=== PATIENT | male | born 1935 | race Caucasian/White ===

== ENCOUNTER → 2016-11-29 | Outpatient (CLI) | payer MEDICARE, OTHER ==
--- NOTE | 2016-11-29 11:57 | US ---
EXAMINATION TYPE: US renal artery duplex completa DATE OF EXAM: 11/29/2016 9:42 AM COMPARISON: NONE CLINICAL HISTORY: I25.10 CAD I10 hypertension. Controlled HTN MEASUREMENTS: RENAL SIZE: Rt Kidney: 11.0 x 5.0 x 4.8cm Lt Kidney: 12.3 x 5.7 x 5.3cm RESISTANCE INDEX Right: 0.70 Left: 0.69 RA/AO RATIO (< 3.5 ) Right: 2.7 Left: 2.6 RA VELOCITY ( < 180 cm/s) Right: 179.3 cm/s Left: 178.5cm/s Proximal Aorta: 2.0 x 1.9cm Mid Aorta: 2.0 x 2.1cm Distal Aorta: 1.9 x 1.9cm Extreme technical limitations due to large amount of overlying bowel content. Bladder appears wnl, bilateral jets visualized. Visualized portions of abdominal aorta appear unremarkable, bifurcation ob scured. Thin renal cortex right kidney. NO evidence of significant renal artery stenosis at this time . Low resistive waveforms noted throughout. Brisk upstroke noted on waveform analysis. There is cortical thinning within the right kidney, cortical medullary differentiation is maintained bilaterally. Grayscale, color Doppler, spectral Doppler imaging performed of the abdominal aorta. IMPRESSION: The technologist reports technical limitations. There is no abdominal aortic aneurysm. Renal artery s tenosis is not evident on Doppler duplex exam.
--- NOTE | 2016-11-29 12:24 | US ---
EXAMINATION TYPE: US abdomen limited DATE OF EXAM: 11/29/2016 9:48 AM COMPARISON: NONE CLINICAL HISTORY: I10 hypertention/I25.10 CAD. Acid reflux EXAM MEASUREMENTS: Liver Length: 16.8 cm Gallbladder Wall: 0.3 cm CBD: 0.5 cm Right Kidney: 11.0 x 5.0 x 4.8 cm Pancreas: obscured by overlying bowel content Liver: heterogeneous Gallbladder: no evidence of stones Evidence for sonographic Davis's sign: No CBD: visualized segment appears wnl Right Kidney: thin renal cortex There is no ascites. No mass present within the visualized portions of the liver. There is no hydrone phrosis within the right kidney. IMPRESSION: Exam somewhat limited. Cortical thinning right kidney. There may be some underlying hepat ocellular disease or fatty infiltration of the liver.
== END | disposition home or self-care (01) ==
LOC: RADUSMAIN 07:52
PROVIDERS: ATTEND Internal Medicine
DX: N28.89 Other specified disorders of kidney and ureter (principal); I25.10 Atherosclerotic heart disease of native coronary artery without angina pectoris; I10 Essential (primary) hypertension; J44.9 Chronic obstructive pulmonary disease, unspecified; E78.5 Hyperlipidemia, unspecified
CPT/HCPCS: 76705; 93975

== ENCOUNTER 2018-04-26 10:30 | Emergency (ER) | payer MEDICARE, OTHER ==
[2018-04-26] MEDS ORDERED: IPRATROPIUM-ALBUTEROL 3 ML NEB INHALATION STA (10:51)
[2018-04-26] MEDS ORDERED: methylPREDNISolone SOD SUCCI 125 MG/2 ML VIAL IV STA (10:51)
--- NOTE | 2018-04-26 10:52 | ED ---
General Adult HPI - General Chief complaint: Shortness of Breath Stated complaint: Congestion Time Seen by Provider: 04/26/18 10:47 Source: patient, family, RN notes reviewed Mode of arrival: ambulatory Limitations: no limitations - History of Present Illness Initial comments: Patient is a pleasant 82-year-old male presenting to the emergency Department with cough and difficulty breathing. Onset of symptoms was last night. No fevers. Cough has been productive however patient has not noticed what color because he swallows the sputum. Cough is been less productive this morning. Patient did not sleep well last night. No chest pain. Patient does have a history of similar symptoms associated with COPD. - Related Data Home Medications Medication Instructions Recorded Confirmed Aspirin EC [Ecotrin] 325 mg PO DAILY 12/12/13 07/14/14 Atenolol [Tenormin] 25 mg PO DAILY 12/12/13 07/14/14 Isosorbide Mononitrate [Monoket] 15 mg PO 12/12/13 07/14/14 Previous Rx's Medication Instructions Recorded Albuterol Inhaler [Ventolin Hfa 1 - 2 puff INHALATION Q6HR PRN #1 07/14/14 Inhaler] inhaler Azithromycin [Zithromax Z-pack] 0 mg PO DIRECTED #6 tab 07/14/14 predniSONE 50 mg PO DAILY #4 tab 07/14/14 Albuterol Inhaler [Ventolin Hfa 2 puff INHALATION Q4HR PRN #1 07/25/15 Inhaler] inhaler Azithromycin [Zithromax Z-pack] 250 mg PO DIRECTED #6 tab 07/25/15 methylPREDNISolone Dose Pack 24 mg PO DAILY #1 tab 04/26/18 [Medrol Dose Pack] Allergies Allergy/AdvReac Type Severity Reaction Status Date / Time No Known Allergies Allergy Verified 07/25/15 00:44 Review of Systems ROS Statement: Those systems with pertinent positive or pertinent negative responses have been documented in the HPI. ROS Other: All systems not noted in ROS Statement are negative. Constitutional: Denies: fever Eyes: Denies: eye pain ENT: Denies: ear pain Respiratory: Reports: cough, dyspnea Cardiovascular: Denies: chest pain Endocrine: Denies: fatigue Gastrointestinal: Denies: abdominal pain Genitourinary: Denies: dysuria Musculoskeletal: Denies: back pain Skin: Denies: rash Neurological: Denies: weakness Past Medical History Past Medical History: COPD, Hyperlipidemia, Myocardial Infarction ([place]), Pneumonia History of Any Multi-Drug Resistant Organisms: None Reported Past Surgical History: Heart Catheterization Additional Past Surgical History / Comment(s): angioplasty after [place], no stents, pilonital cyst removal Past Psychological History: No Psychological Hx Reported Smoking Status: Former smoker Past Alcohol Use History: Occasional Past Drug Use History: None Reported General Exam Limitations: no limitations General appearance: alert, in no apparent distress Head exam: Present: atraumatic Eye exam: Present: normal appearance Neck exam: Present: normal inspection Respiratory exam: Present: decreased breath sounds. Absent: wheezes Cardiovascular Exam: Present: regular rate, normal rhythm GI/Abdominal exam: Present: soft. Absent: tenderness Extremities exam: Present: normal inspection. Absent: pedal edema, calf tenderness Back exam: Present: normal inspection Neurological exam: Present: alert Psychiatric exam: Present: normal affect, normal mood Skin exam: Present: normal color Course Vital Signs 04/26/18 04/26/18 04/26/18 10:37 11:00 11:05 Temperature 97.3 F L Pulse Rate 72 69 Respiratory 24 20 24 Rate Blood Pressure 173/75 O2 Sat by Pulse 93 L Oximetry 04/26/18 11:07 Temperature Pulse Rate 73 Respiratory 22 Rate Blood Pressure O2 Sat by Pulse Oximetry EKG Findings - EKG Comments: EKG Findings:: Normal sinus rhythm 76. MT 162. QRS 126. QT 404. QTC 454. Left axis. Right bundle branch block. No acute ST change. Medical Decision Making - Medical Decision Making Patient reevaluated and resting comfortably in bed. Pulse ox 94% on room air. Patient requests discharge home. Patient and family updated on results and plan. Patient is receptive to steroids however would not be interested in having antibiotics at this time. Patient states they usually do not work well for him. - Lab Data Result diagrams: 04/26/18 11:03 04/26/18 11:03 Lab Results 04/26/18 04/26/18 Range/Units 11:03 11:03 WBC 9.7 (3.8-10.6) k/uL RBC 4.18 L (4.30-5.90) m/uL Hgb 13.6 (13.0-17.5) gm/dL Hct 40.5 (39.0-53.0) % MCV 96.8 (80.0-100.0) fL MCH 32.4 (25.0-35.0) pg MCHC 33.5 (31.0-37.0) g/dL RDW 12.7 (11.5-15.5) % Plt Count 213 (150-450) k/uL Neutrophils % 86 % Lymphocytes % 6 % Monocytes % 6 % Eosinophils % 1 % Basophils % 0 % Neutrophils # 8.3 H (1.3-7.7) k/uL Lymphocytes # 0.5 L (1.0-4.8) k/uL Monocytes # 0.6 (0-1.0) k/uL Eosinophils # 0.1 (0-0.7) k/uL Basophils # 0.0 (0-0.2) k/uL Sodium 137 (137-145) mmol/L Potassium 4.4 (3.5-5.1) mmol/L Chloride 101 (98-107) mmol/L Carbon Dioxide 30 (22-30) mmol/L Anion Gap 6 mmol/L BUN 15 (9-20) mg/dL Creatinine 0.74 (0.66-1.25) mg/dL Est GFR (CKD-EPI)AfAm >90 (>60 ml/min/1.73 sqM) Est GFR (CKD-EPI)NonAf 85 (>60 ml/min/1.73 sqM) Glucose 127 H (74-99) mg/dL Calcium 9.0 (8.4-10.2) mg/dL Total Bilirubin 1.0 (0.2-1.3) mg/dL AST 30 (17-59) U/L ALT 24 (21-72) U/L Alkaline Phosphatase 56 (38-126) U/L Total Protein 6.7 (6.3-8.2) g/dL Albumin 3.9 (3.5-5.0) g/dL - Radiology Data Radiology results: image reviewed (Chest x-ray shows mild cardiomegaly, COPD) Disposition Clinical Impression: Acute exacerbation of chronic obstructive airways disease Disposition: HOME SELF-CARE Condition: Stable Instructions: COPD (Chronic Obstructive Pulmonary Disease) (ED) Additional Instructions: Please follow-up with primary care physician in the next couple of days for recheck. Please follow-up with Dr. Queen on the as planned. Return for difficult to breathing, fevers, worsening symptoms or other concerns. Prescriptions: methylPREDNISolone Dose Pack [Medrol Dose Pack] 24 mg PO DAILY #1 tab Is patient prescribed a controlled substance at d/c from ED?: No Referrals: Dixon Reis MD [Primary Care Provider] - 1-2 days Jonathan Queen MD [STAFF PHYSICIAN] - 1-2 days Time of Disposition: 11:57
[2018-04-26 11:18] LABS: Basophils % (A) 0 %; Eosinophils # (A) 0.1 k/uL (0-0.7); Eosinophils % (A) 1 %; HCT 40.5 % (39.0-53.0); HGB 13.6 gm/dL (13.0-17.5); Lymphocytes # (A) 0.5 k/uL (1.0-4.8); Lymphocytes % (A) 6 %; MCH 32.4 pg (25.0-35.0); MCHC 33.5 g/dL (31.0-37.0); MCV 96.8 fL (80.0-100.0); Mean Platelet Volume 7.6; Monocytes # (A) 0.6 k/uL (0-1.0); Monocytes % (A) 6 %; Neutrophils # (A) 8.3 k/uL (1.3-7.7); Neutrophils % (A) 86 %; Platelet Count 213 k/uL (150-450); RBC 4.18 m/uL (4.30-5.90); RDW 12.7 % (11.5-15.5); WBC 9.7 k/uL (3.8-10.6)
--- NOTE | 2018-04-26 11:30 | XR ---
EXAMINATION TYPE: XR chest 2V DATE OF EXAM: 04/26/2018 HISTORY: difficulty breathing. REFERENCE: Previous study dated 07/14/2014. FINDINGS: The heart is mildly enlarged. The lungs are overinflated but clear. Pleural spaces are benjamín r. IMPRESSION: 1. COPD. 2. MILD CARDIOMEGALY.
[2018-04-26 11:35] LABS: ALT 24 U/L (21-72); AST 30 U/L (17-59); Albumin 3.9 g/dL (3.5-5.0); Alkaline Phosphatase 56 U/L (38-126); Anion Gap 6 mmol/L; Blood Urea Nitrogen 15 mg/dL (9-20); Carbon Dioxide 30 mmol/L (22-30); Chloride 101 mmol/L (98-107); Glucose 127 mg/dL (74-99); Potassium 4.4 mmol/L (3.5-5.1); Sodium 137 mmol/L (137-145); Total Protein 6.7 g/dL (6.3-8.2)
[2018-04-26 12:09] VITALS: BP 179/78; PULSE 89; RESP 18; TEMP 97.1
== END 2018-04-26 12:08 | disposition home or self-care (01) ==
LOC: EC 10:30
DX: J44.1 Chronic obstructive pulmonary disease with (acute) exacerbation (principal); I25.2 Old myocardial infarction; Z79.82 Long term (current) use of aspirin; Z79.899 Other long term (current) drug therapy; Z87.891 Personal history of nicotine dependence
CPT/HCPCS: 36415; 94640; 93005; 80053; 85025; 71046; 99285; 96374; J2930

== ENCOUNTER → 2019-07-13 | Outpatient (CLI) | payer MEDICARE, OTHER ==
--- NOTE | 2019-07-14 06:30 | XR ---
EXAMINATION TYPE: XR chest 2V DATE OF EXAM: 07/13/2019 COMPARISON: Chest x-ray April 26, 2018. CTA chest October 18, 2013 HISTORY: History of heart attack and COPD with cough. TECHNIQUE: Frontal and lateral views of the chest are obtained. FINDINGS: There is background chronic emphysematous change without suspicious new focal air space op acity, pleural effusion, or pneumothorax seen. The cardiac silhouette size is stable and mildly enla rged. Multilevel spurring of thoracic spine is redemonstrated. IMPRESSION: Chronic emphysematous change and mild cardiomegaly without suspicious new acute pulmonar y process.
== END | disposition home or self-care (01) ==
LOC: RADXRMAIN 16:49
PROVIDERS: ATTEND Internal Medicine
DX: I51.7 Cardiomegaly (principal)
CPT/HCPCS: 71046

== ENCOUNTER → 2019-09-17 | Outpatient (CLI) | payer MEDICARE, OTHER ==
--- NOTE | 2019-09-18 11:31 | ECHOF ---
Referral Reason:I10 Hypertension; R60.0 Localized edema, .... MEASUREMENTS -------- HEIGHT: 175.3 cm WEIGHT: 95.3 kg BP: 140/70 RVIDd: 3.3 cm (< 3.3) IVSd: 1.2 cm (0.6 - 1.1) LVIDd: 4.8 cm (3.9 - 5.3) LVPWd: 1.1 cm (0.6 - 1.1) IVSs: 1.6 cm LVIDs: 2.8 cm LVPWs: 1.5 cm LA Diam: 3.4 cm (2.7 - 3.8) LAESV Index (A-L): 24.61 ml/m Ao Diam: 3.7 cm (2.0 - 3.7) AV Cusp: 2.0 cm (1.5 - 2.6) MV EXCURSION: 13.666 mm (> 18.000) MV EF SLOPE: 77 mm/s (70 - 150) EPSS: 0.6 cm MV E Ruddy: 1.31 m/s MV DecT: 208 ms MV A Ruddy: 0.99 m/s MV E/A Ratio: 1.32 AV maxP.30 mmHg AV meanP.08 mmHg RAP: 5.00 mmHg RVSP: 38.78 mmHg FINDINGS -------- Sinus rhythm. This was a technically adequate study. The left ventricular size is normal. There is borderline concentric left ventricular hypertrophy. Overall left ventricular systolic function is normal with, an EF between 60 - 65 %. The right ventricle is mildly enlarged. Normal LA size by volume 22+/-6 ml/m2. The right atrium is normal in size. Interatrial and interventricular septum intact. The aortic valve was not well visualized. Mild mitral annular calcification present. Mild tricuspid regurgitation present. There is mild pulmonary hypertension. The right ventricular systolic pressure, as measured by Doppler, is 38.78mmHg. The pulmonic valve was not well visualized. The aortic root size is normal. Normal inferior vena cava with normal inspiratory collapse consistent with estimated right atrial pre ssure of 5 mmHg. The inferior vena cava is mildly dilated. There is no pericardial effusion. CONCLUSIONS -------- 1. Sinus rhythm. 2. This was a technically adequate study. 3. The left ventricular size is normal. 4. There is borderline concentric left ventricular hypertrophy. 5. Overall left ventricular systolic function is normal with, an EF between 60 - 65 %. 6. The right ventricle is mildly enlarged. 7. Normal LA size by volume 22+/-6 ml/m2. 8. The right atrium is normal in size. 9. Interatrial and interventricular septum intact. 10. The aortic valve was not well visualized. 11. Mild mitral annular calcification present. 12. Mild tricuspid regurgitation present. 13. There is mild pulmonary hypertension. 14. The right ventricular systolic pressure, as measured by Doppler, is 38.78mmHg. 15. The pulmonic valve was not well visualized. 16. The aortic root size is normal. 17. Normal inferior vena cava with normal inspiratory collapse consistent with estimated right atrial pressure of 5 mmHg. 18. The inferior vena cava is mildly dilated. 19. There is no pericardial effusion. BANDSAW OPERATOR: Sofia Welch RDCS
== END | disposition home or self-care (01) ==
LOC: RADECHMAIN 16:12
PROVIDERS: ATTEND Internal Medicine
DX: I27.20 Pulmonary hypertension, unspecified (principal); I07.1 Rheumatic tricuspid insufficiency; I87.8 Other specified disorders of veins; I10 Essential (primary) hypertension
CPT/HCPCS: 93306

== ENCOUNTER 2020-11-26 18:02 | Emergency (ER) | payer MEDICARE, OTHER ==
[2020-11-26 19:02] LABS: Basophils % (A) 0 %; Eosinophils # (A) 0.2 k/uL (0-0.7); Eosinophils % (A) 2 %; HCT 46.5 % (39.0-53.0); HGB 15.2 gm/dL (13.0-17.5); Lymphocytes # (A) 0.7 k/uL (1.0-4.8); Lymphocytes % (A) 5 %; MCH 32.7 pg (25.0-35.0); MCHC 32.7 g/dL (31.0-37.0); MCV 99.8 fL (80.0-100.0); Monocytes # (A) 0.8 k/uL (0-1.0); Monocytes % (A) 6 %; Neutrophils % (A) 86 %; Platelet Count 240 k/uL (150-450); RBC 4.66 m/uL (4.30-5.90); RDW 13.2 % (11.5-15.5); WBC 12.9 k/uL (3.8-10.6)
[2020-11-26 19:13] LABS: Albumin 4.3 g/dL (3.5-5.0); Calcium 9.2 mg/dL (8.4-10.2); Potassium 4.2 mmol/L (3.5-5.1); Total Bilirubin 2.2 mg/dL (0.2-1.3); Total Protein 7.4 g/dL (6.3-8.2)
[2020-11-26 19:14] LABS: INR 1.1 (<1.2); Partial Thromboplastin Time 24.4 sec (22.0-30.0); Prothrombin Time 11.8 sec (9.0-12.0)
--- NOTE | 2020-11-26 19:18 | XR ---
EXAMINATION TYPE: XR chest 1V portable DATE OF EXAM: 11/26/2020 COMPARISON: 07/13/2019 HISTORY: Cough. Short of breath. TECHNIQUE: FINDINGS: There is slight coarsening of interstitial markings. There is no heart failure. Heart size is normal. There is no pleural effusion. There are no hilar masses. IMPRESSION: Pulmonary fibrotic changes. No acute lung disease. No change. No heart failure.
[2020-11-26] MEDS ORDERED: methylPREDNISolone SOD SUCCI 125 MG/2 ML VIAL IV STA (20:46)
--- NOTE | 2020-11-26 20:53 | ED ---
SOB HPI - General Chief Complaint: Shortness of Breath Stated Complaint: SOB/weak Source: patient Mode of arrival: ambulatory Limitations: no limitations - History of Present Illness Initial Comments: Patient is an 84-year-old male with past history of COPD who presents emergency Department with reported shortness of breath. Patient states he's had symptoms since Saturday. He was around his [id number] who has had signs of "cold". Patient developed a mild cough with chills. Has had continued shortness of breath and therefore came into the emergency room for evaluation. He has a history of COPD however does not wear home oxygen. He sees Dr. Queen. States that he normally comes of the hospital and gets a DuoNeb breathing treatment and feels better. Patient currently takes Anoro inhaler at home but does not use rescue inhaler. No recent steroid use. He denies any chest pain. Patient has chronic lower extremity edema however reports that none of the s welling is worse. No history of DVT or PE. No other alleviating, precipitating or modifying factors - Related Data Home Medications Medication Instructions Recorded Confirmed Aspirin EC [Ecotrin] 325 mg PO DAILY 12/12/13 11/26/20 atenoloL [Tenormin] 25 mg PO DAILY PRN 12/12/13 11/26/20 Furosemide [Lasix] 20 mg PO DAILY 11/26/20 11/26/20 Isosorbide Mononitrate ER [Imdur] 15 mg PO DAILY 11/26/20 11/26/20 Latanoprost/Pf [Latanoprost 0.005% 1 drop BOTH EYES HS 11/26/20 11/26/20 Eye Drop] Simvastatin [Zocor] 20 mg PO W/SUPPER 11/26/20 11/26/20 Tamsulosin [Flomax] 0.4 mg PO PC-SUPPER 11/26/20 11/26/20 Umeclidinium Brm/Vilanterol Tr 1 puff INHALATION RT-DAILY 11/26/20 11/26/20 [Anoro Ellipta 62.5-25 Mcg INH] Previous Rx's Medication Instructions Recorded Albuterol Nebulized [Ventolin 2.5 mg INHALATION Q4H PRN #25 nebu 11/26/20 Nebulized] Ipratropium Nebulized [Atrovent 0.5 mg INHALATION Q4HR #25 neb 11/26/20 Nebulized 0.2 MG/ML] predniSONE [Deltasone] 20 mg PO BID #10 tab 11/26/20 Allergies Allergy/AdvReac Type Severity Reaction Status Date / Time No Known Allergies Allergy Verified 11/26/20 20:09 Review of Systems ROS Statement: Those systems with pertinent positive or pertinent negative responses have been documented in the HPI. ROS Other: All systems not noted in ROS Statement are negative. Past Medical History Past Medical History: COPD, Hyperlipidemia, Myocardial Infarction ([place]), Pneumonia History of Any Multi-Drug Resistant Organisms: None Reported Past Surgical History: Heart Catheterization Additional Past Surgical History / Comment(s): angioplasty after [place], no stents, pilonital cyst removal, Past Psychological History: No Psychological Hx Reported Smoking Status: Former smoker Past Alcohol Use History: Occasional Past Drug Use History: None Reported General Exam Limitations: no limitations Course Vital Signs 11/26/20 11/26/20 11/26/20 18:16 18:38 20:28 Temperature 99.8 F H Pulse Rate 85 82 Respiratory 18 18 16 Rate Blood Pressure 140/66 140/65 O2 Sat by Pulse 93 L 95 Oximetry 11/26/20 21:39 Temperature Pulse Rate 84 Respiratory 18 Rate Blood Pressure 125/65 O2 Sat by Pulse 92 L Oximetry Medical Decision Making - Medical Decision Making Upon arrival the patient was placed in room 7. A thorough history and physical exam was performed. IV is established. Laboratory studies were conducted. Patient maintained saturations above 92%. He does not have any increased work of breathing. Lab studies are reviewed and demonstrates that the patient is positive for covid. Chest x-ray demonstrates a very fibrotic changes. Due to his history of COPD the patient is given 125 mg of Solu-Medrol. Did discuss BAM antibody infusion for which the patient did agree to. Patient is instructed that he will begin steroids tomorrow. Patient will be discharged home on prednisone 20 mg twice daily. Also wrote patient for a nebulizer. Ipratropium and albuterol ordered. He needs to follow up with his primary care doctor in 2- 4 days. Instructed him to buy a pulse ox and return if his oxygen saturations are less than 90%. Patient did agree to this. Given written and verbal discharge instructions and discharged home in stable condition - Lab Data Result diagrams: 11/26/20 18:41 11/26/20 18:41 Lab Results 11/26/20 11/26/20 11/26/20 Range/Units 18:41 18:41 18:41 WBC 12.9 H (3.8-10.6) k/uL RBC 4.66 (4.30-5.90) m/uL Hgb 15.2 (13.0-17.5) gm/dL Hct 46.5 (39.0-53.0) % MCV 99.8 (80.0-100.0) fL MCH 32.7 (25.0-35.0) pg MCHC 32.7 (31.0-37.0) g/dL RDW 13.2 (11.5-15.5) % Plt Count 240 (150-450) k/uL MPV 8.0 Neutrophils % 86 % Lymphocytes % 5 % Monocytes % 6 % Eosinophils % 2 % Basophils % 0 % Neutrophils # 11.0 H (1.3-7.7) k/uL Lymphocytes # 0.7 L (1.0-4.8) k/uL Monocytes # 0.8 (0-1.0) k/uL Eosinophils # 0.2 (0-0.7) k/uL Basophils # 0.0 (0-0.2) k/uL PT 11.8 (9.0-12.0) sec INR 1.1 (<1.2) APTT 24.4 (22.0-30.0) sec Sodium 135 L (137-145) mmol/L Potassium 4.2 (3.5-5.1) mmol/L Chloride 96 L (98-107) mmol/L Carbon Dioxide 30 (22-30) mmol/L Anion Gap 9 mmol/L BUN 22 H (9-20) mg/dL Creatinine 0.98 (0.66-1.25) mg/dL Est GFR (CKD-EPI)AfAm 82 (>60 ml/min/1.73 sqM) Est GFR (CKD-EPI)NonAf 71 (>60 ml/min/1.73 sqM) Glucose 119 H (74-99) mg/dL Plasma Lactic Acid Kael (0.7-2.0) mmol/L Calcium 9.2 (8.4-10.2) mg/dL Total Bilirubin 2.2 H (0.2-1.3) mg/dL AST 38 (17-59) U/L ALT 22 (4-49) U/L Alkaline Phosphatase 107 (38-126) U/L Troponin I (0.000-0.034) ng/mL NT-Pro-B Natriuret Pep pg/mL Total Protein 7.4 (6.3-8.2) g/dL Albumin 4.3 (3.5-5.0) g/dL Influenza Type A (PCR) (Not Detectd) Influenza Type B (PCR) (Not Detectd) RSV (PCR) (Not Detectd) SARS-CoV-2 (PCR) (Not Detectd) 11/26/20 11/26/20 11/26/20 Range/Units 18:41 18:41 18:41 WBC (3.8-10.6) k/uL RBC (4.30-5.90) m/uL Hgb (13.0-17.5) gm/dL Hct (39.0-53.0) % MCV (80.0-100.0) fL MCH (25.0-35.0) pg MCHC (31.0-37.0) g/dL RDW (11.5-15.5) % Plt Count (150-450) k/uL MPV Neutrophils % % Lymphocytes % % Monocytes % % Eosinophils % % Basophils % % Neutrophils # (1.3-7.7) k/uL Lymphocytes # (1.0-4.8) k/uL Monocytes # (0-1.0) k/uL Eosinophils # (0-0.7) k/uL Basophils # (0-0.2) k/uL PT (9.0-12.0) sec INR (<1.2) APTT (22.0-30.0) sec Sodium (137-145) mmol/L Potassium (3.5-5.1) mmol/L Chloride (98-107) mmol/L Carbon Dioxide (22-30) mmol/L Anion Gap mmol/L BUN (9-20) mg/dL Creatinine (0.66-1.25) mg/dL Est GFR (CKD-EPI)AfAm (>60 ml/min/1.73 sqM) Est GFR (CKD-EPI)NonAf (>60 ml/min/1.73 sqM) Glucose (74-99) mg/dL Plasma Lactic Acid Kael 0.9 (0.7-2.0) mmol/L Calcium (8.4-10.2) mg/dL Total Bilirubin (0.2-1.3) mg/dL AST (17-59) U/L ALT (4-49) U/L Alkaline Phosphatase (38-126) U/L Troponin I <0.012 (0.000-0.034) ng/mL NT-Pro-B Natriuret Pep 958 pg/mL Total Protein (6.3-8.2) g/dL Albumin (3.5-5.0) g/dL Influenza Type A (PCR) (Not Detectd) Influenza Type B (PCR) (Not Detectd) RSV (PCR) (Not Detectd) SARS-CoV-2 (PCR) (Not Detectd) 11/26/20 Range/Units 18:41 WBC (3.8-10.6) k/uL RBC (4.30-5.90) m/uL Hgb (13.0-17.5) gm/dL Hct (39.0-53.0) % MCV (80.0-100.0) fL MCH (25.0-35.0) pg MCHC (31.0-37.0) g/dL RDW (11.5-15.5) % Plt Count (150-450) k/uL MPV Neutrophils % % Lymphocytes % % Monocytes % % Eosinophils % % Basophils % % Neutrophils # (1.3-7.7) k/uL Lymphocytes # (1.0-4.8) k/uL Monocytes # (0-1.0) k/uL Eosinophils # (0-0.7) k/uL Basophils # (0-0.2) k/uL PT (9.0-12.0) sec INR (<1.2) APTT (22.0-30.0) sec Sodium (137-145) mmol/L Potassium (3.5-5.1) mmol/L Chloride (98-107) mmol/L Carbon Dioxide (22-30) mmol/L Anion Gap mmol/L BUN (9-20) mg/dL Creatinine (0.66-1.25) mg/dL Est GFR (CKD-EPI)AfAm (>60 ml/min/1.73 sqM) Est GFR (CKD-EPI)NonAf (>60 ml/min/1.73 sqM) Glucose (74-99) mg/dL Plasma Lactic Acid Kael (0.7-2.0) mmol/L Calcium (8.4-10.2) mg/dL Total Bilirubin (0.2-1.3) mg/dL AST (17-59) U/L ALT (4-49) U/L Alkaline Phosphatase (38-126) U/L Troponin I (0.000-0.034) ng/mL NT-Pro-B Natriuret Pep pg/mL Total Protein (6.3-8.2) g/dL Albumin (3.5-5.0) g/dL Influenza Type A (PCR) Not Detected (Not Detectd) Influenza Type B (PCR) Not Detected (Not Detectd) RSV (PCR) Not Detected (Not Detectd) SARS-CoV-2 (PCR) Detected A (Not Detectd) - EKG Data EKG Comments: EKG demonstrates sinus rhythm with PACs. Rate of 83. [place] interval 200. QRS 128. QTC of 427. 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 Disposition Clinical Impression: Acute exacerbation of COPD with asthma, COVID-19 Disposition: HOME SELF-CARE Condition: Stable Instructions (If sedation given, give patient instructions): Coronavirus Disease 2019 (COVID-19) Additional Instructions: Please follow up with your PCP in 2-4 days. Return to the ED for any new or worsening symptoms. Use the nebulizer every 4 hours. Take the prednisone as directed. Return if your pulse ox is less than 90% or you are working hard to breathe Prescriptions: Ipratropium Nebulized [Atrovent Nebulized 0.2 MG/ML] 0.5 mg INHALATION Q4HR #25 neb predniSONE [Deltasone] 20 mg PO BID #10 tab Albuterol Nebulized [Ventolin Nebulized] 2.5 mg INHALATION Q4H PRN #25 nebu PRN Reason: difficulty in breathing Is patient prescribed a controlled substance at d/c from ED?: No Referrals: Matteo Chase MD [Primary Care Provider] - 1-2 days Time of Disposition: 20:53
[2020-11-26] MEDS ORDERED: BAMLANIVIMAB (EUA) 700 MG, ETESEVIMAB (EUA) 1,400 MG in SODIUM CHLORIDE 0.9% 50 ML IVPB ONE (21:30)
[2020-11-26] MEDS ORDERED: SODIUM CHLORIDE 0.9% 50 ML IVPB ONE (21:30)
[2020-11-26 23:05] VITALS: BP 140/74; PULSE 82; RESP 16; TEMP 100
== END 2020-11-26 23:17 | disposition home or self-care (01) ==
LOC: EC 18:02
DX: U07.1 COVID-19 (principal); J44.1 Chronic obstructive pulmonary disease with (acute) exacerbation; E78.5 Hyperlipidemia, unspecified; I25.2 Old myocardial infarction; Z95.5 Presence of coronary angioplasty implant and graft; Z87.891 Personal history of nicotine dependence; Z79.82 Long term (current) use of aspirin
CPT/HCPCS: 36415; 93005; 83880; 80053; 83605; 84484; 85025; 85610; 85730; 87636; 71045; 99285; 96365; 96375; J2930; Q0245

== ENCOUNTER 2020-12-04 00:29 | Emergency (ER) | payer MEDICARE, OTHER ==
[2020-12-04 00:50] VITALS: BP 149/80; PULSE 72; RESP 19; TEMP 98
--- NOTE | 2020-12-04 01:56 | ED ---
Male Urogenital HPI - General Chief complaint: Urogenital Stated complaint: Difficulty urinating Time Seen by Provider: 12/04/20 00:40 Source: patient Mode of arrival: ambulatory - History of Present Illness Initial comments: This patient is an 84-year-old man who presents with complaint that he has not been able to pass urine for number of hours and now is having intense suprapubic fullness and pressure with the urge to urinate. Complaint: other (Urinary retention) -: hour(s) Location: abdomen Radiation: none Severity: moderate Quality: other (Pressure) Consistency: constant Improves with: none Worsens with: none Reports: urinary retention - Related Data Home Medications Medication Instructions Recorded Confirmed Aspirin EC [Ecotrin] 325 mg PO DAILY 12/12/13 11/26/20 atenoloL [Tenormin] 25 mg PO DAILY PRN 12/12/13 11/26/20 Furosemide [Lasix] 20 mg PO DAILY 11/26/20 11/26/20 Isosorbide Mononitrate ER [Imdur] 15 mg PO DAILY 11/26/20 11/26/20 Latanoprost/Pf [Latanoprost 0.005% 1 drop BOTH EYES HS 11/26/20 11/26/20 Eye Drop] Simvastatin [Zocor] 20 mg PO W/SUPPER 11/26/20 11/26/20 Tamsulosin [Flomax] 0.4 mg PO PC-SUPPER 11/26/20 11/26/20 Umeclidinium Brm/Vilanterol Tr 1 puff INHALATION RT-DAILY 11/26/20 11/26/20 [Anoro Ellipta 62.5-25 Mcg INH] Previous Rx's Medication Instructions Recorded Albuterol Nebulized [Ventolin 2.5 mg INHALATION Q4H PRN #25 nebu 11/26/20 Nebulized] Ipratropium Nebulized [Atrovent 0.5 mg INHALATION Q4HR #25 neb 11/26/20 Nebulized 0.2 MG/ML] predniSONE [Deltasone] 20 mg PO BID #10 tab 11/26/20 Allergies Allergy/AdvReac Type Severity Reaction Status Date / Time No Known Allergies Allergy Verified 12/04/20 00:49 Review of Systems ROS Statement: Those systems with pertinent positive or pertinent negative responses have been documented in the HPI. ROS Other: All systems not noted in ROS Statement are negative. Constitutional: Denies: fever, chills Respiratory: Denies: cough, dyspnea Cardiovascular: Denies: chest pain, edema Gastrointestinal: Reports: as per HPI, abdominal pain. Denies: nausea, vomiting, diarrhea Genitourinary: Denies: dysuria, frequency, hematuria, discharge, testicular pain, testicular mass Musculoskeletal: Denies: back pain Skin: Denies: rash Past Medical History Past Medical History: COPD, Hyperlipidemia, Myocardial Infarction ([place]), Pneumonia History of Any Multi-Drug Resistant Organisms: None Reported Past Surgical History: Heart Catheterization Additional Past Surgical History / Comment(s): angioplasty after [place], no stents, pilonital cyst removal, Past Psychological History: No Psychological Hx Reported Smoking Status: Former smoker Past Alcohol Use History: Occasional Past Drug Use History: None Reported General Exam General appearance: alert, in no apparent distress Head exam: Present: atraumatic, normocephalic Eye exam: Present: normal appearance Respiratory exam: Present: normal lung sounds bilaterally. Absent: respiratory distress, wheezes, rales, rhonchi, stridor Cardiovascular Exam: Present: regular rate, normal rhythm, normal heart sounds. Absent: systolic murmur, diastolic murmur, rubs, gallop GI/Abdominal exam: Present: soft, tenderness, guarding, other. Absent: distended, rebound, rigid Extremities exam: Present: normal inspection. Absent: pedal edema Back exam: Absent: CVA tenderness (R), CVA tenderness (L) Neurological exam: Present: alert Skin exam: Present: warm, dry, intact, normal color. Absent: rash Course Vital Signs 12/04/20 00:47 Temperature 98 F Pulse Rate 72 Respiratory 19 Rate Blood Pressure 149/80 O2 Sat by Pulse 95 Oximetry Medical Decision Making - Medical Decision Making Patient is a 4-year-old man presenting with urinary retention. Starks catheters placed by nursing staff and patient did have relief of symptoms. Disposition Clinical Impression: Urinary retention Disposition: HOME SELF-CARE Condition: Good Instructions (If sedation given, give patient instructions): Urinary Retention in Men (ED) Is patient prescribed a controlled substance at d/c from ED?: No Referrals: Matteo Chase MD [Primary Care Provider] - 1-2 days Navi Valenzuela MD [STAFF PHYSICIAN] - 1-2 days
== END 2020-12-04 02:00 | disposition home or self-care (01) ==
LOC: EC 00:29
DX: R33.9 Retention of urine, unspecified (principal); R10.9 Unspecified abdominal pain; J44.9 Chronic obstructive pulmonary disease, unspecified; E78.5 Hyperlipidemia, unspecified; I25.2 Old myocardial infarction; Z87.891 Personal history of nicotine dependence; Z79.52 Long term (current) use of systemic steroids; Z79.51 Long term (current) use of inhaled steroids; Z79.82 Long term (current) use of aspirin
CPT/HCPCS: 51702; 51798; 99283

== ENCOUNTER 2021-02-11 11:52 | Inpatient (IN) | payer MEDICARE, OTHER ==
[2021-02-11 12:38] LABS: Basophils % (A) 0 %; Eosinophils # (A) 0.3 k/uL (0-0.7); Eosinophils % (A) 2 %; HGB 14.2 gm/dL (13.0-17.5); Lymphocytes # (A) 1.5 k/uL (1.0-4.8); Lymphocytes % (A) 14 %; MCH 33.4 pg (25.0-35.0); MCHC 33.8 g/dL (31.0-37.0); MCV 98.9 fL (80.0-100.0); Mean Platelet Volume 8.3; Monocytes # (A) 0.6 k/uL (0-1.0); Monocytes % (A) 5 %; Neutrophils # (A) 8.1 k/uL (1.3-7.7); Neutrophils % (A) 75 %; Platelet Count 281 k/uL (150-450); RBC 4.24 m/uL (4.30-5.90); RDW 13.2 % (11.5-15.5); WBC 10.8 k/uL (3.8-10.6)
--- NOTE | 2021-02-11 12:41 | ED ---
SOB HPI - General Chief Complaint: Shortness of Breath Stated Complaint: SOB Time Seen by Provider: 02/11/21 11:58 Source: patient, RN notes reviewed, old records reviewed Mode of arrival: wheelchair Limitations: no limitations - History of Present Illness Initial Comments: This is a 85-year-old male with a history of COPD also history of heart disease with a cardiac cath in the past but no stents who presents with complaints of shortness of breath is been going on for about a week or so he also states she's has some sharp pain to the left and right side of his chest some radiation of the right side of his neck. Currently he is asymptomatic no pain or shortness of breath at rest. He's had some phlegm no blood produced. No fevers chills nausea vomiting sweats. MD Complaint: shortness of breath, cough - Related Data Home Medications Medication Instructions Recorded Confirmed Aspirin EC [Ecotrin] 325 mg PO DAILY 12/12/13 11/26/20 atenoloL [Tenormin] 25 mg PO DAILY PRN 12/12/13 11/26/20 Furosemide [Lasix] 20 mg PO DAILY 11/26/20 11/26/20 Isosorbide Mononitrate ER [Imdur] 15 mg PO DAILY 11/26/20 11/26/20 Latanoprost/Pf [Latanoprost 0.005% 1 drop BOTH EYES HS 11/26/20 11/26/20 Eye Drop] Simvastatin [Zocor] 20 mg PO W/SUPPER 11/26/20 11/26/20 Tamsulosin [Flomax] 0.4 mg PO PC-SUPPER 11/26/20 11/26/20 Umeclidinium Brm/Vilanterol Tr 1 puff INHALATION RT-DAILY 11/26/20 11/26/20 [Anoro Ellipta 62.5-25 Mcg INH] Previous Rx's Medication Instructions Recorded Albuterol Nebulized [Ventolin 2.5 mg INHALATION Q4H PRN #25 nebu 11/26/20 Nebulized] Ipratropium Nebulized [Atrovent 0.5 mg INHALATION Q4HR #25 neb 11/26/20 Nebulized 0.2 MG/ML] predniSONE [Deltasone] 20 mg PO BID #10 tab 11/26/20 Allergies Allergy/AdvReac Type Severity Reaction Status Date / Time No Known Allergies Allergy Verified 02/11/21 11:57 Review of Systems ROS Statement: Those systems with pertinent positive or pertinent negative responses have been documented in the HPI. ROS Other: All systems not noted in ROS Statement are negative. Past Medical History Past Medical History: COPD, Hyperlipidemia, Myocardial Infarction ([place]), Pneumonia History of Any Multi-Drug Resistant Organisms: None Reported Past Surgical History: Heart Catheterization Additional Past Surgical History / Comment(s): angioplasty after [place], no stents, pilonital cyst removal, Past Psychological History: No Psychological Hx Reported Smoking Status: Former smoker Past Alcohol Use History: Daily Past Drug Use History: None Reported General Exam - General Exam Comments Initial Comments: This is a well-developed well-nourished awake alert oriented times female he is somewhat hard of hearing Limitations: no limitations General appearance: alert, in no apparent distress Head exam: Present: atraumatic, normocephalic, normal inspection Eye exam: Present: normal appearance, PERRL, EOMI. Absent: scleral icterus, conjunctival injection, periorbital swelling ENT exam: Present: normal exam, mucous membranes moist Neck exam: Present: normal inspection, full ROM, other (No stridor JVD or bruits). Absent: tenderness, meningismus, lymphadenopathy Respiratory exam: Present: decreased breath sounds (Ms. breath sounds on the left compared to the right). Absent: respiratory distress, wheezes, rales, rhon chi, stridor Cardiovascular Exam: Present: regular rate, normal rhythm, normal heart sounds. Absent: systolic murmur, diastolic murmur, rubs, gallop, clicks GI/Abdominal exam: Present: soft, normal bowel sounds. Absent: distended, tenderness, guarding, rebound, rigid Extremities exam: Present: normal inspection, full ROM, normal capillary refill. Absent: tenderness, pedal edema, joint swelling, calf tenderness Back exam: Present: normal inspection Neurological exam: Present: alert, oriented X3, CN II-XII intact Psychiatric exam: Present: normal affect, normal mood Skin exam: Present: warm, dry, intact, normal color. Absent: rash Course Vital Signs 02/11/21 02/11/21 02/11/21 11:53 12:24 14:28 Temperature 98.0 F Pulse Rate 82 86 Respiratory 16 18 18 Rate Blood Pressure 151/77 135/84 O2 Sat by Pulse 94 L 97 Oximetry Medical Decision Making - Medical Decision Making I did discuss findings with the patient family members patient's had no further chest pain. Patient does have evidence of pneumonia and left pleural effusion patient be admitted the case was discussed with Dr. Villa - Lab Data Result diagrams: 02/11/21 12:18 02/11/21 12:18 Lab Results 02/11/21 02/11/21 02/11/21 Range/Units 12:18 12:18 12:18 WBC 10.8 H (3.8-10.6) k/uL RBC 4.24 L (4.30-5.90) m/uL Hgb 14.2 (13.0-17.5) gm/dL Hct 42.0 (39.0-53.0) % MCV 98.9 (80.0-100.0) fL MCH 33.4 (25.0-35.0) pg MCHC 33.8 (31.0-37.0) g/dL RDW 13.2 (11.5-15.5) % Plt Count 281 (150-450) k/uL MPV 8.3 Neutrophils % 75 % Lymphocytes % 14 % Monocytes % 5 % Eosinophils % 2 % Basophils % 0 % Neutrophils # 8.1 H (1.3-7.7) k/uL Lymphocytes # 1.5 (1.0-4.8) k/uL Monocytes # 0.6 (0-1.0) k/uL Eosinophils # 0.3 (0-0.7) k/uL Basophils # 0.0 (0-0.2) k/uL Manual Slide Review Performed PT 11.6 (9.0-12.0) sec INR 1.1 (<1.2) APTT 23.6 (22.0-30.0) sec D-Dimer 1.46 H (<0.60) mg/L FEU Sodium 135 L (137-145) mmol/L Potassium 4.0 (3.5-5.1) mmol/L Chloride 100 (98-107) mmol/L Carbon Dioxide 28 (22-30) mmol/L Anion Gap 7 mmol/L BUN 15 (9-20) mg/dL Creatinine 0.77 (0.66-1.25) mg/dL Est GFR (CKD-EPI)AfAm >90 (>60 ml/min/1.73 sqM) Est GFR (CKD-EPI)NonAf 82 (>60 ml/min/1.73 sqM) Glucose 99 (74-99) mg/dL Plasma Lactic Acid Kael (0.7-2.0) mmol/L Calcium 9.1 (8.4-10.2) mg/dL Magnesium 2.0 (1.6-2.3) mg/dL Total Bilirubin 1.1 (0.2-1.3) mg/dL AST 33 (17-59) U/L ALT 14 (4-49) U/L Alkaline Phosphatase 92 (38-126) U/L Creatine Kinase 75 (55-170) U/L Troponin I (0.000-0.034) ng/mL NT-Pro-B Natriuret Pep pg/mL Total Protein 6.6 (6.3-8.2) g/dL Albumin 3.8 (3.5-5.0) g/dL 02/11/21 02/11/21 02/11/21 Range/Units 12:18 12:18 12:20 WBC (3.8-10.6) k/uL RBC (4.30-5.90) m/uL Hgb (13.0-17.5) gm/dL Hct (39.0-53.0) % MCV (80.0-100.0) fL MCH (25.0-35.0) pg MCHC (31.0-37.0) g/dL RDW (11.5-15.5) % Plt Count (150-450) k/uL MPV Neutrophils % % Lymphocytes % % Monocytes % % Eosinophils % % Basophils % % Neutrophils # (1.3-7.7) k/uL Lymphocytes # (1.0-4.8) k/uL Monocytes # (0-1.0) k/uL Eosinophils # (0-0.7) k/uL Basophils # (0-0.2) k/uL Manual Slide Review PT (9.0-12.0) sec INR (<1.2) APTT (22.0-30.0) sec D-Dimer (<0.60) mg/L FEU Sodium (137-145) mmol/L Potassium (3.5-5.1) mmol/L Chloride (98-107) mmol/L Carbon Dioxide (22-30) mmol/L Anion Gap mmol/L BUN (9-20) mg/dL Creatinine (0.66-1.25) mg/dL Est GFR (CKD-EPI)AfAm (>60 ml/min/1.73 sqM) Est GFR (CKD-EPI)NonAf (>60 ml/min/1.73 sqM) Glucose (74-99) mg/dL Plasma Lactic Acid Kael 1.0 (0.7-2.0) mmol/L Calcium (8.4-10.2) mg/dL Magnesium (1.6-2.3) mg/dL Total Bilirubin (0.2-1.3) mg/dL AST (17-59) U/L ALT (4-49) U/L Alkaline Phosphatase (38-126) U/L Creatine Kinase (55-170) U/L Troponin I <0.012 (0.000-0.034) ng/mL NT-Pro-B Natriuret Pep 415 pg/mL Total Protein (6.3-8.2) g/dL Albumin (3.5-5.0) g/dL - EKG Data -: EKG Interpreted by Me EKG shows normal: sinus rhythm EKG Comments: Sinus rhythm with marked sinus arrhythmia rate 81. 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 Reasonably report), image reviewed Disposition Clinical Impression: Pneumonia, COPD (chronic obstructive pulmonary disease), Pleural effusion, Atypical chest pain Disposition: ADMITTED IP TO THIS HOSP Condition: Fair Referrals: Matteo Chase MD [Primary Care Provider] - 1-2 days
[2021-02-11 12:42] LABS: ALT 14 U/L (4-49); AST 33 U/L (17-59); African American GFR (CKD) >90 (>60 ml/min/1.73 sqM); Albumin 3.8 g/dL (3.5-5.0); Alkaline Phosphatase 92 U/L (38-126); Anion Gap 7 mmol/L; Blood Urea Nitrogen 15 mg/dL (9-20); Calcium 9.1 mg/dL (8.4-10.2); Carbon Dioxide 28 mmol/L (22-30); Chloride 100 mmol/L (98-107); Creatine Kinase 75 U/L (55-170); Glucose 99 mg/dL (74-99); Non-African American GFR(CKD) 82 (>60 ml/min/1.73 sqM); Sodium 135 mmol/L (137-145); Total Bilirubin 1.1 mg/dL (0.2-1.3); Total Protein 6.6 g/dL (6.3-8.2)
[2021-02-11 12:43] LABS: INR 1.1 (<1.2); Partial Thromboplastin Time 23.6 sec (22.0-30.0); Prothrombin Time 11.6 sec (9.0-12.0)
--- NOTE | 2021-02-11 13:02 | XR ---
EXAMINATION TYPE: XR chest 2V DATE OF EXAM: 02/11/2021 COMPARISON: 11/26/2020 HISTORY: Shortness of breath TECHNIQUE: Frontal and lateral views of the chest are obtained. FINDINGS: Scattered senescent parenchymal changes noted. Hyperinflation compatible with COPD. No evidence for infiltrate. No evidence for atelectasis. Heart size is stable. Mediastinal structures are stable and grossly unremarkable. No evidence for hilar prominence. Degenerative changes dorsal spine. IMPRESSION: 1. No evidence for acute pulmonary disease.
--- NOTE | 2021-02-11 14:20 | CT ---
EXAMINATION TYPE: CT angio chest DATE OF EXAM: 02/11/2021 COMPARISON: 10/18/2013 HISTORY: SOB, chest pain CT DLP: 443.8 mGycm Automated exposure control for dose reduction was used. CONTRAST: Performed with IV Contrast, patient injected with 100 mL of Isovue 370. There are 3-D post processed images. There is some mild pulmonary emphysema. There is left pleural effusion. There is left basilar atelect asis. Heart size is normal. There is no pericardial effusion. There is no mediastinal adenopathy. There are no hilar masses. There is normal contrast opacification of the pulmonary arteries. There are no filling defects. There is some spurring in the thoracic spin e. Sternum is intact. IMPRESSION: Mild pulmonary emphysema. No evidence of pulmonary embolism. Left pleural effusion and left basilar mild infiltrate and atelectasis.
[2021-02-11] MEDS ORDERED: AZITHROMYCIN 500 MG in SODIUM CHLORIDE 0.9% 250 ML IVPB STA (15:13)
[2021-02-11] MEDS ORDERED: PNEUMONIA PROTOCOL UTILIZED 1 EACH MISC PO PRN (15:13)
[2021-02-11] MEDS ORDERED: SODIUM CHLORIDE 0.9% 1,000 ML IV SCH (15:15)
[2021-02-11] MEDS ORDERED: atenoloL 25 MG TAB PO PRN (15:15)
[2021-02-11] MEDS ORDERED: NALOXONE 0.4 MG/ML 1 ML VIAL IV PRN (15:45)
[2021-02-11] MEDS ORDERED: ACETAMINOPHEN TAB 325 MG TAB PO PRN (15:45)
--- NOTE | 2021-02-11 16:02 | P.HPIM ---
History of Present Illness H&P Date: 02/11/21 Chief Complaint: sob 85-year-old male with a history of COPD, hx of [place] many years ago treated with angioplasty here for worsening shortness of breath, left sided pleuritic chest pain and weakness/fatigue. Chest pain radiates to the left side of the back and it is worse with breathing and coughing. Denied sick contacts. Symptoms have been going on for about a week or so but got really worse since yesterday. No fevers. No chills. No n/v/d. He states that his O2 sats at home were in the upper 80s. He usually does not wear home O2. He has chronic cough with phlegm, no recent changes. CT chest done in the ER revealed no PE, it also showed left pleural effusion with left basilar infiltrates vs. atelectasis. Labs, EKG unremarkable. Review of Systems Complete review of system done, pertinent positives per HPI, otherwise negative Past Medical History Past Medical History: COPD, Hyperlipidemia, Myocardial Infarction ([place]), Pneumonia History of Any Multi-Drug Resistant Organisms: None Reported Past Surgical History: Heart Catheterization Additional Past Surgical History / Comment(s): angioplasty after [place], no stents, pilonital cyst removal, Past Psychological History: No Psychological Hx Reported Smoking Status: Former smoker Past Alcohol Use History: Daily Past Drug Use History: None Reported Medications and Allergies Home Medications Medication Instructions Recorded Confirmed Type Aspirin EC [Ecotrin] 325 mg PO DAILY 12/12/13 02/11/21 History atenoloL [Tenormin] 25 mg PO DAILY PRN 12/12/13 02/11/21 History Furosemide [Lasix] 20 mg PO DAILY 11/26/20 02/11/21 History Isosorbide Mononitrate ER [Imdur] 15 mg PO DAILY 11/26/20 02/11/21 History Simvastatin [Zocor] 20 mg PO W/SUPPER 11/26/20 02/11/21 History Tamsulosin [Flomax] 0.4 mg PO PC-SUPPER 11/26/20 02/11/21 History Umeclidinium Brm/Vilanterol Tr 1 puff INHALATION RT-DAILY 11/26/20 02/11/21 Hist ory [Anoro Ellipta 62.5-25 Mcg INH] Ascorbic Acid [Vitamin C] 500 mg PO DAILY 02/11/21 02/11/21 History Cholecalciferol [Vitamin D3 (25 25 mcg PO DAILY 02/11/21 02/11/21 History Mcg = 1000 Iu)] Psyllium Husk (with Sugar) 1 tsp PO BID 02/11/21 02/11/21 History [Metamucil Powder] Zinc 50 mg PO DAILY 02/11/21 02/11/21 History Allergies Allergy/AdvReac Type Severity Reaction Status Date / Time No Known Allergies Allergy Verified 02/11/21 15:38 Physical Exam Vitals: Vital Signs Temp Pulse Resp BP Pulse Ox 02/11/21 14:28 86 18 135/84 97 02/11/21 12:24 18 02/11/21 11:53 98.0 F 82 16 151/77 94 L Intake and Output 02/11/21 02/11/21 02/11/21 06:59 14:59 22:59 Other: Weight 95.254 kg Constitutional: No acute distress, conversant, pleasant Eyes:Anicteric sclerae, moist conjunctiva, no lid-lag, PERRLA, ENMT: Oropharynx clear, no erythema, exudates Neck: Supple, FROM, no masses, or JVD, No carotid bruits, No thyromegaly Lungs: Diminished breath sounds, scattered wheezing, Clear to percussion, Normal respiratory effort, no accessory muscle use Cardiovascular: Heart regular in rate and rhythm, No murmurs, gallops, or rubs, No peripheral edema Abdominal: Soft, Nontender, no guarding, rebound or rigidity, Normoactive bowel sounds, No hepatomegaly, No splenomegaly, No palpable mass Skin: Normal temperature, tone, texture, turgor, no induration, No subcutaneous nodules, No rash, lesions, No ulcers Extremities: No digital cyanosis, No clubbing, Pedal pulses intact and symmetrical, Radial pulses intact and symmetrical, No calf tenderness Psychiatric: Alert and oriented to person, place and time, appropriate affect, intact judgement Neuro: Muscles Strength 5/5 in all 4 extremities, Sensation to light touch grossly present throughout, Cranial nerves II-XII grossly intact, no focal sensory deficits Results CBC & Chem 7: 02/11/21 12:18 02/11/21 12:18 Labs: Abnormal Lab Results - Last 24 Hours (Table) 02/11/21 02/11/21 02/11/21 Range/Units 12:18 12:18 12:18 WBC 10.8 H (3.8-10.6) k/uL RBC 4.24 L (4.30-5.90) m/uL Neutrophils # 8.1 H (1.3-7.7) k/uL D-Dimer 1.46 H (<0.60) mg/L FEU Sodium 135 L (137-145) mmol/L Assessment and Plan Plan: Acute on chronic hypoxic respiratory failure O2 supplements as needed. SOB sec to Community-acquired pneumonia with left pleural effusion/COPD exacerbation Start ceftriaxone and azithromycin Start steroids Duonebs. Chest pain: Likey pleuritic sec to above Cycle trops Hx of CAD Hyperlipidemia BPH Stable resume meds Admitted to inpatient expected length of stay >2 midnights.
[2021-02-11] MEDS: IPRATROPIUM-ALBUTEROL 3 ML NEB INHALATION SCH ×2 (17:15→19:51)
[2021-02-11] MEDS ORDERED: ATORVASTATIN 10 MG TAB PO SCH (17:30)
[2021-02-11] MEDS ORDERED: TAMSULOSIN 0.4 MG CAP.ER.24H PO SCH (18:30)
[2021-02-11] MEDS: predniSONE 20 MG TAB PO SCH (19:35)
[2021-02-11] MEDS ORDERED: LATANOPROST 0.005% OPHTH DROPS 2.5 ML BTL BOTH EYES SCH (21:00)
[2021-02-12 07:49] LABS: Basophils % (A) 0 %; Eosinophils % (A) 0 %; HCT 43.2 % (39.0-53.0); HGB 14.3 gm/dL (13.0-17.5); Lymphocytes # (A) 1.9 k/uL (1.0-4.8); Lymphocytes % (A) 17 %; MCH 33.4 pg (25.0-35.0); MCHC 33.2 g/dL (31.0-37.0); MCV 100.6 fL (80.0-100.0); Macrocytosis Slight; Mean Platelet Volume 7.9; Monocytes # (A) 0.7 k/uL (0-1.0); Monocytes % (A) 7 %; Neutrophils % (A) 74 %; Platelet Count 318 k/uL (150-450); RBC 4.29 m/uL (4.30-5.90); RDW 13.7 % (11.5-15.5); WBC 10.9 k/uL (3.8-10.6)
[2021-02-12 08:18] LABS: ALT 18 U/L (4-49); AST 31 U/L (17-59); African American GFR (CKD) >90 (>60 ml/min/1.73 sqM); Albumin 3.9 g/dL (3.5-5.0); Alkaline Phosphatase 96 U/L (38-126); Anion Gap 12 mmol/L; Blood Urea Nitrogen 16 mg/dL (9-20); Calcium 9.4 mg/dL (8.4-10.2); Carbon Dioxide 25 mmol/L (22-30); Chloride 102 mmol/L (98-107); Glucose 130 mg/dL (74-99); Magnesium 2.2 mg/dL (1.6-2.3); Non-African American GFR(CKD) 86 (>60 ml/min/1.73 sqM); Phosphorus 3.2 mg/dL (2.5-4.5); Sodium 139 mmol/L (137-145); Total Bilirubin 0.7 mg/dL (0.2-1.3); Total Protein 6.8 g/dL (6.3-8.2)
--- NOTE | 2021-02-12 08:25 | XR ---
EXAMINATION TYPE: XR chest 2V DATE OF EXAM: 02/12/2021 COMPARISON: 02/11/2021 HISTORY: 85 years Male. STUDY INDICATION GIVEN: Pneumonia TECHNIQUE: Frontal and lateral chest radiographs FINDINGS AND IMPRESSION: Normal bibasilar atelectasis. No focal airspace disease, or pneumothorax. Prominent cardiac silhouette. Normal mediastinal silhouette. Trace left pleural effusion stable. No pleural effusion on the right. No acute osseous abnormality. Degenerative changes demonstrated in the spine.
[2021-02-12 08:46] VITALS: BP 142/66; PULSE 80; RESP 18; TEMP 97.8
[2021-02-12] MEDS: predniSONE 20 MG TAB PO SCH (08:48)
[2021-02-12] MEDS ORDERED: AZITHROMYCIN 500 MG TAB PO SCH (09:00)
[2021-02-12] MEDS ORDERED: ASPIRIN 325 MG TAB PO SCH (09:00)
[2021-02-12] MEDS ORDERED: FUROSEMIDE 20 MG TAB PO SCH (09:00)
[2021-02-12] MEDS ORDERED: ISOSORBIDE MONONITRATE ER 15 MG TAB PO SCH (09:00)
[2021-02-12] MEDS: IPRATROPIUM-ALBUTEROL 3 ML NEB INHALATION SCH (09:20)
--- NOTE | 2021-02-12 09:21 | P.DS ---
Providers Date of admission: 02/11/21 15:13 Expected date of discharge: 02/12/21 Attending physician: Eric Villa MD Primary care physician: Matteo Chase MD Hospital Course: 85-year-old male with a history of COPD, hx of [place] many years ago treated with angioplasty here for worsening shortness of breath, left sided pleuritic chest pain and weakness/fatigue. Chest pain radiates to the left side of the back and it is worse with breathing and coughing. Denied sick contacts. Symptoms have been going on for about a week or so but got really worse since yesterday. No fevers. No chills. No n/v/d. He states that his O2 sats at home were in the upper 80s. He usually does not wear home O2. He has chronic cough with phlegm, no recent changes. CT chest done in the ER revealed no PE, it also showed left pleural effusion with left basilar infiltrates vs. atelectasis. Labs, EKG unremarkable. Chest examination revealed significant bilateral wheezing and scattered rhonchi. Patient was subsequently admitted, he was started on oxygen per nasal cannula to keep saturations above 92%. He was also started on community-acquired pneumonia coverage with ceftriaxone and azithromycin.. He was also started on steroids IV as well as bronchodilators with DuoNeb. The next day patient was significantly better. He is ambulating around his room without difficulties. He is ready to go home, will be discharged in a stable condition. Time for discharge 36 min Patient Condition at Discharge: Fair Plan - Discharge Summary Discharge Rx Participant: No New Discharge Prescriptions: New methylPREDNISolone Dose Pack [Medrol Dose Pack] 4 mg PO DIRECTED #21 package Doxycycline [Vibramycin] 100 mg PO BID 5 Days #10 capsule Continue Aspirin EC [Ecotrin] 325 mg PO DAILY atenoloL [Tenormin] 25 mg PO DAILY PRN PRN Reason: HIGH BLOOD PRESSURE Umeclidinium Brm/Vilanterol Tr [Anoro Ellipta 62.5-25 Mcg INH] 1 puff INHALATION RT-DAILY Tamsulosin [Flomax] 0.4 mg PO PC-SUPPER Furosemide [Lasix] 20 mg PO DAILY Simvastatin [Zocor] 20 mg PO W/SUPPER Isosorbide Mononitrate ER [Imdur] 15 mg PO DAILY Zinc 50 mg PO DAILY Psyllium Husk (with Sugar) [Metamucil Powder] 1 tsp PO BID Cholecalciferol [Vitamin D3 (25 Mcg = 1000 Iu)] 25 mcg PO DAILY Ascorbic Acid [Vitamin C] 500 mg PO DAILY Discharge Medication List Aspirin EC [Ecotrin] 325 mg PO DAILY 12/12/13 [History] atenoloL [Tenormin] 25 mg PO DAILY PRN 12/12/13 [History] Furosemide [Lasix] 20 mg PO DAILY 11/26/20 [History] Isosorbide Mononitrate ER [Imdur] 15 mg PO DAILY 11/26/20 [History] Simvastatin [Zocor] 20 mg PO W/SUPPER 11/26/20 [History] Tamsulosin [Flomax] 0.4 mg PO PC-SUPPER 11/26/20 [History] Umeclidinium Brm/Vilanterol Tr [Anoro Ellipta 62.5-25 Mcg INH] 1 puff INHALATION RT-DAILY 11/26/20 [History] Ascorbic Acid [Vitamin C] 500 mg PO DAILY 02/11/21 [History] Cholecalciferol [Vitamin D3 (25 Mcg = 1000 Iu)] 25 mcg PO DAILY 02/11/21 [History] Psyllium Husk (with Sugar) [Metamucil Powder] 1 tsp PO BID 02/11/21 [History] Zinc 50 mg PO DAILY 02/11/21 [History] Doxycycline [Vibramycin] 100 mg PO BID 5 Days #10 capsule 02/12/21 [Rx] methylPREDNISolone Dose Pack [Medrol Dose Pack] 4 mg PO DIRECTED #21 package 02/12/21 [Rx] Follow up Appointment(s)/Referral(s): Matteo Chase MD [Primary Care Provider] - 1-2 days
[2021-02-12 12:17] LABS: Chol/HDL Ratio 2.73; Cholesterol 131 mg/dL (0-200); LDL Cholesterol,Calculated 65.4 mg/dL (0.0-131.0)
== END 2021-02-12 11:37 | disposition home or self-care (01) | DRG 193 ==
LOC: EC 11:52 → 3SCARD 15:13
PROVIDERS: ADMIT Internal Medicine; ATTEND Internal Medicine
DX: J18.9 Pneumonia, unspecified organism (principal); J96.21 Acute and chronic respiratory failure with hypoxia; J44.0 Chronic obstructive pulmonary disease with (acute) lower respiratory infection; J91.8 Pleural effusion in other conditions classified elsewhere; J44.1 Chronic obstructive pulmonary disease with (acute) exacerbation; I25.2 Old myocardial infarction; I25.10 Atherosclerotic heart disease of native coronary artery without angina pectoris; E78.5 Hyperlipidemia, unspecified; Z79.82 Long term (current) use of aspirin; Z79.899 Other long term (current) drug therapy; Z87.891 Personal history of nicotine dependence; N40.0 Benign prostatic hyperplasia without lower urinary tract symptoms
CPT/HCPCS: 36415; 71046; 71275; 80053; 80061; 82550; 83605; 83735; 83880; 84100; 84484; 85025; 85379; 85610; 85730; 87040; 93005; 94640; 96361; 96365; 99285

== ENCOUNTER 2021-04-17 08:24 | Emergency (ER) | payer MEDICARE, OTHER ==
[2021-04-17 08:36] VITALS: RESP 18; TEMP 98.3
--- NOTE | 2021-04-17 08:52 | ED ---
General Adult HPI - General Chief complaint: Chest Pain Stated complaint: SOB, lung pain Time Seen by Provider: 04/17/21 08:26 Source: patient Mode of arrival: wheelchair Limitations: no limitations - History of Present Illness Initial comments: Dictation was produced using [employer] dictation software. please excuse any grammatical, word or spelling errors. Chief Complaint: 85-year-old male presents to the emergency department for ple uritic chest pain History of Present Illness: She is an 85-year-old male who presents to the emergency for pleuritic chest pain. Patient states that he had sharp right- sided chest pain that he noticed while he was sleeping. He states the symptoms were severe enough to wake him up from bed. Patient states that his right anterior chest. States that he was in the yard doing yard work yesterday. Patient denies any shortness of breath. He has history of COPD cardiac arrests dyslipidemia. Patient denies any numbness tingling paresthesias. He has no pain with movement of his right upper extremity. He denies any lower extremity symptoms. No history of blood clots. The ROS documented in this emergency department record has been reviewed and confirmed by me. Those systems with pertinent positive or negative responses have been documented in the HPI. All other systems are other negative and/or noncontributory. PHYSICAL EXAM: General Impression: Alert and oriented x3, not in acute distress HEENT: Normocephalic atraumatic, extra-ocular movements intact, pupils equal and reactive to light bilaterally, mucous membranes moist. Cardiovascular: Heart regular rate and rhythm Chest: Able to complete full sentences, no retractions, no tachypnea, pain is not reproduced with palpation to the right anterior chest, lungs are clear to auscultation bilaterally Abdomen: abdomen soft, non-tender, non-distended, no organomegaly Musculoskeletal: Pulses present and equal in all extremities, no peripheral edema Motor: no focal deficits noted Neurological: CN II-XII grossly intact, no focal motor or sensory deficits noted Skin: Intact with no visualized rashes Psych: Normal affect and mood ED course: A 85-year-old male presents to the emergency department for pleuritic right-sided chest pain all signs upon arrival shows oxygen saturation of 93%, rest of vital signs within acceptable limits. Return evaluation obtained. CBC, coag panel, metabolic panel within acceptable limits. Negative troponin. Negative brain natruretic peptide. Covered negative. D-dimer is 1.49. CT angios the chest ordered showing no CT evidence for pulmonary embolism. There is a tiny right pleural effusion no infiltrates noted. Patient's clinical presentation consistent with pleurisy secondary to p leural effusion. Patient's well-appearing. He has no signs or symptoms of infection. Patient be discharged and advised to follow-up with primary care doctor. EKG interpretation: Ventricular rate 63, sinus rhythm, right bundle branch block, MI interval 186, QRS 134, QTC 427. No MI prolongation, no QTC prolongation, no ST or T-wave changes noted. EKG compared to 02/11/2021 showing no changes. Overall, this EKG is unremarkable - Related Data Home Medications Medication Instructions Recorded Confirmed Aspirin EC [Ecotrin] 325 mg PO DAILY 12/12/13 04/17/21 atenoloL [Tenormin] 25 mg PO HS 12/12/13 04/17/21 Furosemide [Lasix] 20 mg PO BID 11/26/20 04/17/21 Isosorbide Mononitrate ER [Imdur] 15 mg PO DAILY 11/26/20 04/17/21 Simvastatin [Zocor] 20 mg PO W/SUPPER 11/26/20 04/17/21 Tamsulosin [Flomax] 0.4 mg PO BID 11/26/20 04/17/21 Umeclidinium Brm/Vilanterol Tr 1 puff INHALATION RT-DAILY 11/26/20 04/17/21 [Anoro Ellipta 62.5-25 Mcg INH] Ascorbic Acid [Vitamin C] 500 mg PO DAILY 02/11/21 04/17/21 Cholecalciferol [Vitamin D3 (25 25 mcg PO DAILY 02/11/21 04/17/21 Mcg = 1000 Iu)] Zinc 50 mg PO DAILY 02/11/21 04/17/21 Latanoprost [Xalatan 0.005%] 1 drop BOTH EYES HS 04/17/21 04/17/21 Allergies Allergy/AdvReac Type Severity Reaction Status Date / Time No Known Allergies Allergy Verified 04/17/21 10:32 Review of Systems ROS Statement: Those systems with pertinent positive or pertinent negative responses have been documented in the HPI. ROS Other: All systems not noted in ROS Statement are negative. Past Medical History Past Medical History: COPD, Hyperlipidemia, Myocardial Infarction ([place]), Pneumonia Last Myocardial Infarction Date:: Apr 1994 History of Any Multi-Drug Resistant Organisms: None Reported Past Surgical History: Heart Catheterization Additional Past Surgical History / Comment(s): angioplasty after [place], no stents, pilonital cyst removal, Past Anesthesia/Blood Transfusion Reactions: No Reported Reaction Past Psychological History: No Psychological Hx Reported Smoking Status: Former smoker Past Alcohol Use History: Daily Past Drug Use History: None Reported - Past Family History Father History Unknown: Yes General Exam Limitations: no limitations Course Vital Signs 04/17/21 08:31 Temperature 98.3 F Pulse Rate 68 Respiratory 18 Rate Blood Pressure 125/69 O2 Sat by Pulse 93 L Oximetry Medical Decision Making - Lab Data Result diagrams: 04/17/21 09:12 04/17/21 09:12 Lab Results 04/17/21 04/17/21 04/17/21 Range/Units 09:12 09:12 09:12 WBC 8.0 (3.8-10.6) k/uL RBC 4.40 (4.30-5.90) m/uL Hgb 14.6 (13.0-17.5) gm/dL Hct 44.0 (39.0-53.0) % MCV 100.0 (80.0-100.0) fL MCH 33.2 (25.0-35.0) pg MCHC 33.2 (31.0-37.0) g/dL RDW 13.1 (11.5-15.5) % Plt Count 247 (150-450) k/uL MPV 8.0 Neutrophils % 68 % Lymphocytes % 17 % Monocytes % 9 % Eosinophils % 3 % Basophils % 1 % Neutrophils # 5.5 (1.3-7.7) k/uL Lymphocytes # 1.4 (1.0-4.8) k/uL Monocytes # 0.7 (0-1.0) k/uL Eosinophils # 0.2 (0-0.7) k/uL Basophils # 0.1 (0-0.2) k/uL PT 11.0 (9.0-12.0) sec INR 1.0 (<1.2) APTT 22.9 (22.0-30.0) sec D-Dimer 1.49 H (<0.60) mg/L FEU Sodium 136 L (137-145) mmol/L Potassium 3.9 (3.5-5.1) mmol/L Chloride 102 (98-107) mmol/L Carbon Dioxide 28 (22-30) mmol/L Anion Gap 6 mmol/L BUN 12 (9-20) mg/dL Creatinine 0.68 (0.66-1.25) mg/dL Est GFR (CKD-EPI)AfAm >90 (>60 ml/min/1.73 sqM) Est GFR (CKD-EPI)NonAf 87 (>60 ml/min/1.73 sqM) Glucose 133 H (74-99) mg/dL Calcium 9.0 (8.4-10.2) mg/dL Magnesium 2.0 (1.6-2.3) mg/dL Total Bilirubin 0.7 (0.2-1.3) mg/dL AST 28 (17-59) U/L ALT 14 (4-49) U/L Alkaline Phosphatase 70 (38-126) U/L Troponin I (0.000-0.034) ng/mL NT-Pro-B Natriuret Pep pg/mL Total Protein 6.5 (6.3-8.2) g/dL Albumin 3.6 (3.5-5.0) g/dL Coronavirus (PCR) (Not Detectd) 04/17/21 04/17/21 04/17/21 Range/Units 09:12 09:12 10:15 WBC (3.8-10.6) k/uL RBC (4.30-5.90) m/uL Hgb (13.0-17.5) gm/dL Hct (39.0-53.0) % MCV (80.0-100.0) fL MCH (25.0-35.0) pg MCHC (31.0-37.0) g/dL RDW (11.5-15.5) % Plt Count (150-450) k/uL MPV Neutrophils % % Lymphocytes % % Monocytes % % Eosinophils % % Basophils % % Neutrophils # (1.3-7.7) k/uL Lymphocytes # (1.0-4.8) k/uL Monocytes # (0-1.0) k/uL Eosinophils # (0-0.7) k/uL Basophils # (0-0.2) k/uL PT (9.0-12.0) sec INR (<1.2) APTT (22.0-30.0) sec D-Dimer (<0.60) mg/L FEU Sodium (137-145) mmol/L Potassium (3.5-5.1) mmol/L Chloride (98-107) mmol/L Carbon Dioxide (22-30) mmol/L Anion Gap mmol/L BUN (9-20) mg/dL Creatinine (0.66-1.25) mg/dL Est GFR (CKD-EPI)AfAm (>60 ml/min/1.73 sqM) Est GFR (CKD-EPI)NonAf (>60 ml/min/1.73 sqM) Glucose (74-99) mg/dL Calcium (8.4-10.2) mg/dL Magnesium (1.6-2.3) mg/dL Total Bilirubin (0.2-1.3) mg/dL AST (17-59) U/L ALT (4-49) U/L Alkaline Phosphatase (38-126) U/L Troponin I <0.012 (0.000-0.034) ng/mL NT-Pro-B Natriuret Pep 509 pg/mL Total Protein (6.3-8.2) g/dL Albumin (3.5-5.0) g/dL Coronavirus (PCR) Not Detected (Not Detectd) Disposition Clinical Impression: Pleurisy with effusion Disposition: HOME SELF-CARE Condition: Good Instructions (If sedation given, give patient instructions): Pleurisy (ED) Is patient prescribed a controlled substance at d/c from ED?: No Referrals: Matteo Chase MD [Primary Care Provider] - 1-2 days
[2021-04-17 09:20] LABS: Basophils # (A) 0.1 k/uL (0-0.2); Basophils % (A) 1 %; Eosinophils # (A) 0.2 k/uL (0-0.7); Eosinophils % (A) 3 %; HGB 14.6 gm/dL (13.0-17.5); Lymphocytes # (A) 1.4 k/uL (1.0-4.8); Lymphocytes % (A) 17 %; MCH 33.2 pg (25.0-35.0); MCHC 33.2 g/dL (31.0-37.0); Monocytes # (A) 0.7 k/uL (0-1.0); Monocytes % (A) 9 %; Neutrophils # (A) 5.5 k/uL (1.3-7.7); Neutrophils % (A) 68 %; Platelet Count 247 k/uL (150-450); RDW 13.1 % (11.5-15.5)
[2021-04-17 09:36] LABS: Partial Thromboplastin Time 22.9 sec (22.0-30.0)
[2021-04-17 09:43] LABS: ALT 14 U/L (4-49); AST 28 U/L (17-59); African American GFR (CKD) >90 (>60 ml/min/1.73 sqM); Albumin 3.6 g/dL (3.5-5.0); Alkaline Phosphatase 70 U/L (38-126); Anion Gap 6 mmol/L; Blood Urea Nitrogen 12 mg/dL (9-20); Carbon Dioxide 28 mmol/L (22-30); Chloride 102 mmol/L (98-107); Glucose 133 mg/dL (74-99); Non-African American GFR(CKD) 87 (>60 ml/min/1.73 sqM); Potassium 3.9 mmol/L (3.5-5.1); Sodium 136 mmol/L (137-145); Total Bilirubin 0.7 mg/dL (0.2-1.3); Total Protein 6.5 g/dL (6.3-8.2)
--- NOTE | 2021-04-17 09:46 | XR ---
EXAMINATION TYPE: XR chest 1V portable DATE OF EXAM: 04/17/2021 COMPARISON: 02/12/2021 INDICATION: Short of breath TECHNIQUE: Single frontal view of the chest is obtained. FINDINGS: The heart size is upper limits of normal. The pulmonary vasculature is normal. The lungs are clear. IMPRESSION: 1. No acute pulmonary process.
--- NOTE | 2021-04-17 11:26 | CT ---
EXAMINATION TYPE: CT angio chest DATE OF EXAM: 04/17/2021 11:11 AM COMPARISON: CTA chest February 11, 2021 HISTORY: SOB. Elevated D-dimer. Chest pain CT DLP: 470.5 mGycm Automated exposure control for dose reduction was used. CONTRAST: CTA scan of the thorax is performed without and with IV Contrast, patient injected with 100 ml mL of Isovue 370, pulmonary embolism protocol. MIP images are created and reviewed. FINDINGS: LUNGS: Background Mild to moderate underlying emphysematous changes greatest in the upper lungs is r edemonstrated. Trace right-sided pleural effusion on current study. Small to tiny left basilar pleura l effusion on current study with associated compressive atelectasis. There is additional trapped foca l pleural fluid in the posterior superior aspect of the left major fissure mimicking solid mass axial image 39. Stable focal 1.7 x 0.5 cm anterior right lung scar. MEDIASTINUM: There is satisfactory enhancement of the pulmonary artery and its branches, there is no CT evidence for pulmonary embolism. There are no new greater than 1 cm hilar or mediastinal lymph no alex. No cardiomegaly or pericardial effusion is seen. OTHER: Subareolar gynecomastia bilaterally is redemonstrated. IMPRESSION: No CT evidence for acute pulmonary embolism. Tiny right pleural effusion and slightly larger small size left pleural effusion on current study wit h trapped component in the superior-posterior left major fissure. Background mild to moderate underly ing emphysematous change redemonstrated without suspicious new focal infiltrate.
[2021-04-17 12:02] VITALS: BP 104/73; PULSE 61
== END 2021-04-17 12:09 | disposition home or self-care (01) ==
LOC: EC 08:24
DX: J90 Pleural effusion, not elsewhere classified (principal); E78.5 Hyperlipidemia, unspecified; I25.2 Old myocardial infarction; J44.9 Chronic obstructive pulmonary disease, unspecified; Z87.891 Personal history of nicotine dependence; Z20.822 Contact with and (suspected) exposure to COVID-19; Z79.899 Other long term (current) drug therapy
CPT/HCPCS: 36415; 93005; 85379; 83880; 80053; 83735; 84484; 85025; 85610; 85730; 87635; 71045; 71275; 99285; Q9967

== ENCOUNTER → 2021-04-28 | Outpatient (CLI) | payer MEDICARE, OTHER | END | disposition home or self-care (01) | LOC: LABWHC1 11:30 | PROVIDERS: ATTEND Internal Medicine Interventional Cardiology | DX: E03.9 Hypothyroidism, unspecified (principal) | CPT/HCPCS: 36415; 84443 ==

== ENCOUNTER → 2021-05-11 | Outpatient (CLI) | payer MEDICARE, OTHER ==
--- NOTE | 2021-05-11 17:05 | ECHOF ---
Referral Reason:I25.10 coronary artery disease MEASUREMENTS -------- HEIGHT: 175.3 cm WEIGHT: 95.3 kg BP: 125/66 IVSd: 1.5 cm (0.6 - 1.1) LVIDd: 3.9 cm (3.9 - 5.3) LVPWd: 1.4 cm (0.6 - 1.1) EDV(Teich): 68 ml IVSs: 1.9 cm LVIDs: 2.7 cm LVPWs: 1.4 cm %IVS Thck: 29 % ESV(Teich): 26 ml EF(Teich): 61 % %FS: 32 % SV(Teich): 41 ml LVOT Diam: 2.4 cm LA Diam: 3.6 cm (2.7 - 3.8) RVIDd: 3.5 cm (< 3.3) LALs A4C: 5.9 cm LAAs A4C: 20.3 cm LAESV A-L A4C: 59 ml LAESV MOD A4C: 57 ml LALs A2C: 6.5 cm LAAs A2C: 23.4 cm LAESV A-L A2C: 71 ml LAESV MOD A2C: 70 ml LAESV(A-L): 69 ml LAESV Index (A-L): 32.48 ml/m Ao Diam: 4.0 cm (2.0 - 3.7) AV Cusp: 2.5 cm (1.5 - 2.6) EPSS: 0.7 cm MV DecT: 233 ms MV PHT: 51 ms MVA By PHT: 4.3 cm AV Vmax: 1.71 m/s AV maxP.75 mmHg AV Vmax: 1.77 m/s AV Vmean: 1.15 m/s AV maxP.53 mmHg AV meanP.27 mmHg AV Env.Ti: 307 ms AV VTI: 35.3 cm TR Vmax: 3.02 m/s TR maxP.36 mmHg RAP: 5.00 mmHg RVSP: 41.36 mmHg MV EF SLOPE: 59.86 mm/s (70 - 150) MV EXCURSION: 16.40 mm (> 18.000) FINDINGS -------- Atrial fibrillation. This was a technically difficult study with suboptimal views. The left ventricular size is normal. There is moderate concentric left ventricular hypertrophy. O verall left ventricular systolic function is normal with, an EF between 55 - 60 %. The right ventricle is mildly enlarged. LA is midly dilated 29-33ml/m2. The right atrium is normal in size. 5 ml of Lumason was utilized for enhancement of images. Interatrial and interventricular septum intact. There is mild aortic valve sclerosis. Peak/mean gradient across the Aortic Valve is 12.53mmHg / 6.2 7mmHg. The mitral valve leaflets are mildly thickened. Mild mitral annular calcification present. Mild m itral regurgitation is present. Moderate tricuspid regurgitation present. There is mild pulmonary hypertension. The right ventric ular systolic pressure, as measured by Doppler, is 41.36mmHg. Trace/mild (physiologic) pulmonic regurgitation. The aortic root is dilated measuring 4.0cm. Normal inferior vena cava with normal inspiratory collapse consistent with estimated right atrial pre ssure of 5 mmHg. There is no pericardial effusion. CONCLUSIONS -------- 1. The left ventricular size is normal. 2. There is moderate concentric left ventricular hypertrophy. 3. Overall left ventricular systolic function is normal with, an EF between 55 - 60 %. 4. The right ventricle is mildly enlarged. 5. LA is midly dilated 29-33ml/m2. 6. 5 ml of Lumason was utilized for enhancement of images. 7. There is mild aortic valve sclerosis. 8. Peak/mean gradient across the Aortic Valve is 12.53mmHg / 6.27mmHg. 9. The mitral valve leaflets are mildly thickened. 10. Mild mitral annular calcification present. 11. Mild mitral regurgitation is present. 12. Moderate tricuspid regurgitation present. 13. There is mild pulmonary hypertension. 14. The right ventricular systolic pressure, as measured by Doppler, is 41.36mmHg. 15. Trace/mild (physiologic) pulmonic regurgitation. 16. The aortic root is dilated measuring 4.0cm. 17. There is no pericardial effusion. LIFT SUPERVISOR: Sofia Welch RDCS
== END | disposition home or self-care (01) ==
LOC: RADECHMAIN 14:57
PROVIDERS: ATTEND Internal Medicine
DX: I08.1 Rheumatic disorders of both mitral and tricuspid valves (principal); I27.20 Pulmonary hypertension, unspecified
CPT/HCPCS: C8929; Q9950; 93306

== ENCOUNTER 2021-06-11 10:07 | Emergency (ER) | payer MEDICARE, OTHER ==
[2021-06-11 10:28] VITALS: TEMP 96.8
--- NOTE | 2021-06-11 11:22 | ED ---
General Adult HPI - General Chief complaint: Urogenital Stated complaint: back pain, trouble urinating Time Seen by Provider: 06/11/21 11:06 Source: patient, family, RN notes reviewed Mode of arrival: ambulatory Limitations: no limitations - History of Present Illness Initial comments: This an 85 show male presents emergency from chief complaint of unable to urinate. Patient states he was dribbling, forcing urine, but states that his been unable to urinate, increasing pressures abdomen. Patient states that he's had a full catheter several times in the past she states that every time he is started on prednisone this happens. Patient states that she was recently started on 40 mg of prednisone by Dr. Queen. Patient does see urology does take Flomax. - Related Data Home Medications Medication Instructions Recorded Confirmed Aspirin EC [Ecotrin] 325 mg PO DAILY 12/12/13 04/17/21 atenoloL [Tenormin] 25 mg PO HS 12/12/13 04/17/21 Furosemide [Lasix] 20 mg PO BID 11/26/20 04/17/21 Isosorbide Mononitrate ER [Imdur] 15 mg PO DAILY 11/26/20 04/17/21 Simvastatin [Zocor] 20 mg PO W/SUPPER 11/26/20 04/17/21 Tamsulosin [Flomax] 0.4 mg PO BID 11/26/20 04/17/21 Umeclidinium Brm/Vilanterol Tr 1 puff INHALATION RT-DAILY 11/26/20 04/17/21 [Anoro Ellipta 62.5-25 Mcg INH] Ascorbic Acid [Vitamin C] 500 mg PO DAILY 02/11/21 04/17/21 Cholecalciferol [Vitamin D3 (25 25 mcg PO DAILY 02/11/21 04/17/21 Mcg = 1000 Iu)] Zinc 50 mg PO DAILY 02/11/21 04/17/21 Latanoprost [Xalatan 0.005%] 1 drop BOTH EYES HS 04/17/21 04/17/21 Allergies Allergy/AdvReac Type Severity Reaction Status Date / Time No Known Allergies Allergy Verified 06/11/21 10:24 Review of Systems ROS Statement: Those systems with pertinent positive or pertinent negative responses have been documented in the HPI. ROS Other: All systems not noted in ROS Statement are negative. Past Medical History Past Medical History: COPD, Hyperlipidemia, Myocardial Infarction ([place]), Pneumonia Last Myocardial Infarction Date:: Apr 1994 History of Any Multi-Drug Resistant Organisms: None Reported Past Surgical History: Heart Catheterization Additional Past Surgical History / Comment(s): angioplasty after [place], no stents, pilonital cyst removal, Past Anesthesia/Blood Transfusion Reactions: No Reported Reaction Past Psychological History: No Psychological Hx Reported Smoking Status: Former smoker Past Alcohol Use History: Occasional Past Drug Use History: None Reported - Past Family History Father History Unknown: Yes General Exam Limitations: no limitations General appearance: alert, in no apparent distress Head exam: Present: atraumatic, normocephalic, normal inspection Eye exam: Present: normal appearance, PERRL, EOMI. Absent: scleral icterus, conjunctival injection, periorbital swelling ENT exam: Present: normal exam, mucous membranes moist Respiratory exam: Present: normal lung sounds bilaterally. Absent: respiratory distress, wheezes, rales, rhonchi, stridor Cardiovascular Exam: Present: regular rate, normal rhythm, normal heart sounds. Absent: systolic murmur, diastolic murmur, rubs, gallop, clicks GI/Abdominal exam: Present: soft, distended, tenderness, normal bowel sounds. Absent: guarding, rebound, rigid Neurological exam: Present: alert Course Vital Signs 06/11/21 10:24 Temperature 96.8 F L Pulse Rate 95 Respiratory 20 Rate Blood Pressure 112/66 O2 Sat by Pulse 93 L Oximetry Medical Decision Making - Medical Decision Making Patient had urinary retention Starks catheter is placed symptoms have all resolved patient be discharged urine was cultured. Disposition Clinical Impression: Urinary retention Disposition: HOME SELF-CARE Condition: Stable Instructions (If sedation given, give patient instructions): Urinary Retention in Men (ED) Additional Instructions: Please return to the Emergency Department if symptoms worsen or any other concerns. Is patient prescribed a controlled substance at d/c from ED?: No Referrals: Matteo Chase MD [Primary Care Provider] - 1-2 days Navi Valenzuela MD [STAFF PHYSICIAN] - 1-2 days Time of Disposition: 12:16
[2021-06-11 12:21] VITALS: BP 112/81; PULSE 87; RESP 18
[2021-06-11 12:38] LABS: Appearance,Urine Clear (Clear); Bilirubin,Urine Negative (Negative); Blood,Urine Small (Negative); Color,Urine Yellow; Glucose,Urine (UA) Negative (Negative); Ketones,Urine Negative (Negative); Leukocyte Esterase,Urine Negative (Negative); Nitrite,Urine Negative (Negative); PH, Urine 6.5 (5.0-8.0); Protein,Urine Negative (Negative); RBC,Urine 39 /hpf (0-5); Specific Gravity,Urine 1.009 (1.001-1.035); Urobilinogen,Urine <2.0 mg/dL (<2.0); WBC,Urine 1 /hpf (0-5)
== END 2021-06-11 12:51 | disposition home or self-care (01) ==
LOC: EC 10:07
DX: R33.9 Retention of urine, unspecified (principal); J44.9 Chronic obstructive pulmonary disease, unspecified; I25.2 Old myocardial infarction; E78.5 Hyperlipidemia, unspecified; Z87.891 Personal history of nicotine dependence; Z79.82 Long term (current) use of aspirin; Z79.899 Other long term (current) drug therapy
CPT/HCPCS: 51702; 81001; 99283

== ENCOUNTER 2021-06-19 16:22 | Inpatient (IN) | payer MEDICARE, OTHER ==
[2021-06-19] MEDS ORDERED: VANCOMYCIN IV PER PHARMACY 1 EACH MISC MISCELLANE PRN (23:22)
[2021-06-19] MEDS ORDERED: VANCOMYCIN 1,500 MG in SODIUM CHLORIDE 0.9% 250 ML IVPB ONE (23:30)
--- NOTE | 2021-06-19 23:51 | XR ---
EXAMINATION TYPE: XR chest 2V DATE OF EXAM: 06/19/2021 COMPARISON: 04/17/2021 HISTORY: Short of breath leg edema TECHNIQUE: FINDINGS: There is some consolidation and pleural thickening on the left lower lateral chest wall. Th e right lung is fairly clear. There is no heart failure. Heart size is normal. Bony thorax is intact. IMPRESSION: Significant pleural thickening and infiltrate in the lateral left lower lobe appears new compared to old exam. No heart failure. This could be a pulmonary infarct.
--- NOTE | 2021-06-20 00:23 | ED ---
General Adult HPI - General Chief complaint: Extremity Problem,Nontraumatic Stated complaint: leg redness, swelling Time Seen by Provider: 06/19/21 23:13 Source: patient Mode of arrival: ambulatory Limitations: no limitations - History of Present Illness Initial comments: 85 year-old male patient presents to the emergency department for evaluation of bilateral lower extremity swelling and erythema. Patient states symptoms started about 4 days ago. States that his legs are weeping. Denies history of similar symptoms. Denies any chest pain or shortness of breath. Denies fever or chills. States he was seen by his primary care physician today and was told to come in for IV antibiotics and admission. Patient denies any recent rash, cough, abdominal pain, nausea, vomiting, diarrhea, constipation, back pain, numbness, tingling, dizziness, weakness, hematuria, dysuria, urinary urgency, urinary frequency, headache, visual changes, or any other complaints. Reports pain with movement of the legs. - Related Data Home Medications Medication Instructions Recorded Confirmed Simvastatin [Zocor] 20 mg PO DAILY 11/26/20 06/19/21 Tamsulosin [Flomax] 0.4 mg PO BID 11/26/20 06/19/21 Ascorbic Acid [Vitamin C] 500 mg PO DAILY 02/11/21 06/19/21 Cholecalciferol [Vitamin D3 (25 50 mcg PO DAILY 02/11/21 06/19/21 Mcg = 1000 Iu)] Zinc 50 mg PO DAILY 02/11/21 06/19/21 Albuterol Inhaler [Ventolin Hfa 2 puff INHALATION RT-QID PRN 06/19/21 06/19/21 Inhaler] Albuterol Nebulized [Ventolin 2.5 mg INHALATION RT-QID PRN 06/19/21 06/19/21 Nebulized] Erythromycin Ophth Oint [Romycin 1 applic BOTH EYES DAILY 06/19/21 06/19/21 Ophth Oint] Fluticasone/Umeclidin/Vilanter 1 puff INHALATION RT-DAILY 06/19/21 06/19/21 [Trelegy Ellipta 100-62.5-25] Levothyroxine Sodium [Synthroid] 50 mcg PO DAILY 06/19/21 06/19/21 Rivaroxaban [Xarelto] 15 mg PO DAILY 06/19/21 06/19/21 Latanoprost/Pf [Latanoprost 0.005% 1 drop BOTH EYES HS 06/20/21 06/20/21 Eye Drop] Previous Rx's Medication Instructions Recorded Furosemide [Lasix] 20 mg PO HS 30 Days #30 tab 06/22/21 Furosemide [Lasix] 40 mg PO DAILY 30 Days #30 tablet 06/22/21 Metoprolol Tartrate [Lopressor] 25 mg PO BID 30 Days #60 tab 06/22/21 Sulfamethox-Tmp 800-160Mg [Bactrim 1 tab PO Q12HR 7 Days #14 tab 06/22/21 DS 800-160 mg] Allergies Allergy/AdvReac Type Severity Reaction Status Date / Time prednisone AdvReac CAN'T Verified 06/20/21 00:01 URINATE WHEN HE TAKES IT Review of Systems ROS Statement: Those systems with pertinent positive or pertinent negative responses have been documented in the HPI. ROS Other: All systems not noted in ROS Statement are negative. Past Medical History Past Medical History: COPD, Hyperlipidemia, Myocardial Infarction ([place]), Pneumonia Last Myocardial Infarction Date:: Apr 1994 History of Any Multi-Drug Resistant Organisms: None Reported Past Surgical History: Heart Catheterization Additional Past Surgical History / Comment(s): angioplasty after [place], no stents, pilonital cyst removal, Past Anesthesia/Blood Transfusion Reactions: No Reported Reaction Past Psychological History: No Psychological Hx Reported Smoking Status: Former smoker Past Alcohol Use History: Occasional Past Drug Use History: None Reported - Past Family History Father History Unknown: Yes General Exam Limitations: no limitations General appearance: alert, in no apparent distress, other (This is a well- developed, well-nourished elderly male patient in no acute distress.) ENT exam: Present: normal exam, normal oropharynx, mucous membranes moist Respiratory exam: Present: normal lung sounds bilaterally. Absent: respiratory distress, wheezes, rales, rhonchi, stridor Cardiovascular Exam: Present: regular rate, normal rhythm, normal heart sounds. Absent: systolic murmur, diastolic murmur, rubs, gallop, clicks GI/Abdominal exam: Present: soft, normal bowel sounds. Absent: distended, tenderness, guarding, rebound, rigid Extremities exam: Present: full ROM, normal capillary refill, other (Bilateral lower extremity edema, erythema, shiny skin, weeping.). Absent: normal inspection, tenderness, pedal edema, joint swelling, calf tenderness Neurological exam: Present: alert, oriented X3, CN II-XII intact Psychiatric exam: Present: normal affect, normal mood Skin exam: Present: warm, dry, intact, normal color. Absent: rash Course Vital Signs 06/19/21 06/20/21 06/20/21 19:07 05:39 09:20 Temperature 98 F 97.9 F 97.8 F Pulse Rate 77 90 87 Respiratory 16 18 18 Rate Blood Pressure 111/56 134/69 121/78 O2 Sat by Pulse 95 98 95 Oximetry 06/20/21 06/20/21 06/20/21 12:42 15:35 15:43 Temperature Pulse Rate 93 72 75 Respiratory 94 H 16 16 Rate Blood Pressure 116/74 O2 Sat by Pulse 93 L Oximetry 06/20/21 17:28 Temperature Pulse Rate 74 Respiratory 16 Rate Blood Pressure 116/65 O2 Sat by Pulse 98 Oximetry Medical Decision Making - Medical Decision Making 85 year-old male patient presents for evaluation of redness and swelling to the bilateral lower extremities. Physical examination did reveal petechial venous stasis rash and swelling to the lower legs. He is afebrile. Labs unremarkable. He will be admitted for diuresis and further management of his legs. Case discussed with my attending Dr. Drummond. - Lab Data Result diagrams: 06/22/21 05:30 06/22/21 05:26 Lab Results 06/20/21 06/20/21 06/20/21 Range/Units 00:30 00:30 00:30 WBC 8.0 (3.8-10.6) k/uL RBC 4.31 (4.30-5.90) m/uL Hgb 13.8 (13.0-17.5) gm/dL Hct 40.8 (39.0-53.0) % MCV 94.6 D (80.0-100.0) fL MCH 32.0 (25.0-35.0) pg MCHC 33.8 (31.0-37.0) g/dL RDW 13.0 (11.5-15.5) % Plt Count 250 (150-450) k/uL MPV 8.0 Neutrophils % 69 % Lymphocytes % 17 % Monocytes % 8 % Eosinophils % 3 % Basophils % 0 % Neutrophils # 5.5 (1.3-7.7) k/uL Lymphocytes # 1.3 (1.0-4.8) k/uL Monocytes # 0.6 (0-1.0) k/uL Eosinophils # 0.2 (0-0.7) k/uL Basophils # 0.0 (0-0.2) k/uL Sodium 132 L (137-145) mmol/L Potassium 3.3 L (3.5-5.1) mmol/L Chloride 94 L (98-107) mmol/L Carbon Dioxide 30 (22-30) mmol/L Anion Gap 8 mmol/L BUN 26 H (9-20) mg/dL Creatinine 0.89 (0.66-1.25) mg/dL Est GFR (CKD-EPI)AfAm 90 (>60 ml/min/1.73 sqM) Est GFR (CKD-EPI)NonAf 78 (>60 ml/min/1.73 sqM) Glucose 114 H (74-99) mg/dL Plasma Lactic Acid Kael 1.6 (0.7-2.0) mmol/L Calcium 8.9 (8.4-10.2) mg/dL Magnesium (1.6-2.3) mg/dL Total Bilirubin 1.3 (0.2-1.3) mg/dL AST 46 (17-59) U/L ALT 32 (4-49) U/L Alkaline Phosphatase 155 H (38-126) U/L NT-Pro-B Natriuret Pep (0-450) pg/mL Total Protein 6.5 (6.3-8.2) g/dL Albumin 3.5 (3.5-5.0) g/dL Urine Color Urine Appearance (Clear) Urine pH (5.0-8.0) Ur Specific Sulphur (1.001-1.035) Urine Protein (Negative) Urine Glucose (UA) (Negative) Urine Ketones (Negative) Urine Blood (Negative) Urine Nitrite (Negative) Urine Bilirubin (Negative) Urine Urobilinogen (<2.0) mg/dL Ur Leukocyte Esterase (Negative) Urine RBC (0-5) /hpf Urine WBC (0-5) /hpf Urine Mucus (None) /hpf Coronavirus (PCR) (Not Detectd) 06/20/21 06/20/21 06/20/21 Range/Units 00:30 00:30 06:20 WBC 7.9 (3.8-10.6) k/uL RBC 3.98 L (4.30-5.90) m/uL Hgb 12.7 L (13.0-17.5) gm/dL Hct 37.5 L (39.0-53.0) % MCV 94.2 (80.0-100.0) fL MCH 31.8 (25.0-35.0) pg MCHC 33.8 (31.0-37.0) g/dL RDW 13.0 (11.5-15.5) % Plt Count 260 (150-450) k/uL MPV 8.1 Neutrophils % 73 % Lymphocytes % 13 % Monocytes % 8 % Eosinophils % 4 % Basophils % 0 % Neutrophils # 5.8 (1.3-7.7) k/uL Lymphocytes # 1.0 (1.0-4.8) k/uL Monocytes # 0.7 (0-1.0) k/uL Eosinophils # 0.3 (0-0.7) k/uL Basophils # 0.0 (0-0.2) k/uL Sodium (137-145) mmol/L Potassium (3.5-5.1) mmol/L Chloride (98-107) mmol/L Carbon Dioxide (22-30) mmol/L Anion Gap mmol/L BUN (9-20) mg/dL Creatinine (0.66-1.25) mg/dL Est GFR (CKD-EPI)AfAm (>60 ml/min/1.73 sqM) Est GFR (CKD-EPI)NonAf (>60 ml/min/1.73 sqM) Glucose (74-99) mg/dL Plasma Lactic Acid Kael (0.7-2.0) mmol/L Calcium (8.4-10.2) mg/dL Magnesium (1.6-2.3) mg/dL Total Bilirubin (0.2-1.3) mg/dL AST (17-59) U/L ALT (4-49) U/L Alkaline Phosphatase (38-126) U/L NT-Pro-B Natriuret Pep 1709 H (0-450) pg/mL Total Protein (6.3-8.2) g/dL Albumin (3.5-5.0) g/dL Urine Color Urine Appearance (Clear) Urine pH (5.0-8.0) Ur Specific [place] (1.001-1.035) Urine Protein (Negative) Urine Glucose (UA) (Negative) Urine Ketones (Negative) Urine Blood (Negative) Urine Nitrite (Negative) Urine Bilirubin (Negative) Urine Urobilinogen (<2.0) mg/dL Ur Leukocyte Esterase (Negative) Urine RBC (0-5) /hpf Urine WBC (0-5) /hpf Urine Mucus (None) /hpf Coronavirus (PCR) Not Detected (Not Detectd) 06/20/21 06/20/21 06/21/21 Range/Units 06:20 11:15 07:03 WBC 7.0 (3.8-10.6) k/uL RBC 3.77 L (4.30-5.90) m/uL Hgb 12.0 L (13.0-17.5) gm/dL Hct 35.8 L (39.0-53.0) % MCV 94.9 (80.0-100.0) fL MCH 31.9 (25.0-35.0) pg MCHC 33.6 (31.0-37.0) g/dL RDW 13.1 (11.5-15.5) % Plt Count 261 (150-450) k/uL MPV 8.6 Neutrophils % % Lymphocytes % % Monocytes % % Eosinophils % % Basophils % % Neutrophils # (1.3-7.7) k/uL Lymphocytes # (1.0-4.8) k/uL Monocytes # (0-1.0) k/uL Eosinophils # (0-0.7) k/uL Basophils # (0-0.2) k/uL Sodium 134 L (137-145) mmol/L Potassium 3.7 (3.5-5.1) mmol/L Chloride 95 L (98-107) mmol/L Carbon Dioxide 34 H (22-30) mmol/L Anion Gap 5 mmol/L BUN 27 H (9-20) mg/dL Creatinine 0.88 (0.66-1.25) mg/dL Est GFR (CKD-EPI)AfAm >90 (>60 ml/min/1.73 sqM) Est GFR (CKD-EPI)NonAf 78 (>60 ml/min/1.73 sqM) Glucose 124 H (74-99) mg/dL Plasma Lactic Acid Kael (0.7-2.0) mmol/L Calcium 8.7 (8.4-10.2) mg/dL Magnesium (1.6-2.3) mg/dL Total Bilirubin (0.2-1.3) mg/dL AST (17-59) U/L ALT (4-49) U/L Alkaline Phosphatase (38-126) U/L NT-Pro-B Natriuret Pep (0-450) pg/mL Total Protein (6.3-8.2) g/dL Albumin (3.5-5.0) g/dL Urine Color Light Red Urine Appearance Cloudy (Clear) Urine pH 6.0 (5.0-8.0) Ur Specific Sulph[place] 1.015 (1.001-1.035) Urine Protein Trace H (Negative) Urine Glucose (UA) Negative (Negative) Urine Ketones Negative (Negative) Urine Blood Large H (Negative) Urine Nitrite Negative (Negative) Urine Bilirubin Negative (Negative) Urine Urobilinogen <2.0 (<2.0) mg/dL Ur Leukocyte Esterase Large H (Negative) Urine RBC >182 H (0-5) /hpf Urine WBC 43 H (0-5) /hpf Urine Mucus Rare H (None) /hpf Coronavirus (PCR) (Not Detectd) 06/21/21 Range/Units 07:03 WBC (3.8-10.6) k/uL RBC (4.30-5.90) m/uL Hgb (13.0-17.5) gm/dL Hct (39.0-53.0) % MCV (80.0-100.0) fL MCH (25.0-35.0) pg MCHC (31.0-37.0) g/dL RDW (11.5-15.5) % Plt Count (150-450) k/uL MPV Neutrophils % % Lymphocytes % % Monocytes % % Eosinophils % % Basophils % % Neutrophils # (1.3-7.7) k/uL Lymphocytes # (1.0-4.8) k/uL Monocytes # (0-1.0) k/uL Eosinophils # (0-0.7) k/uL Basophils # (0-0.2) k/uL Sodium 135 L (137-145) mmol/L Potassium 3.4 L (3.5-5.1) mmol/L Chloride 97 L (98-107) mmol/L Carbon Dioxide 34 H (22-30) mmol/L Anion Gap 4 mmol/L BUN 24 H (9-20) mg/dL Creatinine 0.92 (0.66-1.25) mg/dL Est GFR (CKD-EPI)AfAm 87 (>60 ml/min/1.73 sqM) Est GFR (CKD-EPI)NonAf 75 (>60 ml/min/1.73 sqM) Glucose 110 H (74-99) mg/dL Plasma Lactic Acid Kael (0.7-2.0) mmol/L Calcium 8.6 (8.4-10.2) mg/dL Magnesium 1.8 (1.6-2.3) mg/dL Total Bilirubin (0.2-1.3) mg/dL AST (17-59) U/L ALT (4-49) U/L Alkaline Phosphatase (38-126) U/L NT-Pro-B Natriuret Pep (0-450) pg/mL Total Protein (6.3-8.2) g/dL Albumin (3.5-5.0) g/dL Urine Color Urine Appearance (Clear) Urine pH (5.0-8.0) Ur Specific [place]ph[place] (1.001-1.035) Urine Protein (Negative) Urine Glucose (UA) (Negative) Urine Ketones (Negative) Urine Blood (Negative) Urine Nitrite (Negative) Urine Bilirubin (Negative) Urine Urobilinogen (<2.0) mg/dL Ur Leukocyte Esterase (Negative) Urine RBC (0-5) /hpf Urine WBC (0-5) /hpf Urine Mucus (None) /hpf Coronavirus (PCR) (Not Detectd) - Radiology Data Radiology results: report reviewed, image reviewed Two-view x-ray of the chest is obtained. Report was reviewed in its entirety. Impression by Dr. Shine shows significant pleural thickening and infiltrate in the left lateral lower lobe appears new compared to old exam. No heart failure. This could be a pulmonary infarct. Disposition Clinical Impression: Venous stasis dermatitis, Bilateral lower extremity edema, Hypokalemia Disposition: ADMITTED IP TO THIS [facility] Condition: Stable Decision to Admit Reason: Admit from EC Decision Date: 06/20/21 Decision Time: 02:47
[2021-06-20 01:01] LABS: Basophils % (A) 0 %; Eosinophils # (A) 0.2 k/uL (0-0.7); Eosinophils % (A) 3 %; HCT 40.8 % (39.0-53.0); HGB 13.8 gm/dL (13.0-17.5); Lymphocytes # (A) 1.3 k/uL (1.0-4.8); Lymphocytes % (A) 17 %; MCHC 33.8 g/dL (31.0-37.0); Monocytes # (A) 0.6 k/uL (0-1.0); Monocytes % (A) 8 %; Neutrophils # (A) 5.5 k/uL (1.3-7.7); Neutrophils % (A) 69 %; Platelet Count 250 k/uL (150-450); RBC 4.31 m/uL (4.30-5.90)
[2021-06-20 01:13] LABS: MCV 94.6 fL (80.0-100.0)
[2021-06-20 01:14] LABS: Albumin 3.5 g/dL (3.5-5.0); Calcium 8.9 mg/dL (8.4-10.2); Total Bilirubin 1.3 mg/dL (0.2-1.3); Total Protein 6.5 g/dL (6.3-8.2)
[2021-06-20 01:45] LABS: Potassium 3.3 mmol/L (3.5-5.1)
[2021-06-20] MEDS ORDERED: POTASSIUM CHLORIDE ER 20 MEQ TAB.ER PO STA (02:26)
[2021-06-20] MEDS ORDERED: FUROSEMIDE 10 MG/ML 4 ML VIAL IV STA (02:46)
[2021-06-20] MEDS ORDERED: NALOXONE 0.4 MG/ML 1 ML VIAL IV PRN (02:47)
--- NOTE | 2021-06-20 04:15 | P.HPIM ---
History of Present Illness H&P Date: 06/20/21 The patient is an 85-year-old male with a PMH of coronary artery disease status post MIs, COPD, hypothyroidism, and hyperlipidemia who presents to the emergency room with complaints of lower extremity edema and redness. The patient reports that over the past 1 week, he has noticed gradually worsening bilateral lower extremity edema with oozing along with red discoloration of his legs, from ankles to just at the level of the knees, associated with mild discomfort. The patient states that he has experienced several bouts of lower extremity edema in the past although was told that his heart i "okay". He reports compliance with his medications at home including his Lasix although states that he has been trying to drink more water as he drinks 2-3 cups of coffee a day and does not wish to get dehydrated. He states that he drinks several liters of water daily. He denied experiencing chest discomfort or shortness of breath but does have long-standing orthopnea and sleeps in a recliner. Denied fever, chills, cough, nausea, vomiting, abdominal pain, diarrhea. He underwent an extensive e valuation in the emergency room with chest x-ray showing pleural thickening in the lateral left lower lobe new with no obvious heart failure noted. Laboratory evaluation was remarkable for sodium 132, potassium 3.3, chloride 94, BUN 26, lactic acid 1.6, and a coronavirus PCR negative. Review of systems: Pertinent positives and negatives as discussed in HPI, a complete review of systems was performed and all other systems are negative. Physical examination: General: non toxic, no distress, appears at stated age, obese Derm: circumferential erythema bilaterally from ankles to knees with mild tenderness, warm, dry Head: atraumatic, normocephalic, symmetric Eyes: EOMI, no lid lag, anicteric sclera, pupils equal round reactive to light ENT: Nose and ears atraumatic, no thrush, no pharyngeal erythema Neck: No thyromegaly, no cervical lymphadenopathy, trachea midline, supple Mouth: no lip lesion, mucus membranes moist Cardiovascular: S1S2 reg, no murmur, positive posterior tibial pulse bilateral, 3+ bilateral lower extremity pitting edema with circumferential erythema bilaterally from ankles to knees with mild tenderness, capillary refill less than 2 seconds Lungs: CTA bilateral, no rhonchi, no rales , no accessory muscle use Abdominal: soft, nontender to palpation, no guarding, no appreciable organomegaly, normal bowel sounds Ext: no gross muscle atrophy, muscle strength 5 out of 5 in all 4 extremities grossly, no contractures, Neuro: CN II-XI grossly intact, light touch intact all 4 extremities, finger to nose within normal limits, Psych: Alert, oriented, appropriate affect Assessment/plan Venous stasis dermatitis -Due to significant bilateral lower extremity pitting edema -Echocardiogram from 04/2021 reviewed, showing intact EF with moderate LVH -ProBNP pending -Continue with Lasix IV push every 12 hourly -Cardiology consult -Fluid restriction -Hold off on antibiotics at this time Hypokalemia -Replace and monitor Xarelto use -Patient does not know why he is on Xarelto but denied hx of clots or Afib. States he was started on it by his [employer]. -Will continue for now and defer to Cardiology service Chronic conditions: COPD, hyperlipidemia, hypothyroidism -C/w home meds DVT prophylaxis -Xarelto The patient is admitted with an anticipate greater than 2 midnight stay for evaluation of dematitis CODE STATUS: Full Code Discusse: Patient Anticipated discharge date: 2-[address]: Home Past Medical History Past Medical History: COPD, Hyperlipidemia, Myocardial Infarction ([place]), Pneumon ia Last Myocardial Infarction Date:: Apr 1994 History of Any Multi-Drug Resistant Organisms: None Reported Past Surgical History: Heart Catheterization Additional Past Surgical History / Comment(s): angioplasty after [place], no stents, pilonital cyst removal, Past Anesthesia/Blood Transfusion Reactions: No Reported Reaction Past Psychological History: No Psychological Hx Reported Smoking Status: Former smoker Past Alcohol Use History: Occasional Past Drug Use History: None Reported - Past Family History Father History Unknown: Yes Medications and Allergies Home Medications Medication Instructions Recorded Confirmed Type atenoloL [Tenormin] 25 mg PO HS 12/12/13 06/19/21 History Furosemide [Lasix] 20 mg PO BID 11/26/20 06/19/21 History Simvastatin [Zocor] 20 mg PO DAILY 11/26/20 06/19/21 History Tamsulosin [Flomax] 0.4 mg PO BID 11/26/20 06/19/21 History Ascorbic Acid [Vitamin C] 500 mg PO DAILY 02/11/21 06/19/21 History Cholecalciferol [Vitamin D3 (25 50 mcg PO DAILY 02/11/21 06/19/21 History Mcg = 1000 Iu)] Zinc 50 mg PO DAILY 02/11/21 06/19/21 History Albuterol Inhaler [Ventolin Hfa 2 puff INHALATION RT-QID PRN 06/19/21 06/19/21 History Inhaler] Albuterol Nebulized [Ventolin 2.5 mg INHALATION RT-QID PRN 06/19/21 06/19/21 History Nebulized] Erythromycin Ophth Oint [Romycin 1 applic BOTH EYES DAILY 06/19/21 06/19/21 Hi story Ophth Oint] Fluticasone/Umeclidin/Vilanter 1 puff INHALATION RT-DAILY 06/19/21 06/19/21 History [Trelegy Ellipta 100-62.5-25] Levothyroxine Sodium [Synthroid] 50 mcg PO DAILY 06/19/21 06/19/21 History Rivaroxaban [Xarelto] 15 mg PO DAILY 06/19/21 06/19/21 History Latanoprost/Pf [Latanoprost 0.005% 1 drop BOTH EYES HS 06/20/21 06/20/21 History Eye Drop] Allergies Allergy/AdvReac Type Severity Reaction Status Date / Time prednisone AdvReac CAN'T Verified 06/20/21 00:01 URINATE WHEN HE TAKES IT Physical Exam Vitals: Vital Signs Temp Pulse Resp BP Pulse Ox 06/19/21 19:07 98 F 77 16 111/56 95 Intake and Output 06/19/21 06/19/21 06/20/21 14:59 22:59 06:59 Other: Weight 99.79 kg Results CBC & Chem 7: 06/20/21 00:30 06/20/21 00:30 Labs: Abnormal Lab Results - Last 24 Hours (Table) 06/20/21 Range/Units 00:30 Sodium 132 L (137-145) mmol/L Potassium 3.3 L (3.5-5.1) mmol/L Chloride 94 L (98-107) mmol/L BUN 26 H (9-20) mg/dL Glucose 114 H (74-99) mg/dL Alkaline Phosphatase 155 H (38-126) U/L
[2021-06-20 06:38] LABS: Basophils % (A) 0 %; Eosinophils # (A) 0.3 k/uL (0-0.7); Eosinophils % (A) 4 %; HCT 37.5 % (39.0-53.0); HGB 12.7 gm/dL (13.0-17.5); Lymphocytes % (A) 13 %; MCH 31.8 pg (25.0-35.0); MCHC 33.8 g/dL (31.0-37.0); MCV 94.2 fL (80.0-100.0); Mean Platelet Volume 8.1; Monocytes # (A) 0.7 k/uL (0-1.0); Monocytes % (A) 8 %; Neutrophils # (A) 5.8 k/uL (1.3-7.7); Neutrophils % (A) 73 %; Platelet Count 260 k/uL (150-450); RBC 3.98 m/uL (4.30-5.90); WBC 7.9 k/uL (3.8-10.6)
[2021-06-20 06:58] LABS: African American GFR (CKD) >90 (>60 ml/min/1.73 sqM); Anion Gap 5 mmol/L; Blood Urea Nitrogen 27 mg/dL (9-20); Calcium 8.7 mg/dL (8.4-10.2); Carbon Dioxide 34 mmol/L (22-30); Chloride 95 mmol/L (98-107); Glucose 124 mg/dL (74-99); Non-African American GFR(CKD) 78 (>60 ml/min/1.73 sqM); Sodium 134 mmol/L (137-145)
[2021-06-20 07:17] LABS: Potassium 3.7 mmol/L (3.5-5.1)
[2021-06-20] MEDS ORDERED: FUROSEMIDE 10 MG/ML 4 ML VIAL IV SCH (09:00)
[2021-06-20] MEDS: ERYTHROMYCIN 5 MG/GM OPHTH OINT 3.5 GM TUBE BOTH EYES SCH (09:17)
[2021-06-20] MEDS: LEVOTHYROXINE 50 MCG TAB PO SCH (09:17)
[2021-06-20] MEDS: CHOLECALCIFEROL 25 MCG (1000 IU) TABLET PO SCH (09:17)
[2021-06-20] MEDS: TAMSULOSIN 0.4 MG CAP.ER.24H PO SCH ×2 (09:17→21:05)
[2021-06-20] MEDS: ATORVASTATIN 10 MG TAB PO SCH (09:17)
[2021-06-20] MEDS: RIVAROXABAN 15 MG TAB PO SCH (09:17)
[2021-06-20] MEDS ORDERED: atenoloL 25 MG TAB PO SCH ×2 (09:28→21:00)
[2021-06-20] MEDS ORDERED: ALBUTEROL NEBULIZED 2.5 MG/3 ML INHALATION PRN (10:34)
--- NOTE | 2021-06-20 11:01 | P.CRDCN ---
History of Present Illness History of present illness: HISTORY OF PRESENTING ILLNESS This is a pleasant 85-year-old male past medical history significant for hypertension, dyslipidemia, paroxysmal atrial fibrillation on Xarelto (diagnosed during echo and stress test in the office 04/2021). He follows in the office with Dr. Saxena. We have been asked to see in consultation for congestive heart failure. Patient is seen and examined in the emergency department, presents to the emergency department on 06/19/2021 with complaints of bilateral lower extremity edema and redness. Over the past week patient has noticed that he's been having worsening bilateral extremity edema, losing with red discoloration of his legs. Redness is located bilaterally, at his ankles up to the level of his knees. He does have pain with palpation. He does have symptoms of orthopnea. He denies chest pain, palpitations, shortness of breath, weakness, lightheadedne ss, syncope or near syncope. He denies any change in medications or increased salt intake. He has been drinking more water daily. He states he is compliant with his medications. DIAGNOSTICS EKG not performed Chest x-ray revealed significant pleural thickening and infiltrate in the lateral left lower lobe appears new compared to exam. No acute heart failure. Echocardiogram on 05/11/2021 in the office revealed EF of 55%, mild concentric LVH, mild aortic valve sclerosis, no significant gradient, mild pulmonary hypertension Lexiscan 05/02/2021 revealed no reversible ischemia, possible diaphragmatic attenuation. Laboratory reviewed, sodium 134, potassium 3.7, BUN 27, serum creatinine 0.8, pro-BNP 1709, alkaline phosphatase 155, creatinine 19 PCR negative Current home medications include Xarelto 15 mg daily, Synthroid, zinc, simvastatin 20 mg daily, atenolol 25 mg nightly, Lasix 20 mg twice a day REVIEW OF SYSTEMS At the time of my exam: CONSTITUTIONAL: Denies fever or chills. +redness to bilateral lower extremities CARDIOVASCULAR: +LE edema Denies chest pain, shortness of breath, orthopnea, PND or palpitations. RESPIRATORY: Denies cough. GASTROINTESTINAL: Denies abdominal pain, diarrhea, constipation, nausea or vomiting. MUSCULOSKELETAL: Denies myalgias. NEUROLOGIC: Denies numbness, tingling, headache or weakness. ENDOCRINE: Denies fatigue, weight change, polydipsia or polyurina. GENITOURINARY: Denies burning, hematuria or urgency with micturation. HEMATOLOGIC: Denies history of anemia or bleeding. PHYSICAL EXAMINATION Blood pressure 121/78, heart rate 87, afebrile, oxygen saturation is greater than 92% on room air CONSTITUTIONAL: No apparent distress. HEENT: Head is normocephalic. Pupils are equal, round. Sclerae anicteric. Mucous membranes of the mouth are moist. No JVD. No carotid bruit. CHEST EXAMINATION: Lungs are clear to auscultation. No chest wall tenderness is noted on palpation or with deep breathing. HEART EXAMINATION: Regular rate and rhythm. S1, S2 heard. No murmurs, gallops or rub. ABDOMEN: Soft, nontender. Positive bowel sounds. EXTREMITIES: 2+ peripheral pulses, no lower extremity edema and no calf tenderness. SKIN: NEUROLOGIC EXAMINATION: Patient is awake, alert and oriented x3. ASSESSMENT Acute diastolic heart failure Lower extremity Redness bilaterally Mild pulmonary hypertension Hypertension Dyslipidemia Paroxysmal atrial fibrillation on Xarelto Hypokalemia, replaced Hyponatremia, improving PLAN -Increase IV Lasix 40mg Q8hr -I/Os, daily weights -Monitor renal function and electrolytes -Change atenolol to daily instead of nightly -Continue Xarelto and Statin -No need to repeat echocardiogram with recent one in 04/2021 -Further recommendations based on clinical course Thank you kindly for this consultation. Nurse Practitioner note has been reviewed, I agree with a documented findings and plan of care. Patient was seen and examined. Past Medical History Past Medical History: COPD, Hyperlipidemia, Myocardial Infarction (SC), Pneumonia Last Myocardial Infarction Date:: Apr 1994 History of Any Multi-Drug Resistant Organisms: None Reported Past Surgical History: Heart Catheterization Additional Past Surgical History / Comment(s): angioplasty after SC, no stents, pilonital cyst removal, Past Anesthesia/Blood Transfusion Reactions: No Reported Reaction Past Psychological History: No Psychological Hx Reported Smoking Status: Former smoker Past Alcohol Use History: Occasional Past Drug Use History: None Reported - Past Family History Father History Unknown: Yes Medications and Allergies Home Medications Medication Instructions Recorded Confirmed Type atenoloL [Tenormin] 25 mg PO HS 12/12/13 06/19/21 History Furosemide [Lasix] 20 mg PO BID 11/26/20 06/19/21 History Simvastatin [Zocor] 20 mg PO DAILY 11/26/20 06/19/21 History Tamsulosin [Flomax] 0.4 mg PO BID 11/26/20 06/19/21 History Ascorbic Acid [Vitamin C] 500 mg PO DAILY 02/11/21 06/19/21 History Cholecalciferol [Vitamin D3 (25 50 mcg PO DAILY 02/11/21 06/19/21 History Mcg = 1000 Iu)] Zinc 50 mg PO DAILY 02/11/21 06/19/21 History Albuterol Inhaler [Ventolin Hfa 2 puff INHALATION RT-QID PRN 06/19/21 06/19/21 History Inhaler] Albuterol Nebulized [Ventolin 2.5 mg INHALATION RT-QID PRN 06/19/21 06/19/21 History Nebulized] Erythromycin Ophth Oint [Romycin 1 applic BOTH EYES DAILY 06/19/21 06/19/21 History Ophth Oint] Fluticasone/Umeclidin/Vilanter 1 puff INHALATION RT-DAILY 06/19/21 06/19/21 History [Trelegy Ellipta 100-62.5-25] Levothyroxine Sodium [Synthroid] 50 mcg PO DAILY 06/19/21 06/19/21 History Rivaroxaban [Xarelto] 15 mg PO DAILY 06/19/21 06/19/21 History Latanoprost/Pf [Latanoprost 0.005% 1 drop BOTH EYES HS 06/20/21 06/20/21 History Eye Drop] Allergies Allergy/AdvReac Type Severity Reaction Status Date / Time prednisone AdvReac CAN'T Verified 06/20/21 00:01 URINATE WHEN HE TAKES IT Physical Exam Vitals: Vital Signs Temp Pulse Resp BP Pulse Ox 06/20/21 05:39 97.9 F 90 18 134/69 98 06/19/21 19:07 98 F 77 16 111/56 95 Intake and Output 06/19/21 06/20/21 06/20/21 22:59 06:59 14:59 Other: Weight 99.79 kg Results 06/20/21 06:20 06/20/21 06:20 Cardiac Enzymes 06/20/21 Range/Units 00:30 AST 46 (17-59) U/L CBC 06/20/21 06/20/21 Range/Units 00:30 06:20 WBC 8.0 7.9 (3.8-10.6) k/uL RBC 4.31 3.98 L (4.30-5.90) m/uL Hgb 13.8 12.7 L (13.0-17.5) gm/dL Hct 40.8 37.5 L (39.0-53.0) % Plt Count 250 260 (150-450) k/uL Comprehensive Metabolic Panel 06/20/21 06/20/21 Range/Units 00:30 06:20 Sodium 132 L 134 L (137-145) mmol/L Potassium 3.3 L 3.7 (3.5-5.1) mmol/L Chloride 94 L 95 L (98-107) mmol/L Carbon Dioxide 30 34 H (22-30) mmol/L BUN 26 H 27 H (9-20) mg/dL Creatinine 0.89 0.88 (0.66-1.25) mg/dL Glucose 114 H 124 H (74-99) mg/dL Calcium 8.9 8.7 (8.4-10.2) mg/dL AST 46 (17-59) U/L ALT 32 (4-49) U/L Alkaline Phosphatase 155 H (38-126) U/L Total Protein 6.5 (6.3-8.2) g/dL Albumin 3.5 (3.5-5.0) g/dL Current Medications Generic Name Dose Route Start Last Admin Trade Name Freq PRN Reason Stop Dose Admin Atenolol 25 mg 06/20/21 21:00 Atenolol 25 Mg Tab PO HS [facility] Atorvastatin Calcium 10 mg 06/20/21 09:00 Atorvastatin 10 Mg Tab PO DAILY [facility] Cholecalciferol 50 mcg 06/20/21 09:00 Cholecalciferol 25 Mcg (1000 Iu) Tablet PO DAILY [facility] Erythromycin 1 applic 06/20/21 09:00 Erythromycin 5 Mg/Gm Ophth Oint 3.5 Gm Tube BOTH EYES DAILY [facility] Furosemide 40 mg 06/20/21 09:00 Furosemide 10 Mg/Ml 4 Ml Vial IV Q12HR [facility] Latanoprost 1 drops 06/20/21 21:00 Latanoprost 0.005% Ophth Drops 2.5 Ml Btl BOTH EYES HS [facility] Levothyroxine Sodium 50 mcg 06/20/21 06:30 Levothyroxine 50 Mcg Tab PO DAILY@0630 [facility] Naloxone HCl 0.2 mg 06/20/21 02:47 Naloxone 0.4 Mg/Ml 1 Ml Vial IV Q2M PRN Opioid Reversal Rivaroxaban 15 mg 06/20/21 09:00 Rivaroxaban 15 Mg Tab PO DAILY [facility] Protocol Tamsulosin HCl 0.4 mg 06/20/21 09:00 Tamsulosin 0.4 Mg Cap.Er.24h PO BID [facility] Intake and Output 06/19/21 06/20/21 06/20/21 22:59 06:59 14:59 Other: Weight 99.79 kg 06/20/21 06:20 06/20/21 06:20
[2021-06-20 12:06] LABS: Appearance,Urine Cloudy (Clear); Bilirubin,Urine Negative (Negative); Blood,Urine Large (Negative); Color,Urine Light Red; Glucose,Urine (UA) Negative (Negative); Ketones,Urine Negative (Negative); Leukocyte Esterase,Urine Large (Negative); Mucus,Urine Rare /hpf; Nitrite,Urine Negative (Negative); Protein,Urine Trace (Negative); RBC,Urine >182 /hpf (0-5); Specific Gravity,Urine 1.015 (1.001-1.035); Urobilinogen,Urine <2.0 mg/dL (<2.0); WBC,Urine 43 /hpf (0-5)
[2021-06-20] MEDS: POTASSIUM CHLORIDE ER 20 MEQ TAB.ER PO SCH ×2 (12:40→21:05)
[2021-06-20] MEDS: IPRATROPIUM 0.5 MG/2.5 ML NEBU INHALATION SCH ×4 (15:32→21:56)
[2021-06-20] MEDS: FUROSEMIDE 10 MG/ML 4 ML VIAL IV SCH ×2 (17:31→23:45)
[2021-06-20] MEDS ORDERED: VANCOMYCIN 1,500 MG in SODIUM CHLORIDE 0.9% 250 ML IVPB SCH (18:00)
[2021-06-20] MEDS: SYMBICORT 80-4.5 MCG INHALER INHALATION SCH ×2 (18:19→21:56)
--- NOTE | 2021-06-20 18:37 | P.PN ---
<Sampson Baldwin - Last Filed: 06/20/21 18:07> Subjective Progress Note Date: 06/20/21 Hospital course: Patient is a very pleasant 85-year-old male with a past medical history of CAD with previous MIs and angioplasty without stent placement, paroxysmal atrial fibrillation on anticoagulation with Xarelto, hypertension, hyperlipidemia, COPD, and hypothyroidism. He presented to the emergency department with the chief complaint of increased lower extremity edema and redness. Patient was seen and fully evaluated in the emergency department and was found to have mild hyponatremia with sodium of 132,. Hypokalemia with potassium of 3.3, hypochloremia with chloride of 94, prerenal azotemia with BUN of 26, and elevated proBNP of 1709. Chest x-ray revealing significant pleural thickening and infiltrate in the left lateral lower lobe. EKG revealing atrial fibrillation and a controlled ventricular rate of 91 bpm with right bundle branch block. Patient was admitted under our services with consultation to cardiology for acute on chronic diastolic heart failure and venous stasis dermatitis. In addition patient also reporting previously having difficulties with urinary retention and had urinary catheter in place for 8 days prior to being moved by urologist Dr. López yesterday afternoon. Physical exam: Patient seen and fully evaluated at the bedside this morning. He was eating breakfast at this time and states reports he is still having penile pain along with urinary frequency, urgency and retention. Discussed with RN and orders placed for bladder scan and urinalysis. Urinalysis resulting positive for infection. Started on IV antibiotic Rocephin. Urine Culture to be obtained. Cardiology increased Lasix to 40 mg IVP every 8 hours. Orders also placed for strict I's and O's and daily weights. Patient denies having any other complaints at this time including headache, lightheadedness, dizziness, chest pain, palpitations, shortness of breath, or dyspnea with exertion. Vital signs reviewed and stable. General: Nontoxic, no distress and appears stated age. Derm: Skin warm and dry, Justin discoloration of bilateral lower extremities accompanied by bilateral lower extremity pitting edema Head: Atraumatic, normocephalic and symmetric. Eyes: EOMs intact, no lid lag, and anicteric sclera Mouth: no lip lesions, mucus membranes moist Cardiovascular: regular rate and rhythm with normal S1S2, soft murmur present, positive posterior tibial pulses bilaterally, and cap refill < 2 seconds. Lungs: Respirations even, regular, and unlabored on room air. Lungs CTA bilaterally, no rhonchi, no rales, no wheezing, and no accessory muscle usage. Abdominal: soft, nontender to palpation, no guarding, no appreciable organomegaly. No CVA tenderness. Ext: ROM intact. No gross muscle atrophy, 2+ edema, no contractures Neuro: Speech clear, face symmetrical and CN II-XII grossly intact with no noted focal neuro deficits Psych: Alert and oriented to person, place, time, and situation. Appropriate and pleasant affect. Assessment and Plan of Care: Acute diastolic heart failure Mild pulmonary hypertension Venous stasis dermatitis likely secondary to significant bilateral lower extremity edema, no signs of infection Proximal is mildly atrial fibrillation on anticoagulation with Xarelto -Echocardiogram completed 05/11/21 revealed moderate concentric left ventricular hypertrophy with a normal EF between 55 and 60%, moderate tricuspid regurgitation and mild pulmonary hypertension. -ProBNP 1709. -Cardiology following and increased Lasix to 40 mg IVP every 8 hours. -Patient remained on telemetry monitoring. -Strict I's and O's -Daily weights Urinary retention History of BPH UTI -Urinalysis positive for infection with greater than 182 WBCs. -Patient started on IV antibiotics Rocephin pending culture and sensitivity results. -Urine culture -Consultation placed to urology. -RN reported persistent urinary retention greater than 600 mL and Starks catheter inserted. -Patient to continue with Flomax. Hypokalemia, resolved -We will continue to monitor with repeat a.m. labs. Hyponatremia, improved -We will continue to monitor with repeat a.m. labs. Hypothyroidism -Continue daily medication regimen with Synthroid 50 g each morning. COPD -Continuation of Symbicort with when necessary DuoNeb's as needed for shortness of breath and/or wheezing. History of CAD with previous [place] and angioplasty without stent placement Hypertension Hyperlipidemia -Continue daily medication regimen with atenolol and atorvastatin. -Close monitoring of vital signs. CODE STATUS: Full code DVT prophylaxis: Xarelto Discussed with: Patient and RN Anticipated discharge date: Clinical course to determine Anticipated discharge place: Home A total of 40 minutes was spent on the care of this complex patient more than 50% of the time was spent in counseling and care coordination Objective - Vital Signs Vital signs: Vital Signs Temp 97.8 F 06/20/21 09:20 Pulse 87 06/20/21 09:20 Resp 18 06/20/21 09:20 BP 121/78 06/20/21 09:20 Pulse Ox 95 06/20/21 09:20 Intake & Output 06/19/21 06/20/21 06/20/21 18:59 06:59 18:59 Weight 99.79 kg - Labs CBC & Chem 7: 06/20/21 06:20 06/20/21 06:20 Labs: Abnormal Lab Results - Last 24 Hours (Table) 06/20/21 06/20/21 06/20/21 Range/Units 00:30 00:30 06:20 RBC 3.98 L (4.30-5.90) m/uL Hgb 12.7 L (13.0-17.5) gm/dL Hct 37.5 L (39.0-53.0) % Sodium 132 L (137-145) mmol/L Potassium 3.3 L (3.5-5.1) mmol/L Chloride 94 L (98-107) mmol/L Carbon Dioxide (22-30) mmol/L BUN 26 H (9-20) mg/dL Glucose 114 H (74-99) mg/dL Alkaline Phosphatase 155 H (38-126) U/L NT-Pro-B Natriuret Pep 1709 H (0-450) pg/mL 06/20/21 Range/Units 06:20 RBC (4.30-5.90) m/uL Hgb (13.0-17.5) gm/dL Hct (39.0-53.0) % Sodium 134 L (137-145) mmol/L Potassium (3.5-5.1) mmol/L Chloride 95 L (98-107) mmol/L Carbon Dioxide 34 H (22-30) mmol/L BUN 27 H (9-20) mg/dL Glucose 124 H (74-99) mg/dL Alkaline Phosphatase (38-126) U/L NT-Pro-B Natriuret Pep (0-450) pg/mL <Nova Ayers - Last Filed: 06/20/21 18:38> Subjective I reviewed the documentation as provided by the TRISHA above, who is the original author of this note. I agree with the documented assessment and plan, with the following changes: None Objective - Vital Signs Vital signs: Vital Signs Temp 98.2 F 06/20/21 18:15 Pulse 83 06/20/21 18:15 Resp 16 06/20/21 18:15 BP 124/76 06/20/21 18:15 Pulse Ox 95 06/20/21 18:15 Intake & Output 06/19/21 06/20/21 06/20/21 18:59 06:59 18:59 Output Total 900 Balance -900 Weight 99.79 kg 99.79 kg Output: Urine 900 Uretheral (Starks) 900 - Labs CBC & Chem 7: 06/20/21 06:20 06/20/21 06:20 Labs: Abnormal Lab Results - Last 24 Hours (Table) 06/20/21 06/20/21 06/20/21 Range/Units 00:30 00:30 06:20 RBC 3.98 L (4.30-5.90) m/uL Hgb 12.7 L (13.0-17.5) gm/dL Hct 37.5 L (39.0-53.0) % Sodium 132 L (137-145) mmol/L Potassium 3.3 L (3.5-5.1) mmol/L Chloride 94 L (98-107) mmol/L Carbon Dioxide (22-30) mmol/L BUN 26 H (9-20) mg/dL Glucose 114 H (74-99) mg/dL Alkaline Phosphatase 155 H (38-126) U/L NT-Pro-B Natriuret Pep 1709 H (0-450) pg/mL Urine Protein (Negative) Urine Blood (Negative) Ur Leukocyte Esterase (Negative) Urine RBC (0-5) /hpf Urine WBC (0-5) /hpf Urine Mucus (None) /hpf 06/20/21 06/20/21 Range/Units 06:20 11:15 RBC (4.30-5.90) m/uL Hgb (13.0-17.5) gm/dL Hct (39.0-53.0) % Sodium 134 L (137-145) mmol/L Potassium (3.5-5.1) mmol/L Chloride 95 L (98-107) mmol/L Carbon Dioxide 34 H (22-30) mmol/L BUN 27 H (9-20) mg/dL Glucose 124 H (74-99) mg/dL Alkaline Phosphatase (38-126) U/L NT-Pro-B Natriuret Pep (0-450) pg/mL Urine Protein Trace H (Negative) Urine Blood Large H (Negative) Ur Leukocyte Esterase Large H (Negative) Urine RBC >182 H (0-5) /hpf Urine WBC 43 H (0-5) /hpf Urine Mucus Rare H (None) /hpf
[2021-06-20] MEDS: LATANOPROST 0.005% OPHTH DROPS 2.5 ML BTL BOTH EYES SCH (21:06)
[2021-06-21] MEDS: LEVOTHYROXINE 50 MCG TAB PO SCH (05:46)
[2021-06-21 07:26] LABS: HCT 35.8 % (39.0-53.0); MCH 31.9 pg (25.0-35.0); MCHC 33.6 g/dL (31.0-37.0); MCV 94.9 fL (80.0-100.0); Mean Platelet Volume 8.6; Platelet Count 261 k/uL (150-450); RBC 3.77 m/uL (4.30-5.90); RDW 13.1 % (11.5-15.5)
[2021-06-21] MEDS: FUROSEMIDE 10 MG/ML 4 ML VIAL IV SCH (07:39)
[2021-06-21] MEDS: ATORVASTATIN 10 MG TAB PO SCH (07:40)
[2021-06-21] MEDS: ASCORBIC ACID 500 MG TAB PO SCH (07:40)
[2021-06-21] MEDS: TAMSULOSIN 0.4 MG CAP.ER.24H PO SCH ×2 (07:40→20:49)
[2021-06-21] MEDS: CHOLECALCIFEROL 25 MCG (1000 IU) TABLET PO SCH (07:40)
[2021-06-21] MEDS: RIVAROXABAN 15 MG TAB PO SCH (07:40)
[2021-06-21 07:41] LABS: African American GFR (CKD) 87 (>60 ml/min/1.73 sqM); Anion Gap 4 mmol/L; Blood Urea Nitrogen 24 mg/dL (9-20); Calcium 8.6 mg/dL (8.4-10.2); Carbon Dioxide 34 mmol/L (22-30); Chloride 97 mmol/L (98-107); Glucose 110 mg/dL (74-99); Magnesium 1.8 mg/dL (1.6-2.3); Non-African American GFR(CKD) 75 (>60 ml/min/1.73 sqM); Potassium 3.4 mmol/L (3.5-5.1); Sodium 135 mmol/L (137-145)
[2021-06-21] MEDS: ERYTHROMYCIN 5 MG/GM OPHTH OINT 3.5 GM TUBE BOTH EYES SCH (07:42)
[2021-06-21] MEDS: POTASSIUM CHLORIDE ER 20 MEQ TAB.ER PO SCH ×5 (07:42→20:49)
[2021-06-21] MEDS ORDERED: NON FORMULARY DRUG (Fluticasone/Umeclidin/Vilanter [Trelegy Ellipta 100-62.5-25] 1 EACH Ea INHALATION SCH (08:00)
[2021-06-21] MEDS ORDERED: FUROSEMIDE 10 MG/ML 4 ML VIAL IV STA (08:56)
[2021-06-21] MEDS ORDERED: METOPROLOL TARTRATE 25 MG TAB PO SCH (09:00)
[2021-06-21] MEDS: IPRATROPIUM 0.5 MG/2.5 ML NEBU INHALATION SCH ×4 (09:05→20:22)
[2021-06-21] MEDS: SYMBICORT 80-4.5 MCG INHALER INHALATION SCH ×2 (09:06→20:23)
[2021-06-21] MEDS ORDERED: MAGNESIUM SULFATE-D5W PMX 1 GM in DEXTROSE/WATER 1 100ML.BAG IVPB ONE (09:15)
[2021-06-21] MEDS: metOLazone 2.5 MG TAB PO SCH (10:23)
--- NOTE | 2021-06-21 11:24 | P.PN ---
Subjective This is a pleasant 85-year-old male past medical history significant for hypertension, dyslipidemia, paroxysmal atrial fibrillation on Xarelto (diagnosed during echo and stress test in the office 04/2021). He follows in the office with Dr. Saxena. We have been asked to see in consultation for congestive heart failure. Patient is seen and examined in the emergency department, presents to the emergency department on 06/19/2021 with complaints of bilateral lower extremity edema and redness. Over the past week patient has noticed that he's been having worsening bilateral extremity edema, losing with red discoloration of his legs. Redness is located bilaterally, at his ankles up to the level of his knees. He does have pain with palpation. He does have symptoms of orthopnea. He denies chest pain, palpitations, shortness of breath, weakness, l ightheadedness, syncope or near syncope. He denies any change in medications or increased salt intake. He has been drinking more water daily. He states he is compliant with his medications. Echocardiogram on 05/11/2021 in the office revealed EF of 55%, mild concentric LVH, mild aortic valve sclerosis, no significant gradient, mild pulmonary hypertension. 06/21/21: Patient seen and examined at bedside, his breathing has improved. He continues to have bilateral lower extremity edema with some improvement. He denies any chest pain. Patient with 900mL over the past 24 hours. Labs reviewed sodium 135, potassium 3.4, BUN 24, serum gram 0.9, magnesium 1.8. EKG revealed atrial fibrillation heart rate 91, Right bundle-branch block. Telemetry reviewed patient-fibrillation with controlled ventricular rates. He's currently maintained on IV [id number] Q8hr, Xarelto 50 mg daily, atorvastatin 10 mg daily, metoprolol titrate 25 mg twice a day. PHYSICAL EXAMINATION Blood pressure 105/64, heart rate 85, afebrile saturations 91% on room air CONSTITUTIONAL: No apparent distress. HEENT: Neck Supple. No JVD. CHEST EXAMINATION: Lungs are diminished to auscultation. No chest wall tenderness is noted on palpation or with deep breathing. HEART EXAMINATION: Irregular rate and rhythm. S1, S2 heard. No murmurs, gallops or rub. ABDOMEN: Soft, nontender. Positive bowel sounds. EXTREMITIES: 2+ peripheral pulses, 3+ bilateral lower extremity edema, some tenderness to palpation of bilateral lower calves SKIN: Bilateral lower extremity redness from ankles up to knees NEUROLOGIC EXAMINATION: Patient is awake, alert and oriented x3. ASSESSMENT Acute diastolic heart failure Lower extremity Redness bilaterally Mild pulmonary hypertension Hypertension Dyslipidemia Paroxysmal atrial fibrillation on Xarelto Hypokalemia, replaced Hyponatremia, improving PLAN -Transition to Lasix drip 10mg/hr -I/Os, daily weights -Monitor renal function and electrolytes -Replace potassium and magnesium per protocol -Discontinue atenolol, and change to metoprolol 25mg BID -Continue Xarelto and Statin -No need to repeat echocardiogram with recent one in 04/2021 -Further recommendations based on clinical course Thank you kindly for this consultation. Nurse Practitioner note has been reviewed, I agree with a documented findings and plan of care. Patient was seen and examined. Objective - Vital Signs Vital signs: Vital Signs Temp 97.8 F 06/21/21 07:00 Pulse 94 06/21/21 09:16 Resp 16 06/21/21 07:00 BP 105/64 06/21/21 07:00 Pulse Ox 91 L 06/21/21 07:00 Intake & Output 06/20/21 06/21/21 06/21/21 18:59 06:59 18:59 Intake Total 898 480 Output Total 900 Balance -900 898 480 Weight 99.79 kg 100.5 kg Intake: Oral 898 480 Output: Urine 900 Uretheral (Starks) 900 Other: Voiding Method Indwelling Catheter - Labs CBC & Chem 7: 06/21/21 07:03 06/21/21 07:03 Labs: Abnormal Lab Results - Last 24 Hours (Table) 06/20/21 06/21/21 06/21/21 Range/Units 11:15 07:03 07:03 RBC 3.77 L (4.30-5.90) m/uL Hgb 12.0 L (13.0-17.5) gm/dL Hct 35.8 L (39.0-53.0) % Sodium 135 L (137-145) mmol/L Potassium 3.4 L (3.5-5.1) mmol/L Chloride 97 L (98-107) mmol/L Carbon Dioxide 34 H (22-30) mmol/L BUN 24 H (9-20) mg/dL Glucose 110 H (74-99) mg/dL Urine Protein Trace H (Negative) Urine Blood Large H (Negative) Ur Leukocyte Esterase Large H (Negative) Urine RBC >182 H (0-5) /hpf Urine WBC 43 H (0-5) /hpf Urine Mucus Rare H (None) /hpf Microbiology - Last 24 Hours (Table) 06/20/21 00:30 Blood Culture - Preliminary Blood No Growth after 24 hours 06/20/21 00:30 Blood Culture - Preliminary Blood No Growth after 24 hours
--- NOTE | 2021-06-21 11:29 | P.GSCN ---
History of Present Illness Consult date: 06/21/21 Reason for Consult: urinary retention History of present illness: This is an 85-year-old male admitted to the hospital with lower extremity edema. He was also found to be in urinary retention, bladder scan was obtained which showed greater than 600 mL in his bladder. At that time he was also complaining of frequency urgency and difficulty voiding. Of note he follows up with for his BPH. He had a Starks catheter removed recently. He is currently on Flomax. He does have history of recurrent urinary retention. Starks's currently in place draining clear urine, denies any complaints. Review of Systems - Constitutional Denies fever, Denies weight loss - EENT Ears, nose, mouth and throat: Denies dysphagia - Cardiovascular Reports edema, Denies chest pain - Respiratory Denies cough, Denies 7 - Gastrointestinal Reports as per HPI - Genitourinary Denies dysuria - Neurological Denies headaches, Denies syncope Past Medical History Past Medical History: COPD, Hyperlipidemia, Myocardial Infarction ([place]), Pneumonia Last Myocardial Infarction Date:: Apr 1994 History of Any Multi-Drug Resistant Organisms: None Reported Past Surgical History: Heart Catheterization Additional Past Surgical History / Comment(s): angioplasty after [place], no stents, pilonital cyst removal, Past Anesthesia/Blood Transfusion Reactions: No Reported Reaction Past Psychological History: No Psychological Hx Reported Smoking Status: Former smoker Past Alcohol Use History: Occasional Past Drug Use History: None Reported - Past Family History Father History Unknown: Yes Medications and Allergies Home Medications Medication Instructions Recorded Confirmed Type atenoloL [Tenormin] 25 mg PO HS 12/12/13 06/19/21 History Furosemide [Lasix] 20 mg PO BID 11/26/20 06/19/21 History Simvastatin [Zocor] 20 mg PO DAILY 11/26/20 06/19/21 History Tamsulosin [Flomax] 0.4 mg PO BID 11/26/20 06/19/21 History Ascorbic Acid [Vitamin C] 500 mg PO DAILY 02/11/21 06/19/21 History Cholecalciferol [Vitamin D3 (25 50 mcg PO DAILY 02/11/21 06/19/21 History Mcg = 1000 Iu)] Zinc 50 mg PO DAILY 02/11/21 06/19/21 History Albuterol Inhaler [Ventolin Hfa 2 puff INHALATION RT-QID PRN 06/19/21 06/19/21 History Inhaler] Albuterol Nebulized [Ventolin 2.5 mg INHALATION RT-QID PRN 06/19/21 06/19/21 History Nebulized] Erythromycin Ophth Oint [Romycin 1 applic BOTH EYES DAILY 06/19/21 06/19/21 History Ophth Oint] Fluticasone/Umeclidin/Vilanter 1 puff INHALATION RT-DAILY 06/19/21 06/19/21 History [Trelegy Ellipta 100-62.5-25] Levothyroxine Sodium [Synthroid] 50 mcg PO DAILY 06/19/21 06/19/21 History Rivaroxaban [Xarelto] 15 mg PO DAILY 06/19/21 06/19/21 History Latanoprost/Pf [Latanoprost 0.005% 1 drop BOTH EYES HS 06/20/21 06/20/21 History Eye Drop] Allergies Allergy/AdvReac Type Severity Reaction Status Date / Time prednisone AdvReac CAN'T Verified 06/20/21 00:01 URINATE WHEN HE TAKES IT Surgical - Exam Vital Signs Temp Pulse Resp BP Pulse Ox 98 F 77 16 111/56 95 06/19/21 19:07 06/19/21 19:07 06/19/21 19:07 06/19/21 19:07 06/19/21 19:07 - General well developed, well nourished, no distress, no pain - Eyes PERRL, normal ocular movement - ENT normal nares, normal mucosa - Respiratory normal expansion, normal respiratory effort - Abdomen Abdomen: soft, non tender - Psychiatric oriented to time, oriented to person, oriented to place Results - Labs 06/21/21 07:03 06/21/21 07:03 Abnormal Lab Results - Last 24 Hours (Table) 06/20/21 06/21/21 06/21/21 Range/Units 11:15 07:03 07:03 RBC 3.77 L (4.30-5.90) m/uL Hgb 12.0 L (13.0-17.5) gm/dL Hct 35.8 L (39.0-53.0) % Sodium 135 L (137-145) mmol/L Potassium 3.4 L (3.5-5.1) mmol/L Chloride 97 L (98-107) mmol/L Carbon Dioxide 34 H (22-30) mmol/L BUN 24 H (9-20) mg/dL Glucose 110 H (74-99) mg/dL Urine Protein Trace H (Negative) Urine Blood Large H (Negative) Ur Leukocyte Esterase Large H (Negative) Urine RBC >182 H (0-5) /hpf Urine WBC 43 H (0-5) /hpf Urine Mucus Rare H (None) /hpf Microbiology - Last 24 Hours (Table) 06/20/21 00:30 Blood Culture - Preliminary Blood No Growth after 24 hours 06/20/21 00:30 Blood Culture - Preliminary Blood No Growth after 24 hours Diabetes panel 06/21/21 Range/Units 07:03 Sodium 135 L (137-145) mmol/L Potassium 3.4 L (3.5-5.1) mmol/L Chloride 97 L (98-107) mmol/L Carbon Dioxide 34 H (22-30) mmol/L BUN 24 H (9-20) mg/dL Creatinine 0.92 (0.66-1.25) mg/dL Glucose 110 H (74-99) mg/dL Calcium 8.6 (8.4-10.2) mg/dL Calcium panel 06/21/21 Range/Units 07:03 Calcium 8.6 (8.4-10.2) mg/dL Pituitary panel 06/21/21 Range/Units 07:03 Sodium 135 L (137-145) mmol/L Potassium 3.4 L (3.5-5.1) mmol/L Chloride 97 L (98-107) mmol/L Carbon Dioxide 34 H (22-30) mmol/L BUN 24 H (9-20) mg/dL Creatinine 0.92 (0.66-1.25) mg/dL Glucose 110 H (74-99) mg/dL Calcium 8.6 (8.4-10.2) mg/dL Adrenal panel 06/21/21 Range/Units 07:03 Sodium 135 L (137-145) mmol/L Potassium 3.4 L (3.5-5.1) mmol/L Chloride 97 L (98-107) mmol/L Carbon Dioxide 34 H (22-30) mmol/L BUN 24 H (9-20) mg/dL Creatinine 0.92 (0.66-1.25) mg/dL Glucose 110 H (74-99) mg/dL Calcium 8.6 (8.4-10.2) mg/dL Assessment and Plan Assessment: 85-year-old male admitted with lower extremity edema. Urology is consulted for urinary retention, he had 600 mL postvoid residual, and a Starks catheter was placed. -Can follow-up as an outpatient with Dr. Blair in 1 week for trial of void, can be discharged home with a Starks catheter -We'll increase Flomax to twice a day
[2021-06-21] MEDS: FUROSEMIDE 100 MG in SODIUM CHLORIDE 0.9% 90 ML IV SCH ×2 (11:45→20:45)
--- NOTE | 2021-06-21 14:40 | P.PN ---
Subjective Progress Note Date: 06/21/21 Hospital course: Patient is a very pleasant 85-year-old male with a past medical history of CAD with previous MIs and angioplasty without stent placement, paroxysmal atrial fibrillation on anticoagulation with Xarelto, hypertension, hyperlipidemia, COPD, and hypothyroidism. He presented to the emergency department with the chief complaint of increased lower extremity edema and redness. Patient was seen and fully evaluated in the emergency department and was found to have mild hyponatremia with sodium of 132,. Hypokalemia with potassium of 3.3, hypochlor emia with chloride of 94, prerenal azotemia with BUN of 26, and elevated proBNP of 1709. Chest x-ray revealing significant pleural thickening and infiltrate in the left lateral lower lobe. EKG revealing atrial fibrillation and a controlled ventricular rate of 91 bpm with right bundle branch block. Patient was admitted under our services with consultation to cardiology for acute on chronic diast olic heart failure and venous stasis dermatitis. In addition patient also reporting previously having difficulties with urinary retention and had urinary catheter in place for 8 days prior to being moved by urologist Dr. López yesterday afternoon. Physical exam: Patient seen and fully evaluated at the bedside this morning. He has had 900 mL of urine output over the past 24 hours. Cardiology starting patient on Lasix infusion milligrams per hour. Orders place to transfer patient to inpatient status from observation status. Morning labs revealed mild hypokalemia with potassium of 3.4, replaced. Patient reports feeling slightly better and cur rently denies having any headache, lightheadedness, dizziness, chest pain, palpitations, or shortness of breath at rest. Vital signs reviewed and stable. General: Nontoxic, no distress and appears stated age. Derm: Skin warm and dry, Justin discoloration of bilateral lower extremities accompanied by bilateral lower extremity pitting edema Head: Atraumatic, normocephalic and symmetric. Eyes: EOMs intact, no lid lag, and anicteric sclera Mouth: no lip lesions, mucus membranes moist Cardiovascular: regular rate and rhythm with normal S1S2, soft murmur present, positive posterior tibial pulses bilaterally, and cap refill < 2 seconds. Lungs: Respirations even, regular, and unlabored on room air. Lungs CTA bilaterally, no rhonchi, no rales, no wheezing, and no accessory muscle usage. Abdominal: soft, nontender to palpation, no guarding, no appreciable organomegaly. No CVA tenderness. Ext: ROM intact. No gross muscle atrophy, 3+ pitting edema, no contractures Neuro: Speech clear, face symmetrical and CN II-XII grossly intact with no noted focal neuro deficits Psych: Alert and oriented to person, place, time, and situation. Appropriate and pleasant affect. Assessment and Plan of Care: Acute diastolic heart failure Mild pulmonary hypertension Venous stasis dermatitis likely secondary to significant bilateral lower extremity edema, no signs of infection Proximal is mildly atrial fibrillation on anticoagulation with Xarelto -Echocardiogram completed 05/11/21 revealed moderate concentric left ventricular hypertrophy with a normal EF between 55 and 60%, moderate tricuspid regurgitation and mild pulmonary hypertension. -ProBNP 1709. -Cardiology following and starting pt on lasix infusion at this time. -Patient to remain on continuous telemetry monitoring. -Strict I's and O's -Daily weights Urinary retention History of BPH UTI -Urinalysis positive for infection with greater than 182 WBCs. -Patient started on IV antibiotics Rocephin pending culture and sensitivity results. -Urine culture -Consultation placed to urology. -RN reported persistent urinary retention greater than 600 mL and Starks catheter inserted. -Patient to continue with Flomax. Hypokalemia, replaced -We will continue to monitor with repeat a.m. labs. Hyponatremia, improved -We will continue to monitor with repeat a.m. labs. Hypothyroidism -Continue daily medication regimen with Synthroid 50 g each morning. COPD -Continuation of Symbicort with when necessary DuoNeb's as needed for shortness of breath and/or wheezing. History of CAD with previous GA and angioplasty without stent placement Hypertension Hyperlipidemia -Continue daily medication regimen with atenolol and atorvastatin. -Close monitoring of vital signs. CODE STATUS: Full code DVT prophylaxis: Xarelto Discussed with: Patient and RN Anticipated discharge date: Clinical course to determine Anticipated discharge place: Home A total of 40 minutes was spent on the care of this complex patient more than 50% of the time was spent in counseling and care coordination Objective - Vital Signs Vital signs: Vital Signs Temp 97.8 F 06/21/21 07:00 Pulse 96 06/21/21 12:44 Resp 16 06/21/21 07:00 BP 105/64 06/21/21 07:00 Pulse Ox 91 L 06/21/21 07:00 Intake & Output 06/20/21 06/21/21 06/21/21 18:59 06:59 18:59 Intake Total 898 480 Output Total 900 1250 Balance -900 898 -770 Weight 99.79 kg 100.5 kg Intake: Oral 898 480 Output: Urine 900 1250 Uretheral (Starks) 900 Other: Voiding Method Indwelling Catheter - Labs CBC & Chem 7: 06/21/21 07:03 06/21/21 07:03 Labs: Abnormal Lab Results - Last 24 Hours (Table) 06/21/21 06/21/21 Range/Units 07:03 07:03 RBC 3.77 L (4.30-5.90) m/uL Hgb 12.0 L (13.0-17.5) gm/dL Hct 35.8 L (39.0-53.0) % Sodium 135 L (137-145) mmol/L Potassium 3.4 L (3.5-5.1) mmol/L Chloride 97 L (98-107) mmol/L Carbon Dioxide 34 H (22-30) mmol/L BUN 24 H (9-20) mg/dL Glucose 110 H (74-99) mg/dL Microbiology - Last 24 Hours (Table) 06/20/21 00:30 Blood Culture - Preliminary Blood No Growth after 24 hours 06/20/21 00:30 Blood Culture - Preliminary Blood No Growth after 24 hours
[2021-06-21] MEDS: METOPROLOL TARTRATE 25 MG TAB PO SCH (20:49)
[2021-06-21] MEDS: LATANOPROST 0.005% OPHTH DROPS 2.5 ML BTL BOTH EYES SCH (20:49)
[2021-06-22] MEDS: LEVOTHYROXINE 50 MCG TAB PO SCH (05:24)
[2021-06-22 05:52] LABS: HCT 40.2 % (39.0-53.0); HGB 13.2 gm/dL (13.0-17.5); MCH 30.8 pg (25.0-35.0); MCHC 32.9 g/dL (31.0-37.0); MCV 93.8 fL (80.0-100.0); Mean Platelet Volume 8.1; Platelet Count 308 k/uL (150-450); RBC 4.29 m/uL (4.30-5.90); RDW 12.9 % (11.5-15.5); WBC 8.6 k/uL (3.8-10.6)
[2021-06-22 06:03] LABS: African American GFR (CKD) 86 (>60 ml/min/1.73 sqM); Anion Gap 7 mmol/L; Blood Urea Nitrogen 27 mg/dL (9-20); Calcium 9.2 mg/dL (8.4-10.2); Carbon Dioxide 38 mmol/L (22-30); Chloride 86 mmol/L (98-107); Glucose 145 mg/dL (74-99); Magnesium 1.8 mg/dL (1.6-2.3); Non-African American GFR(CKD) 74 (>60 ml/min/1.73 sqM); Potassium 3.2 mmol/L (3.5-5.1); Sodium 131 mmol/L (137-145)
[2021-06-22] MEDS ORDERED: Potassium Replacement Protocol 1 EACH MISC MISCELLANE PRN (07:07)
[2021-06-22] MEDS: IPRATROPIUM 0.5 MG/2.5 ML NEBU INHALATION SCH ×3 (08:05→16:29)
[2021-06-22] MEDS: SYMBICORT 80-4.5 MCG INHALER INHALATION SCH (08:05)
[2021-06-22] MEDS: CHOLECALCIFEROL 25 MCG (1000 IU) TABLET PO SCH (08:06)
[2021-06-22] MEDS: TAMSULOSIN 0.4 MG CAP.ER.24H PO SCH (08:06)
--- NOTE | 2021-06-22 08:06 | P.GSCN ---
History of Present Illness History of present illness: 85-year-old white male, she came to the emergency room with history of swelling of the both lower extremity. For the past 5 days he's been admitted started on Lasix drip. Patient has noticed the discoloration and mild cellulitis of both lower extremity. No history of fever or chills no history of claudication or rest pain patient has history of coronary artery disease, COPD, Neck examination neck is supple no bruit appreciated Chest clear has some crackles the lung bases Abdomen is soft nontender Vascular brachial radial femoral pulses are present patient has a bilateral lower extremity discoloration there is no evidence of any sign of infection patient responded very well to the Lasix Lasix there is no calf tenderness nor noted. We placed a compression wrap with one pillow elevation patient is responding well follow with you Past Medical History Past Medical History: COPD, Hyperlipidemia, Myocardial Infarction ([place]), Pneumonia Last Myocardial Infarction Date:: Apr 1994 History of Any Multi-Drug Resistant Organisms: None Reported Past Surgical History: Heart Catheterization Additional Past Surgical History / Comment(s): angioplasty after [place], no stents, pilonital cyst removal, Past Anesthesia/Blood Transfusion Reactions: No Reported Reaction Past Psychological History: No Psychological Hx Reported Smoking Status: Former smoker Past Alcohol Use History: Occasional Past Drug Use History: None Reported - Past Family History Father History Unknown: Yes Medications and Allergies Home Medications Medication Instructions Recorded Confirmed Type atenoloL [Tenormin] 25 mg PO HS 12/12/13 06/19/21 History Furosemide [Lasix] 20 mg PO BID 11/26/20 06/19/21 History Simvastatin [Zocor] 20 mg PO DAILY 11/26/20 06/19/21 History Tamsulosin [Flomax] 0.4 mg PO BID 11/26/20 06/19/21 History Ascorbic Acid [Vitamin C] 500 mg PO DAILY 02/11/21 06/19/21 History Cholecalciferol [Vitamin D3 (25 50 mcg PO DAILY 02/11/21 06/19/21 History Mcg = 1000 Iu)] Zinc 50 mg PO DAILY 02/11/21 06/19/21 History Albuterol Inhaler [Ventolin Hfa 2 puff INHALATION RT-QID PRN 06/19/21 06/19/21 History Inhaler] Albuterol Nebulized [Ventolin 2.5 mg INHALATION RT-QID PRN 06/19/21 06/19/21 History Nebulized] Erythromycin Ophth Oint [Romycin 1 applic BOTH EYES DAILY 06/19/21 06/19/21 History Ophth Oint] Fluticasone/Umeclidin/Vilanter 1 puff INHALATION RT-DAILY 06/19/21 06/19/21 His tory [Trelegy Ellipta 100-62.5-25] Levothyroxine Sodium [Synthroid] 50 mcg PO DAILY 06/19/21 06/19/21 History Rivaroxaban [Xarelto] 15 mg PO DAILY 06/19/21 06/19/21 History Latanoprost/Pf [Latanoprost 0.005% 1 drop BOTH EYES HS 06/20/21 06/20/21 History Eye Drop] Allergies Allergy/AdvReac Type Severity Reaction Status Date / Time prednisone AdvReac CAN'T Verified 06/20/21 00:01 URINATE WHEN HE TAKES IT Surgical - Exam Vital Signs Temp Pulse Resp BP Pulse Ox 98 F 77 16 111/56 95 06/19/21 19:07 06/19/21 19:07 06/19/21 19:07 06/19/21 19:07 06/19/21 19:07 Results - Labs 06/22/21 05:30 06/22/21 05:26 Abnormal Lab Results - Last 24 Hours (Table) 06/22/21 06/22/21 Range/Units 05:26 05:30 RBC 4.29 L (4.30-5.90) m/uL Sodium 131 L (137-145) mmol/L Potassium 3.2 L (3.5-5.1) mmol/L Chloride 86 L (98-107) mmol/L Carbon Dioxide 38 H (22-30) mmol/L BUN 27 H (9-20) mg/dL Glucose 145 H (74-99) mg/dL Microbiology - Last 24 Hours (Table) 06/20/21 00:30 Blood Culture - Preliminary Blood No Growth after 48 hours 06/20/21 00:30 Blood Culture - Preliminary Blood No Growth after 48 hours 06/21/21 11:03 Urine Culture - Preliminary Urine,Catheterized Diabetes panel 06/22/21 Range/Units 05:26 Sodium 131 L (137-145) mmol/L Potassium 3.2 L (3.5-5.1) mmol/L Chloride 86 L (98-107) mmol/L Carbon Dioxide 38 H (22-30) mmol/L BUN 27 H (9-20) mg/dL Creatinine 0.93 (0.66-1.25) mg/dL Glucose 145 H (74-99) mg/dL Calcium 9.2 (8.4-10.2) mg/dL Calcium panel 06/22/21 Range/Units 05:26 Calcium 9.2 (8.4-10.2) mg/dL Pituitary panel 06/22/21 Range/Units 05:26 Sodium 131 L (137-145) mmol/L Potassium 3.2 L (3.5-5.1) mmol/L Chloride 86 L (98-107) mmol/L Carbon Dioxide 38 H (22-30) mmol/L BUN 27 H (9-20) mg/dL Creatinine 0.93 (0.66-1.25) mg/dL Glucose 145 H (74-99) mg/dL Calcium 9.2 (8.4-10.2) mg/dL Adrenal panel 06/22/21 Range/Units 05:26 Sodium 131 L (137-145) mmol/L Potassium 3.2 L (3.5-5.1) mmol/L Chloride 86 L (98-107) mmol/L Carbon Dioxide 38 H (22-30) mmol/L BUN 27 H (9-20) mg/dL Creatinine 0.93 (0.66-1.25) mg/dL Glucose 145 H (74-99) mg/dL Calcium 9.2 (8.4-10.2) mg/dL
[2021-06-22] MEDS: METOPROLOL TARTRATE 25 MG TAB PO SCH (08:08)
[2021-06-22] MEDS: ATORVASTATIN 10 MG TAB PO SCH (08:08)
[2021-06-22] MEDS: ASCORBIC ACID 500 MG TAB PO SCH (08:08)
[2021-06-22] MEDS: POTASSIUM CHLORIDE ER 20 MEQ TAB.ER PO SCH ×4 (08:09→15:43)
[2021-06-22] MEDS: ERYTHROMYCIN 5 MG/GM OPHTH OINT 3.5 GM TUBE BOTH EYES SCH (08:09)
[2021-06-22] MEDS: metOLazone 2.5 MG TAB PO SCH (08:10)
[2021-06-22] MEDS: RIVAROXABAN 15 MG TAB PO SCH (08:10)
--- NOTE | 2021-06-22 10:21 | P.PN ---
Subjective This is a pleasant 85-year-old male past medical history significant for hypertension, dyslipidemia, paroxysmal atrial fibrillation on Xarelto (diagnosed during echo and stress test in the office 04/2021). He follows in the office with Dr. Saxena. We have been asked to see in consultation for congestive heart failure. Patient is seen and examined in the emergency department, presents to the emergency department on 06/19/2021 with complaints of bilateral lower extremity edema and redness. Over the past week patient has noticed that he's been having worsening bilateral extremity edema, losing with red discoloration of his legs. Redness is located bilaterally, at his ankles up to the level of his knees. He does have pain with palpation. He does have symptoms of orthopnea. He denies chest pain, palpitations, shortness of breath, weakness, l ightheadedness, syncope or near syncope. He denies any change in medications or increased salt intake. He has been drinking more water daily. He states he is compliant with his medications. Echocardiogram on 05/11/2021 in the office revealed EF of 55%, mild concentric LVH, mild aortic valve sclerosis, no significant gradient, mild pulmonary hypertension. 06/22/21 Patient seen and examined at bedside, his breathing has improved. His bilateral lower extremity edema has improved. He denies any chest pain. Patient with 7.9L urine output over the past 24 hours. His IV Lasix drip was discontinued at 5AM due to hypotension. Labs reviewed sodium 131, potassium 3.2, BUN 27, serum creatinine 0.9, magnesium 1.8. Telemetry reviewed patient-fibrillation with controlled ventricular rates. He's currently maintained on Lasix drip held, Xarelto 50 mg daily, atorvastatin 10 mg daily, metoprolol tartrate 25 mg twice a day. Patient was hypoxic 88% on room air and placed on 2L nasal cannula. PHYSICAL EXAMINATION Blood pressure 105/64, heart rate 85, afebrile saturations 91% on room air CONSTITUTIONAL: No apparent distress. HEENT: Neck Supple. No JVD. CHEST EXAMINATION: Lungs are diminished to auscultation. HEART EXAMINATION: Irregular rate and rhythm. S1, S2 heard. No murmurs, gallops or rub. ABDOMEN: Soft, nontender. Positive bowel sounds. EXTREMITIES: 2+ peripheral pulses, 3+ bilateral lower extremity edema, some tenderness to palpation of bilateral lower calves SKIN: Bilateral lower extremity redness from ankles up to knees NEUROLOGIC EXAMINATION: Patient is awake, alert and oriented x3. ASSESSMENT Acute diastolic heart failure Lower extremity Redness bilaterally Mild pulmonary hypertension Hypertension Dyslipidemia Paroxysmal atrial fibrillation on Xarelto Hypokalemia, replaced Hyponatremia, improving PLAN -Recommend 40mg PO Lasix in the morning and 20mg PO Lasix at night -Replace potassium per protocol -Continue metoprolol 25mg BID -Continue Xarelto and Statin -From a cardiology perspective, if patient's oxygen saturations are stable on room air and patient feeling well. Ok to discharge today and follow up with Dr. Saxena in 1-2 weeks. Nurse Practitioner note has been reviewed, I agree with a documented findings and plan of care. Patient was seen and examined. Objective - Vital Signs Vital signs: Vital Signs Temp 98.2 F 06/22/21 07:00 Pulse 102 H 06/22/21 08:15 Resp 18 06/22/21 07:00 BP 97/60 06/22/21 07:00 Pulse Ox 88 L 06/22/21 07:00 Intake & Output 06/21/21 06/22/21 06/22/21 18:59 06:59 18:59 Intake Total 900 290 420 Output Total 3970 4000 Balance -3070 -3710 420 Weight 100.5 kg 94.5 kg Intake: Intake, IV Titration 90 Amount Furosemide 100 mg In 90 Sodium Chloride 0.9% 90 ml @ 10 MG/HR 10 mls/hr IV .Q10H [facility] Rx#: [id number] Oral 900 200 420 Output: Urine 3970 4000 Other: Voiding Method Indwelling Catheter Indwelling Catheter - Labs CBC & Chem 7: 06/22/21 05:30 06/22/21 05:26 Labs: Abnormal Lab Results - Last 24 Hours (Table) 06/22/21 06/22/21 Range/Units 05:26 05:30 RBC 4.29 L (4.30-5.90) m/uL Sodium 131 L (137-145) mmol/L Potassium 3.2 L (3.5-5.1) mmol/L Chloride 86 L (98-107) mmol/L Carbon Dioxide 38 H (22-30) mmol/L BUN 27 H (9-20) mg/dL Glucose 145 H (74-99) mg/dL Microbiology - Last 24 Hours (Table) 06/20/21 00:30 Blood Culture - Preliminary Blood No Growth after 48 hours 06/20/21 00:30 Blood Culture - Preliminary Blood No Growth after 48 hours 06/21/21 11:03 Urine Culture - Preliminary Urine,Catheterized
[2021-06-22] MEDS: FUROSEMIDE 100 MG in SODIUM CHLORIDE 0.9% 90 ML IV SCH (11:17)
--- NOTE | 2021-06-22 11:19 | P.DS ---
Providers Date of admission: 06/21/21 14:33 Expected date of discharge: 06/22/21 Attending physician: Debbie Greene MD Consults: 06/20/21 04:03 Consult Physician Urgent Consulting Provider: Emir Lacey Consult Reason/Comments: chf Do you want consulting provider notified?: Yes 06/20/21 18:10 Consult Physician Routine Consulting Provider: Jason Mckeon Consult Reason/Comments: cont urinary retention s/p removal of jama catheter in office, now w/UTI Do you want consulting provider notified?: Yes 06/21/21 09:18 Consult Physician Routine Consulting Provider: Jasmeet Green Consult Reason/Comments: bilateral lower extremity cellulitis Do you want consulting provider notified?: Yes Primary care physician: Matteo Chase MD Hospital Course: 85-year-old male admitted to the hospital but likely diastolic congestive heart failure and cellulitis of the lower extremity plus UTI initiated have difficulty due to wheezing so patient has been started on IV Lasix drip gradually improved Lasix drip has been DC'd by cardiology this and recommend the patient wants to go home denies any chest pain denies any significant shortness of breath no vomiting Constitutional: No acute distress, conversant, pleasant Eyes: Anicteric sclerae, moist conjunctiva, no lid-lag PERRLA ENMT: NC/AT Oropharynx clear, no erythema, exudates Neck: Supple, FROM, no masses, or JVD No carotid bruits No thyromegaly Lungs: Clear to auscultation Clear to percussion Normal respiratory effort, no accessory muscle use Cardiovascular: Heart regular in rate and rhythm, No murmurs, gallops, or rubs No peripheral edema Abdominal: Soft Nontender, no guarding, rebound or rigidity Abdomen moving with respiration Normoactive bowel sounds No hepatomegaly, No splenomegaly No palpable mass No abdominal wall hernia noted Skin: Normal temperature, Extremities: No digital cyanosis Psychiatric:Alert and oriented to person, place and time Appropriate affect Intact judgement Neuro: Muscles Strength 5/5 in all 4 extremities Sensation to light touch grossly present throughout Cranial nerves II-XII grossly intact No focal sensory deficits Discharge plan acute on chronic diastolic congestive heart failure clinically improved continue by mouth Lasix UTI continue Bactrim Cellulitis of the lower extremity continue patient on Bactrim for around one week and follow-up with primary care physician Braxton polk continue beta blockers has been changed to Lopressor from atenolol by cardiology follow-up with cardiology as an outpatient Patient Condition at Discharge: Stable Plan - Discharge Summary Discharge Rx Participant: Yes New Discharge Prescriptions: New Sulfamethox-Tmp 800-160Mg [Bactrim DS 800-160 mg] 1 tab PO Q12HR 7 Days #14 tab Metoprolol Tartrate [Lopressor] 25 mg PO BID 30 Days #60 tab Continue Tamsulosin [Flomax] 0.4 mg PO BID Furosemide [Lasix] 20 mg PO BID Albuterol Inhaler [Ventolin Hfa Inhaler] 2 puff INHALATION RT-QID PRN PRN Reason: Shortness Of Breath Latanoprost/Pf [Latanoprost 0.005% Eye Drop] 1 drop BOTH EYES HS Simvastatin [Zocor] 20 mg PO DAILY Zinc 50 mg PO DAILY Cholecalciferol [Vitamin D3 (25 Mcg = 1000 Iu)] 50 mcg PO DAILY Ascorbic Acid [Vitamin C] 500 mg PO DAILY Erythromycin Ophth Oint [Romycin Ophth Oint] 1 applic BOTH EYES DAILY Rivaroxaban [Xarelto] 15 mg PO DAILY Fluticasone/Umeclidin/Vilanter [Trelegy Ellipta 100-62.5-25] 1 puff INHALA TION RT-DAILY Levothyroxine Sodium [Synthroid] 50 mcg PO DAILY Albuterol Nebulized [Ventolin Nebulized] 2.5 mg INHALATION RT-QID PRN PRN Reason: Shortness Of Breath Discontinued atenoloL [Tenormin] 25 mg PO HS Discharge Medication List Furosemide [Lasix] 20 mg PO BID 11/26/20 [History] Simvastatin [Zocor] 20 mg PO DAILY 11/26/20 [History] Tamsulosin [Flomax] 0.4 mg PO BID 11/26/20 [History] Ascorbic Acid [Vitamin C] 500 mg PO DAILY 02/11/21 [History] Cholecalciferol [Vitamin D3 (25 Mcg = 1000 Iu)] 50 mcg PO DAILY 02/11/21 [Histo ry] Zinc 50 mg PO DAILY 02/11/21 [History] Albuterol Inhaler [Ventolin Hfa Inhaler] 2 puff INHALATION RT-QID PRN 06/19/21 [History] Albuterol Nebulized [Ventolin Nebulized] 2.5 mg INHALATION RT-QID PRN 06/19/21 [History] Erythromycin Ophth Oint [Romycin Ophth Oint] 1 applic BOTH EYES DAILY 06/19/21 [History] Fluticasone/Umeclidin/Vilanter [Trelegy Ellipta 100-62.5-25] 1 puff INHALATION RT-DAILY 06/19/21 [History] Levothyroxine Sodium [Synthroid] 50 mcg PO DAILY 06/19/21 [History] Rivaroxaban [Xarelto] 15 mg PO DAILY 06/19/21 [History] Latanoprost/Pf [Latanoprost 0.005% Eye Drop] 1 drop BOTH EYES HS 06/20/21 [History] Metoprolol Tartrate [Lopressor] 25 mg PO BID 30 Days #60 tab 06/22/21 [Rx] Sulfamethox-Tmp 800-160Mg [Bactrim DS 800-160 mg] 1 tab PO Q12HR 7 Days #14 tab 06/22/21 [Rx] Follow up Appointment(s)/Referral(s): Matteo Chase MD [Primary Care Provider] - 1-2 days Dustin Saxena MD [STAFF PHYSICIAN] - 2 Weeks Discharge Disposition: HOME SELF-CARE
[2021-06-22 14:34] VITALS: BP 106/67; PULSE 105; RESP 16; TEMP 98.1
[2021-06-22] MEDS ORDERED: METOPROLOL TARTRATE 25 MG TAB PO SCH (16:00)
[2021-06-22] MEDS ORDERED: FUROSEMIDE 20 MG TAB PO SCH (16:00)
[2021-06-23] MEDS ORDERED: FUROSEMIDE 40 MG TAB PO SCH (09:00)
[2021-06-23] MEDS ORDERED: POTASSIUM CHLORIDE ER 20 MEQ TAB.ER PO SCH (09:00)
--- NOTE | 2021-06-26 15:12 | CDI ---
Documentation Clarification Form Date: 06/26/2021 02:54:00 PM From: Viry De Jesus Admit Date: 06/21/2021 02:33:00 PM Patient Name: Mathieu Tello Visit Number: [id number] Discharge Date: 06/22/2021 04:24:00 PM ATTENTION: The Clinical Documentation Specialists (CDI) and [facility] Coding Staff appreciate your assistance in clarifying documentation. Please respond to the clarification below the line at the bottom and electronically sign. The CDI & [facility] Coding staff will review the response and follow-up if needed. Please note: Queries are made part of the Legal Health Record. If you have any questions, please contact the author of this message via ITS. Dr. Bladimir Torres Conflicting documentation has been found in the medical record. Per H and P patient has venous stasis dermatitis due to significant LE pitting edema. Per PN 06/20 Venous stasis dermatitis likely secondary to bilateral edema no signs of infection. Per DCS Cellulitis of the lower extremity continue patient on Bactrim for around one week. As attending physician, please provide clarification if patient had stasis dermatitis due to pitting edema, did patient have cellulitis or was there no infection. Please clarify if the leg edema was due to CHF. History/Risk Factors: Patient has Acute diastolic CHF Clinical Indicators: pitting edema, BNP 1709 on admit Treatment: IV Lasix for CHF and edema. Bactrim for UTI and LE cellulitis Please clarify which diagnosis is most appropriate: [ ] Stasis dermatitis due to pitting edema [ ] Bilateral LE edema with no signs of infection due to CHF [ ] LE cellulitis [ ] LE cellulitis due to CHF [ ] Other (please specify) [ ] Unable to determine Stasis dermatitis due to pitting edema MTDD
--- NOTE | 2021-06-26 15:15 | CDI ---
Documentation Clarification Form Date: 06/26/2021 02:54:00 PM From: Viry De Jesus Admit Date: 06/21/2021 02:33:00 PM Patient Name: Mathieu Tello Visit Number: [id number] Discharge Date: 06/22/2021 04:24:00 PM ATTENTION: The Clinical Documentation Specialists (CDI) and [facility] Coding Staff appreciate your assistance in clarifying documentation. Please respond to the clarification below the line at the bottom and electronically sign. The CDI & [facility] Coding staff will review the response and follow-up if needed. Please note: Queries are made part of the Legal Health Record. If you have any questions, please contact the author of this message via ITS. Dr. Bladimir Torres Conflicting documentation has been found in the medical record. Per H and P patient has venous stasis dermatitis due to significant LE pitting edema. Per PN 06/20 Venous stasis dermatitis likely secondary to bilateral edema no signs of infection. Per DCS Cellulitis of the lower extremity continue patient on Bactrim for around one week. As attending physician, please provide clarification if patient had stasis dermatitis due to pitting edema, did patient have cellulitis or was there no infection. Please clarify if the leg edema was due to CHF. History/Risk Factors: Patient has Acute diastolic CHF Clinical Indicators: pitting edema, BNP 1709 on admit Treatment: IV Lasix for CHF and edema. Bactrim for UTI and LE cellulitis Please clarify which diagnosis is most appropriate: [ ] Stasis dermatitis due to pitting edema [ ] Bilateral LE edema with no signs of infection due to CHF [ ] LE cellulitis [ ] LE cellulitis due to CHF [ ] Other (please specify) [ ] Unable to determine Stasis dermatitis due to pitting edema MTDD
== END 2021-06-22 16:24 | disposition home or self-care (01) | DRG 291 ==
LOC: EC 16:22 → 6NMEDSUR 06-20 04:20 → OBSVTOIN 06-21 14:33
PROVIDERS: ADMIT Internal Medicine; ATTEND Internal Medicine
DX: I11.0 Hypertensive heart disease with heart failure (principal); I50.33 Acute on chronic diastolic (congestive) heart failure; E87.1 Hypo-osmolality and hyponatremia; L03.115 Cellulitis of right lower limb; L03.116 Cellulitis of left lower limb; N39.0 Urinary tract infection, site not specified; E78.5 Hyperlipidemia, unspecified; E03.9 Hypothyroidism, unspecified; E87.6 Hypokalemia; I08.2 Rheumatic disorders of both aortic and tricuspid valves; E87.8 Other disorders of electrolyte and fluid balance, not elsewhere classified; I25.10 Atherosclerotic heart disease of native coronary artery without angina pectoris; I25.2 Old myocardial infarction; I27.20 Pulmonary hypertension, unspecified; I45.10 Unspecified right bundle-branch block; I48.0 Paroxysmal atrial fibrillation; I87.2 Venous insufficiency (chronic) (peripheral); I87.8 Other specified disorders of veins; J44.9 Chronic obstructive pulmonary disease, unspecified; Z20.822 Contact with and (suspected) exposure to COVID-19; R09.02 Hypoxemia; Z79.01 Long term (current) use of anticoagulants; Z79.890 Hormone replacement therapy; Z79.899 Other long term (current) drug therapy; Z87.891 Personal history of nicotine dependence; Z87.01 Personal history of pneumonia (recurrent); Z98.61 Coronary angioplasty status; N40.1 Benign prostatic hyperplasia with lower urinary tract symptoms
CPT/HCPCS: 36415; 51798; 71046; 80048; 80053; 81001; 83605; 83735; 83880; 85025; 85027; 87040; 87086; 87635; 93005; 94640; 96365; 96367; 99284

== ENCOUNTER → 2021-08-02 | Outpatient (CLI) | payer MEDICARE, OTHER ==
[2021-08-02 14:08] LABS: Albumin 3.2 g/dL (3.5-5.0); Calcium 8.7 mg/dL (8.4-10.2); Total Bilirubin 1.3 mg/dL (0.2-1.3); Total Protein 6.4 g/dL (6.3-8.2)
[2021-08-02 14:27] LABS: Potassium 2.4 mmol/L (3.5-5.1)
[2021-08-02 14:29] LABS: Appearance,Urine Cloudy (Clear); Bacteria,Urine Occasional /hpf; Bilirubin,Urine Negative (Negative); Blood,Urine Small (Negative); Color,Urine Yellow; Glucose,Urine (UA) Negative (Negative); Hyaline Casts,Urine 6 /lpf (0-2); Ketones,Urine Negative (Negative); Leukocyte Esterase,Urine Large (Negative); Mucus,Urine Rare /hpf; Nitrite,Urine Negative (Negative); PH, Urine 7.5 (5.0-8.0); Protein,Urine 1+ (Negative); RBC,Urine 20 /hpf (0-5); Renal Epithelial Cells,Urine <1 /hpf (0); Specific Gravity,Urine 1.011 (1.001-1.035); WBC,Urine >182 /hpf (0-5)
[2021-08-02 14:42] LABS: Basophils % (A) 0 %; Eosinophils # (A) 0.2 k/uL (0-0.7); Eosinophils % (A) 2 %; HCT 38.5 % (39.0-53.0); HGB 12.4 gm/dL (13.0-17.5); Hypochromasia Slight; Lymphocytes # (A) 1.5 k/uL (1.0-4.8); Lymphocytes % (A) 17 %; MCH 31.8 pg (25.0-35.0); MCHC 32.1 g/dL (31.0-37.0); Macrocytosis Slight; Mean Platelet Volume 7.6; Monocytes # (A) 0.6 k/uL (0-1.0); Monocytes % (A) 7 %; Neutrophils # (A) 6.3 k/uL (1.3-7.7); Neutrophils % (A) 71 %; Platelet Count 325 k/uL (150-450); RBC 3.89 m/uL (4.30-5.90); RDW 14.7 % (11.5-15.5); WBC 8.8 k/uL (3.8-10.6)
== END | disposition home or self-care (01) ==
LOC: LABPAT 13:20
PROVIDERS: ATTEND Urology
DX: Z01.812 Encounter for preprocedural laboratory examination (principal); N40.1 Benign prostatic hyperplasia with lower urinary tract symptoms; R33.9 Retention of urine, unspecified; N39.0 Urinary tract infection, site not specified
CPT/HCPCS: 36415; 80053; 81001; 85025; 87086

== ENCOUNTER → 2021-08-15 | Outpatient (CLI) | payer MEDICARE, OTHER ==
[2021-08-15 15:01] LABS: HCT 38.5 % (39.6-50.0); HGB 11.8 g/dL (13.0-17.0); MCHC 30.6 g/dL (32.0-37.0); Mean Platelet Volume 9.4 fL (9.5-12.2); Platelet Count 314 X 10*3/uL (140-440); RBC 3.93 X 10*6/uL (4.40-5.60); RDW 16.7 % (11.5-14.5); WBC 8.29 X 10*3/uL (4.50-10.00)
[2021-08-15 18:58] LABS: African American GFR (CKD) 78.6 (60.0-200.0); Anion Gap 17.5 mmol/L (10.00-18.00); BUN/Creat Ratio 14.4 Ratio (12.00-20.00); Blood Urea Nitrogen 14.4 mg/dL (9.0-27.0); Calcium 9.3 mg/dL (8.7-10.3); Carbon Dioxide 28.5 mmol/L (20.0-27.5); Non-African American GFR(CKD) 67.8 (60.0-200.0)
== END | disposition home or self-care (01) ==
LOC: LABWHC1 09:46
PROVIDERS: ATTEND Internal Medicine Interventional Cardiology
DX: I10 Essential (primary) hypertension (principal)
CPT/HCPCS: 36415; 80048; 85027

== ENCOUNTER 2021-08-16 06:14 | Day surgery (SDC) | payer MEDICARE, OTHER ==
[2021-08-02 10:12] VITALS: BMI 31.0
--- NOTE | 2021-08-15 18:18 | P.GSHP ---
History of Present Illness H&P Date: 08/15/21 85 yo male with recurrent urinary retention secondary to an enlarged prostate. He has failed alpha blockers. CMg showed a functioning bladder. His prostate is 30 gm and benign. He comes for a turp. He does have chronic afib and cad but has been cleared by medicine and cardiology. The risks and complications have been discussed and accepted. - Constitutional Constitutional: Denies chills, Denies fever - EENT Eyes: denies blurred vision, denies pain Ears, nose, mouth and throat: Denies headache, Denies sore throat - Cardiovascular Cardiovascular: Denies chest pain, Denies shortness of breath - Respiratory Respiratory: Denies cough, Denies 7 - Gastrointestinal Gastrointestinal: Denies abdominal pain, Denies diarrhea, Denies nausea, Denies vomiting - Genitourinary (Female) Genitourinary: Denies dysuria, Denies hematuria - Genitourinary (Male) Genitourinary: Denies dysuria, Denies hematuria - Musculoskeletal Musculoskeletal: Denies myalgias - Integumentary Integumentary: Denies pruritus, Denies rash - Neurological Neurological: Denies numbness, Denies weakness - Psychiatric Psychiatric: Denies anxiety, Denies depression - Endocrine Endocrine: Denies fatigue, Denies weight change Past Medical History Past Medical History: Atrial Fibrillation, COPD, Hyperlipidemia, Myocardial Infarction (DE), Pneumonia, Prostate Disorder, Thyroid Disorder Additional Past Medical History / Comment(s): has [facility]. per cardiology consult note 06/20/21 hx chf,htn,a-fib Last Myocardial Infarction Date:: Apr 1994 History of Any Multi-Drug Resistant Organisms: None Reported Past Surgical History: Heart Catheterization Additional Past Surgical History / Comment(s): angioplasty after DE, no stents, pilonidal cyst removal, Past Anesthesia/Blood Transfusion Reactions: No Reported Reaction Additional Past Anesthesia/Blood Transfusion Reaction / Comment(s): vertigo Smoking Status: Former smoker - Past Family History Father History Unknown: Yes Sister(s) Family Medical History: Cancer Additional Family Medical History / Comment(s): nonhodgkins lymphoma Medications and Allergies Home Medications Medication Instructions Recorded Confirmed Type Simvastatin [Zocor] 20 mg PO DAILY 11/26/20 08/08/21 History Tamsulosin [Flomax] 0.4 mg PO BID 11/26/20 08/08/21 History Ascorbic Acid [Vitamin C] 500 mg PO DAILY 02/11/21 08/08/21 History Cholecalciferol [Vitamin D3 (25 50 mcg PO DAILY 02/11/21 08/08/21 History Mcg = 1000 Iu)] Zinc 50 mg PO DAILY 02/11/21 08/08/21 History Albuterol Inhaler [Ventolin Hfa 2 puff INHALATION RT-QID PRN 06/19/21 08/08/21 History Inhaler] Albuterol Nebulized [Ventolin 2.5 mg INHALATION BID 06/19/21 08/08/21 History Nebulized] Erythromycin Ophth Oint [Romycin 1 applic BOTH EYES DAILY PRN 06/19/21 08/08/21 History Ophth Oint] Fluticasone/Umeclidin/Vilanter 1 puff INHALATION RT-DAILY 06/19/21 08/08/21 History [Trelegy Ellipta 100-62.5-25] Levothyroxine Sodium [Synthroid] 50 mcg PO DAILY 06/19/21 08/08/21 History Rivaroxaban [Xarelto] 15 mg PO DAILY 06/19/21 08/08/21 History Latanoprost/Pf [Latanoprost 0.005% 1 drop BOTH EYES HS 06/20/21 08/08/21 History Eye Drop] Furosemide [Lasix] 40 mg PO DAILY 30 Days #30 tablet 06/22/21 08/08/21 Rx Furosemide [Lasix] 25 mg PO HS 08/02/21 08/08/21 History Potassium Chloride ER [K-Dur 20] 20 meq PO DAILY 08/08/21 08/08/21 History Allergies Allergy/AdvReac Type Severity Reaction Status Date / Time prednisone AdvReac CAN'T Verified 08/02/21 09:49 URINATE WHEN HE TAKES IT Surgical - Exam - General well developed, well nourished, no distress - Eyes PERRL - Neck trachea midline - Respiratory normal respiratory effort - Cardiovascular Rhythm: irregularly irregular - Abdomen Abdomen: soft, non tender - Genitourinary indwelling catheter enlarged but benign prostate. - Integumentary no rash, no growths - Neurologic normal sensation - Musculoskeletal normal posture - Psychiatric oriented to time, oriented to person, oriented to place, speech is normal, memory intact Assessment and Plan Assessment: Impression: Urinary retention secondary to bph. cad, copd afib Plan: Bipolar turp
[~2021-08-16 06:14] MED LIST: AMPICILLIN 1,000 MG in SODIUM CHLORIDE 0.9% 50 ML IVPB PRN; DEXAMETHASONE SOD PHOSPHATE 4 MG/ML 1 ML VIAL IV ONE; GENTAMICIN 120 MG in SODIUM CHLORIDE 0.9% 100 ML IVPB PRN; HYDROmorphone 0.5 MG/0.5 ML SYRINGE IVP PRN; LACTATED RINGERS 1,000 ML IV SCH; LIDOCAINE 1% (10MG/ML) FOR IV START INTRADERMA PRN; ONDANSETRON 4 MG/2 ML VIAL IVP ONE
[2021-08-16] MEDS ORDERED: HYDROmorphone 0.5 MG/0.5 ML SYRINGE IVP PRN (07:00)
[2021-08-16] MEDS ORDERED: PROPOFOL 10 MG/ML 20 ML VIAL IV ONE (07:25)
[2021-08-16] MEDS ORDERED: LIDOCAINE 1% INJ 10MG/ML (20 ML MDV) ONE (07:25)
[2021-08-16] MEDS ORDERED: PHENYLEPHRINE-0.9% NACL SYG 1,000 MCG/10 ML SYRINGE ONE (07:25)
[2021-08-16] MEDS ORDERED: ERYTHROMYCIN 5 MG/GM OPHTH OINT 3.5 GM TUBE BOTH EYES PRN (08:31)
[2021-08-16] MEDS ORDERED: ALBUTEROL HFA INHALER INHALATION PRN (08:31)
[2021-08-16] MEDS ORDERED: ACETAMINOPHEN TAB 325 MG TAB PO PRN (08:32)
[2021-08-16] MEDS ORDERED: BELLADONNA-OPIUM 16.2-60 MG 1 EACH SUPP RECTAL PRN (08:32)
[2021-08-16] MEDS ORDERED: Acetaminophen-Codeine 300-30mg TAB PO PRN (08:34)
--- NOTE | 2021-08-16 08:37 | P.OP ---
Date of Procedure: 08/16/21 Preoperative Diagnosis: Urine retention secondary to BPH Postoperative Diagnosis: Same Procedure(s) Performed: Cystoscopy with bipolar TURP Anesthesia: MAC, spinal Surgeon: Navi Valenzuela Estimated Blood Loss (ml): 25 Pathology: other (Prostate) Condition: stable Disposition: PACU Indications for Procedure: The patient is 85. He is gone in urine retention. He has not been able to void despite medication. He does have enlarged prostate with an intravesical middle lobe. He come for a bipolar TURP Description of Procedure: Patient is brought to the operating suite. He is given a spinal anesthetic. He's placed in lithotomy position with sterile prep and drape. The urethra was intubated with a 25-Syrian sheath direct vision obturator and Foroblique lens. The prostate inspected identifying lateral lobe obstruction with a prominent intravesical ball-valve middle lobe. The bladder is irrigated thoroughly as is the prostate of any debris and bacteria. I then with the bipolar loop and Stearns resectoscope first resect the middle lobe. I then moved to 12:00 and resect the left lateral lobe from bladder neck to verumontanum. I then do the same on the right lateral lobe. I then resect the redundant floor tissue. The bladder is free to prostatic chips with the Ellik evacuator. Bleeding was controlled electrocautery. The prostate is open at the end of the procedure. The resectoscope removed. The bladder today with a strong stream. An 18-Syrian coud-tip catheter is introduced in the bladder with clear urine return. The patient tolerated procedure well. He'll be observed in the hospital overnight because of his history of A. fib and shortness of breath as well as a spinal anesthetic. Blood loss is approximately 25 mL
[2021-08-16] MEDS ORDERED: ALBUTEROL NEBULIZED 2.5 MG/3 ML INHALATION PRN (08:46)
[2021-08-16] MEDS: LEVOTHYROXINE 50 MCG TAB PO SCH (10:34)
[2021-08-16] MEDS: FUROSEMIDE 40 MG TAB PO SCH (10:41)
[2021-08-16] MEDS: POTASSIUM CHLORIDE ER 20 MEQ TAB.ER PO SCH (10:42)
[2021-08-16] MEDS ORDERED: LEVOFLOXACIN 500 MG TAB PO SCH (14:00)
[2021-08-16] MEDS: ATORVASTATIN 10 MG TAB PO SCH (14:07)
[2021-08-16] MEDS: DEXTROSE 5%-0.45% NACL 1,000 ML IV SCH ×2 (18:45→21:04)
[2021-08-16] MEDS: DOCUSATE 100 MG CAP PO SCH (19:40)
[2021-08-16] MEDS: ALBUTEROL NEBULIZED 2.5 MG/3 ML INHALATION SCH (20:57)
[2021-08-16] MEDS ORDERED: FUROSEMIDE 20 MG TAB PO SCH (21:00)
[2021-08-16] MEDS ORDERED: LATANOPROST 0.005% OPHTH DROPS 2.5 ML BTL BOTH EYES SCH (21:00)
[2021-08-17] MEDS: LEVOTHYROXINE 50 MCG TAB PO SCH (05:55)
[2021-08-17] MEDS: DEXTROSE 5%-0.45% NACL 1,000 ML IV SCH (05:56)
--- NOTE | 2021-08-17 07:49 | P.DS ---
Providers Attending physician: Navi Valenzuela Primary care physician: Matteo Chase MD Hospital Course: The patient underwent TURP for urine retention on 08/16/2021. He was kept in the hospital overnight because he lives alone and he recently had some shortness of breath and rapid heart rate due to his atrial fibrillation. He was placed on metoprolol with control of that. His shortness of breath has disappeared. He underwent a successful TURP on 08/16/2021. He feels well this morning. His vital signs are stable. His urine is clear. He'll be discharged home. He'll go home with an indwelling catheter. He'll be seen Saturday for catheter removal. Pathology report is pending. Postoperative instructions have been given. His condition is good. Patient Condition at Discharge: Good Plan - Discharge Summary Discharge Rx Participant: Yes New Discharge Prescriptions: No Action Tamsulosin [Flomax] 0.4 mg PO BID Albuterol Inhaler [Ventolin Hfa Inhaler] 2 puff INHALATION RT-QID PRN PRN Reason: Shortness Of Breath Latanoprost/Pf [Latanoprost 0.005% Eye Drop] 1 drop BOTH EYES HS Potassium Chloride ER [K-Dur 20] 20 meq PO DAILY Simvastatin [Zocor] 20 mg PO DAILY Zinc 50 mg PO DAILY Cholecalciferol [Vitamin D3 (25 Mcg = 1000 Iu)] 50 mcg PO DAILY Ascorbic Acid [Vitamin C] 500 mg PO DAILY Erythromycin Ophth Oint [Romycin Ophth Oint] 1 applic BOTH EYES DAILY PRN PRN Reason: eye dryness Rivaroxaban [Xarelto] 15 mg PO DAILY Fluticasone/Umeclidin/Vilanter [Trelegy Ellipta 100-62.5-25] 1 puff INHALATION RT-DAILY Levothyroxine Sodium [Synthroid] 50 mcg PO DAILY Albuterol Nebulized [Ventolin Nebulized] 2.5 mg INHALATION BID Furosemide [Lasix] 40 mg PO DAILY 30 Days #30 tablet Furosemide [Lasix] 25 mg PO HS Discharge Medication List Simvastatin [Zocor] 20 mg PO DAILY 11/26/20 [History] Tamsulosin [Flomax] 0.4 mg PO BID 11/26/20 [History] Ascorbic Acid [Vitamin C] 500 mg PO DAILY 02/11/21 [History] Cholecalciferol [Vitamin D3 (25 Mcg = 1000 Iu)] 50 mcg PO DAILY 02/11/21 [History] Zinc 50 mg PO DAILY 02/11/21 [History] Albuterol Inhaler [Ventolin Hfa Inhaler] 2 puff INHALATION RT-QID PRN 06/19/21 [History] Albuterol Nebulized [Ventolin Nebulized] 2.5 mg INHALATION BID 06/19/21 [History] Erythromycin Ophth Oint [Romycin Ophth Oint] 1 applic BOTH EYES DAILY PRN 06/19/21 [History] Fluticasone/Umeclidin/Vilanter [Trelegy Ellipta 100-62.5-25] 1 puff INHALATION RT-DAILY 06/19/21 [History] Levothyroxine Sodium [Synthroid] 50 mcg PO DAILY 06/19/21 [History] Rivaroxaban [Xarelto] 15 mg PO DAILY 06/19/21 [History] Latanoprost/Pf [Latanoprost 0.005% Eye Drop] 1 drop BOTH EYES HS 06/20/21 [History] Furosemide [Lasix] 40 mg PO DAILY 30 Days #30 tablet 06/22/21 [Rx] Furosemide [Lasix] 25 mg PO HS 08/02/21 [History] Potassium Chloride ER [K-Dur 20] 20 meq PO DAILY 08/08/21 [History] Follow up Appointment(s)/Referral(s): Navi Valenzuela MD [STAFF PHYSICIAN] - 08/21/21 Discharge Disposition: HOME SELF-CARE
[2021-08-17] MEDS ORDERED: IPRATROPIUM 0.5 MG/2.5 ML NEBU INHALATION SCH (08:00)
[2021-08-17] MEDS ORDERED: SYMBICORT 80-4.5 MCG INHALER INHALATION SCH (08:00)
[2021-08-17 08:02] VITALS: BP 104/63; PULSE 82; RESP 16; TEMP 97.9
[2021-08-17] MEDS: ALBUTEROL NEBULIZED 2.5 MG/3 ML INHALATION SCH (08:12)
[2021-08-17] MEDS: ATORVASTATIN 10 MG TAB PO SCH (09:29)
[2021-08-17] MEDS: POTASSIUM CHLORIDE ER 20 MEQ TAB.ER PO SCH (09:29)
[2021-08-17] MEDS: FUROSEMIDE 40 MG TAB PO SCH (09:29)
[2021-08-17] MEDS: DOCUSATE 100 MG CAP PO SCH (09:29)
== END 2021-08-17 10:33 | disposition home or self-care (01) ==
LOC: OR 06:14 → 4SSUR 08:30 → OR 08-17 10:33
PROVIDERS: ATTEND Urology
DX: N40.1 Benign prostatic hyperplasia with lower urinary tract symptoms (principal); I48.20 Chronic atrial fibrillation, unspecified; J44.9 Chronic obstructive pulmonary disease, unspecified; E78.5 Hyperlipidemia, unspecified; I25.2 Old myocardial infarction; Z87.01 Personal history of pneumonia (recurrent); E07.9 Disorder of thyroid, unspecified; Z98.62 Peripheral vascular angioplasty status; Z87.891 Personal history of nicotine dependence; Z80.7 Family history of other malignant neoplasms of lymphoid, hematopoietic and related tissues; Z20.822 Contact with and (suspected) exposure to COVID-19; I11.0 Hypertensive heart disease with heart failure; I50.9 Heart failure, unspecified; Z79.01 Long term (current) use of anticoagulants; Z79.890 Hormone replacement therapy; Z79.899 Other long term (current) drug therapy; Z88.8 Allergy status to other drugs, medicaments and biological substances
CPT/HCPCS: 87635; 52601; J2405; J1580

== ENCOUNTER → 2021-09-18 | Outpatient (CLI) | payer MEDICARE, OTHER ==
[2021-09-18 23:40] LABS: African American GFR (CKD) 58.3 (60.0-200.0); Anion Gap 18.1 mmol/L (10.00-18.00); BUN/Creat Ratio 28.13 Ratio (12.00-20.00); Calcium 10.3 mg/dL (8.7-10.3); Carbon Dioxide 36.6 mmol/L (20.0-27.5); Non-African American GFR(CKD) 50.3 (60.0-200.0); Potassium 2.8 mmol/L (3.5-5.5)
== END | disposition home or self-care (01) ==
LOC: LABWHC1 13:53
PROVIDERS: ATTEND Nurse Practitioner
DX: I10 Essential (primary) hypertension (principal)
CPT/HCPCS: 36415; 80048

== ENCOUNTER → 2021-10-02 | Outpatient (CLI) | payer MEDICARE, OTHER ==
[2021-10-02 19:30] LABS: African American GFR (CKD) 60.6 (60.0-200.0); Anion Gap 16.3 mmol/L (10.00-18.00); BUN/Creat Ratio 25.08 Ratio (12.00-20.00); Blood Urea Nitrogen 31.1 mg/dL (9.0-27.0); Carbon Dioxide 36.2 mmol/L (20.0-27.5); Non-African American GFR(CKD) 52.3 (60.0-200.0); Potassium 3.4 mmol/L (3.5-5.5)
== END | disposition home or self-care (01) ==
LOC: LABWHC1 13:13
PROVIDERS: ATTEND Nurse Practitioner
DX: I10 Essential (primary) hypertension (principal)
CPT/HCPCS: 36415; 80048

== ENCOUNTER 2021-12-01 13:46 | Inpatient (IN) | payer MEDICARE, OTHER ==
--- NOTE | 2021-12-01 14:09 | ED ---
General Adult HPI - General Chief complaint: Fall Stated complaint: Fall,Altered Mental Status Time Seen by Provider: 12/01/21 13:51 Source: EMS Mode of arrival: EMS Limitations: altered mental status - History of Present Illness Initial comments: Dictation was produced using [employer] dictation software. please excuse any grammatical, word or spelling errors. Chief Complaint: Patient is a 85-year-old male to the emergency department by EMS History of Present Illness: Is an 85-year-old male using poor historian. He is brought to the emergency department by EMS. EMS was called by neighbors who hadn't seen patient in several days. He noticed that his light has been off for the last 2-3 days. Patient is a poor historian allegedly has history of COPD, dyslipidemia pneumonia. EMS arrived on scene and noticed that patient was lying on the ground. Suspected the patient has been on the ground for 2-3 days. Patient states his body hurts all over. States that he feels weak. Patient told EMS that he has gonorrhea. Unable to obtain ROS secondary to mental status PHYSICAL EXAM: General Impression: Alert and oriented x3, not in acute distress, smells of urine and feces, disheveled HEENT: Normocephalic atraumatic, extra-ocular movements intact, pupils equal and reactive to light bilaterally, dry mucous membranes Cardiovascular: Tachycardic Chest: Able to complete full sentences, no retractions, no tachypnea Abdomen: abdomen soft, non-tender, non-distended, no organomegaly Musculoskeletal: Pulses present and equal in all extremities, no peripheral edema Motor: no focal deficits noted Neurological: CN II-XII grossly intact, no focal motor or sensory deficits noted Skin: Multiple abrasions to the anterior thorax and extremities ED course: 85-year-old male presents to the emergency department after being found down. Vital signs upon arrival shows heart rate of 131, rest of vital signs within acceptable limits. Laboratory evaluation obtained. Leukocytosis of 17.8. Thrombocytopenia with platelet count of 66. Coag panel is unremarkable. Metabolic panel shows BUN 166, creatinine of 5.14. Serum osmolality is 359 however patient's osmolar gap is within normal limits. Lactic acidosis 3.3. T roponin is 0.165, brain atrophy peptide is 10,000. Tox labs are negative. Computed tomography scan of the head and C-spine shows no acute processes. CT of the chest and pelvis shows no acute processes. Spoke with Dr. Jose per request by [facility] who is agreeable consultation. Dr. Jose did not have any further recommendations. Patient reevaluated at the bedside at 5:30 PM found to be in stable medical condition. Patient be admitted to [facility]. EKG interpretation: Ventricular rate 127, A. fib with RVR, QS 132, QTC 428. no QTC prolongation, no ST or T-wave changes noted. EKG compared to 06/20/2021 showing no changes. Overall, this EKG is unremarkable - Related Data Home Medications Medication Instructions Recorded Confirmed Simvastatin [Zocor] 20 mg PO HS 11/26/20 12/01/21 Ascorbic Acid [Vitamin C] 500 mg PO DAILY 02/11/21 12/01/21 Cholecalciferol [Vitamin D3 (25 50 mcg PO DAILY 02/11/21 12/01/21 Mcg = 1000 Iu)] Zinc 50 mg PO DAILY 02/11/21 12/01/21 Albuterol Inhaler [Ventolin Hfa 2 puff INHALATION RT-QID PRN 06/19/21 12/01/21 Inhaler] Albuterol Nebulized [Ventolin 2.5 mg INHALATION RT-BID 06/19/21 12/01/21 Nebulized] Fluticasone/Umeclidin/Vilanter 1 puff INHALATION RT-DAILY 06/19/21 12/01/21 [Trelegy Ellipta 100-62.5-25] Levothyroxine Sodium [Synthroid] 50 mcg PO DAILY 06/19/21 12/01/21 Rivaroxaban [Xarelto] 15 mg PO DAILY 06/19/21 12/01/21 Latanoprost/Pf [Latanoprost 0.005% 1 drop BOTH EYES HS 06/20/21 12/01/21 Eye Drop] Potassium Chloride ER [K-Dur 20] 20 meq PO HS 08/08/21 12/01/21 Furosemide [Lasix] 20 mg PO DAILY@1400 12/01/21 12/01/21 Potassium Chloride ER [K-Dur 20] 40 meq PO DAILY 12/01/21 12/01/21 Spironolactone 25 mg PO DAILY 12/01/21 12/01/21 metOLazone 2.5 mg PO MOWEFR 12/01/21 12/01/21 Previous Rx's Medication Instructions Recorded Furosemide [Lasix] 40 mg PO DAILY 30 Days #30 tablet 06/22/21 Allergies Allergy/AdvReac Type Severity Reaction Status Date / Time prednisone AdvReac CAN'T Verified 12/01/21 16:05 URINATE WHEN HE TAKES IT Review of Systems ROS Statement: Those systems with pertinent positive or pertinent negative responses have been documented in the HPI. ROS Other: All systems not noted in ROS Statement are negative. Past Medical History Past Medical History: COPD, Hyperlipidemia, Myocardial Infarction ([place]), Pneumoni a, Prostate Disorder, Thyroid Disorder Additional Past Medical History / Comment(s): has [facility]. per cardiology consult note 06/20/21 hx chf,htn,a-fib Last Myocardial Infarction Date:: Apr 1994 History of Any Multi-Drug Resistant Organisms: None Reported Past Surgical History: Heart Catheterization Additional Past Surgical History / Comment(s): angioplasty after [place], no stents, pilonidal cyst removal, Past Anesthesia/Blood Transfusion Reactions: No Reported Reaction Additional Past Anesthesia/Blood Transfusion Reaction / Comment(s): vertigo Past Psychological History: No Psychological Hx Reported Smoking Status: Former smoker Past Alcohol Use History: Occasional Past Drug Use History: None Reported - Past Family History Father History Unknown: Yes Sister(s) Family Medical History: Cancer Additional Family Medical History / Comment(s): nonhodgkins lymphoma General Exam Limitations: altered mental status Course Vital Signs 12/01/21 12/01/21 13:53 16:55 Pulse Rate 131 H 129 H Respiratory 16 16 Rate Blood Pressure 101/90 150/99 O2 Sat by Pulse 98 93 L Oximetry Medical Decision Making - Lab Data Result diagrams: 12/01/21 14:03 12/01/21 14:03 Lab Results 12/01/21 12/01/21 12/01/21 Range/Units 13:55 14:00 14:03 WBC 17.8 H (3.8-10.6) k/uL RBC 5.41 (4.30-5.90) m/uL Hgb 17.9 H (13.0-17.5) gm/dL Hct 53.2 H (39.0-53.0) % MCV 98.3 (80.0-100.0) fL MCH 33.0 (25.0-35.0) pg MCHC 33.6 (31.0-37.0) g/dL RDW 15.1 (11.5-15.5) % Plt Count 66 L (150-450) k/uL MPV 12.5 Neutrophils % 90 % Lymphocytes % 4 % Monocytes % 4 % Eosinophils % 1 % Basophils % 0 % Neutrophils # 16.0 H (1.3-7.7) k/uL Lymphocytes # 0.8 L (1.0-4.8) k/uL Monocytes # 0.7 (0-1.0) k/uL Eosinophils # 0.1 (0-0.7) k/uL Basophils # 0.1 (0-0.2) k/uL Manual Slide Review Performed PT (9.0-12.0) sec INR (<1.2) APTT (22.0-30.0) sec Sodium (137-145) mmol/L Potassium (3.5-5.1) mmol/L Chloride (98-107) mmol/L Carbon Dioxide (22-30) mmol/L Anion Gap mmol/L BUN (9-20) mg/dL Creatinine (0.66-1.25) mg/dL Est GFR (CKD-EPI)AfAm (>60 ml/min/1.73 sqM) Est GFR (CKD-EPI)NonAf (>60 ml/min/1.73 sqM) Glucose (74-99) mg/dL Osmolality (280-301) mosm/kg Lactic Ac Sepsis Rflx Plasma Lactic Acid Kael (0.7-2.0) mmol/L Calcium (8.4-10.2) mg/dL Magnesium (1.6-2.3) mg/dL Total Bilirubin (0.2-1.3) mg/dL AST (17-59) U/L ALT (4-49) U/L Alkaline Phosphatase (38-126) U/L Ammonia (<30) umol/L Creatine Kinase (55-170) U/L Troponin I (0.000-0.034) ng/mL NT-Pro-B Natriuret Pep pg/mL Total Protein (6.3-8.2) g/dL Albumin (3.5-5.0) g/dL Salicylates mg/dL Acetaminophen ug/mL Serum Alcohol mg/dL Blood Type A Positive Blood Type Confirm A Positive Blood Type Recheck No Previous Record Bld Type Recheck Status CABO Indicated Antibody Screen NEGATIVE Spec Expiration Date 12/04/2021 - 230412/01/21 12/01/21 12/01/21 Range/Units 14:03 14:03 14:03 WBC (3.8-10.6) k/uL RBC (4.30-5.90) m/uL Hgb (13.0-17.5) gm/dL Hct (39.0-53.0) % MCV (80.0-100.0) fL MCH (25.0-35.0) pg MCHC (31.0-37.0) g/dL RDW (11.5-15.5) % Plt Count (150-450) k/uL MPV Neutrophils % % Lymphocytes % % Monocytes % % Eosinophils % % Basophils % % Neutrophils # (1.3-7.7) k/uL Lymphocytes # (1.0-4.8) k/uL Monocytes # (0-1.0) k/uL Eosinophils # (0-0.7) k/uL Basophils # (0-0.2) k/uL Manual Slide Review PT 15.1 H (9.0-12.0) sec INR 1.5 H (<1.2) APTT 23.1 (22.0-30.0) sec Sodium 141 (137-145) mmol/L Potassium 3.1 L (3.5-5.1) mmol/L Chloride 92 L (98-107) mmol/L Carbon Dioxide 27 (22-30) mmol/L Anion Gap 22 mmol/L BUN 166 H* (9-20) mg/dL Creatinine 5.14 H (0.66-1.25) mg/dL Est GFR (CKD-EPI)AfAm 11 (>60 ml/min/1.73 sqM) Est GFR (CKD-EPI)NonAf 9 (>60 ml/min/1.73 sqM) Glucose 165 H (74-99) mg/dL Osmolality 359 H* (280-301) mosm/kg Lactic Ac Sepsis Rflx Plasma Lactic Acid Kael 3.3 H* (0.7-2.0) mmol/L Calcium 7.7 L (8.4-10.2) mg/dL Magnesium 3.2 H (1.6-2.3) mg/dL Total Bilirubin 3.2 H (0.2-1.3) mg/dL AST 168 H (17-59) U/L ALT 86 H (4-49) U/L Alkaline Phosphatase 97 (38-126) U/L Ammonia 10 (<30) umol/L Creatine Kinase 822 H (55-170) U/L Troponin I (0.000-0.034) ng/mL NT-Pro-B Natriuret Pep pg/mL Total Protein 6.0 L (6.3-8.2) g/dL Albumin 3.1 L (3.5-5.0) g/dL Salicylates <1.0 mg/dL Acetaminophen <10.0 ug/mL Serum Alcohol <10 mg/dL Blood Type Blood Type Confirm Blood Type Recheck Bld Type Recheck Status Antibody Screen Spec Expiration Date 12/01/21 12/01/21 12/01/21 Range/Units 14:03 14:03 15:03 WBC (3.8-10.6) k/uL RBC (4.30-5.90) m/uL Hgb (13.0-17.5) gm/dL Hct (39.0-53.0) % MCV (80.0-100.0) fL MCH (25.0-35.0) pg MCHC (31.0-37.0) g/dL RDW (11.5-15.5) % Plt Count (150-450) k/uL MPV Neutrophils % % Lymphocytes % % Monocytes % % Eosinophils % % Basophils % % Neutrophils # (1.3-7.7) k/uL Lymphocytes # (1.0-4.8) k/uL Monocytes # (0-1.0) k/uL Eosinophils # (0-0.7) k/uL Basophils # (0-0.2) k/uL Manual Slide Review PT (9.0-12.0) sec INR (<1.2) APTT (22.0-30.0) sec Sodium (137-145) mmol/L Potassium (3.5-5.1) mmol/L Chloride (98-107) mmol/L Carbon Dioxide (22-30) mmol/L Anion Gap mmol/L BUN (9-20) mg/dL Creatinine (0.66-1.25) mg/dL Est GFR (CKD-EPI)AfAm (>60 ml/min/1.73 sqM) Est GFR (CKD-EPI)NonAf (>60 ml/min/1.73 sqM) Glucose (74-99) mg/dL Osmolality (280-301) mosm/kg Lactic Ac Sepsis Rflx Y Plasma Lactic Acid Kael (0.7-2.0) mmol/L Calcium (8.4-10.2) mg/dL Magnesium (1.6-2.3) mg/dL Total Bilirubin (0.2-1.3) mg/dL AST (17-59) U/L ALT (4-49) U/L Alkaline Phosphatase (38-126) U/L Ammonia (<30) umol/L Creatine Kinase (55-170) U/L Troponin I 0.165 H* (0.000-0.034) ng/mL NT-Pro-B Natriuret Pep 65431 pg/mL Total Protein (6.3-8.2) g/dL Albumin (3.5-5.0) g/dL Salicylates mg/dL Acetaminophen ug/mL Serum Alcohol mg/dL Blood Type Blood Type Confirm Blood Type Recheck Bld Type Recheck Status Antibody Screen Spec Expiration Date Critical Care Time Critical Care Time: Yes Total Critical Care Time: 33 Disposition Clinical Impression: Fall, KOBE (acute kidney injury) Disposition: ADMITTED IP TO THIS [facility] Condition: Serious Decision Time: 17:28
[2021-12-01 14:19] LABS: INR 1.5 (<1.2); Partial Thromboplastin Time 23.1 sec (22.0-30.0); Prothrombin Time 15.1 sec (9.0-12.0)
[2021-12-01 14:24] LABS: Basophils # (A) 0.1 k/uL (0-0.2); Basophils % (A) 0 %; Eosinophils # (A) 0.1 k/uL (0-0.7); Eosinophils % (A) 1 %; HCT 53.2 % (39.0-53.0); HGB 17.9 gm/dL (13.0-17.5); Lymphocytes # (A) 0.8 k/uL (1.0-4.8); Lymphocytes % (A) 4 %; MCHC 33.6 g/dL (31.0-37.0); MCV 98.3 fL (80.0-100.0); Mean Platelet Volume 12.5; Monocytes # (A) 0.7 k/uL (0-1.0); Monocytes % (A) 4 %; Neutrophils % (A) 90 %; RBC 5.41 m/uL (4.30-5.90); RDW 15.1 % (11.5-15.5); WBC 17.8 k/uL (3.8-10.6)
[2021-12-01 14:37] LABS: ALT 86 U/L (4-49); AST 168 U/L (17-59); Acetaminophen <10.0 ug/mL; African American GFR (CKD) 11 (>60 ml/min/1.73 sqM); Albumin 3.1 g/dL (3.5-5.0); Alcohol <10 mg/dL; Alkaline Phosphatase 97 U/L (38-126); Anion Gap 22 mmol/L; Calcium 7.7 mg/dL (8.4-10.2); Carbon Dioxide 27 mmol/L (22-30); Chloride 92 mmol/L (98-107); Creatine Kinase 822 U/L (55-170); Glucose 165 mg/dL (74-99); Magnesium 3.2 mg/dL (1.6-2.3); Non-African American GFR(CKD) 9 (>60 ml/min/1.73 sqM); Potassium 3.1 mmol/L (3.5-5.1); Salicylate <1.0 mg/dL; Sodium 141 mmol/L (137-145); Total Bilirubin 3.2 mg/dL (0.2-1.3)
[2021-12-01 14:38] LABS: Platelet Count 66 k/uL (150-450)
--- NOTE | 2021-12-01 14:59 | CT ---
EXAMINATION TYPE: CT brain robert gu con DATE OF EXAM: 12/01/2021 COMPARISON: None HISTORY: Fall CT DLP: 1513.[address] of the brain was performed. The ventricles, basal cisterns and sulci overlying the cerebral convexities demonstrate mild enlargem ent. There is no evidence for intracranial hemorrhage or sulcal effacement. There is decreased attenuatio n about the periventricular white matter and deep white matter of both cerebral hemispheres, compatib le with chronic small vessel ischemia. No mass effects are seen. If symptoms persist consider MRI. Osseous calvarium is intact. IMPRESSION: 1. Age related atrophic and chronic small vessel ischemic change without acute intracranial process seen at this time. CT Cervical Spine: Unenhanced CT of the cervical spine was performed with bone and soft tissue window settings submitted . Coronal and sagittal reconstruction is obtained. There is normal alignment and prevertebral soft tissues. No evidence for acute cervical fracture . Scattered degenerative disc disease and spondylosis. Biapical scarring. IMPRESSION: 1. No evidence for acute fracture or subluxation of the cervical spine.
[2021-12-01 15:03] LABS: Blood Urea Nitrogen 166 mg/dL (9-20); Lactic Acid, Venous 3.3 mmol/L (0.7-2.0)
--- NOTE | 2021-12-01 15:09 | CT ---
EXAMINATION TYPE: CT ChestAbdPelvis wo con DATE OF EXAM: 12/01/2021 COMPARISON: CTA chest dated 04/17/2021 HISTORY: Fall, CT DLP: 844.4 mGycm. Automated Exposure Control for Dose Reduction was Utilized. TECHNIQUE: CT scan of the thorax, abdomen and pelvis is performed without IV contrast. FINDINGS: CT chest: There are mild emphysematous changes. There is no airspace or interstitial density to suggest acute p neumonia. There is a small left pleural effusion. There is no pneumothorax. The great vessels the chest are normal and there is no mediastinal, hilar or axillary adenopathy. The osseous structures are intact. CT abdomen and pelvis: The gallbladder is normal and there are no gallstones, wall thickening, distention or pericholecystic fluid. There is no biliary ductal dilatation. There is no organomegaly involving the liver, pancreas, spleen or adrenal glands. There is a 4 mm nonobstructing left renal calculus. No right renal calcifications. There is no hydron ephrosis. The caliber of the abdominal aorta is normal and there is no retroperitoneal adenopathy or hemorrhage . The bowel loops are normal in caliber and there is no dilatation or obstruction. No inflammatory mora ges are identified in the bowel wall or mesentery. There is no free intraperitoneal air or fluid. The osseous structures are intact. IMPRESSION: 1. Small left pleural effusion and mild emphysematous changes. 2. No acute changes within the abdomen. 3. 4 mm nonobstructing left renal calcification
[2021-12-01] MEDS ORDERED: SODIUM CHLORIDE 0.9% 1,000 ML IV STA ×2 (15:23→16:25)
--- NOTE | 2021-12-01 15:24 | XR ---
EXAMINATION TYPE: XR chest 1V portable DATE OF EXAM: 12/01/2021 HISTORY: Shortness of breath. COMPARISON: 06/19/21 TECHNIQUE: Single view of the chest is submitted. FINDINGS: Demonstrated are scattered senescent parenchymal change. There is no evidence for focal infiltrate. The heart is stable. Hilar and mediastinal structures are within normal limits. Degenerative changes are seen of the dorsal spine. IMPRESSION: 1. Chronic changes without evidence for acute pulmonary disease.
[2021-12-01] MEDS ORDERED: LORazepam 2 MG/ML INJ IV PRN (16:58)
[2021-12-01] MEDS ORDERED: NALOXONE 0.4 MG/ML 1 ML VIAL IV PRN (16:58)
[2021-12-01] MEDS ORDERED: ONDANSETRON 4 MG/2 ML VIAL IVP PRN (16:58)
[2021-12-01] MEDS ORDERED: ALBUTEROL NEBULIZED 2.5 MG/3 ML INHALATION PRN (18:54)
--- NOTE | 2021-12-01 18:57 | P.HPIM ---
History of Present Illness H&P Date: 12/01/21 Chief Complaint: Found down 85-year-old man with medical history of hypothyroidism, CAD, hypertension, hyperlipidemia, COPD, chronic kidney disease stage III presented after being found down. Patient does not remember how or why he was on the ground. However, patient's neighbors became concerned when they had not seen the patient in a couple days, therefore they did a wellness check and found the patient had been lying on the ground for proximally 48 hours. The called emergency medical services and patient was brought in by ambulance. The patient has bruises on his face as well as the front of his chest and abdomen, as he was lying on his belly for those 2 days. Patient declines having any pain. He also denies fevers, chills, nausea, vomiting, chest pain, palpitations, cough, dyspnea, abdominal pain, constipation, diarrhea, dysuria, dyschezia, numbness/weakness of extremities. In the emergency room, patient is afebrile, 101/90, heart rate 131, 98% on 2 L nasal cannula. CBC is significant for leukocytosis to 17.8, hemoglobin of 17.9, platelet count of 66. Chemistries show hypokalemia to 3.1, BUN/creatinine of 166/5.14, anion gap of 22. Serum osmolality is elevated at 359. Lactic acid was 3.3. LFTs are remarkable for total bilirubin of 3.2, AST/ALT of 168/86. Creatinine kinase is 822. Initial troponin was 0.165, BNP was 10,000. Tylenol, alcohol level, salicylate level was low. Patient's had/cervical spine CT was negative for fracture. CT of the chest/abdomen/pelvis shows small left pleural effusion and mild emphysematous changes, 4 mm nonobstructing left renal calcification. Chest x-ray demonstrates chronic changes without evidence of acute disease. Patient's EKG demonstrates paroxysmal atrial fibrillation with rapid ventricular response as well as a right bundle branch block. All Systems reviewed and pertinent positives and negatives noted in HPI, all other symptoms are negative Gen: awake, alert HEENT: normocephalic, atraumatic, good hearing acuity, moist mucous membranes Resp: good air exchange, breathing comfortably with no accessory muscle use, clear to auscultation bilaterally CVS: good distal perfusion x 4, tachycardic, no murmurs GI: soft, NTTP, ND : no SPT, no CVAT, jama catheter is present MSK: no pitting edema, no clubbing Neuro: non-focal, moving all extremities Psych: cooperative, euthymic mood Labs and imaging reviewed as above Assessment/plan: Acute kidney injury superimposed on chronic kidney disease stage III Elevated BNP -Admit to inpatient, telemetry -Nephrology consult -IV fluids -Urine electrolytes -Jama catheter -Strict ins and outs, daily weights -Echocardiogram -Hold on diuretics Paroxysmal atrial fibrillation with rapid ventricular response Elevated troponin -Trend troponins -Cardiology consult -Start metoprolol Elevated liver enzymes Suspected EtOH abuse -IV fluids -Repeat liver function tests in the morning CAD HTN HLD Hypothyroidism COPD without exacerbation -Home medications reviewed and reconciled Patient is full code DVT prophylaxis covered with xarelto Past Medical History Past Medical History: COPD, Hyperlipidemia, Myocardial Infarction ([place]), Pneumonia, Prostate Disorder, Thyroid Disorder Additional Past Medical History / Comment(s): has [facility]. per cardiology consult note 06/20/21 hx chf,htn,a-fib Last Myocardial Infarction Date:: Apr 1994 History of Any Multi-Drug Resistant Organisms: None Reported Past Surgical History: Heart Catheterization Additional Past Surgical History / Comment(s): angioplasty after [place], no stents, pilonidal cyst removal, Past Anesthesia/Blood Transfusion Reactions: No Reported Reaction Additional Past Anesthesia/Blood Transfusion Reaction / Comment(s): vertigo Past Psychological History: No Psychological Hx Reported Smoking Status: Former smoker Past Alcohol Use History: Occasional Past Drug Use History: None Reported - Past Family History Father History Unknown: Yes Sister(s) Family Medical History: Cancer Additional Family Medical History / Comment(s): nonhodgkins lymphoma Medications and Allergies Home Medications Medication Instructions Recorded Confirmed Type Simvastatin [Zocor] 20 mg PO HS 11/26/20 12/01/21 History Ascorbic Acid [Vitamin C] 500 mg PO DAILY 02/11/21 12/01/21 History Cholecalciferol [Vitamin D3 (25 50 mcg PO DAILY 02/11/21 12/01/21 History Mcg = 1000 Iu)] Zinc 50 mg PO DAILY 02/11/21 12/01/21 History Albuterol Inhaler [Ventolin Hfa 2 puff INHALATION RT-QID PRN 06/19/21 12/01/21 History Inhaler] Albuterol Nebulized [Ventolin 2.5 mg INHALATION RT-BID 06/19/21 12/01/21 History Nebulized] Fluticasone/Umeclidin/Vilanter 1 puff INHALATION RT-DAILY 06/19/21 12/01/21 History [Rosina Ellipta 100-62.5-25] Levothyroxine Sodium [Synthroid] 50 mcg PO DAILY 06/19/21 12/01/21 History Rivaroxaban [Xarelto] 15 mg PO DAILY 06/19/21 12/01/21 History Latanoprost/Pf [Latanoprost 0.005% 1 drop BOTH EYES HS 06/20/21 12/01/21 History Eye Drop] Furosemide [Lasix] 40 mg PO DAILY 30 Days #30 tablet 06/22/21 12/01/21 Rx Potassium Chloride ER [K-Dur 20] 20 meq PO HS 08/08/21 12/01/21 History Furosemide [Lasix] 20 mg PO DAILY@1400 12/01/21 12/01/21 History Potassium Chloride ER [K-Dur 20] 40 meq PO DAILY 12/01/21 12/01/21 History Spironolactone 25 mg PO DAILY 12/01/21 12/01/21 History metOLazone 2.5 mg PO MOWEFR 12/01/21 12/01/21 History Allergies Allergy/AdvReac Type Severity Reaction Status Date / Time prednisone AdvReac CAN'T Verified 12/01/21 16:05 URINATE WHEN HE TAKES IT Physical Exam Osteopathic Statement: *. No significant issues noted on an osteopathic structural exam other than those noted in the History and Physical/Consult. Vitals: Vital Signs Pulse Resp BP Pulse Ox 12/01/21 16:55 129 H 16 150/99 93 L 12/01/21 13:53 131 H 16 101/90 98 Intake and Output 12/01/21 12/01/21 12/01/21 06:59 14:59 22:59 Other: Weight 86.183 kg Results CBC & Chem 7: 12/01/21 14:03 12/01/21 14:03 Labs: Abnormal Lab Results - Last 24 Hours (Table) 12/01/21 12/01/21 12/01/21 Range/Units 14:03 14:03 14:03 WBC 17.8 H (3.8-10.6) k/uL Hgb 17.9 H (13.0-17.5) gm/dL Hct 53.2 H (39.0-53.0) % Plt Count 66 L (150-450) k/uL Neutrophils # 16.0 H (1.3-7.7) k/uL Lymphocytes # 0.8 L (1.0-4.8) k/uL PT 15.1 H (9.0-12.0) sec INR 1.5 H (<1.2) Potassium 3.1 L (3.5-5.1) mmol/L Chloride 92 L (98-107) mmol/L BUN 166 H* (9-20) mg/dL Creatinine 5.14 H (0.66-1.25) mg/dL Glucose 165 H (74-99) mg/dL Osmolality 359 H* (280-301) mosm/kg Plasma Lactic Acid Kael (0.7-2.0) mmol/L Calcium 7.7 L (8.4-10.2) mg/dL Magnesium 3.2 H (1.6-2.3) mg/dL Total Bilirubin 3.2 H (0.2-1.3) mg/dL AST 168 H (17-59) U/L ALT 86 H (4-49) U/L Creatine Kinase 822 H (55-170) U/L Troponin I (0.000-0.034) ng/mL Total Protein 6.0 L (6.3-8.2) g/dL Albumin 3.1 L (3.5-5.0) g/dL 12/01/21 12/01/21 12/01/21 Range/Units 14:03 14:03 17:50 WBC (3.8-10.6) k/uL Hgb (13.0-17.5) gm/dL Hct (39.0-53.0) % Plt Count (150-450) k/uL Neutrophils # (1.3-7.7) k/uL Lymphocytes # (1.0-4.8) k/uL PT (9.0-12.0) sec INR (<1.2) Potassium (3.5-5.1) mmol/L Chloride (98-107) mmol/L BUN (9-20) mg/dL Creatinine (0.66-1.25) mg/dL Glucose (74-99) mg/dL Osmolality (280-301) mosm/kg Plasma Lactic Acid Kael 3.3 H* 3.3 H* (0.7-2.0) mmol/L Calcium (8.4-10.2) mg/dL Magnesium (1.6-2.3) mg/dL Total Bilirubin (0.2-1.3) mg/dL AST (17-59) U/L ALT (4-49) U/L Creatine Kinase (55-170) U/L Troponin I 0.165 H* (0.000-0.034) ng/mL Total Protein (6.3-8.2) g/dL Albumin (3.5-5.0) g/dL
[2021-12-01] MEDS: ALBUTEROL NEBULIZED 2.5 MG/3 ML INHALATION SCH (19:59)
[2021-12-01] MEDS ORDERED: METOPROLOL TARTRATE 25 MG TAB PO SCH (21:00)
[2021-12-01 22:12] LABS: Appearance,Urine Cloudy (Clear); Bacteria,Urine Rare /hpf; Bilirubin,Urine Negative (Negative); Blood,Urine Large (Negative); Color,Urine Dark Brown; Glucose,Urine (UA) Trace (Negative); Hyaline Casts,Urine 3 /lpf (0-2); Ketones,Urine Negative (Negative); Leukocyte Esterase,Urine Large (Negative); Mucus,Urine Rare /hpf; Nitrite,Urine Negative (Negative); Protein,Urine 1+ (Negative); RBC,Urine >182 /hpf (0-5); Specific Gravity,Urine 1.018 (1.001-1.035); Squamous Epithelial Cell,Urine 2 /hpf (0-4); WBC,Urine 69 /hpf (0-5)
[2021-12-01 22:34] LABS: Creatinine,Urine Random 210.6 mg/dL
[2021-12-01] MEDS: ATORVASTATIN 10 MG TAB PO SCH (23:12)
[2021-12-01] MEDS: LATANOPROST 0.005% OPHTH DROPS 2.5 ML BTL BOTH EYES SCH (23:13)
[2021-12-01] MEDS ORDERED: MORPHINE SULFATE 4 MG/ML SYRINGE IVP STA (23:31)
[2021-12-01] MEDS ORDERED: METOPROLOL TARTRATE 5 MG/5 ML VIAL IVP ONE (23:45)
[2021-12-02 04:50] LABS: Basophils # (A) 0.1 k/uL (0-0.2); Basophils % (A) 1 %; Eosinophils # (A) 0.1 k/uL (0-0.7); Eosinophils % (A) 1 %; Lymphocytes # (A) 0.9 k/uL (1.0-4.8); Lymphocytes % (A) 6 %; MCH 31.8 pg (25.0-35.0); MCHC 31.9 g/dL (31.0-37.0); MCV 99.6 fL (80.0-100.0); Monocytes # (A) 0.8 k/uL (0-1.0); Monocytes % (A) 5 %; Neutrophils # (A) 13.3 k/uL (1.3-7.7); Neutrophils % (A) 86 %; Platelet Count 61 k/uL (150-450); RBC 4.61 m/uL (4.30-5.90); RDW 14.4 % (11.5-15.5); WBC 15.3 k/uL (3.8-10.6)
[2021-12-02 04:52] LABS: HGB 14.7 gm/dL (13.0-17.5)
[2021-12-02 04:59] LABS: Albumin 2.6 g/dL (3.5-5.0); Bilirubin, Conjugated 0.8 mg/dL (0.0-0.3); Bilirubin, Delta 1.2 mg/dL (0.0-0.2); Bilirubin,Unconjugated 0.7 mg/dL (0.0-1.1); Potassium 2.8 mmol/L (3.5-5.1); Total Bilirubin 2.7 mg/dL (0.2-1.3); Total Protein 5.1 g/dL (6.3-8.2)
[2021-12-02] MEDS: POTASSIUM CHLORIDE 10 MEQ in WATER FOR INJECTION 1 100ML.BAG IVPB SCH ×4 (06:38→13:21)
[2021-12-02] MEDS: LEVOTHYROXINE 50 MCG TAB PO SCH ×2 (06:38→13:20)
[2021-12-02] MEDS: IPRATROPIUM 0.5 MG/2.5 ML NEBU INHALATION SCH ×4 (07:30→21:05)
[2021-12-02] MEDS: ALBUTEROL NEBULIZED 2.5 MG/3 ML INHALATION SCH ×2 (07:30→21:00)
[2021-12-02] MEDS: SYMBICORT 80-4.5 MCG INHALER INHALATION SCH ×2 (07:30→21:00)
--- NOTE | 2021-12-02 11:23 | P.NPCON ---
History of Present Illness - Reason for Consult acute renal failure - History of Present Illness Patient is an 85-year-old male with history of coronary artery disease, hypertension, COPD, chronic kidney disease NKF stage III with previous creatinine about 1.3 mg/dL. Patient is admitted to the hospital as he was found on the floor after not having been seen for about 3 days. A wellness check was performed. Patient had bruises on his face he did not remember what had happened Patient denied any fever chills nausea vomiting abdominal pain or diarrhea. Serum creatinine was 5.1 on admission. Patient is maintained on IV fluids to date is down to 4.9. Previous creatinine 1.3 on 11/22/2021. No obstruction noted on CT of the abdomen and pelvis. Nonobstructive 5 mm calculus noted in the left kidney. CK level was 822. Blood pressure has been on the lower side with systolic 99-87 mmHg Currently with indwelling Starks catheter with decent urine output. Patient was maintained on Lasix at home. I do not see any nonsteroidal anti- inflammatory agents. Review of Systems As per HPI other systems negative Past Medical History Past Medical History: COPD, Hyperlipidemia, Myocardial Infarction ([place]), Pneumonia, Prostate Disorder, Thyroid Disorder Additional Past Medical History / Comment(s): per cardiology consult note 06/20/21 hx chf,htn,a-fib Last Myocardial Infarction Date:: Apr 1994 History of Any Multi-Drug Resistant Organisms: None Reported Past Surgical History: Heart Catheterization Additional Past Surgical History / Comment(s): angioplasty after [place], no stents, pilonidal cyst removal, Past Anesthesia/Blood Transfusion Reactions: No Reported Reaction Additional Past Anesthesia/Blood Transfusion Reaction / Comment(s): vertigo Past Psychological History: No Psychological Hx Reported Smoking Status: Former smoker Past Alcohol Use History: Occasional Past Drug Use History: None Reported - Past Family History Father History Unknown: Yes Sister(s) Family Medical History: Cancer Additional Family Medical History / Comment(s): nonhodgkins lymphoma Medications and Allergies Home Medications Medication Instructions Recorded Confirmed Type Simvastatin [Zocor] 20 mg PO HS 11/26/20 12/01/21 History Ascorbic Acid [Vitamin C] 500 mg PO DAILY 02/11/21 12/01/21 History Cholecalciferol [Vitamin D3 (25 50 mcg PO DAILY 02/11/21 12/01/21 History Mcg = 1000 Iu)] Zinc 50 mg PO DAILY 02/11/21 12/01/21 History Albuterol Inhaler [Ventolin Hfa 2 puff INHALATION RT-QID PRN 06/19/21 12/01/21 History Inhaler] Albuterol Nebulized [Ventolin 2.5 mg INHALATION RT-BID 06/19/21 12/01/21 History Nebulized] Fluticasone/Umeclidin/Vilanter 1 puff INHALATION RT-DAILY 06/19/21 12/01/21 History [Trelegy Ellipta 100-62.5-25] Levothyroxine Sodium [Synthroid] 50 mcg PO DAILY 06/19/21 12/01/21 History Rivaroxaban [Xarelto] 15 mg PO DAILY 06/19/21 12/01/21 History Latanoprost/Pf [Latanoprost 0.005% 1 drop BOTH EYES HS 06/20/21 12/01/21 History Eye Drop] Furosemide [Lasix] 40 mg PO DAILY 30 Days #30 tablet 06/22/21 12/01/21 Rx Potassium Chloride ER [K-Dur 20] 20 meq PO HS 08/08/21 12/01/21 History Furosemide [Lasix] 20 mg PO DAILY@1400 12/01/21 12/01/21 History Potassium Chloride ER [K-Dur 20] 40 meq PO DAILY 12/01/21 12/01/21 History Spironolactone 25 mg PO DAILY 12/01/21 12/01/21 History metOLazone 2.5 mg PO MOWEFR 12/01/21 12/01/21 History Allergies Allergy/AdvReac Type Severity Reaction Status Date / Time prednisone AdvReac CAN'T Verified 12/01/21 16:05 URINATE WHEN HE TAKES IT Physical Exam Vitals: Vital Signs Temp Pulse Pulse Resp BP BP Pulse Ox 12/02/21 07:47 104 H 12/02/21 07:31 96 12/02/21 04:00 113 H 20 87/51 93 L 12/02/21 00:25 98.2 F 97 18 114/58 92 L 12/02/21 00:23 20 12/01/21 22:53 115 H 20 119/71 95 12/01/21 22:13 98.5 F 103 H 20 122/71 95 12/01/21 21:00 115 H 20 104/59 95 12/01/21 20:10 129 H 12/01/21 20:00 113 H 20 99/56 96 12/01/21 16:55 129 H 16 150/99 93 L 12/01/21 13:53 131 H 16 101/90 98 Intake and Output 12/01/21 12/02/21 12/02/21 22:59 06:59 14:59 Intake Total 1000 Output Total 200 Balance 800 Intake: Intake, IV Titration 1000 Amount Sodium Chloride 0.9% 1, 1000 000 ml @ 999 mls/hr IV . Q1H1M STA Rx#:[id number] Oral 0 Output: Urine 200 Other: Voiding Method Indwelling Catheter Weight 86.183 kg On examination patient is comfortable awake not in any acute distress. He has bruises on his face Examination of the heart S1 and S2 Examination lungs bilateral breath sounds are heard Abdomen is soft nontender Exertion lower extremities shows no significant edema. [employer] exam shows a she is moving all 4 extremities. He is confused at times. Results - Lab Results Most recent lab results Calcium 7.0 mg/dL (8.4-10.2) L 12/02/21 04:04 Magnesium 3.0 mg/dL (1.6-2.3) H 12/02/21 04:04 12/02/21 04:04 12/02/21 04:04 Assessment and Plan Assessment: 1. Acute kidney injury ATN associated with hypotension and hypovolemia. Currently nonoliguric. No evidence of obstruction on computed tomography scan of the abdomen and pelvis. UA shows 1+ protein and large blood and RBCs more than 182. Maintained on IV fluids 2. 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 A. fib with RVR on initial admission currently heart rate improved to about 96-100 from 129 to 1:30. 4. COPD without exacerbation 5. Mild rhabdo my lysis 6. Hypokalemia associated with decreased intake and use of diuretics at home prior to admission 7. Lactic acidosis currently improved Plan: Continue with IV fluids Replace potassium Repeat labs in a.m. Avoid any nephrotoxic agents Thank you for this consultation. We'll continue to follow the patient with you during his hospitalization
[2021-12-02] MEDS: ZINC SULFATE 220 MG CAP PO SCH (13:20)
[2021-12-02] MEDS: CHOLECALCIFEROL 25 MCG (1000 IU) TABLET PO SCH (13:20)
[2021-12-02] MEDS: RIVAROXABAN 15 MG TAB PO SCH (13:20)
[2021-12-02] MEDS: ASCORBIC ACID 500 MG TAB PO SCH (13:20)
--- NOTE | 2021-12-02 13:52 | P.PN ---
Subjective Progress Note Date: 12/02/21 Patient is improving. Creatinine is improving. Bilirubin is coming down. Uremia is still high. Gen: awake, alert HEENT: normocephalic, atraumatic, good hearing acuity, moist mucous membranes Resp: good air exchange, breathing comfortably with no accessory muscle use, clear to auscultation bilaterally CVS: good distal perfusion x 4, tachycardic, no murmurs GI: soft, NTTP, ND : no SPT, no CVAT, jama catheter is present MSK: no pitting edema, no clubbing Neuro: non-focal, moving all extremities Psych: cooperative, euthymic mood Assessment/plan: Acute kidney injury superimposed on chronic kidney disease stage III Elevated BNP -Admit to inpatient, telemetry -Nephrology consult -IV fluids -Urine electrolytes -Jama catheter -Strict ins and outs, daily weights -Echocardiogram -Hold on diuretics Paroxysmal atrial fibrillation with rapid ventricular response Elevated troponin -Trend troponins -Cardiology consult -Start metoprolol Elevated liver enzymes Suspected EtOH abuse -IV fluids -Repeat liver function tests in the morning CAD HTN HLD Hypothyroidism COPD without exacerbation -Home medications reviewed and reconciled Patient is full code DVT prophylaxis covered with xarelto Objective - Vital Signs Vital signs: Vital Signs Temp 97.4 F L 12/02/21 08:00 Pulse 108 H 12/02/21 11:36 Resp 20 12/02/21 08:00 BP 98/55 12/02/21 08:00 Pulse Ox 96 12/02/21 08:00 Intake & Output 12/01/21 12/02/21 12/02/21 18:59 06:59 18:59 Intake Total 1000 Output Total 200 Balance 800 Weight 86.183 kg 86.183 kg 86.183 kg Intake: Intake, IV Titration 1000 Amount Sodium Chloride 0.9% 1, 1000 000 ml @ 999 mls/hr IV . Q1H1M STA Rx#:[id number] Oral 0 Output: Urine 200 Other: Voiding Method Indwelling Catheter Indwelling Catheter - Labs CBC & Chem 7: 12/02/21 04:04 12/02/21 04:04 Labs: Abnormal Lab Results - Last 24 Hours (Table) 12/01/21 12/01/21 12/01/21 Range/Units 14:03 14:03 14:03 WBC 17.8 H (3.8-10.6) k/uL Hgb 17.9 H (13.0-17.5) gm/dL Hct 53.2 H (39.0-53.0) % Plt Count 66 L (150-450) k/uL Neutrophils # 16.0 H (1.3-7.7) k/uL Lymphocytes # 0.8 L (1.0-4.8) k/uL PT 15.1 H (9.0-12.0) sec INR 1.5 H (<1.2) Potassium 3.1 L (3.5-5.1) mmol/L Chloride 92 L (98-107) mmol/L BUN 166 H* (9-20) mg/dL Creatinine 5.14 H (0.66-1.25) mg/dL Glucose 165 H (74-99) mg/dL Osmolality 359 H* (280-301) mosm/kg Plasma Lactic Acid Kael (0.7-2.0) mmol/L Calcium 7.7 L (8.4-10.2) mg/dL Magnesium 3.2 H (1.6-2.3) mg/dL Total Bilirubin 3.2 H (0.2-1.3) mg/dL Conjugated Bilirubin (0.0-0.3) mg/dL Delta Bilirubin (0.0-0.2) mg/dL AST 168 H (17-59) U/L ALT 86 H (4-49) U/L Creatine Kinase 822 H (55-170) U/L Troponin I (0.000-0.034) ng/mL Total Protein 6.0 L (6.3-8.2) g/dL Albumin 3.1 L (3.5-5.0) g/dL Urine Protein (Negative) Urine Glucose (UA) (Negative) Urine Blood (Negative) Ur Leukocyte Esterase (Negative) Urine RBC (0-5) /hpf Urine WBC (0-5) /hpf Urine WBC Clumps (None) /hpf Urine Bacteria (None) /hpf Hyaline Casts (0-2) /lpf Urine Mucus (None) /hpf U Random Total Protein (<12) mg/dL Ur Random Sodium (40-220) mmol/L 12/01/21 12/01/21 12/01/21 Range/Units 14:03 14:03 17:50 WBC (3.8-10.6) k/uL Hgb (13.0-17.5) gm/dL Hct (39.0-53.0) % Plt Count (150-450) k/uL Neutrophils # (1.3-7.7) k/uL Lymphocytes # (1.0-4.8) k/uL PT (9.0-12.0) sec INR (<1.2) Potassium (3.5-5.1) mmol/L Chloride (98-107) mmol/L BUN (9-20) mg/dL Creatinine (0.66-1.25) mg/dL Glucose (74-99) mg/dL Osmolality (280-301) mosm/kg Plasma Lactic Acid Keal 3.3 H* 3.3 H* (0.7-2.0) mmol/L Calcium (8.4-10.2) mg/dL Magnesium (1.6-2.3) mg/dL Total Bilirubin (0.2-1.3) mg/dL Conjugated Bilirubin (0.0-0.3) mg/dL Delta Bilirubin (0.0-0.2) mg/dL AST (17-59) U/L ALT (4-49) U/L Creatine Kinase (55-170) U/L Troponin I 0.165 H* (0.000-0.034) ng/mL Total Protein (6.3-8.2) g/dL Albumin (3.5-5.0) g/dL Urine Protein (Negative) Urine Glucose (UA) (Negative) Urine Blood (Negative) Ur Leukocyte Esterase (Negative) Urine RBC (0-5) /hpf Urine WBC (0-5) /hpf Urine WBC Clumps (None) /hpf Urine Bacteria (None) /hpf Hyaline Casts (0-2) /lpf Urine Mucus (None) /hpf U Random Total Protein (<12) mg/dL Ur Random Sodium (40-220) mmol/L 12/01/21 12/01/21 12/01/21 Range/Units 21:10 22:01 22:01 WBC (3.8-10.6) k/uL Hgb (13.0-17.5) gm/dL Hct (39.0-53.0) % Plt Count (150-450) k/uL Neutrophils # (1.3-7.7) k/uL Lymphocytes # (1.0-4.8) k/uL PT (9.0-12.0) sec INR (<1.2) Potassium (3.5-5.1) mmol/L Chloride (98-107) mmol/L BUN (9-20) mg/dL Creatinine (0.66-1.25) mg/dL Glucose (74-99) mg/dL Osmolality (280-301) mosm/kg Plasma Lactic Acid Kael 2.4 H* (0.7-2.0) mmol/L Calcium (8.4-10.2) mg/dL Magnesium (1.6-2.3) mg/dL Total Bilirubin (0.2-1.3) mg/dL Conjugated Bilirubin (0.0-0.3) mg/dL Delta Bilirubin (0.0-0.2) mg/dL AST (17-59) U/L ALT (4-49) U/L Creatine Kinase (55-170) U/L Troponin I (0.000-0.034) ng/mL Total Protein (6.3-8.2) g/dL Albumin (3.5-5.0) g/dL Urine Protein 1+ H (Negative) Urine Glucose (UA) Trace H (Negative) Urine Blood Large H (Negative) Ur Leukocyte Esterase Large H (Negative) Urine RBC >182 H (0-5) /hpf Urine WBC 69 H (0-5) /hpf Urine WBC Clumps Rare H (None) /hpf Urine Bacteria Rare H (None) /hpf Hyaline Casts 3 H (0-2) /lpf Urine Mucus Rare H (None) /hpf U Random Total Protein 41 H (<12) mg/dL Ur Random Sodium (40-220) mmol/L 12/01/21 12/02/21 12/02/21 Range/Units 22:01 00:16 04:04 WBC 15.3 H (3.8-10.6) k/uL Hgb (13.0-17.5) gm/dL Hct (39.0-53.0) % Plt Count 61 L (150-450) k/uL Neutrophils # 13.3 H (1.3-7.7) k/uL Lymphocytes # 0.9 L (1.0-4.8) k/uL PT (9.0-12.0) sec INR (<1.2) Potassium (3.5-5.1) mmol/L Chloride (98-107) mmol/L BUN (9-20) mg/dL Creatinine (0.66-1.25) mg/dL Glucose (74-99) mg/dL Osmolality (280-301) mosm/kg Plasma Lactic Acid Kael 2.2 H* (0.7-2.0) mmol/L Calcium (8.4-10.2) mg/dL Magnesium (1.6-2.3) mg/dL Total Bilirubin (0.2-1.3) mg/dL Conjugated Bilirubin (0.0-0.3) mg/dL Delta Bilirubin (0.0-0.2) mg/dL AST (17-59) U/L ALT (4-49) U/L Creatine Kinase (55-170) U/L Troponin I (0.000-0.034) ng/mL Total Protein (6.3-8.2) g/dL Albumin (3.5-5.0) g/dL Urine Protein (Negative) Urine Glucose (UA) (Negative) Urine Blood (Negative) Ur Leukocyte Esterase (Negative) Urine RBC (0-5) /hpf Urine WBC (0-5) /hpf Urine WBC Clumps (None) /hpf Urine Bacteria (None) /hpf Hyaline Casts (0-2) /lpf Urine Mucus (None) /hpf U Random Total Protein (<12) mg/dL Ur Random Sodium 27 L (40-220) mmol/L 12/02/21 12/02/21 Range/Units 04:04 04:04 WBC (3.8-10.6) k/uL Hgb (13.0-17.5) gm/dL Hct (39.0-53.0) % Plt Count (150-450) k/uL Neutrophils # (1.3-7.7) k/uL Lymphocytes # (1.0-4.8) k/uL PT (9.0-12.0) sec INR (<1.2) Potassium 2.8 L (3.5-5.1) mmol/L Chloride (98-107) mmol/L BUN 175 H* (9-20) mg/dL Creatinine 4.90 H (0.66-1.25) mg/dL Glucose 144 H (74-99) mg/dL Osmolality (280-301) mosm/kg Plasma Lactic Acid Kael 2.2 H* (0.7-2.0) mmol/L Calcium 7.0 L (8.4-10.2) mg/dL Magnesium 3.0 H (1.6-2.3) mg/dL Total Bilirubin 2.7 H (0.2-1.3) mg/dL Conjugated Bilirubin 0.8 H (0.0-0.3) mg/dL Delta Bilirubin 1.2 H (0.0-0.2) mg/dL AST 110 H (17-59) U/L ALT 71 H (4-49) U/L Creatine Kinase (55-170) U/L Troponin I (0.000-0.034) ng/mL Total Protein 5.1 L (6.3-8.2) g/dL Albumin 2.6 L (3.5-5.0) g/dL Urine Protein (Negative) Urine Glucose (UA) (Negative) Urine Blood (Negative) Ur Leukocyte Esterase (Negative) Urine RBC (0-5) /hpf Urine WBC (0-5) /hpf Urine WBC Clumps (None) /hpf Urine Bacteria (None) /hpf Hyaline Casts (0-2) /lpf Urine Mucus (None) /hpf U Random Total Protein (<12) mg/dL Ur Random Sodium (40-220) mmol/L Microbiology - Last 24 Hours (Table) 12/01/21 22:01 Urine Culture - Preliminary Urine,Voided
--- NOTE | 2021-12-02 14:24 | P.CRDCN ---
History of Present Illness History of present illness: HISTORY OF PRESENTING ILLNESS Patient is a pleasant 85-year-old male with history of hypothyroidism CAD, hypertension, hyperlipidemia, COPD, chronic kidney disease who presents after being found down on the ground. Patient states he was feeling fine without any issue and then next thing he remembered was being in the hospital. He cannot recall how he got here and cannot recall falling down. He believes he has been coughing up a little bit of phlegm and may be he choked on this and passed out. He cannot recall any these episodes however and no witnesses. He is found to be in acute kidney failure with creatinine 5.1, lactic acid 3.3, troponin times 10.16, proBNP 10,000, albumin 3.1, potassium 3.1, white blood cell count 17.8, hemoglobin 17.9, platelets 66. His baseline creatinine from 11/22/2021 is 1.3. He had a CT which showed small left pleural effusion and mild emphysematous changes and no acute changes within the abdomen. EKG shows A. fib with mild RVR with heart rate 127, right bundle branch block with Q waves inferiorly. He denies any chest pain or pressure or shortness breath. He does have trace lower extremity chronic edema. Previous echo from 05/11/2021 showed EF 55-60%, mild aortic stenosis, mild mitral regurgitation, RVSP 41. REVIEW OF SYSTEMS At the time of my exam: CONSTITUTIONAL: Denies fever or chills. CARDIOVASCULAR: Denies chest pain, shortness of breath, orthopnea, PND or palpitations. RESPIRATORY: Denies cough. GASTROINTESTINAL: Denies abdominal pain, diarrhea, constipation, nausea or vomiting. MUSCULOSKELETAL: Denies myalgias. NEUROLOGIC: Denies numbness, tingling or weakness. ENDOCRINE: Denies fatigue, weight change, polydipsia or polyurina. GENITOURINARY: Denies burning, hematuria or urgency with micturation. HEMATOLOGIC: Denies history of anemia or bleeding. PHYSICAL EXAMINATION Vital signs reviewed. CONSTITUTIONAL: No apparent distress. HEENT: Head is normocephalic. Pupils are equal, round. Sclerae anicteric. Mucous membranes of the mouth are moist. No JVD. No carotid bruit. CHEST EXAMINATION: Lungs are clear to auscultation. No chest wall tenderness is noted on palpation or with deep breathing. HEART EXAMINATION: Irregularly irregular rate and rhythm, tachycardic. S1, S2 heard. +2/6 systolic murmur, no gallops or rub. ABDOMEN: Soft, nontender. Positive bowel sounds. EXTREMITIES: 2+ peripheral pulses, 1+ lower extremity edema and no calf tenderness. NEUROLOGIC EXAMINATION: Patient is awake, alert and oriented x3. ASSESSMENT 1. Syncope of unclear etiology 2. Leukocytosis, lactic acidosis, rule out infectious etiology 3. Hypertension 4. Non-STEMI 5. Acute kidney injury 6. Dehydration 7. Mild aortic stenosis by prior echo 8. Questionable history of CAD 9. Paroxysmal atrial fibrillation, currently A. fib with RVR PLAN Patient with syncope of unclear etiology. He does have mildly elevated t roponins however not describe any specific angina-type symptoms. We will check 2-D echo to evaluate left ventricular function and rule out any significant valvular disease. Continue to trend out troponins. Troponin elevation may very well be related to acute kidney injury, lactic acidosis, questionable infection. If echo is unrevealing and no other significant arrhythmias noted would recommend outpatient event monitor to rule out tachycardia or bradyarrhythmia as cause of his syncope. Continue supportive care and monitor creatinine. Patient mildly tachycardic and increase rate controlling medications. Past Medical History Past Medical History: COPD, Hyperlipidemia, Myocardial Infarction ([place]), Pneumonia, Prostate Disorder, Thyroid Disorder Additional Past Medical History / Comment(s): per cardiology consult note 05/24 hx chf,htn,a-fib Last Myocardial Infarction Date:: Apr 1994 History of Any Multi-Drug Resistant Organisms: None Reported Past Surgical History: Heart Catheterization Additional Past Surgical History / Comment(s): angioplasty after [place], no stents, pilonidal cyst removal, Past Anesthesia/Blood Transfusion Reactions: No Reported Reaction Additional Past Anesthesia/Blood Transfusion Reaction / Comment(s): vertigo Past Psychological History: No Psychological Hx Reported Smoking Status: Former smoker Past Alcohol Use History: Occasional Past Drug Use History: None Reported - Past Family History Father History Unknown: Yes Sister(s) Family Medical History: Cancer Additional Family Medical History / Comment(s): nonhodgkins lymphoma Medications and Allergies Home Medications Medication Instructions Recorded Confirmed Type Simvastatin [Zocor] 20 mg PO HS 11/26/20 12/01/21 History Ascorbic Acid [Vitamin C] 500 mg PO DAILY 02/11/21 12/01/21 History Cholecalciferol [Vitamin D3 (25 50 mcg PO DAILY 02/11/21 12/01/21 History Mcg = 1000 Iu)] Zinc 50 mg PO DAILY 02/11/21 12/01/21 History Albuterol Inhaler [Ventolin Hfa 2 puff INHALATION RT-QID PRN 06/19/21 12/01/21 History Inhaler] Albuterol Nebulized [Ventolin 2.5 mg INHALATION RT-BID 06/19/21 12/01/21 History Nebulized] Fluticasone/Umeclidin/Vilanter 1 puff INHALATION RT-DAILY 06/19/21 12/01/21 History [Trelegy Ellipta 100-62.5-25] Levothyroxine Sodium [Synthroid] 50 mcg PO DAILY 06/19/21 12/01/21 History Rivaroxaban [Xarelto] 15 mg PO DAILY 06/19/21 12/01/21 History Latanoprost/Pf [Latanoprost 0.005% 1 drop BOTH EYES HS 06/20/21 12/01/21 History Eye Drop] Furosemide [Lasix] 40 mg PO DAILY 30 Days #30 tablet 06/22/21 12/01/21 Rx Potassium Chloride ER [K-Dur 20] 20 meq PO HS 08/08/21 12/01/21 History Furosemide [Lasix] 20 mg PO DAILY@1400 12/01/21 12/01/21 History Potassium Chloride ER [K-Dur 20] 40 meq PO DAILY 12/01/21 12/01/21 History Spironolactone 25 mg PO DAILY 12/01/21 12/01/21 History metOLazone 2.5 mg PO MOWEFR 12/01/21 12/01/21 History Allergies Allergy/AdvReac Type Severity Reaction Status Date / Time prednisone AdvReac CAN'T Verified 12/01/21 16:05 URINATE WHEN HE TAKES IT Physical Exam Vitals: Vital Signs Temp Pulse Pulse Resp BP BP Pulse Ox 12/02/21 11:36 108 H 12/02/21 11:26 108 H 12/02/21 08:00 97.4 F L 102 H 18 98/55 96 12/02/21 07:47 104 H 12/02/21 07:31 96 12/02/21 04:00 113 H 20 87/51 93 L 12/02/21 00:25 98.2 F 97 18 114/58 92 L 12/02/21 00:23 20 12/01/21 22:53 115 H 20 119/71 95 12/01/21 22:13 98.5 F 103 H 20 122/71 95 12/01/21 21:00 115 H 20 104/59 95 12/01/21 20:10 129 H 12/01/21 20:00 113 H 20 99/56 96 12/01/21 16:55 129 H 16 150/99 93 L Intake and Output 12/01/21 12/02/21 12/02/21 22:59 06:59 14:59 Intake Total 1000 Output Total 200 Balance 800 Intake: Intake, IV Titration 1000 Amount Sodium Chloride 0.9% 1, 1000 000 ml @ 999 mls/hr IV . Q1H1M STA Rx#:[id number] Oral 0 Output: Urine 200 Other: Voiding Method Indwelling Catheter Indwelling Catheter Weight 86.183 kg 86.183 kg Results 12/02/21 04:04 12/02/21 04:04 Cardiac Enzymes 12/01/21 12/01/21 12/02/21 Range/Units 14:03 14:03 04:04 AST 168 H 110 H (17-59) U/L Troponin I 0.165 H* (0.000-0.034) ng/mL Coagulation 12/01/21 Range/Units 14:03 PT 15.1 H (9.0-12.0) sec APTT 23.1 (22.0-30.0) sec CBC 12/01/21 12/02/21 Range/Units 14:03 04:04 WBC 17.8 H 15.3 H (3.8-10.6) k/uL RBC 5.41 4.61 (4.30-5.90) m/uL Hgb 17.9 H 14.7 D (13.0-17.5) gm/dL Hct 53.2 H 46.0 (39.0-53.0) % Plt Count 66 L 61 L (150-450) k/uL Comprehensive Metabolic Panel 12/01/21 12/02/21 Range/Units 14:03 04:04 Sodium 141 142 (137-145) mmol/L Potassium 3.1 L 2.8 L (3.5-5.1) mmol/L Chloride 92 L 99 (98-107) mmol/L Carbon Dioxide 27 25 (22-30) mmol/L BUN 166 H* 175 H* (9-20) mg/dL Creatinine 5.14 H 4.90 H (0.66-1.25) mg/dL Glucose 165 H 144 H (74-99) mg/dL Calcium 7.7 L 7.0 L (8.4-10.2) mg/dL Unconjugated Bilirubin 0.7 (0.0-1.1) mg/dL AST 168 H 110 H (17-59) U/L ALT 86 H 71 H (4-49) U/L Alkaline Phosphatase 97 80 (38-126) U/L Total Protein 6.0 L 5.1 L (6.3-8.2) g/dL Albumin 3.1 L 2.6 L (3.5-5.0) g/dL Current Medications Generic Name Dose Route Start Last Admin Trade Name Freq PRN Reason Stop Dose Admin Acetaminophen 650 mg 12/01/21 16:58 Acetaminophen Tab 325 Mg Tab PO Q6HR PRN Mild Pain or Fever > 100.5 Albuterol Sulfate 2.5 mg 12/01/21 18:54 Albuterol Nebulized 2.5 Mg/3 Ml INHALATION RT-QID PRN Shortness Of Breath Albuterol Sulfate 2.5 mg 12/01/21 20:00 12/02/21 07:30 Albuterol Nebulized 2.5 Mg/3 Ml INHALATION 2.5 mg RT-BID WALE Administration Ascorbic Acid 500 mg 12/02/21 09:00 12/02/21 13:20 Ascorbic Acid 500 Mg Tab PO 500 mg DAILY WALE Administration Atorvastatin Calcium 10 mg 12/01/21 21:00 12/01/21 23:12 Atorvastatin 10 Mg Tab PO Not Given HS WALE Budesonide/Formoterol Fumarate 2 puff 12/02/21 08:00 12/02/21 07:30 Symbicort 80-4.5 Mcg Inhaler INHALATION 2 puff RT-BID WALE Administration Cholecalciferol 50 mcg 12/02/21 09:00 12/02/21 13:20 Cholecalciferol 25 Mcg (1000 Iu) Tablet PO 50 mcg DAILY WALE Administration Sodium Chloride 1,000 mls @ 120 mls/hr 12/02/21 10:15 Saline 0.9% IV .Q8H20M [facility] Ipratropium [place] 0.5 mg 12/02/21 08:00 12/02/21 11:25 Ipratropium 0.5 Mg/2.5 Ml Nebu INHALATION 0.5 mg RT-QID WALE Administration Latanoprost 1 drops 12/01/21 21:00 12/01/21 23:13 Latanoprost 0.005% Ophth Drops 2.5 Ml Btl BOTH EYES Not Given HS [facility] Levothyroxine Sodium 50 mcg 12/02/21 06:30 12/02/21 13:20 Levothyroxine 50 Mcg Tab PO 50 mcg DAILY@0630 [facility] Administration Lorazepam 0.5 mg 12/01/21 16:58 Lorazepam 2 Mg/Ml Inj IV Q6HR PRN Anxiety Naloxone HCl 0.2 mg 12/01/21 16:58 Naloxone 0.4 Mg/Ml 1 Ml Vial IV Q2M PRN Opioid Reversal Ondansetron HCl 4 mg 12/01/21 16:58 Ondansetron 4 Mg/2 Ml Vial IVP Q8HR PRN Nausea And Vomiting Rivaroxaban 15 mg 12/02/21 09:00 12/02/21 13:20 Rivaroxaban 15 Mg Tab PO 15 mg DAILY [facility] Administration Protocol Zinc Sulfate 220 mg 12/02/21 09:00 12/02/21 13:20 Zinc Sulfate 220 Mg Cap PO 220 mg DAILY [facility] Administration Intake and Output 12/01/21 12/02/21 12/02/21 22:59 06:59 14:59 Intake Total 1000 Output Total 200 Balance 800 Intake: Intake, IV Titration 1000 Amount Sodium Chloride 0.9% 1, 1000 000 ml @ 999 mls/hr IV . Q1H1M STA Rx#:[id number] Oral 0 Output: Urine 200 Other: Voiding Method Indwelling Catheter Indwelling Catheter Weight 86.183 kg 86.183 kg Patient Weight 12/03/21 06:59 Weight 86.183 kg 12/02/21 04:04 12/02/21 04:04
[2021-12-02] MEDS: METOPROLOL TARTRATE 25 MG TAB PO SCH ×2 (17:15→19:53)
[2021-12-02] MEDS: SODIUM CHLORIDE 0.9% 1,000 ML IV SCH ×2 (17:15→19:52)
[2021-12-02] MEDS: ATORVASTATIN 10 MG TAB PO SCH (19:54)
[2021-12-02] MEDS: LATANOPROST 0.005% OPHTH DROPS 2.5 ML BTL BOTH EYES SCH (20:02)
[2021-12-03] MEDS: LEVOTHYROXINE 50 MCG TAB PO SCH (06:09)
[2021-12-03] MEDS: SODIUM CHLORIDE 0.9% 1,000 ML IV SCH ×3 (06:09→22:13)
[2021-12-03] MEDS: IPRATROPIUM 0.5 MG/2.5 ML NEBU INHALATION SCH ×4 (08:11→19:57)
[2021-12-03] MEDS: SYMBICORT 80-4.5 MCG INHALER INHALATION SCH ×2 (08:12→20:30)
[2021-12-03] MEDS: ALBUTEROL NEBULIZED 2.5 MG/3 ML INHALATION SCH ×3 (08:12→20:30)
[2021-12-03] MEDS: CHOLECALCIFEROL 25 MCG (1000 IU) TABLET PO SCH (08:48)
[2021-12-03] MEDS: METOPROLOL TARTRATE 25 MG TAB PO SCH ×2 (08:48→21:12)
[2021-12-03] MEDS: RIVAROXABAN 15 MG TAB PO SCH (08:48)
[2021-12-03] MEDS: ASCORBIC ACID 500 MG TAB PO SCH (08:48)
[2021-12-03] MEDS: ZINC SULFATE 220 MG CAP PO SCH (08:48)
--- NOTE | 2021-12-03 09:31 | P.PN ---
Subjective Patient is seen for follow-up for acute kidney injury He is currently maintained on IV fluids. Patient has an indwelling Starks catheter with good urine output. 24 hour urine documented at about 900 mL. Mentation is much improved today. Labs are pending from today Objective - Vital Signs Vital signs: Vital Signs Temp 98.2 F 12/02/21 16:00 Pulse 108 H 12/03/21 08:28 Resp 20 12/03/21 04:00 BP 87/52 12/03/21 04:00 Pulse Ox 90 L 12/03/21 04:00 Intake & Output 12/02/21 12/03/21 12/03/21 18:59 06:59 18:59 Intake Total 1485 Output Total 400 500 Balance -400 985 Weight 86.183 kg Intake: Intake, IV Titration 1000 Amount Sodium Chloride 0.9% 1, 1000 000 ml @ 120 mls/hr IV . 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 Acute kidney injury ATN associated with hypotension and hypovolemia. Currently nonoliguric. No evidence of obstruction on computed tomography scan of the abdomen and pelvis. UA shows 1+ protein and large blood and RBCs more than 182. Maintained on IV fluids 2. 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 A. fib with RVR on initial admission currently heart rate improved to about 96-100 from 129 to 1:30. 4. COPD without exacerbation 5. Mild rhabdomyolysis 6. Hypokalemia associated with decreased intake and use of diuretics at home prior to admission 7. Lactic acidosis currently improved Plan: Continue with IV fluids Encourage increased oral intake Repeat labs in a.m. Avoid any nephrotoxic agents Check labs today
[2021-12-03 09:32] LABS: Basophils % (A) 0 %; Eosinophils # (A) 0.3 k/uL (0-0.7); Eosinophils % (A) 3 %; HCT 42.7 % (39.0-53.0); HGB 13.7 gm/dL (13.0-17.5); Lymphocytes # (A) 1.1 k/uL (1.0-4.8); Lymphocytes % (A) 10 %; MCH 32.2 pg (25.0-35.0); MCHC 32.1 g/dL (31.0-37.0); MCV 100.4 fL (80.0-100.0); Macrocytosis Slight; Mean Platelet Volume 12.2; Monocytes # (A) 0.5 k/uL (0-1.0); Monocytes % (A) 5 %; Neutrophils # (A) 8.6 k/uL (1.3-7.7); Neutrophils % (A) 80 %; RBC 4.26 m/uL (4.30-5.90); RDW 15.3 % (11.5-15.5); WBC 10.8 k/uL (3.8-10.6)
[2021-12-03 09:37] LABS: Calcium 7.3 mg/dL (8.4-10.2); Magnesium 2.8 mg/dL (1.6-2.3); Platelet Count 74 k/uL (150-450); Potassium 2.9 mmol/L (3.5-5.1)
[2021-12-03] MEDS: POTASSIUM CHLORIDE ER 20 MEQ TAB.ER PO SCH ×2 (13:40→16:19)
--- NOTE | 2021-12-03 13:45 | P.PN ---
Subjective Progress Note Date: 12/03/21 Patient is improving. Creatinine is improving. Bilirubin is coming down. Uremia is still high. Gen: awake, alert HEENT: normocephalic, atraumatic, good hearing acuity, moist mucous membranes Resp: good air exchange, breathing comfortably with no accessory muscle use, clear to auscultation bilaterally CVS: good distal perfusion x 4, tachycardic, no murmurs GI: soft, NTTP, ND : no SPT, no CVAT, jama catheter is present MSK: no pitting edema, no clubbing Neuro: non-focal, moving all extremities Psych: cooperative, euthymic mood Assessment/plan: Acute kidney injury superimposed on chronic kidney disease stage III Elevated BNP -Admit to inpatient, telemetry -Nephrology consult -IV fluids -Urine electrolytes -Jama catheter -Strict ins and outs, daily weights -Echocardiogram -Hold on diuretics Paroxysmal atrial fibrillation with rapid ventricular response Elevated troponin -Trend troponins -Cardiology consult -Start metoprolol Elevated liver enzymes Suspected EtOH abuse -IV fluids -Repeat liver function tests in the morning CAD HTN HLD Hypothyroidism COPD without exacerbation -Home medications reviewed and reconciled Patient is full code DVT prophylaxis covered with xarelto Objective - Vital Signs Vital signs: Vital Signs Temp 98.0 F 12/03/21 08:00 Pulse 110 H 12/03/21 12:48 Resp 18 12/03/21 12:00 BP 79/52 12/03/21 12:00 Pulse Ox 92 L 12/03/21 12:00 Intake & Output 12/02/21 12/03/21 12/03/21 18:59 06:59 18:59 Intake Total 1485 Output Total 400 500 225 Balance -400 985 -225 Weight 86.183 kg Intake: Intake, IV Titration 1000 Amount Sodium Chloride 0.9% 1, 1000 000 ml @ 120 mls/hr IV . Q8H20M [facility] Rx#:[id number] Oral 485 Output: Urine 400 500 225 Other: Voiding Method Indwelling Catheter Indwelling Catheter Indwelling Catheter - Labs CBC & Chem 7: 12/03/21 09:17 12/03/21 09:17 Labs: Abnormal Lab Results - Last 24 Hours (Table) 12/02/21 12/03/21 12/03/21 Range/Units 14:23 09:17 09:17 WBC 10.8 H (3.8-10.6) k/uL RBC 4.26 L (4.30-5.90) m/uL MCV 100.4 H (80.0-100.0) fL Plt Count 74 L (150-450) k/uL Neutrophils # 8.6 H (1.3-7.7) k/uL Potassium 2.9 L (3.5-5.1) mmol/L BUN 163 H* (9-20) mg/dL Creatinine 4.56 H (0.66-1.25) mg/dL Glucose 163 H (74-99) mg/dL Calcium 7.3 L (8.4-10.2) mg/dL Magnesium 2.8 H (1.6-2.3) mg/dL Troponin I 0.133 H* (0.000-0.034) ng/mL Microbiology - Last 24 Hours (Table) 12/01/21 22:01 Urine Culture - Final Urine,Voided
--- NOTE | 2021-12-03 14:07 | P.PN ---
Subjective HISTORY OF PRESENTING ILLNESS Patient is a pleasant 85-year-old male with history of hypothyroidism CAD, hypertension, hyperlipidemia, COPD, chronic kidney disease who presents after being found down on the ground. Patient states he was feeling fine without any issue and then next thing he remembered was being in the hospital. He cannot recall how he got here and cannot recall falling down. He believes he has been coughing up a little bit of phlegm and may be he choked on this and passed out. He cannot recall any these episodes however and no witnesses. He is found to be in acute kidney failure with creatinine 5.1, lactic acid 3.3, troponin times 10.16, proBNP 10,000, albumin 3.1, potassium 3.1, white blood cell count 17.8, hemoglobin 17.9, platelets 66. His baseline creatinine from 11/22/2021 is 1.3. He had a CT which showed small left pleural effusion and mild emphysematous changes and no acute changes within the abdomen. EKG shows A. fib with mild RVR with heart rate 127, right bundle branch block with Q waves inferiorly. He denies any chest pain or pressure or shortness breath. He does have trace lower extremity chronic edema. Previous echo from 05/11/2021 showed EF 55-60%, mild aortic stenosis, mild mitral regurgitation, RVSP 41. 5/15 Patient seen and examined. Patient states he feels much better. Denies any c hest pain or pressure. Denies any shortness breath. He has been in A. fib with RVR with heart rates. Low 100 to 110s. He has been tolerating the metoprolol 25 twice a day. Blood pressure however borderline and this afternoon decreased to 79/51. He is making urine. Creatinine mildly decreased from 4.9-4.5 and BUN from 175-163. PHYSICAL EXAMINATION Vital signs reviewed. CONSTITUTIONAL: No apparent distress. HEENT: Head is normocephalic. Pupils are equal, round. Sclerae anicteric. Mucous membranes of the mouth are moist. No JVD. No carotid bruit. CHEST EXAMINATION: Lungs are clear to auscultation. No chest wall tenderness is noted on palpation or with deep breathing. HEART EXAMINATION: Irregularly irregular rate and rhythm, tachycardic. S1, S2 heard. +2/6 systolic murmur, no gallops or rub. ABDOMEN: Soft, nontender. Positive bowel sounds. EXTREMITIES: 2+ peripheral pulses, 1+ lower extremity edema and no calf tenderness. NEUROLOGIC EXAMINATION: Patient is awake, alert and oriented x3. ASSESSMENT 1. Syncope of unclear etiology 2. Leukocytosis, lactic acidosis, rule out infectious etiology 3. Hypertension 4. Non-STEMI 5. Acute kidney injury 6. Dehydration 7. Mild aortic stenosis by prior echo 8. Questionable history of CAD 9. Paroxysmal atrial fibrillation, currently A. fib with RVR 10. Hypotension rule out septic shock PLAN Patient with syncope of unclear etiology. He does have mildly elevated troponins however not describe any specific angina- type symptoms. Await 2-D echo to evaluate left ventricular function and rule out any significant valvular disease. Troponin elevation likely related to acute kidney injury, lactic acidosis, questionable infection. Would recommend outpatient event monitor to rule out tachycardia or bradyarrhythmia as cause of his syncope. Continue with Metoprolol for rate control with fairly good control and hold if SBP < 90. Give IV fluid bolus 500 mL. Also check lactic acid. If no improvement in blood pressure and lactic acid elevated patient likely needs transfer to ICU for vasopressors. Objective - Vital Signs Vital signs: Vital Signs Temp 98.0 F 12/03/21 08:00 Pulse 110 H 12/03/21 12:48 Resp 18 12/03/21 12:00 BP 79/52 12/03/21 12:00 Pulse Ox 92 L 12/03/21 12:00 Intake & Output 12/02/21 12/03/21 12/03/21 18:59 06:59 18:59 Intake Total 1485 Output Total 400 500 225 Balance -400 985 -225 Weight 86.183 kg Intake: Intake, IV Titration 1000 Amount Sodium Chloride 0.9% 1, 1000 000 ml @ 120 mls/hr IV . Q8H20M [facility] Rx#:[id number] Oral 485 Output: Urine 400 500 225 Other: Voiding Method Indwelling Catheter Indwelling Catheter Indwelling Catheter - Labs CBC & Chem 7: 12/03/21 09:17 12/03/21 09:17 Labs: Abnormal Lab Results - Last 24 Hours (Table) 12/02/21 12/03/21 12/03/21 Range/Units 14:23 09:17 09:17 WBC 10.8 H (3.8-10.6) k/uL RBC 4.26 L (4.30-5.90) m/uL MCV 100.4 H (80.0-100.0) fL Plt Count 74 L (150-450) k/uL Neutrophils # 8.6 H (1.3-7.7) k/uL Potassium 2.9 L (3.5-5.1) mmol/L BUN 163 H* (9-20) mg/dL Creatinine 4.56 H (0.66-1.25) mg/dL Glucose 163 H (74-99) mg/dL Calcium 7.3 L (8.4-10.2) mg/dL Magnesium 2.8 H (1.6-2.3) mg/dL Troponin I 0.133 H* (0.000-0.034) ng/mL Microbiology - Last 24 Hours (Table) 12/01/21 22:01 Urine Culture - Final Urine,Voided
[2021-12-03] MEDS ORDERED: SODIUM CHLORIDE 0.9% 500 ML 500 ML IV ONE (14:17)
[2021-12-03] MEDS: LACTATED RINGERS 1,000 ML IV SCH ×2 (15:15→22:13)
--- NOTE | 2021-12-03 18:27 | XR ---
EXAMINATION TYPE: XR chest 1V portable DATE OF EXAM: 12/03/2021 COMPARISON: 12/01/2021 HISTORY: Difficulty breathing TECHNIQUE: FINDINGS: There is some coarse predominantly interstitial infiltrate in the lower lung figueroa and mor e on the left side. Heart size is normal. No heart failure. There are chest leads. There is no pleura l effusion or pneumothorax. Trachea is midline. IMPRESSION: There is bilateral interstitial pneumonia significantly increased compared to recent exam. No obvious heart failure.
[2021-12-03] MEDS ORDERED: VANCOMYCIN IV PER PHARMACY 1 EACH MISC MISCELLANE PRN (18:36)
[2021-12-03] MEDS: MIDODRINE 5 MG TAB PO SCH (18:49)
[2021-12-03] MEDS ORDERED: FUROSEMIDE 10 MG/ML 10 ML VIAL IV STA (18:59)
[2021-12-03] MEDS ORDERED: VANCOMYCIN 1,500 MG in SODIUM CHLORIDE 0.9% 250 ML IVPB ONE (19:00)
[2021-12-03] MEDS: ACETAMINOPHEN TAB 325 MG TAB PO PRN (19:57)
[2021-12-03] MEDS: ATORVASTATIN 10 MG TAB PO SCH (21:12)
[2021-12-03] MEDS: CEFEPIME 1 GM in SODIUM CHLORIDE 0.9% 50 ML IVPB SCH (21:27)
[2021-12-03] MEDS: LATANOPROST 0.005% OPHTH DROPS 2.5 ML BTL BOTH EYES SCH (22:13)
[2021-12-04] MEDS: LEVOTHYROXINE 50 MCG TAB PO SCH (06:28)
[2021-12-04] MEDS: MIDODRINE 5 MG TAB PO SCH ×3 (06:28→15:34)
[2021-12-04 07:38] LABS: Basophils % (A) 0 %; Eosinophils # (A) 0.2 k/uL (0-0.7); Eosinophils % (A) 2 %; HCT 44.1 % (39.0-53.0); HGB 14.2 gm/dL (13.0-17.5); Lymphocytes # (A) 1.2 k/uL (1.0-4.8); Lymphocytes % (A) 9 %; MCH 33.1 pg (25.0-35.0); MCHC 32.1 g/dL (31.0-37.0); Macrocytosis Moderate; Mean Platelet Volume 11.3; Monocytes # (A) 0.3 k/uL (0-1.0); Monocytes % (A) 3 %; Neutrophils # (A) 10.5 k/uL (1.3-7.7); Neutrophils % (A) 85 %; RBC 4.28 m/uL (4.30-5.90); RDW 15.6 % (11.5-15.5); WBC 12.4 k/uL (3.8-10.6)
[2021-12-04] MEDS: ALBUTEROL NEBULIZED 2.5 MG/3 ML INHALATION SCH ×4 (07:41→19:20)
[2021-12-04] MEDS: SYMBICORT 80-4.5 MCG INHALER INHALATION SCH ×2 (07:41→19:32)
[2021-12-04 07:49] LABS: Platelet Count 85 k/uL (150-450)
[2021-12-04 08:00] LABS: Calcium 7.6 mg/dL (8.4-10.2); Magnesium 2.6 mg/dL (1.6-2.3); Potassium 3.5 mmol/L (3.5-5.1)
[2021-12-04] MEDS: CEFEPIME 1 GM in SODIUM CHLORIDE 0.9% 50 ML IVPB SCH ×2 (08:10→20:55)
[2021-12-04] MEDS: RIVAROXABAN 15 MG TAB PO SCH (08:10)
[2021-12-04] MEDS: ZINC SULFATE 220 MG CAP PO SCH (08:11)
[2021-12-04] MEDS: ASCORBIC ACID 500 MG TAB PO SCH (08:11)
[2021-12-04] MEDS: METOPROLOL TARTRATE 25 MG TAB PO SCH ×2 (08:11→20:54)
[2021-12-04] MEDS: CHOLECALCIFEROL 25 MCG (1000 IU) TABLET PO SCH (08:11)
[2021-12-04] MEDS ORDERED: FUROSEMIDE 10 MG/ML 10 ML VIAL IV STA (10:26)
--- NOTE | 2021-12-04 10:29 | P.PN ---
Subjective Patient is seen for follow-up for acute kidney injury He is currently maintained on IV fluids. Patient has an indwelling Starks catheter with good urine output. 24 hour urine documented at about 900 mL. Mentation improved from admission however labs are only slightly better. Last night patient developed worsening shortness of breath. IV fluids were decreased and patient received a dose of Lasix. Chest x-ray shows worsening infiltrates, likely fluid. Serum creatinine is down to 4.0 with BUN down to 151 however given the underlying volume overload and mental status changes it is reasonable to proceed with hemodialysis hopefully patient will not need more than 2-3 treatments as his renal function is slowly improving. Objective - Vital Signs Vital signs: Vital Signs Temp 98 F 12/04/21 08:00 Pulse 111 H 12/04/21 08:00 Resp 18 12/04/21 08:00 BP 117/57 12/04/21 08:00 Pulse Ox 95 12/04/21 08:00 Intake & Output 12/03/21 12/04/21 12/04/21 18:59 06:59 18:59 Intake Total 940 Output Total 575 750 Balance -575 190 Weight 89 kg Intake: Intake, IV Titration 890 Amount Sodium Chloride 0.9% 1, 390 000 ml @ 60 mls/hr IV . [id number] [facility] Rx#:[id number] Vancomycin 1,500 mg In 250 Sodium Chloride 0.9% 250 ml @ 125 mls/hr IVPB ONCE ONE Rx#:[id number] Vancomycin 1,500 mg In 250 Sodium Chloride 0.9% 250 ml @ 125 mls/hr IVPB ONCE ONE Rx#:[id number] Oral 50 Output: Urine 575 750 Other: Voiding Method Indwelling Catheter Indwelling Catheter Indwelling Catheter - Exam Patient is comfortable, awake, not in any acute distress On seeing questions appropriately today Examination of the heart S1 and S2 Examination of the lungs bilateral breath sounds are heard, decreased breath sounds at the bases, basal crackles Abdomen is soft nontender Examination of the lower extremities shows no significant edema [employer]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 - Labs CBC & Chem 7: 12/04/21 06:28 12/04/21 06:28 Labs: Abnormal Lab Results - Last 24 Hours (Table) 12/03/21 12/04/21 12/04/21 Range/Units 14:25 06:28 06:28 WBC 12.4 H (3.8-10.6) k/uL RBC 4.28 L (4.30-5.90) m/uL MCV 103.0 H (80.0-100.0) fL RDW 15.6 H (11.5-15.5) % Plt Count 85 L (150-450) k/uL Neutrophils # 10.5 H (1.3-7.7) k/uL Chloride 110 H (98-107) mmol/L BUN 151 H* (9-20) mg/dL Creatinine 4.00 H (0.66-1.25) mg/dL Glucose 168 H (74-99) mg/dL Plasma Lactic Acid Kael 2.1 H* (0.7-2.0) mmol/L Calcium 7.6 L (8.4-10.2) mg/dL Magnesium 2.6 H (1.6-2.3) mg/dL Microbiology - Last 24 Hours (Table) 12/01/21 22:01 Urine Culture - Final Urine,Voided Assessment and Plan Assessment: 1. Acute kidney injury ATN associated with hypotension and hypovolemia. Currently nonoliguric. No evidence of obstruction on computed tomography scan of the abdomen and pelvis. UA shows 1+ protein and large blood and RBCs more than 182. Maintained on IV fluids renal function slowly improving however given the significantly elevated BUN/creatinine and volume overload we will proceed with starting renal replacement therapy. Patient did receive eliquis this morning, the catheter will likely be postponed until tomorrow. 2. 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 A. fib with RVR on initial admission currently heart rate improved to about 96-100 from 129 to 1:30. 4. COPD without exacerbation 5. Mild rhabdomyolysis 6. Hypokalemia associated with decreased intake and use of diuretics at home prior to admission 7. Lactic acidosis currently improved Plan: Decrease IV fluids Try to Avoid vancomycin Repeat IV Lasix 1 today Consult vascular surgery for temporary dialysis catheter placement. Patient received and liquids this morning therefore the catheter will not be placed until tomorrow. If his renal function has significantly improved further by tomorrow we may be able to hold off on renal replacement therapy. In the meantime I we will repeat another chest x-ray after diuresis and to look for any improvement if it is volume overload.
[2021-12-04] MEDS: SODIUM CHLORIDE 0.9% 1,000 ML IV SCH (11:09)
[2021-12-04] MEDS ORDERED: VANCOMYCIN 1,500 MG in SODIUM CHLORIDE 0.9% 250 ML IVPB ONE (12:00)
--- NOTE | 2021-12-04 13:57 | P.PN ---
Subjective Progress Note Date: 12/04/21 Patient is improving. Creatinine is improving. Bilirubin is coming down. Uremia is still high. Pt is volume overloaded, rec'd dose of lasix. Nephrology considering [employer] PROFESSION[employer] if no improvement by tomorrow. Gen: awake, alert HEENT: normocephalic, atraumatic, good hearing acuity, moist mucous membranes Resp: good air exchange, breathing comfortably with no accessory muscle use, clear to auscultation bilaterally CVS: good distal perfusion x 4, tachycardic, no murmurs GI: soft, NTTP, ND : no SPT, no CVAT, jama catheter is present MSK: no pitting edema, no clubbing Neuro: non-focal, moving all extremities Psych: cooperative, euthymic mood Assessment/plan: Acute kidney injury superimposed on chronic kidney disease stage III Elevated BNP -Admit to inpatient, telemetry -Nephrology consult -IV fluids -Urine electrolytes -Jama catheter -Strict ins and outs, daily weights -Echocardiogram -Hold on diuretics Paroxysmal atrial fibrillation with rapid ventricular response Elevated troponin -Trend troponins -Cardiology consult -Start metoprolol Elevated liver enzymes Suspected EtOH abuse -IV fluids -Repeat liver function tests in the morning CAD HTN HLD Hypothyroidism COPD without exacerbation -Home medications reviewed and reconciled Patient is full code DVT prophylaxis covered with xarelto Objective - Vital Signs Vital signs: Vital Signs Temp 98 F 12/04/21 08:00 Pulse 102 H 12/04/21 13:53 Resp 18 12/04/21 11:36 BP 92/60 12/04/21 11:36 Pulse Ox 96 12/04/21 11:36 Intake & Output 12/03/21 12/04/21 12/04/21 18:59 06:59 18:59 Intake Total 940 Output Total 575 750 800 Balance -575 190 -800 Weight 89 kg Intake: Intake, IV Titration 890 Amount Sodium Chloride 0.9% 1, 390 000 ml @ 60 mls/hr IV . [id number] [facility] Rx#:[id number] Vancomycin 1,500 mg In 250 Sodium Chloride 0.9% 250 ml @ 125 mls/hr IVPB ONCE ONE Rx#:[id number] Vancomycin 1,500 mg In 250 Sodium Chloride 0.9% 250 ml @ 125 mls/hr IVPB ONCE ONE Rx#:[id number] Oral 50 Output: Urine 575 750 800 Other: Voiding Method Indwelling Catheter Indwelling Catheter Indwelling Catheter - Labs CBC & Chem 7: 12/04/21 06:28 12/04/21 06:28 Labs: Abnormal Lab Results - Last 24 Hours (Table) 12/03/21 12/04/21 12/04/21 Range/Units 14:25 06:28 06:28 WBC 12.4 H (3.8-10.6) k/uL RBC 4.28 L (4.30-5.90) m/uL MCV 103.0 H (80.0-100.0) fL RDW 15.6 H (11.5-15.5) % Plt Count 85 L (150-450) k/uL Neutrophils # 10.5 H (1.3-7.7) k/uL Chloride 110 H (98-107) mmol/L BUN 151 H* (9-20) mg/dL Creatinine 4.00 H (0.66-1.25) mg/dL Glucose 168 H (74-99) mg/dL Plasma Lactic Acid Kael 2.1 H* (0.7-2.0) mmol/L Calcium 7.6 L (8.4-10.2) mg/dL Magnesium 2.6 H (1.6-2.3) mg/dL Microbiology - Last 24 Hours (Table) 12/01/21 22:01 Urine Culture - Final Urine,Voided
--- NOTE | 2021-12-04 14:11 | P.PN ---
Subjective Progress Note Date: 12/04/21 HISTORY OF PRESENTING ILLNESS Patient is a pleasant 85-year-old male with history of hypothyroidism CAD, h ypertension, hyperlipidemia, COPD, chronic kidney disease who presents after being found down on the ground. Patient states he was feeling fine without any issue and then next thing he remembered was being in the hospital. He cannot recall how he got here and cannot recall falling down. He believes he has been coughing up a little bit of phlegm and may be he choked on this and passed out. He cannot recall any these episodes however and no witnesses. He is found to be in acute kidney failure with creatinine 5.1, lactic acid 3.3, troponin times 10.16, proBNP 10,000, albumin 3.1, potassium 3.1, white blood cell count 17.8, hemoglobin 17.9, platelets 66. His baseline creatinine from 11/22/2021 is 1.3. He had a CT which showed small left pleural effusion and mild emphysematous changes and no acute changes within the abdomen. EKG shows A. fib with mild RVR with heart rate 127, right bundle branch block with Q waves inferiorly. He denies any chest pain or pressure or shortness breath. He does have trace lower extremity chronic edema. Previous echo from 05/11/2021 showed EF 55-60%, mild aortic stenosis, mild mitral regurgitation, RVSP 41. 5/15 Patient seen and examined. Patient states he feels much better. Denies any chest pain or pressure. Denies any shortness breath. He has been in A. fib with RVR with heart rates. Low 100 to 110s. He has been tolerating the metoprolol 25 twice a day. Blood pressure however borderline and this afternoon decreased to 79/51. He is making urine. Creatinine mildly decreased from 4.9- 4.5 and BUN from 175-163. 12/04/2021 Patient examined this morning at the bedside. Patient is somewhat lethargic at the time of my examination. He appears to be resting comfortably. No chest pain or pressure. Denies SOB. Per nursing, no significant events overnight. No further episodes of syncope. Creatinine is 4.0 today. Vascular surgery has been consulted for HD catheter. Blood pressure is improved today. PHYSICAL EXAMINATION Vital signs reviewed. CONSTITUTIONAL: No apparent distress. HEENT: Head is normocephalic. Pupils are equal, round. Sclerae anicteric. Mucous membranes of the mouth are moist. No JVD. No carotid bruit. CHEST EXAMINATION: Lungs are clear to auscultation. No chest wall tenderness is noted on palpation or with deep breathing. HEART EXAMINATION: Irregularly irregular rate and rhythm. S1, S2 heard. +2/6 systolic murmur, no gallops or rub. ABDOMEN: Soft, nontender. Positive bowel sounds. EXTREMITIES: 2+ peripheral pulses, 1+ lower extremity edema and no calf tenderness. NEUROLOGIC EXAMINATION: Patient is awake, alert and oriented x3. ASSESSMENT 1. Syncope of unclear etiology 2. Leukocytosis, lactic acidosis, rule out infectious etiology 3. Hypertension 4. Non-STEMI 5. Acute kidney injury 6. Dehydration 7. Mild aortic stenosis by prior echo 8. Questionable history of CAD 9. Paroxysmal atrial fibrillation 10. Hypotension rule out septic shock PLAN Continue current cardiac medications Continue telemetry monitoring to assess for any tachycardia or bradyarrhythmia as cause of his syncope Possible event monitor on an outpatient basis secondary to syncope Continue to monitor blood pressure Nephrology following. Monitor kidney function. Vascular surgery consulted for HD catheter. However, patient received Xarelto this morning Further recommendations pending patient course Nurse practitioner note has been reviewed by physician. Signing provider agrees with the documented findings, assessment, and plan of care. Objective - Vital Signs Vital signs: Vital Signs Temp 98 F 12/04/21 08:00 Pulse 102 H 12/04/21 13:53 Resp 18 12/04/21 11:36 BP 92/60 12/04/21 11:36 Pulse Ox 96 12/04/21 11:36 Intake & Output 12/03/21 12/04/21 12/04/21 18:59 06:59 18:59 Intake Total 940 Output Total 575 750 800 Balance -575 190 -800 Weight 89 kg Intake: Intake, IV Titration 890 Amount Sodium Chloride 0.9% 1, 390 000 ml @ 60 mls/hr IV . [id number] [facility] Rx#:[id number] Vancomycin 1,500 mg In 250 Sodium Chloride 0.9% 250 ml @ 125 mls/hr IVPB ONCE ONE Rx#:[id number] Vancomycin 1,500 mg In 250 Sodium Chloride 0.9% 250 ml @ 125 mls/hr IVPB ONCE ONE Rx#:[id number] Oral 50 Output: Urine 575 750 800 Other: Voiding Method Indwelling Catheter Indwelling Catheter Indwelling Catheter - Labs CBC & Chem 7: 12/04/21 06:28 12/04/21 06:28 Labs: Abnormal Lab Results - Last 24 Hours (Table) 12/03/21 12/04/21 12/04/21 Range/Units 14:25 06:28 06:28 WBC 12.4 H (3.8-10.6) k/uL RBC 4.28 L (4.30-5.90) m/uL MCV 103.0 H (80.0-100.0) fL RDW 15.6 H (11.5-15.5) % Plt Count 85 L (150-450) k/uL Neutrophils # 10.5 H (1.3-7.7) k/uL Chloride 110 H (98-107) mmol/L BUN 151 H* (9-20) mg/dL Creatinine 4.00 H (0.66-1.25) mg/dL Glucose 168 H (74-99) mg/dL Plasma Lactic Acid Kael 2.1 H* (0.7-2.0) mmol/L Calcium 7.6 L (8.4-10.2) mg/dL Magnesium 2.6 H (1.6-2.3) mg/dL Microbiology - Last 24 Hours (Table) 12/01/21 22:01 Urine Culture - Final Urine,Voided
[2021-12-04 15:04] LABS: Hepatitis B Surface AB- Quant 3.5 mIU/mL; Hepatitis B Surface Antibody Nonreactive (Nonreactive)
[2021-12-04 15:12] LABS: Hepatitis B Surface Antigen Nonreactive (Nonreactive)
--- NOTE | 2021-12-04 15:42 | P.GSCN ---
History of Present Illness History of present illness: 84-year-old gentleman patient has history of acute kidney injury Wily is 07/29/1951 creatinine for I was consulted for placement of dialysis catheter medical history history of A. fib on his arousal toe which she took his dose this morning we'll stop for tomorrow placement Neck is supple no bruit appreciated chest patient has a crackles bilateral Abdomen soft nontender Femorals are 1+ bilateral Plan is placement of dialysis catheter this patient had a laser of the today revealed planning to do this dialysis catheter placement tomorrow nothing by mouth midnight consent for dialysis catheter placement Past Medical History Past Medical History: COPD, Hyperlipidemia, Myocardial Infarction ([place]), Pneumonia, Prostate Disorder, Thyroid Disorder Additional Past Medical History / Comment(s): per cardiology consult note 06/20/21 hx chf,htn,a-fib Last Myocardial Infarction Date:: Apr 1994 History of Any Multi-Drug Resistant Organisms: None Reported Past Surgical History: Heart Catheterization Additional Past Surgical History / Comment(s): angioplasty after [place], no stents, pilonidal cyst removal, Past Anesthesia/Blood Transfusion Reactions: No Reported Reaction Additional Past Anesthesia/Blood Transfusion Reaction / Comm: vertigo Past Psychological History: No Psychological Hx Reported Smoking Status: Former smoker Past Alcohol Use History: Occasional Past Drug Use History: None Reported - Past Family History Father History Unknown: Yes Sister(s) Family Medical History: Cancer Additional Family Medical History / Comment(s): nonhodgkins lymphoma Medications and Allergies Home Medications Medication Instructions Recorded Confirmed Type Simvastatin [Zocor] 20 mg PO HS 11/26/20 12/01/21 History Ascorbic Acid [Vitamin C] 500 mg PO DAILY 02/11/21 12/01/21 History Cholecalciferol [Vitamin D3 (25 50 mcg PO DAILY 02/11/21 12/01/21 History Mcg = 1000 Iu)] Zinc 50 mg PO DAILY 02/11/21 12/01/21 History Albuterol Inhaler [Ventolin Hfa 2 puff INHALATION RT-QID PRN 06/19/21 12/01/21 History Inhaler] Albuterol Nebulized [Ventolin 2.5 mg INHALATION RT-BID 06/19/21 12/01/21 History Nebulized] Fluticasone/Umeclidin/Vilanter 1 puff INHALATION RT-DAILY 06/19/21 12/01/21 History [Trelegy Ellipta 100-62.5-25] Levothyroxine Sodium [Synthroid] 50 mcg PO DAILY 06/19/21 12/01/21 History Rivaroxaban [Xarelto] 15 mg PO DAILY 06/19/21 12/01/21 History Latanoprost/Pf [Latanoprost 0.005% 1 drop BOTH EYES HS 06/20/21 12/01/21 History Eye Drop] Furosemide [Lasix] 40 mg PO DAILY 30 Days #30 tablet 06/22/21 12/01/21 Rx Potassium Chloride ER [K-Dur 20] 20 meq PO HS 08/08/21 12/01/21 History Furosemide [Lasix] 20 mg PO DAILY@1400 12/01/21 12/01/21 History Potassium Chloride ER [K-Dur 20] 40 meq PO DAILY 12/01/21 12/01/21 History Spironolactone 25 mg PO DAILY 12/01/21 12/01/21 History metOLazone 2.5 mg PO MOWEFR 12/01/21 12/01/21 History Allergies Allergy/AdvReac Type Severity Reaction Status Date / Time prednisone AdvReac CAN'T Verified 12/01/21 16:05 URINATE WHEN HE TAKES IT Surgical - Exam Vital Signs Pulse Resp BP Pulse Ox 131 H 16 101/90 98 12/01/21 13:53 12/01/21 13:53 12/01/21 13:53 12/01/21 13:53 Results - Labs 12/04/21 06:28 12/04/21 06:28 Abnormal Lab Results - Last 24 Hours (Table) 12/04/21 12/04/21 Range/Units 06:28 06:28 WBC 12.4 H (3.8-10.6) k/uL RBC 4.28 L (4.30-5.90) m/uL MCV 103.0 H (80.0-100.0) fL RDW 15.6 H (11.5-15.5) % Plt Count 85 L (150-450) k/uL Neutrophils # 10.5 H (1.3-7.7) k/uL Chloride 110 H (98-107) mmol/L BUN 151 H* (9-20) mg/dL Creatinine 4.00 H (0.66-1.25) mg/dL Glucose 168 H (74-99) mg/dL Calcium 7.6 L (8.4-10.2) mg/dL Magnesium 2.6 H (1.6-2.3) mg/dL Diabetes panel 12/04/21 Range/Units 06:28 Sodium 145 (137-145) mmol/L Potassium 3.5 (3.5-5.1) mmol/L Chloride 110 H (98-107) mmol/L Carbon Dioxide 22 (22-30) mmol/L BUN 151 H* (9-20) mg/dL Creatinine 4.00 H (0.66-1.25) mg/dL Glucose 168 H (74-99) mg/dL Calcium 7.6 L (8.4-10.2) mg/dL Calcium panel 12/04/21 Range/Units 06:28 Calcium 7.6 L (8.4-10.2) mg/dL Pituitary panel 12/04/21 Range/Units 06:28 Sodium 145 (137-145) mmol/L Potassium 3.5 (3.5-5.1) mmol/L Chloride 110 H (98-107) mmol/L Carbon Dioxide 22 (22-30) mmol/L BUN 151 H* (9-20) mg/dL Creatinine 4.00 H (0.66-1.25) mg/dL Glucose 168 H (74-99) mg/dL Calcium 7.6 L (8.4-10.2) mg/dL Adrenal panel 12/04/21 Range/Units 06:28 Sodium 145 (137-145) mmol/L Potassium 3.5 (3.5-5.1) mmol/L Chloride 110 H (98-107) mmol/L Carbon Dioxide 22 (22-30) mmol/L BUN 151 H* (9-20) mg/dL Creatinine 4.00 H (0.66-1.25) mg/dL Glucose 168 H (74-99) mg/dL Calcium 7.6 L (8.4-10.2) mg/dL
[2021-12-04] MEDS ORDERED: MIDODRINE 5 MG TAB PO SCH (17:57)
[2021-12-04] MEDS: ATORVASTATIN 10 MG TAB PO SCH (20:54)
[2021-12-04] MEDS: LATANOPROST 0.005% OPHTH DROPS 2.5 ML BTL BOTH EYES SCH (20:59)
[2021-12-05] MEDS: SODIUM CHLORIDE 0.9% 1,000 ML IV SCH (05:57)
[2021-12-05] MEDS: MIDODRINE 5 MG TAB PO SCH ×3 (06:09→18:26)
[2021-12-05] MEDS: LEVOTHYROXINE 50 MCG TAB PO SCH (06:09)
[2021-12-05] MEDS: ALBUTEROL NEBULIZED 2.5 MG/3 ML INHALATION SCH ×4 (09:14→20:17)
[2021-12-05] MEDS: SYMBICORT 80-4.5 MCG INHALER INHALATION SCH ×2 (09:14→20:17)
[2021-12-05] MEDS: CEFEPIME 1 GM in SODIUM CHLORIDE 0.9% 50 ML IVPB SCH (10:54)
[2021-12-05 11:01] LABS: Calcium 8.3 mg/dL (8.4-10.2); Potassium 3.2 mmol/L (3.5-5.1)
[2021-12-05] MEDS ORDERED: POTASSIUM CHLORIDE ER 20 MEQ TAB.ER PO STA (12:11)
--- NOTE | 2021-12-05 12:11 | P.PN ---
Subjective Patient is seen for follow-up for acute kidney injury He is currently maintained on IV fluids. Patient has an indwelling Starks catheter with good urine output. 24 hour urine documented at about 2100mL. Mentation improved from admission Last night patient developed worsening shortness of breath. IV fluids were decreased and patient received a dose of Lasix. Chest x-ray shows worsening infiltrates, likely fluid. Serum creatinine is down to 3.7 with BUN down to 158 however given the underlying volume overload and mental status changes it is reasonable to proceed with hemodialysis hopefully patient will not need more than 2-3 treatments as his renal function is slowly improving. Objective - Vital Signs Vital signs: Vital Signs Temp 98.8 F 12/05/21 04:00 Pulse 95 12/05/21 09:26 Resp 20 12/05/21 04:00 BP 104/66 12/05/21 04:00 Pulse Ox 95 12/05/21 04:00 Intake & Output 12/04/21 12/05/21 12/05/21 18:59 06:59 18:59 Output Total 1650 525 900 Balance -1650 -525 -900 Output: Urine 1650 525 900 Other: Voiding Method Indwelling Catheter Indwelling Catheter - Exam Patient is comfortable, awake, not in any acute distress On seeing questions appropriately today Examination of the heart S1 and S2 Examination of the lungs bilateral breath sounds are heard, decreased breath sounds at the bases, basal crackles Abdomen is soft nontender Examination of the lower extremities shows no significant edema 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 Acute kidney injury ATN associated with hypotension and hypovolemia. Currently nonoliguric. No evidence of obstruction on computed tomography scan of the abdomen and pelvis. UA shows 1+ protein and large blood and RBCs more than 182. Maintained on IV fluids renal function slowly improving however given the significantly elevated BUN/creatinine and volume overload we will proceed with starting renal replacement therapy. Dialysis catheter to be placed today. We will have a temporary catheter placed. 2. 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 A. fib with RVR on initial admission currently heart rate improved to about 96-100 from 129 to 1:30. 4. COPD without exacerbation 5. Mild rhabdomyolysis 6. Hypokalemia associated with decreased intake and use of diuretics at home prior to admission 7. Lactic acidosis currently improved Plan: Proceed with temporary dialysis catheter placement. Hemodialysis today and in a.m. Replace potassium Continue to avoid nephrotoxic medications
--- NOTE | 2021-12-05 12:22 | P.PN ---
Subjective Progress Note Date: 12/05/21 HISTORY OF PRESENTING ILLNESS Patient is a pleasant 85-year-old male with history of hypothyroidism CAD, h ypertension, hyperlipidemia, COPD, chronic kidney disease who presents after being found down on the ground. Patient states he was feeling fine without any issue and then next thing he remembered was being in the hospital. He cannot recall how he got here and cannot recall falling down. He believes he has been coughing up a little bit of phlegm and may be he choked on this and passed out. He cannot recall any these episodes however and no witnesses. He is found to be in acute kidney failure with creatinine 5.1, lactic acid 3.3, troponin times 10.16, proBNP 10,000, albumin 3.1, potassium 3.1, white blood cell count 17.8, hemoglobin 17.9, platelets 66. His baseline creatinine from 11/22/2021 is 1.3. He had a CT which showed small left pleural effusion and mild emphysematous changes and no acute changes within the abdomen. EKG shows A. fib with mild RVR with heart rate 127, right bundle branch block with Q waves inferiorly. He denies any chest pain or pressure or shortness breath. He does have trace lower extremity chronic edema. Previous echo from 05/11/2021 showed EF 55-60%, mild aortic stenosis, mild mitral regurgitation, RVSP 41. 12/03 Patient seen and examined. Patient states he feels much better. Denies any chest pain or pressure. Denies any shortness breath. He has been in A. fib with RVR with heart rates. Low 100 to 110s. He has been tolerating the metoprolol 25 twice a day. Blood pressure however borderline and this afternoon decreased to 79/51. He is making urine. Creatinine mildly decreased from 4.9- 4.5 and BUN from 175-163. 12/04/2021 Patient examined this morning at the bedside. Patient is somewhat lethargic at the time of my examination. He appears to be resting comfortably. No chest pain or pressure. Denies SOB. Per nursing, no significant events overnight. No further episodes of syncope. Creatinine is 4.0 today. Vascular surgery has been consulted for HD catheter. Blood pressure is improved today. 12/05/2021 Patient seen and examined this morning at the bedside. Patient denies chest pain or pressure. He denies shortness of breath. Creatinine today has improved to 3.76. Vascular surgery is on the case for hemodialysis catheter insertion. PHYSICAL EXAMINATION Vital signs reviewed. CONSTITUTIONAL: No apparent distress. HEENT: Head is normocephalic. Pupils are equal, round. Sclerae anicteric. Mucous membranes of the mouth are moist. No JVD. No carotid bruit. CHEST EXAMINATION: Lungs are clear to auscultation. No chest wall tenderness is noted on palpation or with deep breathing. HEART EXAMINATION: Irregularly irregular rate and rhythm. S1, S2 heard. +2/6 systolic murmur, no gallops or rub. ABDOMEN: Soft, nontender. Positive bowel sounds. EXTREMITIES: 2+ peripheral pulses, 1+ lower extremity edema and no calf tender ness. NEUROLOGIC EXAMINATION: Patient is awake, alert and oriented x3. ASSESSMENT 1. Syncope of unclear etiology 2. Leukocytosis, lactic acidosis, rule out infectious etiology 3. Hypertension 4. Non-STEMI 5. Acute kidney injury 6. Dehydration 7. Mild aortic stenosis by prior echo 8. Questionable history of CAD 9. Paroxysmal atrial fibrillation 10. Hypotension rule out septic shock PLAN Continue current cardiac medications Continue telemetry monitoring to assess for any tachycardia or bradyarrhythmia as cause of his syncope Possible event monitor on an outpatient basis secondary to syncope Continue to monitor blood pressure Nephrology following. Monitor kidney function. Vascular surgery consulted for HD catheter. Resume Xarelto post procedure. No further inpatient recommendations from a cardiac standpoint We will sign off. Please reconsult if needed Nurse practitioner note has been reviewed by physician. Signing provider agrees with the documented findings, assessment, and plan of care. Objective - Vital Signs Vital signs: Vital Signs Temp 98.8 F 12/05/21 04:00 Pulse 95 12/05/21 09:26 Resp 20 12/05/21 04:00 BP 104/66 12/05/21 04:00 Pulse Ox 95 12/05/21 04:00 Intake & Output 12/04/21 12/05/21 12/05/21 18:59 06:59 18:59 Output Total 1650 525 900 Balance -3232 -138 -311 Output: Urine 1650 525 900 Other: Voiding Method Indwelling Catheter Indwelling Catheter - Labs CBC & Chem 7: 12/04/21 06:28 12/05/21 10:00 Labs: Abnormal Lab Results - Last 24 Hours (Table) 12/05/21 Range/Units 10:00 Sodium 146 H (137-145) mmol/L Potassium 3.2 L (3.5-5.1) mmol/L Chloride 108 H (98-107) mmol/L BUN 158 H* (9-20) mg/dL Creatinine 3.76 H (0.66-1.25) mg/dL Glucose 134 H (74-99) mg/dL Calcium 8.3 L (8.4-10.2) mg/dL
[2021-12-05] MEDS ORDERED: LIDOCAINE 1% PF 10 MG/ML (5 ML AMP) SQ ONE (12:51)
[2021-12-05] MEDS ORDERED: HEPARIN SODIUM 1,000 UN/ML (10ML VL) IV ONE (13:01)
--- NOTE | 2021-12-05 13:20 | IR ---
EXAMINATION TYPE: IR cvc insert non tunneled DATE OF EXAM: 12/05/2021 COMPARISON: NONE HISTORY: Fluoroscopy time. Fluoroscopy was provided to the referring clinician.
--- NOTE | 2021-12-05 14:19 | PCN ---
PROCEDURE NOTE PREOP DIAGNOSIS: Acute on chronic renal failure. POSTOP DIAGNOSIS: Acute on chronic renal failure. PROCEDURE PERFORMED: Ultrasound-guided 20 cm dialysis catheter placed right femoral approach under local and IV sedation. Sedation time was 17 minutes. DESCRIPTION OF PROCEDURE: The patient brought to the cardiac cath rn. Right groin was prepped and drapes applied in the usual sterile manner. 1% lidocaine was infiltrated and IV sedation was given. Ultrasound-guided micropuncture into the right femoral vein. Micropuncture guidewire was passed. Then we passed a 4-Haitian dilator on the top of the guidewire. Then we passed a regular guidewire and dilator was advanced and then a 20 cm dialysis catheter placed on the top of the guidewire, flushed with heparin saline and hep-locked, secured with 3-0 nylon. Patient tolerated the procedure well. MMODL / IJN: [id number] /
--- NOTE | 2021-12-05 14:58 | P.PN ---
Subjective Progress Note Date: 12/05/21 Principal diagnosis: KOBE patient denies any acute complaints. No acute issues overnight. Patient is aware that he will be receiving dialysis today. 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 Psych - Calm and cooperative - Labs CBC & Chem 7: 12/04/21 06:28 12/05/21 10:00 Labs: Abnormal Lab Results - Last 24 Hours (Table) 12/05/21 Range/Units 10:00 Sodium 146 H (137-145) mmol/L Potassium 3.2 L (3.5-5.1) mmol/L Chloride 108 H (98-107) mmol/L BUN 158 H* (9-20) mg/dL Creatinine 3.76 H (0.66-1.25) mg/dL Glucose 134 H (74-99) mg/dL Calcium 8.3 L (8.4-10.2) mg/dL Assessment and Plan Assessment: Acute kidney injury on chronic kidney disease stage III -Baseline creatinine is 1.3 -Cr this morning is improving however BUN is worsening -Nephrology on board -Temporary dialysis catheter placed -Plan is for HD today -Starks catheter -Hold nephrotoxic agents including diuretics -Patient started on midodine Lactic acidosis likely due to dehydration -Resolved Syncope of unclear etiology Non-ST elevation [place] Paroxysmal atrial fibrillation Questionable history of coronary artery disease -Cardiology on board -Cardiology recommends outpatient event monitor -Cardiology has signed off -Resume metoprolol and Xarelto and statin Mild rhabdomyolysis secondary to prolonged time on the floor -Patient received IV fluids Mild elevated LFTs -Trending down. Likely due to rhabdomyolysis COPD without exacerbation Coronary disease Hypertension Hypothyroidism -Stable. Resume current regimen DVT prophylaxis: Xarelto
[2021-12-05] MEDS: RIVAROXABAN 15 MG TAB PO SCH (16:57)
[2021-12-05] MEDS: ASCORBIC ACID 500 MG TAB PO SCH (18:26)
[2021-12-05] MEDS: ZINC SULFATE 220 MG CAP PO SCH (18:27)
[2021-12-05] MEDS: METOPROLOL TARTRATE 25 MG TAB PO SCH ×2 (18:27→20:10)
[2021-12-05] MEDS: CHOLECALCIFEROL 25 MCG (1000 IU) TABLET PO SCH (18:27)
[2021-12-05] MEDS: ATORVASTATIN 10 MG TAB PO SCH (20:10)
[2021-12-05] MEDS: LATANOPROST 0.005% OPHTH DROPS 2.5 ML BTL BOTH EYES SCH (20:10)
[2021-12-05] MEDS ORDERED: ACETYLCYSTEINE 800 MG/4 ML VIAL INHALATION PRN (20:28)
[2021-12-06 06:11] LABS: Glucose,Whole Blood 140 mg/dL (75-99)
[2021-12-06] MEDS: LEVOTHYROXINE 50 MCG TAB PO SCH (06:49)
[2021-12-06] MEDS: ALBUTEROL NEBULIZED 2.5 MG/3 ML INHALATION SCH ×4 (07:41→20:36)
[2021-12-06] MEDS: SYMBICORT 80-4.5 MCG INHALER INHALATION SCH ×2 (07:41→20:36)
[2021-12-06] MEDS: ASCORBIC ACID 500 MG TAB PO SCH (08:19)
[2021-12-06] MEDS: METOPROLOL TARTRATE 25 MG TAB PO SCH ×2 (08:19→23:37)
[2021-12-06] MEDS: RIVAROXABAN 15 MG TAB PO SCH (08:20)
[2021-12-06] MEDS: CHOLECALCIFEROL 25 MCG (1000 IU) TABLET PO SCH (08:20)
[2021-12-06] MEDS: ZINC SULFATE 220 MG CAP PO SCH (08:20)
[2021-12-06] MEDS: MIDODRINE 5 MG TAB PO SCH ×3 (08:24→17:07)
[2021-12-06 08:33] LABS: Basophils % (A) 0 %; Eosinophils # (A) 0.3 k/uL (0-0.7); Eosinophils % (A) 3 %; HCT 40.8 % (39.0-53.0); Lymphocytes # (A) 0.6 k/uL (1.0-4.8); Lymphocytes % (A) 5 %; MCH 32.4 pg (25.0-35.0); MCHC 31.8 g/dL (31.0-37.0); MCV 101.9 fL (80.0-100.0); Macrocytosis Slight; Mean Platelet Volume 11.2; Monocytes # (A) 0.6 k/uL (0-1.0); Monocytes % (A) 5 %; Neutrophils # (A) 9.5 k/uL (1.3-7.7); Neutrophils % (A) 86 %; Platelet Count 104 k/uL (150-450); RDW 15.2 % (11.5-15.5); WBC 11.1 k/uL (3.8-10.6)
[2021-12-06 08:39] LABS: Magnesium 2.2 mg/dL (1.6-2.3); Potassium 3.2 mmol/L (3.5-5.1)
--- NOTE | 2021-12-06 11:29 | P.PN ---
Subjective Progress Note Date: 12/06/21 Principal diagnosis: KOBE Patient had one session of dialysis yesterday. He states that he feels tired and fatigued. He has another session of dialysis today and goes to remove 1 L of fluid. Patient's blood pressure has been running on the low side. Patient also nothing by mouth because patient was choking with taking his medications and eating his food yesterday. He is scheduled for a swallow eval today. Objective - Vital Signs Vital signs: Vital Signs Temp 97.7 F 12/06/21 11:23 Pulse 118 H 12/06/21 11:23 Resp 20 12/06/21 11:23 BP 90/62 12/06/21 11:23 Pulse Ox 95 12/06/21 11:23 Intake & Output 12/05/21 12/06/21 12/06/21 18:59 06:59 18:59 Intake Total 300 Output Total 1534 1000 Balance -1234 -1000 Intake: Hemodialysis 300 Output: Urine 900 1000 Hemodialysis 634 Other: Voiding Method Indwelling Catheter Indwelling Catheter Indwelling Catheter - Exam General examination - Alert and Oriented 3 in NAD, appears chronically debilitated Heart - + S1S2 no murmurs Lungs - Clear to auscultation Abdomen soft NT ND +ve BS Extremities - No edema 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 Psych - Calm and cooperative - Labs CBC & Chem 7: 12/06/21 06:40 12/06/21 06:40 Labs: Abnormal Lab Results - Last 24 Hours (Table) 12/06/21 12/06/21 12/06/21 Range/Units 05:52 06:40 06:40 WBC 11.1 H (3.8-10.6) k/uL RBC 4.00 L (4.30-5.90) m/uL MCV 101.9 H (80.0-100.0) fL Plt Count 104 L (150-450) k/uL Neutrophils # 9.5 H (1.3-7.7) k/uL Lymphocytes # 0.6 L (1.0-4.8) k/uL Sodium 147 H (137-145) mmol/L Potassium 3.2 L (3.5-5.1) mmol/L Chloride 108 H (98-107) mmol/L BUN 106 H* (9-20) mg/dL Creatinine 2.66 H (0.66-1.25) mg/dL Glucose 123 H (74-99) mg/dL POC Glucose (mg/dL) 140 H (75-99) mg/dL Calcium 8.0 L (8.4-10.2) mg/dL Assessment and Plan Assessment: Acute kidney injury on chronic kidney disease stage III -Baseline creatinine is 1.3 -Nephrology on board -Temporary dialysis catheter placed -Patient started on dialysis -Starks catheter -Hold nephrotoxic agents including diuretics -Patient started on midodine #Dysphagia -Swallow eval on board -Patient scheduled for VBS study today Lactic acidosis likely due to dehydration -Resolved Syncope of unclear etiology Non-ST elevation [place] Paroxysmal atrial fibrillation Questionable history of coronary artery disease -Cardiology on board -Cardiology recommends outpatient event monitor -Cardiology has signed off -Resume metoprolol and Xarelto and statin Mild rhabdomyolysis secondary to prolonged time on the floor -Patient received IV fluids Mild elevated LFTs -Trending down. Likely due to rhabdomyolysis COPD without exacerbation Coronary disease Hypertension Hypothyroidism -Stable. Resume current regimen DVT prophylaxis: Xarelto
--- NOTE | 2021-12-06 12:19 | FL ---
EXAMINATION TYPE: FL barium swallow w video DATE OF EXAM: 12/06/2021 COMPARISON: NONE HISTORY: Abnormal bedside exam TECHNIQUE: Fluoroscopy. FINDINGS: Fluoroscopic guidance was provided for the procedure performed in conjunction with the [facility] pathology department. Please see complete report forthcoming from the Speech Pathology departmen t. Various consistencies from thin liquid to solids were administered. Fluoroscopy time 2 minutes 34 seconds. Number of images: 0. There was transient penetration with thin liquids. No aspiration is evident. There is moderate pooling within the vallecula throughout the examination. There is hesitancy of bolus formation and transit to the esophagus. IMPRESSION: 1. No aspiration. 2. Transient penetration with thin liquids. 3. Pooling within the vallecula. 4. Hesitancy of bolus formation and transit.
--- NOTE | 2021-12-06 16:30 | P.PN ---
Subjective Patient is seen for follow-up for acute kidney injury He is currently maintained on IV fluids. Patient has an indwelling Starks catheter with good urine output. 24 hour urine documented at about 2100mL. Mentation improved from admission Started HD on 12/05/21. Pt states he is feeling OK. No n/v/d Scheduled for HD today with goal UF 1L Objective - Vital Signs Vital signs: Vital Signs Temp 97.4 F L 12/06/21 16:16 Pulse 102 H 12/06/21 16:16 Resp 20 12/06/21 16:16 BP 84/56 12/06/21 16:16 Pulse Ox 94 L 12/06/21 16:16 Intake & Output 12/05/21 12/06/21 12/06/21 18:59 06:59 18:59 Intake Total 300 Output Total 1534 1000 1000 Balance -1234 -1000 -1000 Weight 89 kg Intake: Hemodialysis 300 Output: Urine 900 1000 Hemodialysis 634 1000 Other: Voiding Method Indwelling Catheter Indwelling Catheter Indwelling Catheter - Exam Patient is comfortable, awake, not in any acute distress On seeing questions appropriately today Examination of the heart S1 and S2 Examination of the lungs bilateral breath sounds are heard, decreased breath sounds at the bases, basal crackles Abdomen is soft nontender Examination of the lower extremities shows no significant edema 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 - Labs CBC & Chem 7: 12/06/21 06:40 12/06/21 06:40 Labs: Abnormal Lab Results - Last 24 Hours (Table) 12/06/21 12/06/21 12/06/21 Range/Units 05:52 06:40 06:40 WBC 11.1 H (3.8-10.6) k/uL RBC 4.00 L (4.30-5.90) m/uL MCV 101.9 H (80.0-100.0) fL Plt Count 104 L (150-450) k/uL Neutrophils # 9.5 H (1.3-7.7) k/uL Lymphocytes # 0.6 L (1.0-4.8) k/uL Sodium 147 H (137-145) mmol/L Potassium 3.2 L (3.5-5.1) mmol/L Chloride 108 H (98-107) mmol/L BUN 106 H* (9-20) mg/dL Creatinine 2.66 H (0.66-1.25) mg/dL Glucose 123 H (74-99) mg/dL POC Glucose (mg/dL) 140 H (75-99) mg/dL Calcium 8.0 L (8.4-10.2) mg/dL Assessment and Plan Assessment: 1. Acute kidney injury ATN associated with hypotension and hypovolemia. Currently nonoliguric. No evidence of obstruction on computed tomography scan of the abdomen and pelvis. UA shows 1+ protein and large blood and RBCs more than 182. Maintained on IV fluids renal function slowly improving however given the significantly elevated BUN/creatinine and volume overload we will proceed with starting renal replacement therapy. S/p first treatment 12/05/21. Fair UOP. 2. 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 A. fib with RVR on initial admission currently heart rate improved to about 96-100 from 129 to 1:30. 4. COPD without exacerbation 5. Mild rhabdomyolysis 6. Hypokalemia associated with decreased intake and use of diuretics at home prior to admission 7. Lactic acidosis currently improved Plan: Second treatment of HD today Hold Rx tomorrow Encourage increased oral intake.
[2021-12-06 16:46] LABS: Glucose,Whole Blood 135 mg/dL (75-99)
--- NOTE | 2021-12-06 16:54 | XR ---
EXAMINATION TYPE: XR chest 1V DATE OF EXAM: 12/06/2021 CLINICAL HISTORY: Difficulty breathing progress study. TECHNIQUE: Single AP portable upright view of the chest is obtained. COMPARISON: Chest x-ray from 3 days earlier and older studies FINDINGS: Continued worsening peripheral increased opacities bilaterally. Stable cardiomegaly. No pn eumothorax seen bilaterally. Multilevel spurring in the spine redemonstrated. IMPRESSION: Worsening bilateral multifocal edema and/or infiltrates on background lower lung parenchy mal fibrotic changes. Correlate to exclude covid-19 infection.
--- NOTE | 2021-12-06 17:34 | CDI ---
Documentation Clarification Form Date: 12/06/2021 04:51:08 PM From: Estela Huddleston RN, CCDS Admit Date: 12/01/2021 05:00:00 PM Patient Name: Mathieu Tello Visit Number: [id number] Discharge Date: ATTENTION: The Clinical Documentation Specialists (CDI) and [facility] Coding Staff appreciate your assistance in clarifying documentation. Please respond to the clarification below the line at the bottom and electronically sign. The CDI & [facility] Coding staff will review the response and follow-up if needed. Please note: Queries are made part of the Legal Health Record. If you have any questions, please contact the author of this message via ITS. Dr. Aj García Non-STEMI is documented in the cardiology consult on 12/02 and subsequent progress notes. Additional clarification regarding the type of MD is requested. History/Risk Factors: Hypertension, Mild aortic stenosis, Paroxysmal atrial fibrillation, CAD, COPD, Chronic kidney disease, Former smoker Clinical Indicators: 85-year-old male present after being found down on the ground. He cannot recall episodes. He did not describe any specific angina-type symptoms. He was found to be in acute kidney failure with BUN 166, Creatinine 5.14, 4.90; lactic acid 3.3; 3.3, 2.2; 12/01 Troponin I 0.165, Troponin () 0.133 12/01 EKG Results: Atrial fibrillation with rapid ventricular response with aberrant conduction \ 05/11/2021 ECHO: Showed EF 55-60 % mild aortic stenosis, mold mitral regurgitation, RVSP 41 per cardiology consult on 12/02/21. 12/02 Vital signs 98/55 108 20 97.4 96 % RA Treatment: Cardiac Telemetry monitoring outpatient event monitor to rule out tachycardia or bradyarrhythmia as cause of his syncope Monitor accurate I/O IV .9NS 1,000 Bolus 12/01 then 120 MLS/HR IV Q8HR 12/01-12/02; 12/02-12/05, 9@ 60 ML/HR DC 12/05 Monitor labs, renal function. Avoid any nephrotoxic agents Please further clarify the type of MD, if known: [ ] NSTEMI (type 1) [ x ] Type II MD due to acute kidney injury, lactic acidosis, questionable infection. [ ] Unable to determine [ ] Other Condition, please specify (Template Last Revised: September 2020) MTDD
[2021-12-06] MEDS: ACETAMINOPHEN TAB 325 MG TAB PO PRN (20:19)
[2021-12-06] MEDS: ATORVASTATIN 10 MG TAB PO SCH (20:19)
[2021-12-06] MEDS: LATANOPROST 0.005% OPHTH DROPS 2.5 ML BTL BOTH EYES SCH (20:20)
[2021-12-06 20:35] LABS: Glucose,Whole Blood 166 mg/dL (75-99)
[2021-12-07] MEDS: LEVOTHYROXINE 50 MCG TAB PO SCH (06:58)
[2021-12-07] MEDS: MIDODRINE 5 MG TAB PO SCH ×3 (06:58→16:52)
[2021-12-07] MEDS: ACETAMINOPHEN TAB 325 MG TAB PO PRN ×2 (06:58→20:12)
[2021-12-07 08:02] LABS: Basophils % (A) 0 %; Eosinophils # (A) 0.4 k/uL (0-0.7); Eosinophils % (A) 3 %; HCT 40.5 % (39.0-53.0); HGB 12.7 gm/dL (13.0-17.5); Lymphocytes # (A) 0.7 k/uL (1.0-4.8); Lymphocytes % (A) 5 %; MCH 31.9 pg (25.0-35.0); MCHC 31.3 g/dL (31.0-37.0); Macrocytosis Slight; Mean Platelet Volume 10.7; Monocytes # (A) 0.6 k/uL (0-1.0); Monocytes % (A) 4 %; Neutrophils # (A) 12.3 k/uL (1.3-7.7); Neutrophils % (A) 87 %; Platelet Count 108 k/uL (150-450); RBC 3.98 m/uL (4.30-5.90); RDW 15.1 % (11.5-15.5); WBC 14.2 k/uL (3.8-10.6)
[2021-12-07 08:11] LABS: Calcium 8.1 mg/dL (8.4-10.2); Magnesium 2.1 mg/dL (1.6-2.3); Potassium 3.2 mmol/L (3.5-5.1)
[2021-12-07] MEDS: METOPROLOL TARTRATE 25 MG TAB PO SCH ×2 (08:34→20:12)
[2021-12-07] MEDS: RIVAROXABAN 15 MG TAB PO SCH (08:34)
[2021-12-07] MEDS: CHOLECALCIFEROL 25 MCG (1000 IU) TABLET PO SCH (08:34)
[2021-12-07] MEDS: ASCORBIC ACID 500 MG TAB PO SCH (08:34)
[2021-12-07] MEDS: ZINC SULFATE 220 MG CAP PO SCH (08:35)
[2021-12-07] MEDS: ALBUTEROL NEBULIZED 2.5 MG/3 ML INHALATION SCH ×4 (09:00→20:21)
[2021-12-07] MEDS: SYMBICORT 80-4.5 MCG INHALER INHALATION SCH ×2 (09:00→20:21)
[2021-12-07] MEDS ORDERED: POTASSIUM CHLORIDE ER 20 MEQ TAB.ER PO STA (12:22)
--- NOTE | 2021-12-07 12:22 | P.PN ---
Subjective Patient is seen for follow-up for acute kidney injury. Patient had significant renal failure with significantly elevated B UN of 175 on initial admission. This had improved slightly with an improvement in creatinine as well from 5.1 to about 4.0 mg/dL however patient had developed volume overload and he continued to be weak. Therefore, he was started on hemodialysis. Urine output has been good. Patient currently has an indwelling Starks catheter. Mentation improved from admission Started HD on 12/05/21. Pt states he is feeling OK. No n/v/d Urine output documented at 5 25 mL, I'm not sure if this is accurate. It was 1.9 L over the previous 24 hours. Objective - Vital Signs Vital signs: Vital Signs Temp 97.9 F 12/07/21 11:32 Pulse 106 H 12/07/21 11:32 Resp 20 12/07/21 11:32 BP 93/63 12/07/21 11:32 Pulse Ox 95 12/07/21 11:32 Intake & Output 12/06/21 12/07/21 12/07/21 18:59 06:59 18:59 Output Total 1000 525 Balance -1000 -525 Weight 89 kg Output: Urine 525 Hemodialysis 1000 Other: Voiding Method Indwelling Catheter Indwelling Catheter Indwelling Catheter - Exam Patient is comfortable, awake, not in any acute distress On seeing questions appropriately today Examination of the heart S1 and S2 Examination of the lungs bilateral breath sounds are heard, decreased breath sounds at the bases, basal crackles Abdomen is soft nontender Examination of the lower extremities shows 1+ edema SUPERVISOR LAUNDRY exam grossly intact - Labs CBC & Chem 7: 12/07/21 07:28 12/07/21 07:28 Labs: Abnormal Lab Results - Last 24 Hours (Table) 12/06/21 12/06/21 12/07/21 Range/Units 16:27 20:33 07:28 WBC 14.2 H (3.8-10.6) k/uL RBC 3.98 L (4.30-5.90) m/uL Hgb 12.7 L (13.0-17.5) gm/dL MCV 102.0 H (80.0-100.0) fL Plt Count 108 L (150-450) k/uL Neutrophils # 12.3 H (1.3-7.7) k/uL Lymphocytes # 0.7 L (1.0-4.8) k/uL Potassium (3.5-5.1) mmol/L BUN (9-20) mg/dL Creatinine (0.66-1.25) mg/dL Glucose (74-99) mg/dL POC Glucose (mg/dL) 135 H 166 H (75-99) mg/dL Calcium (8.4-10.2) mg/dL 12/07/21 Range/Units 07:28 WBC (3.8-10.6) k/uL RBC (4.30-5.90) m/uL Hgb (13.0-17.5) gm/dL MCV (80.0-100.0) fL Plt Count (150-450) k/uL Neutrophils # (1.3-7.7) k/uL Lymphocytes # (1.0-4.8) k/uL Potassium 3.2 L (3.5-5.1) mmol/L BUN 70 H (9-20) mg/dL Creatinine 2.25 H (0.66-1.25) mg/dL Glucose 139 H (74-99) mg/dL POC Glucose (mg/dL) (75-99) mg/dL Calcium 8.1 L (8.4-10.2) mg/dL Assessment and Plan Assessment: 1. Acute kidney injury ATN associated with hypotension and hypovolemia. Currently nonoliguric. No evidence of obstruction on computed tomography scan of the abdomen and pelvis. UA shows 1+ protein and large blood and RBCs more than 182. Maintained on IV fluids renal function slowly improving however given the significantly elevated BUN/creatinine and volume overload we will proceed with starting renal replacement therapy. S/p first treatment 12/05/21. Fair UOP. 2. 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 A. fib with RVR on initial admission currently heart rate improved to about 96-100 from 129 to 1:30. 4. COPD without exacerbation 5. Mild rhabdomyolysis 6. Hypokalemia associated with decreased intake and use of diuretics at home prior to admission 7. Lactic acidosis currently improved Plan: Hold hemodialysis today Continue to monitor urine output Repeat labs in a.m. Place potassium
--- NOTE | 2021-12-07 13:31 | P.PN ---
Subjective Progress Note Date: 12/07/21 Principal diagnosis: KOBE Patient appears to have a productive cough and he has difficulty coughing up the sputum. Couple nights ago patient appeared to have aspirated overnight. Chest x-ray did show worsening bilateral consolidations. His WBC count has been increasing. I'm suspecting possible aspiration therefore started patient on IV Unasyn. Daughter was at bedside and all questions were answered to her satisfaction. I also discussed the case with nephrology. Their hope in that dialysis will be temporary. Patient states that he is trying to eat more. Daughter would like him to work with physical therapy as much as possible. Objective - Vital Signs Vital signs: Vital Signs Temp 97.9 F 12/07/21 11:32 Pulse 108 H 12/07/21 12:33 Resp 20 12/07/21 11:32 BP 93/63 12/07/21 11:32 Pulse Ox 95 12/07/21 11:32 Intake & Output 12/06/21 12/07/21 12/07/21 18:59 06:59 18:59 Output Total 1000 525 Balance -1000 -525 Weight 89 kg Output: Urine 525 Hemodialysis 1000 Other: Voiding Method Indwelling Catheter Indwelling Catheter Indwelling Catheter - Exam General examination - Alert and Oriented 3 in NAD, appears chronically debilitated Heart - + S1S2 no murmurs Lungs - diminished but does bilaterally Abdomen soft NT ND +ve BS Extremities - +1 pitting edema bilaterally 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 Psych - Calm and cooperative - Labs CBC & Chem 7: 12/07/21 07:28 12/07/21 07:28 Labs: Abnormal Lab Results - Last 24 Hours (Table) 12/06/21 12/06/21 12/07/21 Range/Units 16:27 20:33 07:28 WBC 14.2 H (3.8-10.6) k/uL RBC 3.98 L (4.30-5.90) m/uL Hgb 12.7 L (13.0-17.5) gm/dL MCV 102.0 H (80.0-100.0) fL Plt Count 108 L (150-450) k/uL Neutrophils # 12.3 H (1.3-7.7) k/uL Lymphocytes # 0.7 L (1.0-4.8) k/uL Potassium (3.5-5.1) mmol/L BUN (9-20) mg/dL Creatinine (0.66-1.25) mg/dL Glucose (74-99) mg/dL POC Glucose (mg/dL) 135 H 166 H (75-99) mg/dL Calcium (8.4-10.2) mg/dL 12/07/21 Range/Units 07:28 WBC (3.8-10.6) k/uL RBC (4.30-5.90) m/uL Hgb (13.0-17.5) gm/dL MCV (80.0-100.0) fL Plt Count (150-450) k/uL Neutrophils # (1.3-7.7) k/uL Lymphocytes # (1.0-4.8) k/uL Potassium 3.2 L (3.5-5.1) mmol/L BUN 70 H (9-20) mg/dL Creatinine 2.25 H (0.66-1.25) mg/dL Glucose 139 H (74-99) mg/dL POC Glucose (mg/dL) (75-99) mg/dL Calcium 8.1 L (8.4-10.2) mg/dL Assessment and Plan Assessment: Acute kidney injury on chronic kidney disease stage III -Baseline creatinine is 1.3 -Nephrology on board -Temporary dialysis catheter placed -Patient started on dialysis -Starks catheter -Hold nephrotoxic agents including diuretics -Patient started on midodine -Holding dialysis today. Monitor renal function. If improving patient may not need dialysis Suspect aspiration pneumonia -Monitor WBC count -Patient will be started on IV Unasyn -Check blood cultures #Dysphagia -Swallow eval on board -Patient cleared for a mechanical soft thin liquid diet -Patient encouraged to eat more. #Lactic acidosis likely due to dehydration -Resolved #Syncope likely due to orthostatic hypotension #Non-ST elevation CT #Paroxysmal atrial fibrillation Questionable history of coronary artery disease -Cardiology on board -Cardiology recommends outpatient event monitor -Cardiology has signed off -Resume metoprolol and Xarelto and statin -Heart rate is controlled this morning -Patient's blood pressures on the low side. He has been started on midodrine #Mild rhabdomyolysis secondary to prolonged time on the floor -Patient received IV fluids #Mild elevated LFTs -Trending down. Likely due to rhabdomyolysis COPD without exacerbation Coronary disease Hypertension Hypothyroidism -Stable. Resume current regimen DVT prophylaxis: Xarelto
[2021-12-07] MEDS: AMPICILLIN-SULBACTAM 1.5 GM in SODIUM CHLORIDE 0.9% 50 ML IVPB SCH (16:53)
[2021-12-07] MEDS: ATORVASTATIN 10 MG TAB PO SCH (20:12)
[2021-12-07] MEDS: LATANOPROST 0.005% OPHTH DROPS 2.5 ML BTL BOTH EYES SCH (20:13)
[2021-12-08] MEDS: AMPICILLIN-SULBACTAM 1.5 GM in SODIUM CHLORIDE 0.9% 50 ML IVPB SCH ×3 (02:48→18:13)
[2021-12-08] MEDS: LEVOTHYROXINE 50 MCG TAB PO SCH (06:11)
[2021-12-08] MEDS: MIDODRINE 5 MG TAB PO SCH ×3 (06:11→18:13)
[2021-12-08] MEDS: SYMBICORT 80-4.5 MCG INHALER INHALATION SCH ×2 (07:42→19:31)
[2021-12-08] MEDS: ALBUTEROL NEBULIZED 2.5 MG/3 ML INHALATION SCH ×4 (07:42→19:31)
[2021-12-08] MEDS: ZINC SULFATE 220 MG CAP PO SCH (08:45)
[2021-12-08] MEDS: ASCORBIC ACID 500 MG TAB PO SCH (08:45)
[2021-12-08] MEDS: METOPROLOL TARTRATE 25 MG TAB PO SCH ×2 (08:45→20:01)
[2021-12-08] MEDS: CHOLECALCIFEROL 25 MCG (1000 IU) TABLET PO SCH (08:45)
[2021-12-08] MEDS: RIVAROXABAN 15 MG TAB PO SCH (08:45)
[2021-12-08 09:00] LABS: Basophils % (A) 0 %; Eosinophils # (A) 0.6 k/uL (0-0.7); Eosinophils % (A) 4 %; HCT 42.2 % (39.0-53.0); HGB 13.2 gm/dL (13.0-17.5); Hypochromasia Slight; Lymphocytes # (A) 1.2 k/uL (1.0-4.8); Lymphocytes % (A) 8 %; MCH 32.3 pg (25.0-35.0); MCHC 31.3 g/dL (31.0-37.0); MCV 103.1 fL (80.0-100.0); Macrocytosis Slight; Monocytes # (A) 0.6 k/uL (0-1.0); Monocytes % (A) 4 %; Neutrophils # (A) 12.3 k/uL (1.3-7.7); Neutrophils % (A) 83 %; Platelet Count 118 k/uL (150-450); RBC 4.09 m/uL (4.30-5.90); RDW 15.1 % (11.5-15.5); WBC 14.8 k/uL (3.8-10.6)
[2021-12-08 09:26] LABS: Calcium 8.4 mg/dL (8.4-10.2); Potassium 3.7 mmol/L (3.5-5.1)
--- NOTE | 2021-12-08 09:53 | XR ---
EXAMINATION TYPE: XR chest 1V DATE OF EXAM: 12/08/2021 COMPARISON: 12/06/2021 HISTORY: SOB, Follow Up FINDINGS: Scattered airspace and interstitial infiltrates greatest within the periphery of the right upper lobe . Correlate for pneumonia. Stable appearance of the cardio-mediastinal structures at this time. IMPRESSION: 1. Stable portable chest. Clinical correlation and follow up until resolution is recommended.
--- NOTE | 2021-12-08 10:34 | P.PN ---
Subjective Patient is seen for follow-up for acute kidney injury. Patient had significant renal failure with significantly elevated B UN of 175 on initial admission. This had improved slightly with an improvement in creatinine as well from 5.1 to about 4.0 mg/dL however patient had developed volume overload and he continued to be weak. Therefore, he was started on hemodialysis. Urine output has been good. Patient currently has an indwelling Starks catheter. Mentation improved from admission Started HD on 12/05/21. Pt states he is feeling OK. No n/v/d Hemodialysis was held yesterday Urine output documented at 1040ml over 24 hours Objective - Vital Signs Vital signs: Vital Signs Temp 97.9 F 12/08/21 07:36 Pulse 91 12/08/21 08:00 Resp 18 12/08/21 07:36 BP 120/78 12/08/21 07:36 Pulse Ox 94 L 12/08/21 07:42 Intake & Output 12/07/21 12/08/21 12/08/21 18:59 06:59 18:59 Intake Total 476 Output Total 600 440 350 Balance -124 -440 -350 Weight 85.5 kg Intake: Oral 476 Output: Urine 600 440 350 Other: Voiding Method Indwelling Catheter Indwelling Catheter Indwelling Catheter # Bowel Movements 1 - Exam Patient is comfortable, awake, not in any acute distress On seeing questions appropriately today Examination of the heart S1 and S2 Examination of the lungs bilateral breath sounds are heard, decreased breath sounds at the bases, basal crackles Abdomen is soft nontender Examination of the lower extremities shows trace edema BODY PIERCER exam grossly intact - Labs CBC & Chem 7: 12/08/21 08:48 12/08/21 08:48 Labs: Abnormal Lab Results - Last 24 Hours (Table) 12/08/21 12/08/21 Range/Units 08:48 08:48 WBC 14.8 H (3.8-10.6) k/uL RBC 4.09 L (4.30-5.90) m/uL MCV 103.1 H (80.0-100.0) fL Plt Count 118 L (150-450) k/uL Neutrophils # 12.3 H (1.3-7.7) k/uL BUN 81 H (9-20) mg/dL Creatinine 2.23 H (0.66-1.25) mg/dL Glucose 129 H (74-99) mg/dL Assessment and Plan Assessment: 1. Acute kidney injury ATN associated with hypotension and hypovolemia. Currently nonoliguric. No evidence of obstruction on computed tomography scan of the abdomen and pelvis. UA shows 1+ protein and large blood and RBCs more than 182. Maintained on IV fluids renal function slowly improving however given the significantly elevated BUN/creatinine and volume overload we will proceed with starting renal replacement therapy. S/p first treatment 12/05/21. Fair UOP. Patient had 2 treatments and dialysis has been on hold since 12/07/2021 2. 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 A. fib with RVR on initial admission currently heart rate improved to about 96-100 from 129 to 1:30. 4. COPD without exacerbation 5. Mild rhabdomyolysis 6. Hypokalemia associated with decreased intake and use of diuretics at home prior to admission 7. Lactic acidosis currently improved Plan: Patient has good urine output. We will continue to hold dialysis. Hopefully he will not need any further treatments. Check labs today. Check chest x-ray to see if there is improvement after ultrafiltration. Demetria encourage increased oral intake
--- NOTE | 2021-12-08 13:10 | P.PN ---
Subjective Progress Note Date: 12/08/21 Principal diagnosis: KOBE Patient says that he has been coughing up phlegm. He states that he is feeling slightly better compared to yesterday. Patient is also having good urine output. His renal function is improving despite not getting dialysis yesterday. Objective - Vital Signs Vital signs: Vital Signs Temp 97.8 F 12/08/21 11:19 Pulse 102 H 12/08/21 12:00 Resp 18 12/08/21 12:00 BP 115/68 12/08/21 11:19 Pulse Ox 95 12/08/21 11:19 Intake & Output 12/07/21 12/08/21 12/08/21 18:59 06:59 18:59 Intake Total 476 Output Total 600 440 350 Balance -124 -440 -350 Weight 85.5 kg Intake: Oral 476 Output: Urine 600 440 350 Other: Voiding Method Indwelling Catheter Indwelling Catheter Indwelling Catheter # Bowel Movements 1 - Exam General examination - Alert and Oriented 3 in NAD, appears chronically debilitated Heart - + S1S2 no murmurs Lungs - diminished but does bilaterally Abdomen soft NT ND +ve BS Extremities - +1 pitting edema bilaterally 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 Psych - Calm and cooperative - Labs CBC & Chem 7: 12/08/21 08:48 12/08/21 08:48 Labs: Abnormal Lab Results - Last 24 Hours (Table) 12/08/21 12/08/21 Range/Units 08:48 08:48 WBC 14.8 H (3.8-10.6) k/uL RBC 4.09 L (4.30-5.90) m/uL MCV 103.1 H (80.0-100.0) fL Plt Count 118 L (150-450) k/uL Neutrophils # 12.3 H (1.3-7.7) k/uL BUN 81 H (9-20) mg/dL Creatinine 2.23 H (0.66-1.25) mg/dL Glucose 129 H (74-99) mg/dL Assessment and Plan Assessment: Acute kidney injury on chronic kidney disease stage III -Baseline creatinine is 1.3 -Nephrology on board -Temporary dialysis catheter placed -Patient started on dialysis -Starks catheter -Hold nephrotoxic agents including diuretics -Patient started on midodine -Hemodialysis was held yesterday and renal function is improving with good urine output. -Anticipat patient would not need dialysis moving forward if renal function continues to improve Suspect aspiration pneumonia -Monitor WBC count -Patient will be started on IV Unasyn -Check blood cultures #Dysphagia -Swallow eval on board -Patient cleared for a mechanical soft thin liquid diet -Patient encouraged to eat more. #Lactic acidosis likely due to dehydration -Resolved #Syncope likely due to orthostatic hypotension #Non-ST elevation [place] #Paroxysmal atrial fibrillation Questionable history of coronary artery disease -Cardiology on board -Cardiology recommends outpatient event monitor -Cardiology has signed off -Resume metoprolol and Xarelto and statin -Heart rate is controlled this morning -Patient's blood pressures on the low side. He has been started on midodrine #Mild rhabdomyolysis secondary to prolonged time on the floor -Patient received IV fluids #Mild elevated LFTs -Trending down. Likely due to rhabdomyolysis COPD without exacerbation Coronary disease Hypertension Hypothyroidism -Stable. Resume current regimen DVT prophylaxis: Xarelto Anticipated patient will be ready for discharge the next 24-48 hours if renal function continues to improve. I discussed with the shoe caser. We'll arrange for placement on Saturday
[2021-12-08] MEDS: ATORVASTATIN 10 MG TAB PO SCH (20:00)
[2021-12-09] MEDS: AMPICILLIN-SULBACTAM 1.5 GM in SODIUM CHLORIDE 0.9% 50 ML IVPB SCH ×3 (00:04→16:06)
[2021-12-09] MEDS: LATANOPROST 0.005% OPHTH DROPS 2.5 ML BTL BOTH EYES SCH ×2 (00:07→20:55)
[2021-12-09] MEDS: LEVOTHYROXINE 50 MCG TAB PO SCH (06:52)
[2021-12-09] MEDS: MIDODRINE 5 MG TAB PO SCH ×3 (06:52→16:39)
[2021-12-09 07:41] LABS: Basophils # (A) 0.1 k/uL (0-0.2); Basophils % (A) 0 %; Eosinophils # (A) 0.7 k/uL (0-0.7); Eosinophils % (A) 5 %; HCT 40.5 % (39.0-53.0); HGB 12.6 gm/dL (13.0-17.5); Hypochromasia Slight; Lymphocytes # (A) 0.8 k/uL (1.0-4.8); Lymphocytes % (A) 6 %; MCH 32.1 pg (25.0-35.0); MCHC 31.2 g/dL (31.0-37.0); MCV 102.9 fL (80.0-100.0); Macrocytosis Slight; Mean Platelet Volume 10.6; Monocytes # (A) 0.5 k/uL (0-1.0); Monocytes % (A) 4 %; Neutrophils # (A) 10.7 k/uL (1.3-7.7); Neutrophils % (A) 83 %; Platelet Count 129 k/uL (150-450); RBC 3.93 m/uL (4.30-5.90); WBC 12.9 k/uL (3.8-10.6)
[2021-12-09 07:51] LABS: Calcium 8.1 mg/dL (8.4-10.2); Potassium 3.2 mmol/L (3.5-5.1)
[2021-12-09] MEDS: ALBUTEROL NEBULIZED 2.5 MG/3 ML INHALATION SCH ×4 (08:16→19:57)
[2021-12-09] MEDS: SYMBICORT 80-4.5 MCG INHALER INHALATION SCH ×3 (08:17→20:00)
[2021-12-09] MEDS: CHOLECALCIFEROL 25 MCG (1000 IU) TABLET PO SCH (08:27)
[2021-12-09] MEDS: METOPROLOL TARTRATE 25 MG TAB PO SCH ×2 (08:27→20:55)
[2021-12-09] MEDS: RIVAROXABAN 15 MG TAB PO SCH (08:27)
[2021-12-09] MEDS: ASCORBIC ACID 500 MG TAB PO SCH (08:27)
[2021-12-09] MEDS: ZINC SULFATE 220 MG CAP PO SCH (08:27)
[2021-12-09] MEDS ORDERED: POTASSIUM CHLORIDE ER 20 MEQ TAB.ER PO STA (09:28)
[2021-12-09] MEDS ORDERED: METOPROLOL TARTRATE 25 MG TAB PO STA (10:44)
--- NOTE | 2021-12-09 11:34 | P.PN ---
Subjective Progress Note Date: 12/16/21 Principal diagnosis: KOBE Patient says that he is coughing up a lot of phlegm. He otherwise denies any acute complaints. His creatinine continues to improve. Objective - Vital Signs Vital signs: Vital Signs Temp 97.9 F 12/09/21 08:23 Pulse 82 12/09/21 11:27 Resp 20 12/09/21 11:05 BP 105/68 12/09/21 11:05 Pulse Ox 93 L 12/09/21 11:05 Intake & Output 12/08/21 12/09/21 12/09/21 18:59 06:59 18:59 Intake Total 390 Output Total 650 700 300 Balance -650 -700 90 Weight 85.5 kg 84 kg Intake: Oral 390 Output: Urine 650 700 300 Uretheral (Starks) 700 Other: Voiding Method Indwelling Catheter Indwelling Catheter Indwelling Catheter - Exam General examination - Alert and Oriented 3 in NAD, appears chronically debilitated Heart - + S1S2 no murmurs Lungs - diminished but does bilaterally Abdomen soft NT ND +ve BS Extremities - +1 pitting edema bilaterally 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 Psych - Calm and cooperative - Labs CBC & Chem 7: 12/09/21 07:24 12/09/21 07:24 Labs: Abnormal Lab Results - Last 24 Hours (Table) 12/09/21 12/09/21 Range/Units 07:24 07:24 WBC 12.9 H (3.8-10.6) k/uL RBC 3.93 L (4.30-5.90) m/uL Hgb 12.6 L (13.0-17.5) gm/dL MCV 102.9 H (80.0-100.0) fL Plt Count 129 L (150-450) k/uL Neutrophils # 10.7 H (1.3-7.7) k/uL Lymphocytes # 0.8 L (1.0-4.8) k/uL Potassium 3.2 L (3.5-5.1) mmol/L BUN 83 H (9-20) mg/dL Creatinine 1.97 H (0.66-1.25) mg/dL Calcium 8.1 L (8.4-10.2) mg/dL Microbiology - Last 24 Hours (Table) 12/07/21 13:45 Blood Culture - Preliminary Blood No Growth after 24 hours 12/07/21 13:38 Blood Culture - Preliminary Blood No Growth after 24 hours Assessment and Plan Assessment: Acute kidney injury on chronic kidney disease stage III -Baseline creatinine is 1.3 -Nephrology on board -Temporary dialysis catheter placed -Patient started on dialysis -Starks catheter -Hold nephrotoxic agents including diuretics -Patient started on midodine -Hemodialysis was stopped on 12/07/2021 and renal function is improving with good urine output. -Anticipate patient would not need dialysis moving forward if renal function continues to improve Suspect aspiration pneumonia -Monitor WBC count -Patient will be started on IV Unasyn -Check blood cultures #Dysphagia -Swallow eval on board -Patient cleared for a mechanical soft thin liquid diet -Patient encouraged to eat more. #Lactic acidosis likely due to dehydration -Resolved #Syncope likely due to orthostatic hypotension #Non-ST elevation [place] #Paroxysmal atrial fibrillation Questionable history of coronary artery disease -Cardiology on board -Cardiology recommends outpatient event monitor -Cardiology has signed off -Resume metoprolol and Xarelto and statin -Heart rate is controlled this morning -Patient's blood pressures on the low side. He has been started on midodrine #Mild rhabdomyolysis secondary to prolonged time on the floor -Patient received IV fluids #Mild elevated LFTs -Trending down. Likely due to rhabdomyolysis COPD without exacerbation Coronary disease Hypertension Hypothyroidism -Stable. Resume current regimen DVT prophylaxis: Xarelto Anticipated patient will be ready for discharge the next 24-48 hours if renal function continues to improve and cleared for discharge by nephrology. I discussed with the case management assistant. We'll arrange for placement on Saturday.
[2021-12-09] MEDS ORDERED: CALCIUM CARBONATE 500 MG CHEWABLE PO PRN (12:46)
--- NOTE | 2021-12-09 13:36 | P.PN ---
Subjective HISTORY OF PRESENTING ILLNESS Patient is a pleasant 85-year-old male with history of hypothyroidism CAD, hypertension, hyperlipidemia, COPD, chronic kidney disease who presents after being found down on the ground. Patient states he was feeling fine without any issue and then next thing he remembered was being in the hospital. He cannot recall how he got here and cannot recall falling down. He believes he has been coughing up a little bit of phlegm and may be he choked on this and passed out. He cannot recall any these episodes however and no witnesses. He is found to be in acute kidney failure with creatinine 5.1, lactic acid 3.3, troponin times 10.16, proBNP 10,000, albumin 3.1, potassium 3.1, white blood cell count 17.8, hemoglobin 17.9, platelets 66. His baseline creatinine from 11/22/2021 is 1.3. He had a CT which showed small left pleural effusion and mild emphysematous changes and no acute changes within the abdomen. EKG shows A. fib with mild RVR with heart rate 127, right bundle branch block with Q waves inferiorly. He denies any chest pain or pressure or shortness breath. He does have trace lower extremity chronic edema. Previous echo from 05/11/2021 showed EF 55-60%, mild aortic stenosis, mild mitral regurgitation, RVSP 41. 5 Patient seen and examined. Patient states he feels much better. Denies any c hest pain or pressure. Denies any shortness breath. He has been in A. fib with RVR with heart rates. Low 100 to 110s. He has been tolerating the metoprolol 25 twice a day. Blood pressure however borderline and this afternoon decreased to 79/51. He is making urine. Creatinine mildly decreased from 4.9-4.5 and BUN from 175-163. 12/04/2021 Patient examined this morning at the bedside. Patient is somewhat lethargic at the time of my examination. He appears to be resting comfortably. No chest pain or pressure. Denies SOB. Per nursing, no significant events overnight. No further episodes of syncope. Creatinine is 4.0 today. Vascular surgery has been consulted for HD catheter. Blood pressure is improved today. 12/05/2021 Patient seen and examined this morning at the bedside. Patient denies chest pain or pressure. He denies shortness of breath. Creatinine today has improved to 3.76. Vascular surgery is on the case for hemodialysis catheter insertion. 12/10/2021 The rest to see the patient again by the nursing staff due to A. fib with mildly rapid ventricular rate. He is seen and examined sitting up in bed. He does look disheveled and not like himself however is communicating appropriately. He has no symptoms of chest pain or shortness of breath. Blood pressure 105/68 hea rt rate 113 afebrile maintaining oxygen saturation on nasal cannula. Laboratory data reviewed, sodium 143, potassium 3.2, creatinine 1.97. PHYSICAL EXAMINATION CONSTITUTIONAL: No apparent distress. HEENT: Head is normocephalic. Pupils are equal, round. Sclerae anicteric. Mucous membranes of the mouth are moist. No JVD. No carotid bruit. CHEST EXAMINATION: Lungs are clear to auscultation. No chest wall tenderness is noted on palpation or with deep breathing. HEART EXAMINATION: Irregularly irregular rate and rhythm. S1, S2 heard. +2/6 systolic murmur, no gallops or rub. EXTREMITIES: 2+ peripheral pulses, 1+ lower extremity edema and no calf tenderness. ASSESSMENT Syncope of unclear etiology Leukocytosis, lactic acidosis, rule out infectious etiology Hypertension Non-STEMI Acute kidney injury Dehydration Mild aortic stenosis by prior echo Paroxysmal atrial fibrillation Hypotension rule out septic shock PLAN Increase metoprolol to 25 mg 3 times a day. Ongoing telemetry monitoring. Apply event monitor on discharge. Nurse practitioner note has been reviewed by physician. Signing provider agrees with the documented findings, assessment, and plan of care. Objective - Vital Signs Vital signs: Vital Signs Temp 97.9 F 12/09/21 08:23 Pulse 113 H 12/09/21 13:05 Resp 20 12/09/21 11:05 BP 105/68 12/09/21 11:05 Pulse Ox 93 L 12/09/21 11:05 Intake & Output 12/08/21 12/09/21 12/09/21 18:59 06:59 18:59 Intake Total 390 Output Total 650 700 300 Balance -650 -700 90 Weight 85.5 kg 84 kg Intake: Oral 390 Output: Urine 650 700 300 Uretheral (Starks) 700 Other: Voiding Method Indwelling Catheter Indwelling Catheter Indwelling Catheter - Labs CBC & Chem 7: 12/09/21 07:24 12/09/21 07:24 Labs: Abnormal Lab Results - Last 24 Hours (Table) 12/09/21 12/09/21 Range/Units 07:24 07:24 WBC 12.9 H (3.8-10.6) k/uL RBC 3.93 L (4.30-5.90) m/uL Hgb 12.6 L (13.0-17.5) gm/dL MCV 102.9 H (80.0-100.0) fL Plt Count 129 L (150-450) k/uL Neutrophils # 10.7 H (1.3-7.7) k/uL Lymphocytes # 0.8 L (1.0-4.8) k/uL Potassium 3.2 L (3.5-5.1) mmol/L BUN 83 H (9-20) mg/dL Creatinine 1.97 H (0.66-1.25) mg/dL Calcium 8.1 L (8.4-10.2) mg/dL Microbiology - Last 24 Hours (Table) 12/07/21 13:45 Blood Culture - Preliminary Blood No Growth after 24 hours 12/07/21 13:38 Blood Culture - Preliminary Blood No Growth after 24 hours
--- NOTE | 2021-12-09 14:48 | P.PN ---
Subjective Progress Note Date: 12/09/21 Follow-up for acute kidney injury. Family at bedside. Feels better. Denies any nausea vomiting or diarrhea. Urine output of 1350 ML's in the last 24 hours. Objective - Vital Signs Vital signs: Vital Signs Temp 97.9 F 12/09/21 08:23 Pulse 113 H 12/09/21 13:05 Resp 20 12/09/21 11:05 BP 105/68 12/09/21 11:05 Pulse Ox 93 L 12/09/21 11:05 Intake & Output 12/08/21 12/09/21 12/09/21 18:59 06:59 18:59 Intake Total 390 Output Total 650 700 300 Balance -650 -700 90 Weight 85.5 kg 84 kg Intake: Oral 390 Output: Urine 650 700 300 Uretheral (Starks) 700 Other: Voiding Method Indwelling Catheter Indwelling Catheter Indwelling Catheter - Exam No acute distress S1-S2 heard Decreased breath sounds Trace edema - Labs CBC & Chem 7: 12/09/21 07:24 12/09/21 07:24 Labs: Abnormal Lab Results - Last 24 Hours (Table) 12/09/21 12/09/21 Range/Units 07:24 07:24 WBC 12.9 H (3.8-10.6) k/uL RBC 3.93 L (4.30-5.90) m/uL Hgb 12.6 L (13.0-17.5) gm/dL MCV 102.9 H (80.0-100.0) fL Plt Count 129 L (150-450) k/uL Neutrophils # 10.7 H (1.3-7.7) k/uL Lymphocytes # 0.8 L (1.0-4.8) k/uL Potassium 3.2 L (3.5-5.1) mmol/L BUN 83 H (9-20) mg/dL Creatinine 1.97 H (0.66-1.25) mg/dL Calcium 8.1 L (8.4-10.2) mg/dL Microbiology - Last 24 Hours (Table) 12/07/21 13:45 Blood Culture - Preliminary Blood No Growth after 24 hours 12/07/21 13:38 Blood Culture - Preliminary Blood No Growth after 24 hours Assessment and Plan Assessment: #1 acute kidney injury multifactorial ATN. On dialysis since 12/05/2021. #2 CK D stage III A secondary to nephrosclerosis with a baseline creatinine of 1.3 MG per DL. #3 A. fib with RVR #4 COPD #5 mild rhabdo #6 hypokalemia Plan: #1 renal function stable and improving. Last hemodialysis on 12/07/2021. #2 monitor off hemodialysis for now. Still has right groin Jasper catheter. #3 if renal function stable and improving on Saturday discontinue Jasper.
[2021-12-09] MEDS ORDERED: FUROSEMIDE 10 MG/ML 10 ML VIAL IV STA (17:40)
[2021-12-09] MEDS: ATORVASTATIN 10 MG TAB PO SCH (20:55)
[2021-12-10] MEDS: AMPICILLIN-SULBACTAM 1.5 GM in SODIUM CHLORIDE 0.9% 50 ML IVPB SCH ×4 (00:16→23:16)
[2021-12-10] MEDS: LEVOTHYROXINE 50 MCG TAB PO SCH (06:01)
[2021-12-10] MEDS: SYMBICORT 80-4.5 MCG INHALER INHALATION SCH ×2 (08:08→19:43)
[2021-12-10] MEDS: ALBUTEROL NEBULIZED 2.5 MG/3 ML INHALATION SCH ×4 (08:08→19:43)
[2021-12-10] MEDS: RIVAROXABAN 15 MG TAB PO SCH (09:27)
[2021-12-10] MEDS: ASCORBIC ACID 500 MG TAB PO SCH (09:28)
[2021-12-10] MEDS: ZINC SULFATE 220 MG CAP PO SCH (09:28)
[2021-12-10] MEDS: MIDODRINE 5 MG TAB PO SCH ×3 (09:28→16:56)
[2021-12-10] MEDS: CHOLECALCIFEROL 25 MCG (1000 IU) TABLET PO SCH (09:28)
[2021-12-10] MEDS: METOPROLOL TARTRATE 25 MG TAB PO SCH ×3 (09:28→20:46)
[2021-12-10 09:33] LABS: Basophils # (A) 0.03 X 10*3/uL (0.00-0.10); Basophils % (A) 0.2 %; Eosinophils # (A) 0.39 X 10*3/uL (0.04-0.35); Eosinophils % (A) 3.2 %; HCT 37.1 % (39.6-50.0); HGB 11.9 g/dL (13.0-17.0); Immature Grans, Automated 0.5 %; Lymphocytes # (A) 0.78 X 10*3/uL (0.90-5.00); Lymphocytes % (A) 6.5 %; MCH 31.9 pg (27.0-32.0); MCHC 32.1 g/dL (32.0-37.0); MCV 99.5 fL (80.0-97.0); Mean Platelet Volume 12.7 fL (9.5-12.2); Monocytes # (A) 0.39 X 10*3/uL (0.20-1.00); Monocytes % (A) 3.2 %; NRBC Per 100 WBC 0 /100 WBCS (0.0-0.0); Neutrophils # (A) 10.43 X 10*3/uL (1.80-7.70); Neutrophils % (A) 86.4 %; Platelet Count 142 X 10*3/uL (140-440); RBC 3.73 X 10*6/uL (4.40-5.60); RDW 16.3 % (11.5-14.5); WBC 12.08 X 10*3/uL (4.50-10.00)
[2021-12-10 10:06] LABS: African American GFR (CKD) 32.3 (60.0-200.0); Anion Gap 13.7 mmol/L (10.00-18.00); BUN/Creat Ratio 35.45 Ratio (12.00-20.00); Blood Urea Nitrogen 74.1 mg/dL (9.0-27.0); Calcium 8.7 mg/dL (8.7-10.3); Carbon Dioxide 28.2 mmol/L (20.0-27.5); Magnesium 1.9 mg/dL (1.5-2.4); Non-African American GFR(CKD) 27.8 (60.0-200.0)
[2021-12-10] MEDS ORDERED: POTASSIUM CHLORIDE ER 20 MEQ TAB.ER PO STA (12:54)
--- NOTE | 2021-12-10 12:59 | P.PN ---
Subjective Progress Note Date: 12/10/21 Principal diagnosis: KOBE Patient's renal function is slightly worse today. Patient was given 1 dose of IV Lasix yesterday. Patient states that he does have a hard time coughing up sputum. He still feels short of breath. Objective - Vital Signs Vital signs: Vital Signs Temp 97.7 F 12/10/21 08:00 Pulse 92 12/10/21 12:36 Resp 19 12/10/21 08:00 BP 112/73 12/10/21 12:36 Pulse Ox 91 L 12/10/21 08:12 Intake & Output 12/09/21 12/10/21 12/10/21 18:59 06:59 18:59 Intake Total 390 Output Total 625 1400 Balance -235 -1400 Intake: Oral 390 Output: Urine 625 1400 Other: Voiding Method Indwelling Catheter Indwelling Catheter Indwelling Catheter - Exam General examination - Alert and Oriented 3 in NAD, appears chronically debilitated Heart - + S1S2 no murmurs Lungs -crackles in bilateral lower lungs Abdomen soft NT ND +ve BS Extremities - +1 pitting edema bilaterally 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 Psych - Calm and cooperative - Labs CBC & Chem 7: 12/10/21 04:35 12/10/21 04:35 Labs: Abnormal Lab Results - Last 24 Hours (Table) 12/10/21 12/10/21 Range/Units 04:35 04:35 WBC 12.08 H (4.50-10.00) X 10*3/uL RBC 3.73 L (4.40-5.60) X 10*6/uL Hgb 11.9 L (13.0-17.0) g/dL Hct 37.1 L (39.6-50.0) % MCV 99.5 H (80.0-97.0) fL RDW 16.3 H (11.5-14.5) % MPV 12.7 H (9.5-12.2) fL Immature Gran # 0.06 H (0.00-0.04) X 10*3/uL Neutrophils # 10.43 H (1.80-7.70) X 10*3/uL Lymphocytes # 0.78 L (0.90-5.00) X 10*3/uL Eosinophils # 0.39 H (0.04-0.35) X 10*3/uL Potassium 3.0 L (3.5-5.5) mmol/L Carbon Dioxide 28.2 H (20.0-27.5) mmol/L BUN 74.1 H (9.0-27.0) mg/dL Creatinine 2.1 H (0.6-1.5) mg/dL Est GFR (CKD-EPI)AfAm 32.3 L (60.0-200.0) Est GFR (CKD-EPI)NonAf 27.8 L (60.0-200.0) BUN/Creatinine Ratio 35.45 H (12.00-20.00) Ratio Microbiology - Last 24 Hours (Table) 12/07/21 13:45 Blood Culture - Preliminary Blood No Growth after 48 hours 12/07/21 13:38 Blood Culture - Preliminary Blood No Growth after 48 hours Assessment and Plan Assessment: Acute kidney injury on chronic kidney disease stage III -Baseline creatinine is 1.3 -Nephrology on board -Temporary dialysis catheter placed -Patient started on dialysis -Starks catheter -Hold nephrotoxic agents including diuretics -Patient started on midodine -Hemodialysis was stopped on 12/07/2021. Renal function was improving however i s is slightly worse today -Patient was given 1 dose of IV Lasix yesterday -Patient appears to be becoming volume overloaded since stopping dialysis. We'll check chest x-ray today Suspect aspiration pneumonia -WBC improving. Patient afebrile -Patient will be started on IV Unasyn -Blood cultures negative to date #Dysphagia -Swallow eval on board -Patient cleared for a mechanical soft thin liquid diet -Patient encouraged to eat more. #Lactic acidosis likely due to dehydration -Resolved #Syncope likely due to orthostatic hypotension #Non-ST elevation [place] #Paroxysmal atrial fibrillation Questionable history of coronary artery disease -Cardiology on board -Cardiology recommends outpatient event monitor -Cardiology has signed off -Resume metoprolol and Xarelto and statin -Heart rate is controlled this morning -Patient's blood pressures on the low side. He has been started on midodrine #Mild rhabdomyolysis secondary to prolonged time on the floor -Patient received IV fluids #Mild elevated LFTs -Trending down. Likely due to rhabdomyolysis COPD without exacerbation Coronary disease Hypertension Hypothyroidism -Stable. Resume current regimen DVT prophylaxis: Taurus Awaiting for nephrology to clear patient for discharge. Patient may need long- term hemodialysis since creatinine is worsening and he appears to be becoming volume overloaded since hemodialysis was stopped.
--- NOTE | 2021-12-10 13:36 | XR ---
EXAMINATION TYPE: XR chest 1V DATE OF EXAM: 12/10/2021 CLINICAL HISTORY: Difficulty breathing progress study. TECHNIQUE: Single AP portable upright view of the chest is obtained. COMPARISON: Chest x-ray from 2 days earlier and older studies. FINDINGS: Continued bilateral peripheral increased opacities. Stable cardiomegaly. No pneumothorax s een bilaterally. Multilevel spurring in the spine redemonstrated. IMPRESSION: Persistent bilateral multifocal edema and/or infiltrates on background lower lung parench ymal fibrotic changes. No significant change from most recent x-ray.
--- NOTE | 2021-12-10 14:29 | P.PN ---
Subjective Progress Note Date: 12/10/21 Follow-up for acute kidney injury. Family at bedside. Feels better. Denies any nausea vomiting or diarrhea. Urine output of 2025 ML's in the last 24 hours. One dose of Lasix 60 mg IV push yesterday. Objective - Vital Signs Vital signs: Vital Signs Temp 97.9 F 12/10/21 13:57 Pulse 104 H 12/10/21 13:57 Resp 18 12/10/21 13:57 BP 117/72 12/10/21 13:57 Pulse Ox 92 L 12/10/21 13:57 Intake & Output 12/09/21 12/10/21 12/10/21 18:59 06:59 18:59 Intake Total 390 Output Total 625 1400 Balance -235 -1400 Intake: Oral 390 Output: Urine 625 1400 Other: Voiding Method Indwelling Catheter Indwelling Catheter Indwelling Catheter # Voids 650 - Exam No acute distress S1-S2 heard Decreased breath sounds Trace edema - Labs CBC & Chem 7: 12/10/21 04:35 12/10/21 04:35 Labs: Abnormal Lab Results - Last 24 Hours (Table) 12/10/21 12/10/21 Range/Units 04:35 04:35 WBC 12.08 H (4.50-10.00) X 10*3/uL RBC 3.73 L (4.40-5.60) X 10*6/uL Hgb 11.9 L (13.0-17.0) g/dL Hct 37.1 L (39.6-50.0) % MCV 99.5 H (80.0-97.0) fL RDW 16.3 H (11.5-14.5) % MPV 12.7 H (9.5-12.2) fL Immature Gran # 0.06 H (0.00-0.04) X 10*3/uL Neutrophils # 10.43 H (1.80-7.70) X 10*3/uL Lymphocytes # 0.78 L (0.90-5.00) X 10*3/uL Eosinophils # 0.39 H (0.04-0.35) X 10*3/uL Potassium 3.0 L (3.5-5.5) mmol/L Carbon Dioxide 28.2 H (20.0-27.5) mmol/L BUN 74.1 H (9.0-27.0) mg/dL Creatinine 2.1 H (0.6-1.5) mg/dL Est GFR (CKD-EPI)AfAm 32.3 L (60.0-200.0) Est GFR (CKD-EPI)NonAf 27.8 L (60.0-200.0) BUN/Creatinine Ratio 35.45 H (12.00-20.00) Ratio Microbiology - Last 24 Hours (Table) 12/07/21 13:45 Blood Culture - Preliminary Blood No Growth after 48 hours 12/07/21 13:38 Blood Culture - Preliminary Blood No Growth after 48 hours Assessment and Plan Assessment: #1 acute kidney injury multifactorial ATN. On dialysis since 12/05/2021. #2 CK D stage III A secondary to nephrosclerosis with a baseline creatinine of 1.3 MG per DL. #3 A. fib with RVR #4 COPD #5 mild rhabdo #6 hypokalemia Plan: #1 renal function stable. Last hemodialysis on 12/07/2021. #2 monitor off hemodialysis for now. Still has right groin Jasper catheter. #3 replace potassium supplementation #4 if renal function continues to remain stable early next week, discontinue Jasper.
[2021-12-10] MEDS: ATORVASTATIN 10 MG TAB PO SCH (19:42)
[2021-12-10] MEDS: LATANOPROST 0.005% OPHTH DROPS 2.5 ML BTL BOTH EYES SCH (20:54)
[2021-12-11] MEDS: LEVOTHYROXINE 50 MCG TAB PO SCH (05:59)
[2021-12-11] MEDS: ZINC SULFATE 220 MG CAP PO SCH (07:43)
[2021-12-11] MEDS: MIDODRINE 5 MG TAB PO SCH ×3 (07:43→17:25)
[2021-12-11] MEDS: METOPROLOL TARTRATE 25 MG TAB PO SCH ×3 (07:43→20:33)
[2021-12-11] MEDS: CHOLECALCIFEROL 25 MCG (1000 IU) TABLET PO SCH (07:44)
[2021-12-11] MEDS: RIVAROXABAN 15 MG TAB PO SCH (07:44)
[2021-12-11] MEDS: ASCORBIC ACID 500 MG TAB PO SCH (07:44)
[2021-12-11] MEDS: AMPICILLIN-SULBACTAM 1.5 GM in SODIUM CHLORIDE 0.9% 50 ML IVPB SCH ×2 (07:44→15:37)
[2021-12-11] MEDS: ALBUTEROL NEBULIZED 2.5 MG/3 ML INHALATION SCH ×4 (08:34→19:48)
[2021-12-11] MEDS: SYMBICORT 80-4.5 MCG INHALER INHALATION SCH ×2 (08:34→19:48)
[2021-12-11 08:52] LABS: HGB 11.4 g/dL (13.0-17.0); MCHC 32.6 g/dL (32.0-37.0); MCV 98.3 fL (80.0-97.0); Mean Platelet Volume 12.2 fL (9.5-12.2); NRBC Per 100 WBC 0 /100 WBCS (0.0-0.0); Platelet Count 142 X 10*3/uL (140-440); RBC 3.56 X 10*6/uL (4.40-5.60); RDW 15.9 % (11.5-14.5); WBC 8.78 X 10*3/uL (4.50-10.00)
[2021-12-11 09:07] LABS: Anion Gap 11.9 mmol/L (10.00-18.00); BUN/Creat Ratio 37.26 Ratio (12.00-20.00); Blood Urea Nitrogen 62.6 mg/dL (9.0-27.0); Calcium 8.2 mg/dL (8.7-10.3); Carbon Dioxide 28.9 mmol/L (20.0-27.5); Magnesium 1.7 mg/dL (1.5-2.4); Non-African American GFR(CKD) 36.2 (60.0-200.0); Potassium 3.1 mmol/L (3.5-5.5)
[2021-12-11] MEDS ORDERED: POTASSIUM CHLORIDE ER 20 MEQ TAB.ER PO STA (09:41)
--- NOTE | 2021-12-11 10:00 | P.PN ---
Subjective Patient is seen in follow-up for acute kidney injury on chronic kidney disease. Underwent 2 hemodialysis treatments this admission. Last dialysis 12/06/2021. Creatinine 1.7 today. Nonoliguric. Blood pressure stable. Currently working with speech therapy. On chopped diet. Vital signs are stable. General: No acute distress. HEENT: Nasal cannula. LUNGS: Breath sounds decreased. HEART: Rate and Rhythm are regular. ABDOMEN: Soft, no distention. EXTREMITITES: No edema. Objective - Vital Signs Vital signs: Vital Signs Temp 97.8 F 12/11/21 08:00 Pulse 105 H 12/11/21 08:45 Resp 16 12/11/21 08:00 BP 121/71 12/11/21 08:00 Pulse Ox 94 L 12/11/21 08:34 FiO2 Intake & Output 12/10/21 12/11/21 12/11/21 18:59 06:59 18:59 Output Total 1300 Balance -1300 Output: Urine 1300 Other: Voiding Method Indwelling Catheter Indwelling Catheter Indwelling Catheter # Voids 650 - Labs CBC & Chem 7: 12/11/21 05:42 12/11/21 05:42 Labs: Abnormal Lab Results - Last 24 Hours (Table) 12/10/21 12/11/21 12/11/21 Range/Units 04:35 05:42 05:42 RBC 3.56 L (4.40-5.60) X 10*6/uL Hgb 11.4 L (13.0-17.0) g/dL Hct 35.0 L (39.6-50.0) % MCV 98.3 H (80.0-97.0) fL RDW 15.9 H (11.5-14.5) % Sodium 146 H (135-145) mmol/L Potassium 3.0 L 3.1 L (3.5-5.5) mmol/L Carbon Dioxide 28.2 H 28.9 H (20.0-27.5) mmol/L BUN 74.1 H 62.6 H (9.0-27.0) mg/dL Creatinine 2.1 H 1.7 H (0.6-1.5) mg/dL Est GFR (CKD-EPI)AfAm 32.3 L 42.0 L (60.0-200.0) Est GFR (CKD-EPI)NonAf 27.8 L 36.2 L (60.0-200.0) BUN/Creatinine Ratio 35.45 H 37.26 H (12.00-20.00) Ratio Calcium 8.2 L (8.7-10.3) mg/dL Microbiology - Last 24 Hours (Table) 12/07/21 13:45 Blood Culture - Preliminary Blood No Growth after 72 hours 12/07/21 13:38 Blood Culture - Preliminary Blood No Growth after 72 hours Assessment and Plan Plan: Assessment: 1. Acute kidney injury secondary to ATN. Started on dialysis 12/05/2021. Underwent 2 treatments of hemodialysis this admission. Last treatment 12/06/2021. Creatinine 1.7 today. Nonoliguric. 2. 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 3. Hypokalemia from poor intake. 4. Mild hypernatremia from lack of oral water intake. 5. Mild aortic stenosis and moderate tricuspid regurgitation on prior echo. 6. A. fib. Cardiology following. On metoprolol. Also on anticoagulation. 7. Pneumonia on antibiotics. On chopped diet due to dysphagia. Plan: Start D5W at 50 mL an hour. Encouraged oral intake. Replace potassium. Continue to hold off on dialysis. Will DC Jasper catheter later this week if renal function remains stable.
[2021-12-11] MEDS ORDERED: FUROSEMIDE 10 MG/ML 4 ML VIAL IV STA (10:10)
[2021-12-11] MEDS: DEXTROSE 5% IN WATER 1,000 ML IV SCH (10:20)
--- NOTE | 2021-12-11 10:49 | P.PN ---
Subjective Progress Note Date: 12/11/21 Principal diagnosis: KOBE I discussed the case with speech therapy. Patient is able to tolerate chopped diet well. Patient states that he still not feeling well. Patient does have poor oral intake. Nephrology did start the patient on D5 drip at 50 mL an hour. Patient's creatinine today is 1.7 and improving. Objective - Vital Signs Vital signs: Vital Signs Temp 97.8 F 12/11/21 08:00 Pulse 105 H 12/11/21 08:45 Resp 16 12/11/21 08:00 BP 121/71 12/11/21 08:00 Pulse Ox 94 L 12/11/21 08:34 FiO2 Intake & Output 12/10/21 12/11/21 12/11/21 18:59 06:59 18:59 Output Total 1300 Balance -1300 Output: Urine 1300 Other: Voiding Method Indwelling Catheter Indwelling Catheter Indwelling Catheter # Voids 650 - Exam General examination - Alert and Oriented 3 in NAD, appears chronically debil itated Heart - + S1S2 no murmurs Lungs -crackles in bilateral lower lungs Abdomen soft NT ND +ve BS Extremities - +1 pitting edema bilaterally 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 - Moving all 4 extremities spontaneously Psych - Calm and cooperative - Labs CBC & Chem 7: 12/11/21 05:42 12/11/21 05:42 Labs: Abnormal Lab Results - Last 24 Hours (Table) 12/11/21 12/11/21 Range/Units 05:42 05:42 RBC 3.56 L (4.40-5.60) X 10*6/uL Hgb 11.4 L (13.0-17.0) g/dL Hct 35.0 L (39.6-50.0) % MCV 98.3 H (80.0-97.0) fL RDW 15.9 H (11.5-14.5) % Sodium 146 H (135-145) mmol/L Potassium 3.1 L (3.5-5.5) mmol/L Carbon Dioxide 28.9 H (20.0-27.5) mmol/L BUN 62.6 H (9.0-27.0) mg/dL Creatinine 1.7 H (0.6-1.5) mg/dL Est GFR (CKD-EPI)AfAm 42.0 L (60.0-200.0) Est GFR (CKD-EPI)NonAf 36.2 L (60.0-200.0) BUN/Creatinine Ratio 37.26 H (12.00-20.00) Ratio Calcium 8.2 L (8.7-10.3) mg/dL Microbiology - Last 24 Hours (Table) 12/07/21 13:45 Blood Culture - Preliminary Blood No Growth after 72 hours 12/07/21 13:38 Blood Culture - Preliminary Blood No Growth after 72 hours Assessment and Plan Assessment: #Acute kidney injury on chronic kidney disease stage III #Acute hypoxic respiratory failure #Volume overload -Baseline creatinine is 1.3 -Nephrology on board -Temporary dialysis catheter placed -Patient started on dialysis -Starks catheter -Hold nephrotoxic agents including diuretics -Patient started on midodine -Hemodialysis was stopped on 12/07/2021. Renal function has been improving off dialysis. However continues to have persistent pulmonary edema on chest x-ray -defer diuretics to nephrology -Wean O2 as tolerated. Patient has been stable for liters nasal cannula for about a week. Suspect aspiration pneumonia -WBC resolved. Patient is afebrile -Patient will be started on IV Unasyn -Blood cultures negative to date #Dysphagia -Swallow eval on board -Patient cleared for a mechanical soft thin liquid diet -Patient encouraged to eat more. -Nephrology started the patient on D5 W fluids. #Lactic acidosis likely due to dehydration -Resolved #Syncope likely due to orthostatic hypotension #Non-ST elevation RI #Paroxysmal atrial fibrillation #Questionable history of coronary artery disease -Cardiology on board -Cardiology recommends outpatient event monitor -Cardiology has signed off -Resume metoprolol and Xarelto and statin -Heart rate is controlled this morning -Patient's blood pressures on the low side. He has been started on midodrine #Mild rhabdomyolysis secondary to prolonged time on the floor -Patient received IV fluids #Mild elevated LFTs -Trending down. Likely due to rhabdomyolysis COPD without exacerbation Coronary disease Hypertension Hypothyroidism -Stable. Resume current regimen DVT prophylaxis: Taurus Awaiting for nephrology to clear patient for discharge. He currently has a Jasper catheter. Patient will need to go to alf facility once medically cleared.
[2021-12-11 10:57] LABS: Basophils # (A) 0.02 X 10*3/uL (0.00-0.10); Basophils % (A) 0.2 %; Eosinophils # (A) 0.48 X 10*3/uL (0.04-0.35); Eosinophils % (A) 5.5 %; Immature Grans, Automated 0.5 %; Lymphocytes # (A) 0.84 X 10*3/uL (0.90-5.00); Lymphocytes % (A) 9.6 %; Monocytes % (A) 4.6 %; Neutrophils % (A) 79.6 %
[2021-12-11] MEDS: LATANOPROST 0.005% OPHTH DROPS 2.5 ML BTL BOTH EYES SCH (20:33)
[2021-12-11] MEDS: ATORVASTATIN 10 MG TAB PO SCH (20:33)
[2021-12-12] MEDS: AMPICILLIN-SULBACTAM 1.5 GM in SODIUM CHLORIDE 0.9% 50 ML IVPB SCH ×3 (00:12→16:41)
[2021-12-12] MEDS: DEXTROSE 5% IN WATER 1,000 ML IV SCH (05:43)
[2021-12-12] MEDS: LEVOTHYROXINE 50 MCG TAB PO SCH (05:43)
[2021-12-12] MEDS: METOPROLOL TARTRATE 25 MG TAB PO SCH ×3 (07:50→22:54)
[2021-12-12] MEDS: CHOLECALCIFEROL 25 MCG (1000 IU) TABLET PO SCH (07:50)
[2021-12-12] MEDS: MIDODRINE 5 MG TAB PO SCH ×3 (07:50→16:41)
[2021-12-12] MEDS: ZINC SULFATE 220 MG CAP PO SCH (07:51)
[2021-12-12] MEDS: ASCORBIC ACID 500 MG TAB PO SCH (07:51)
[2021-12-12] MEDS: RIVAROXABAN 15 MG TAB PO SCH (07:51)
[2021-12-12] MEDS: ALBUTEROL NEBULIZED 2.5 MG/3 ML INHALATION SCH ×4 (08:46→19:50)
[2021-12-12] MEDS: SYMBICORT 80-4.5 MCG INHALER INHALATION SCH ×2 (08:46→19:50)
[2021-12-12 09:19] LABS: Basophils # (A) 0.02 X 10*3/uL (0.00-0.10); Basophils % (A) 0.2 %; Eosinophils # (A) 0.58 X 10*3/uL (0.04-0.35); Eosinophils % (A) 6.6 %; HCT 33.5 % (39.6-50.0); Immature Grans, Automated 0.6 %; Lymphocytes # (A) 0.93 X 10*3/uL (0.90-5.00); Lymphocytes % (A) 10.6 %; MCH 32.1 pg (27.0-32.0); MCHC 32.8 g/dL (32.0-37.0); MCV 97.7 fL (80.0-97.0); Mean Platelet Volume 12.3 fL (9.5-12.2); Monocytes % (A) 4.6 %; NRBC Per 100 WBC 0 /100 WBCS (0.0-0.0); Neutrophils # (A) 6.76 X 10*3/uL (1.80-7.70); Neutrophils % (A) 77.4 %; Platelet Count 145 X 10*3/uL (140-440); RBC 3.43 X 10*6/uL (4.40-5.60); RDW 15.8 % (11.5-14.5); WBC 8.74 X 10*3/uL (4.50-10.00)
[2021-12-12 09:30] LABS: African American GFR (CKD) 48.2 (60.0-200.0); Anion Gap 9.1 mmol/L (10.00-18.00); BUN/Creat Ratio 35.47 Ratio (12.00-20.00); Blood Urea Nitrogen 53.2 mg/dL (9.0-27.0); Calcium 8.2 mg/dL (8.7-10.3); Carbon Dioxide 30.9 mmol/L (20.0-27.5); Magnesium 1.5 mg/dL (1.5-2.4); Non-African American GFR(CKD) 41.6 (60.0-200.0); Potassium 2.9 mmol/L (3.5-5.5)
[2021-12-12] MEDS ORDERED: POTASSIUM CHLORIDE ER 20 MEQ TAB.ER PO STA (11:35)
--- NOTE | 2021-12-12 12:34 | P.PN ---
Subjective Patient is seen in follow-up for acute kidney injury on chronic kidney disease. Underwent 2 hemodialysis treatments this admission. Last dialysis 12/06/2021. Creatinine 1.5 today. Nonoliguric. Blood pressure stable. No active complaints. Vital signs are stable. General: No acute distress. HEENT: Nasal cannula. LUNGS: Breath sounds decreased. HEART: Rate and Rhythm are regular. ABDOMEN: Soft, no distention. EXTREMITITES: No edema. Objective - Vital Signs Vital signs: Vital Signs Temp 97.9 F 12/12/21 07:16 Pulse 104 H 12/12/21 12:20 Resp 16 12/12/21 07:16 BP 111/69 12/12/21 07:16 Pulse Ox 97 12/12/21 07:16 FiO2 Intake & Output 12/11/21 12/12/21 12/12/21 18:59 06:59 18:59 Output Total 1300 1200 Balance -1300 -1200 Output: Urine 1300 1200 Other: Voiding Method Indwelling Catheter Indwelling Catheter Indwelling Catheter - Labs CBC & Chem 7: 12/12/21 06:27 12/12/21 06:27 Labs: Abnormal Lab Results - Last 24 Hours (Table) 12/12/21 12/12/21 Range/Units 06:27 06:27 RBC 3.43 L (4.40-5.60) X 10*6/uL Hgb 11.0 L (13.0-17.0) g/dL Hct 33.5 L (39.6-50.0) % MCV 97.7 H (80.0-97.0) fL MCH 32.1 H (27.0-32.0) pg RDW 15.8 H (11.5-14.5) % MPV 12.3 H (9.5-12.2) fL Immature Gran # 0.05 H (0.00-0.04) X 10*3/uL Eosinophils # 0.58 H (0.04-0.35) X 10*3/uL Potassium 2.9 L (3.5-5.5) mmol/L Carbon Dioxide 30.9 H (20.0-27.5) mmol/L Anion Gap 9.10 L (10.00-18.00) mmol/L BUN 53.2 H (9.0-27.0) mg/dL Est GFR (CKD-EPI)AfAm 48.2 L (60.0-200.0) Est GFR (CKD-EPI)NonAf 41.6 L (60.0-200.0) BUN/Creatinine Ratio 35.47 H (12.00-20.00) Ratio Calcium 8.2 L (8.7-10.3) mg/dL Microbiology - Last 24 Hours (Table) 12/11/21 15:00 Sputum Culture - Preliminary Sputum 12/07/21 13:38 Blood Culture - Preliminary Blood No Growth after 96 hours 12/07/21 13:45 Blood Culture - Preliminary Blood No Growth after 96 hours Assessment and Plan Plan: Assessment: 1. Acute kidney injury secondary to hemodynamic ATN/infection. Started on dialysis 12/05/2021. Underwent 2 treatments of hemodialysis this admission. Last treatment 12/06/2021. Creatinine 1.5 today. Nonoliguric. 2. 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 3. Hypokalemia from poor intake. 4. Mild hypernatremia from lack of oral water intake. Improved with D5W. 5. Mild aortic stenosis and moderate tricuspid regurgitation on prior echo. 6. A. fib. Cardiology following. On metoprolol. Also on anticoagulation. 7. Pneumonia on antibiotics. On chopped diet due to dysphagia. 8. Hypomagnesemia from poor intake. Plan: Hep-Lock IV fluids. Replace potassium and magnesium. Encouraged oral intake. Add oral Lasix 40 mg once daily. Hold midodrine for systolic blood pressure greater than 110. No further need for renal replacement therapy. Discontinue Jasper catheter. Repeat BMP and magnesium level 2-3 days postdischarge. Follow up outpatient in 1 week.
--- NOTE | 2021-12-12 13:21 | P.PN ---
Subjective Progress Note Date: 12/12/21 Lethargic, on dialysis. No chest pain, no abdominal pain, no nausea or vomiting Objective - Vital Signs Vital signs: Vital Signs Temp 97.9 F 12/12/21 07:16 Pulse 104 H 12/12/21 12:20 Resp 16 12/12/21 07:16 BP 111/69 12/12/21 07:16 Pulse Ox 97 12/12/21 07:16 FiO2 Intake & Output 12/11/21 12/12/21 12/12/21 18:59 06:59 18:59 Output Total 1300 1200 Balance -1300 -1200 Output: Urine 1300 1200 Other: Voiding Method Indwelling Catheter Indwelling Catheter Indwelling Catheter - Exam General: No acute distress, on hemodialysis. HEENT: Nasal cannula. LUNGS: Breath sounds decreased. HEART: Rate and Rhythm are regular. ABDOMEN: Soft, no distention. Nontender EXTREMITITES: No edema. - Labs CBC & Chem 7: 12/12/21 06:27 12/12/21 06:27 Labs: Abnormal Lab Results - Last 24 Hours (Table) 12/12/21 12/12/21 Range/Units 06:27 06:27 RBC 3.43 L (4.40-5.60) X 10*6/uL Hgb 11.0 L (13.0-17.0) g/dL Hct 33.5 L (39.6-50.0) % MCV 97.7 H (80.0-97.0) fL MCH 32.1 H (27.0-32.0) pg RDW 15.8 H (11.5-14.5) % MPV 12.3 H (9.5-12.2) fL Immature Gran # 0.05 H (0.00-0.04) X 10*3/uL Eosinophils # 0.58 H (0.04-0.35) X 10*3/uL Potassium 2.9 L (3.5-5.5) mmol/L Carbon Dioxide 30.9 H (20.0-27.5) mmol/L Anion Gap 9.10 L (10.00-18.00) mmol/L BUN 53.2 H (9.0-27.0) mg/dL Est GFR (CKD-EPI)AfAm 48.2 L (60.0-200.0) Est GFR (CKD-EPI)NonAf 41.6 L (60.0-200.0) BUN/Creatinine Ratio 35.47 H (12.00-20.00) Ratio Calcium 8.2 L (8.7-10.3) mg/dL Microbiology - Last 24 Hours (Table) 12/11/21 15:00 Gram Stain - Preliminary Sputum Sputum Culture - Preliminary 12/07/21 13:38 Blood Culture - Preliminary Blood No Growth after 96 hours 12/07/21 13:45 Blood Culture - Preliminary Blood No Growth after 96 hours Assessment and Plan Plan: #Acute kidney injury on chronic kidney disease stage III #Acute hypoxic respiratory failure #Volume overload -Baseline creatinine is 1.3 -Nephrology on board -Temporary dialysis catheter placed, Jasper cath -Patient started on dialysis, continue renal replacement therapy. -Starks catheter -Hold nephrotoxic agents including diuretics -Patient started on midodine Continues to be on Lasix. Suspect aspiration pneumonia -WBC resolved. Patient is afebrile on IV Unasyn #Dysphagia -Swallow eval on board -Patient cleared for a mechanical soft thin liquid diet #Lactic acidosis likely due to dehydration -Resolved #Syncope likely due to orthostatic hypotension #Non-ST elevation [place] #Paroxysmal atrial fibrillation #Questionable history of coronary artery disease -Cardiology on board -Cardiology recommends outpatient event monitor -Cardiology has signed off -Resume metoprolol and Xarelto and statin -Heart rate is controlled this morning -Patient's blood pressures on the low side. He has been started on midodrine #Mild rhabdomyolysis secondary to prolonged time on the floor -Patient received IV fluids #Mild elevated LFTs -Trending down. Likely due to rhabdomyolysis COPD without exacerbation Coronary disease Hypertension Hypothyroidism -Stable. Resume current regimen Weakness: Continue PT OT DVT prophylaxis: Xarelto Peer to peer regarding placement. This was denied. Appreciate case management/licensed clinical social worker input. Continue to pursue placement.
[2021-12-12] MEDS: FUROSEMIDE 40 MG TAB PO SCH (13:46)
[2021-12-12] MEDS: MAGNESIUM SULFATE-D5W PMX 1 GM in DEXTROSE/WATER 1 100ML.BAG IVPB SCH ×2 (14:30→15:32)
[2021-12-12 14:37] VITALS: BMI 26.5
--- NOTE | 2021-12-12 15:14 | P.DS ---
Providers Date of admission: 12/01/21 17:00 Expected date of discharge: 12/12/21 Attending physician: Nova Ayers MD Consults: 12/01/21 16:54 Consult Physician Routine Consulting Provider: Sophia Jose Consult Reason/Comments: michela Do you want consulting provider notified?: Already Contacted 12/04/21 09:02 Consult Physician Routine Consulting Provider: Jasmeet Green Consult Reason/Comments: temporary HD port; on xeralto did receive this morning 12/04/21 Do you want consulting provider notified?: Yes Primary care physician: Matteo Chase MD Hospital Course: Diagnoses upon discharge #Acute kidney injury on chronic kidney disease stage III #Acute hypoxic respiratory failure #Volume overload Suspect aspiration pneumonia #Dysphagia #Lactic acidosis likely due to dehydration #Syncope likely due to orthostatic hypotension #Non-ST elevation [place] #Paroxysmal atrial fibrillation #Questionable history of coronary artery disease #Mild rhabdomyolysis secondary to prolonged time on the floor #Mild elevated LFTs COPD without exacerbation Coronary disease Hypertension Hypothyroidism -Stable. Weakness: HPI: 85-year-old man with medical history of hypothyroidism, CAD, hypertension, hyperlipidemia, COPD, chronic kidney disease stage III presented after being found down. Patient does not remember how or why he was on the ground. How ever, patient's neighbors became concerned when they had not seen the patient in a couple days, therefore they did a wellness check and found the patient had been lying on the ground for proximally 48 hours. The called emergency medical services and patient was brought in by ambulance. The patient has bruises on his face as well as the front of his chest and abdomen, as he was lying on his belly for those 2 days. Patient declines having any pain. He also denies fevers, chills, nausea, vomiting, chest pain, palpitations, cough, dyspnea, abdominal pain, constipation, diarrhea, dysuria, dyschezia, numbness/weakness of extremities. In the emergency room, patient is afebrile, 101/90, heart rate 131, 98% on 2 L nasal cannula. CBC is significant for leukocytosis to 17.8, hemoglobin of 17.9, platelet count of 66. Chemistries show hypokalemia to 3.1, BUN/creatinine of 166/5.14, anion gap of 22. Serum osmolality is elevated at 359. Lactic acid was 3.3. LFTs are remarkable for total bilirubin of 3.2, AST/ALT of 168/86. Creatinine kinase is 822. Initial troponin was 0.165, BNP was 10,000. Tylenol, alcohol level, salicylate level was low. Patient's had/cervical spine CT was negative for fracture. CT of the chest/abdomen/pelvis shows small left pleural effusion and mild emphysematous changes, 4 mm nonobstructing left renal calcification. Chest x-ray demonstrates chronic changes without evidence of acute disease. Patient's EKG demonstrates paroxysmal atrial fibrillation with rapid ventricular response as well as a right bundle branch block. Hospital course and treatment: Patient was admitted to the hospital with acute kidney injury on chronic kidney disease, acute kidney injury multifactorial, he required dialysis temporarily but renal function improved. Dialysis catheter to be removed. Patient creatinine down to 1.5 Discharge. He continued to have hypokalemia which was replaced. He had volume overload and was continued on diuretics including Aldactone and metolazone and Lasix. He was found to have aspiration pneumonia and was treated with Unasyn. Dysphagia evaluated and patient tolerating diet. Patient had coronary artery disease with mild troponin elevation likely associated with non-ST segment elevation want. His proximally fibrillation. He had mild rhabdomyolysis secondary to prolonged time on the floor. He continued to gradually improve and by the time of discharge he feels better. He will be discharged to rehab. Patient Condition at Discharge: Fair Plan - Discharge Summary Discharge Rx Participant: Yes New Discharge Prescriptions: New Midodrine [ProAmatine] 10 mg PO AC-TID #90 tab Metoprolol Tartrate [Lopressor] 25 mg PO TID 30 Days #90 tab Continue Albuterol Inhaler [Ventolin Hfa Inhaler] 2 puff INHALATION RT-QID PRN PRN Reason: Shortness Of Breath Latanoprost/Pf [Latanoprost 0.005% Eye Drop] 1 drop BOTH EYES HS Potassium Chloride ER [K-Dur 20] 20 meq PO HS Spironolactone 25 mg PO DAILY Simvastatin [Zocor] 20 mg PO HS Zinc 50 mg PO DAILY Cholecalciferol [Vitamin D3 (25 Mcg = 1000 Iu)] 50 mcg PO DAILY Ascorbic Acid [Vitamin C] 500 mg PO DAILY Rivaroxaban [Xarelto] 15 mg PO DAILY Fluticasone/Umeclidin/Vilanter [Trelegy Ellipta 100-62.5-25] 1 puff INHALATION RT-DAILY Levothyroxine Sodium [Synthroid] 50 mcg PO DAILY Albuterol Nebulized [Ventolin Nebulized] 2.5 mg INHALATION RT-BID metOLazone 2.5 mg PO MOWEFR Furosemide [Lasix] 20 mg PO DAILY@1400 Discontinued Furosemide [Lasix] 40 mg PO DAILY 30 Days #30 tablet No Action Potassium Chloride ER [K-Dur 20] 40 meq PO DAILY Discharge Medication List Simvastatin [Zocor] 20 mg PO HS 11/26/20 [History] Ascorbic Acid [Vitamin C] 500 mg PO DAILY 02/11/21 [History] Cholecalciferol [Vitamin D3 (25 Mcg = 1000 Iu)] 50 mcg PO DAILY 02/11/21 [History] Zinc 50 mg PO DAILY 02/11/21 [History] Albuterol Inhaler [Ventolin Hfa Inhaler] 2 puff INHALATION RT-QID PRN 06/19/21 [History] Albuterol Nebulized [Ventolin Nebulized] 2.5 mg INHALATION RT-BID 06/19/21 [History] Fluticasone/Umeclidin/Vilanter [Trelegy Ellipta 100-62.5-25] 1 puff INHALATION RT-DAILY 06/19/21 [History] Levothyroxine Sodium [Synthroid] 50 mcg PO DAILY 06/19/21 [History] Rivaroxaban [Xarelto] 15 mg PO DAILY 06/19/21 [History] Latanoprost/Pf [Latanoprost 0.005% Eye Drop] 1 drop BOTH EYES HS 06/20/21 [History] Potassium Chloride ER [K-Dur 20] 20 meq PO HS 08/08/21 [History] Furosemide [Lasix] 20 mg PO DAILY@1400 12/01/21 [History] Potassium Chloride ER [K-Dur 20] 40 meq PO DAILY 12/01/21 [History] Spironolactone 25 mg PO DAILY 12/01/21 [History] metOLazone 2.5 mg PO MOWEFR 12/01/21 [History] Metoprolol Tartrate [Lopressor] 25 mg PO TID 30 Days #90 tab 12/12/21 [Rx] Midodrine [ProAmatine] 10 mg PO AC-TID #90 tab 12/12/21 [Rx] Follow up Appointment(s)/Referral(s): Matteo Chase MD [Primary Care Provider] - 1-2 days [facility] [NON-STAFF] - As Needed Discharge Disposition: TRANSFER TO SNF/ECF
--- NOTE | 2021-12-12 15:25 | PCN ---
PROCEDURE NOTE PREOP DIAGNOSIS: Acute on chronic renal failure. PROCEDURE: Removal of the dialysis catheter right femoral approach. DESCRIPTION OF PROCEDURE: The patient was seen in his room. Right groin was prepped and drapes applied in a sterile manner. The stitches were removed. Catheter was removed. Pressure was held. Pressure dressing applied. Patient tolerated the procedure well. JEANNINE / MARCY: [id number] /
[2021-12-12] MEDS: ATORVASTATIN 10 MG TAB PO SCH ×2 (20:48→20:57)
[2021-12-12] MEDS: LATANOPROST 0.005% OPHTH DROPS 2.5 ML BTL BOTH EYES SCH (20:57)
[2021-12-12] MEDS: ACETAMINOPHEN TAB 325 MG TAB PO PRN (22:19)
[2021-12-13] MEDS: AMPICILLIN-SULBACTAM 1.5 GM in SODIUM CHLORIDE 0.9% 50 ML IVPB SCH ×3 (00:52→16:02)
[2021-12-13] MEDS: LEVOTHYROXINE 50 MCG TAB PO SCH (06:52)
[2021-12-13] MEDS: ALBUTEROL NEBULIZED 2.5 MG/3 ML INHALATION SCH ×3 (08:36→16:15)
[2021-12-13] MEDS: SYMBICORT 80-4.5 MCG INHALER INHALATION SCH (08:36)
[2021-12-13] MEDS: FUROSEMIDE 40 MG TAB PO SCH (09:19)
[2021-12-13] MEDS: ASCORBIC ACID 500 MG TAB PO SCH (09:19)
[2021-12-13] MEDS: ZINC SULFATE 220 MG CAP PO SCH (09:19)
[2021-12-13] MEDS: RIVAROXABAN 15 MG TAB PO SCH (09:20)
[2021-12-13] MEDS: MIDODRINE 5 MG TAB PO SCH ×3 (09:20→16:59)
[2021-12-13] MEDS: METOPROLOL TARTRATE 25 MG TAB PO SCH ×2 (09:20→16:59)
[2021-12-13] MEDS: CHOLECALCIFEROL 25 MCG (1000 IU) TABLET PO SCH (09:20)
[2021-12-13 09:23] LABS: HCT 32.2 % (39.6-50.0); HGB 10.2 g/dL (13.0-17.0); MCH 31.5 pg (27.0-32.0); MCHC 31.7 g/dL (32.0-37.0); MCV 99.4 fL (80.0-97.0); Mean Platelet Volume 12.3 fL (9.5-12.2); NRBC Per 100 WBC 0 /100 WBCS (0.0-0.0); Platelet Count 146 X 10*3/uL (140-440); RBC 3.24 X 10*6/uL (4.40-5.60); RDW 15.8 % (11.5-14.5); WBC 6.74 X 10*3/uL (4.50-10.00)
[2021-12-13 10:07] LABS: African American GFR (CKD) 48.2 (60.0-200.0); Albumin/Globulin Ratio 0.69 (1.60-3.17); Anion Gap 7.7 mmol/L (10.00-18.00); BUN/Creat Ratio 32.53 Ratio (12.00-20.00); Blood Urea Nitrogen 48.8 mg/dL (9.0-27.0); Calcium 8.1 mg/dL (8.7-10.3); Carbon Dioxide 30.3 mmol/L (20.0-27.5); Globulin 2.9 g/dL (1.6-3.3); Magnesium 1.8 mg/dL (1.5-2.4); Non-African American GFR(CKD) 41.6 (60.0-200.0); Potassium 3.1 mmol/L (3.5-5.5); Total Bilirubin 1.4 mg/dL (0.30-1.20); Total Protein 4.9 g/dL (6.2-8.2)
[2021-12-13] MEDS: POTASSIUM CHLORIDE ER 20 MEQ TAB.ER PO SCH ×3 (10:52→10:54)
--- NOTE | 2021-12-13 11:00 | P.PN ---
Subjective Patient is seen in follow-up for acute kidney injury on chronic kidney disease. Underwent 2 hemodialysis treatments this admission. Last dialysis 12/06/2021. Creatinine stable at 1.5 today. Nonoliguric. Blood pressure on the lower side. Oral intake better. No active complaints. Vital signs are stable. General: No acute distress. HEENT: Nasal cannula. LUNGS: Breath sounds decreased. HEART: Rate and Rhythm are regular. ABDOMEN: Soft, no distention. EXTREMITITES: No edema. Objective - Vital Signs Vital signs: Vital Signs Temp 98.6 F 12/13/21 07:32 Pulse 106 H 12/13/21 08:48 Resp 18 12/13/21 07:32 BP 106/66 12/13/21 07:32 Pulse Ox 95 12/13/21 08:38 FiO2 Intake & Output 12/12/21 12/13/21 12/13/21 18:59 06:59 18:59 Intake Total 1080 Output Total 900 800 Balance 180 -800 Weight 84 kg Intake: Oral 1080 Output: Urine 900 800 Other: Voiding Method Indwelling Catheter Indwelling Catheter # Bowel Movements 1 - Labs CBC & Chem 7: 12/13/21 05:38 12/13/21 05:38 Labs: Abnormal Lab Results - Last 24 Hours (Table) 12/13/21 12/13/21 Range/Units 05:38 05:38 RBC 3.24 L (4.40-5.60) X 10*6/uL Hgb 10.2 L (13.0-17.0) g/dL Hct 32.2 L (39.6-50.0) % MCV 99.4 H (80.0-97.0) fL MCHC 31.7 L (32.0-37.0) g/dL RDW 15.8 H (11.5-14.5) % MPV 12.3 H (9.5-12.2) fL Potassium 3.1 L (3.5-5.5) mmol/L Carbon Dioxide 30.3 H (20.0-27.5) mmol/L Anion Gap 7.70 L (10.00-18.00) mmol/L BUN 48.8 H (9.0-27.0) mg/dL Est GFR (CKD-EPI)AfAm 48.2 L (60.0-200.0) Est GFR (CKD-EPI)NonAf 41.6 L (60.0-200.0) BUN/Creatinine Ratio 32.53 H (12.00-20.00) Ratio Calcium 8.1 L (8.7-10.3) mg/dL Total Bilirubin 1.40 H (0.30-1.20) mg/dL AST 44 H (14-35) U/L Alkaline Phosphatase 239 H (41-126) U/L Total Protein 4.9 L (6.2-8.2) g/dL Albumin 2.0 L (3.8-4.9) g/dL Albumin/Globulin Ratio 0.69 L (1.60-3.17) g/dL Microbiology - Last 24 Hours (Table) 12/11/21 15:00 Gram Stain - Preliminary Sputum Sputum Culture - Preliminary Liliya albicans 12/07/21 13:45 Blood Culture - Preliminary Blood No Growth after 120 hours 12/07/21 13:38 Blood Culture - Preliminary Blood No Growth after 120 hours Assessment and Plan Plan: Assessment: 1. Acute kidney injury secondary to hemodynamic ATN/infection. Started on dialysis 12/05/2021. Underwent 2 treatments of hemodialysis this admission. Last treatment 12/06/2021. Creatinine 1.5 today. Nonoliguric. 2. 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 3. Hypokalemia from poor intake and diuresis. 4. Mild hypernatremia from lack of oral water intake. Improved with D5W. 5. Mild aortic stenosis and moderate tricuspid regurgitation on prior echo. 6. A. fib. Cardiology following. On metoprolol. Also on anticoagulation. 7. Pneumonia on antibiotics. On chopped diet due to dysphagia. 8. Hypomagnesemia from poor intake. Replaced. Improved. Plan: Potassium being replaced. Encouraged oral intake. Maintain oral Lasix 40 mg once daily. Hold midodrine for systolic blood pressure greater than 110. No further need for renal replacement therapy. Jasper catheter discontinued. Repeat BMP and magnesium level 2-3 days postdischarge. Follow up outpatient in 1 week.
[2021-12-13] MEDS: POTASSIUM CHLORIDE 10 MEQ in WATER FOR INJECTION 1 100ML.BAG IVPB SCH ×2 (11:14→12:22)
--- NOTE | 2021-12-13 11:31 | XR ---
EXAMINATION TYPE: XR chest 1V portable DATE OF EXAM: 12/13/2021 COMPARISON: 12/10/2021 INDICATION: Cough TECHNIQUE: Single frontal view of the chest is obtained. FINDINGS: The heart size is normal. The pulmonary vasculature is normal. There is an infiltrate through the right lateral and upper lung field. Some scattered infiltrate is o n the left. Findings are slightly improved over the interval. Continued follow-up is recommended IMPRESSION: 1. Right upper and midlung and left lower lung field infiltrates, improving. Correlate for pneumonia. Follow-up to clearing is recommended.
[2021-12-13 11:34] LABS: Basophils # (A) 0.02 X 10*3/uL (0.00-0.10); Basophils % (A) 0.3 %; Eosinophils % (A) 5.9 %; Immature Grans, Automated 0.4 %; Lymphocytes # (A) 0.93 X 10*3/uL (0.90-5.00); Lymphocytes % (A) 13.8 %; Monocytes # (A) 0.36 X 10*3/uL (0.20-1.00); Monocytes % (A) 5.3 %; Neutrophils % (A) 74.3 %; RBC Morphology NORMAL
--- NOTE | 2021-12-13 14:00 | P.DS ---
Providers Date of admission: 12/01/21 17:00 Expected date of discharge: 12/13/21 Attending physician: Nova Ayers MD Consults: 12/01/21 16:54 Consult Physician Routine Consulting Provider: Sophia Jose Consult Reason/Comments: michela Do you want consulting provider notified?: Already Contacted 12/04/21 09:02 Consult Physician Routine Consulting Provider: Jasmeet Green Consult Reason/Comments: temporary HD port; on xeralto did receive this morning 12/04/21 Do you want consulting provider notified?: Yes Primary care physician: Matteo Chase MD Hospital Course: Diagnoses upon discharge #Acute kidney injury on chronic kidney disease stage III #Acute hypoxic respiratory failure #Volume overload Suspect aspiration pneumonia #Dysphagia #Lactic acidosis likely due to dehydration #Syncope likely due to orthostatic hypotension #Non-ST elevation [place] #Paroxysmal atrial fibrillation #Questionable history of coronary artery disease #Mild rhabdomyolysis secondary to prolonged time on the floor #Mild elevated LFTs COPD without exacerbation Coronary disease Hypertension Hypothyroidism -Stable. Weakness: HPI: 85-year-old man with medical history of hypothyroidism, CAD, hypertension, hyperlipidemia, COPD, chronic kidney disease stage III presented after being found down. Patient does not remember how or why he was on the ground. How ever, patient's neighbors became concerned when they had not seen the patient in a couple days, therefore they did a wellness check and found the patient had been lying on the ground for proximally 48 hours. The called emergency medical services and patient was brought in by ambulance. The patient has bruises on his face as well as the front of his chest and abdomen, as he was lying on his belly for those 2 days. Patient declines having any pain. He also denies fevers, chills, nausea, vomiting, chest pain, palpitations, cough, dyspnea, abdominal pain, constipation, diarrhea, dysuria, dyschezia, numbness/weakness of extremities. In the emergency room, patient is afebrile, 101/90, heart rate 131, 98% on 2 L nasal cannula. CBC is significant for leukocytosis to 17.8, hemoglobin of 17.9, platelet count of 66. Chemistries show hypokalemia to 3.1, BUN/creatinine of 166/5.14, anion gap of 22. Serum osmolality is elevated at 359. Lactic acid was 3.3. LFTs are remarkable for total bilirubin of 3.2, AST/ALT of 168/86. Creatinine kinase is 822. Initial troponin was 0.165, BNP was 10,000. Tylenol, alcohol level, salicylate level was low. Patient's had/cervical spine CT was negative for fracture. CT of the chest/abdomen/pelvis shows small left pleural effusion and mild emphysematous changes, 4 mm nonobstructing left renal calcification. Chest x-ray demonstrates chronic changes without evidence of acute disease. Patient's EKG demonstrates paroxysmal atrial fibrillation with rapid ventricular response as well as a right bundle branch block. Hospital course and treatment: Patient was admitted to the hospital with acute kidney injury on chronic kidney disease, acute kidney injury multifactorial, he required dialysis temporarily but renal function improved. Dialysis catheter to be removed. Patient creatinine down to 1.5 Discharge. He continued to have hypokalemia which was replaced. He had volume overload and was continued on diuretics including Aldactone and metolazone and Lasix. He was found to have aspiration pneumonia and was treated with Unasyn. Dysphagia evaluated and patient tolerating diet. Patient had coronary artery disease with mild troponin elevation likely associated with non-ST segment elevation want. His proximally fibrillation. He had mild rhabdomyolysis secondary to prolonged time on the floor. He continued to gradually improve and by the time of discharge he feels better. He will be discharged to rehab. I spent 40 minutes coordinating this discharge Gen: awake, alert HEENT: normocephalic, atraumatic, good hearing acuity, moist mucous membranes Resp: good air exchange, breathing comfortably with no accessory muscle use CVS: good distal perfusion x 4, GI: soft, NTTP, ND : no SPT, no CVAT, jama catheter not present MSK: no pitting edema, no clubbing Neuro: non-focal, moving all extremities Psych: cooperative, euthymic mood Patient Condition at Discharge: Good Plan - Discharge Summary Discharge Rx Participant: Yes New Discharge Prescriptions: New RX: Midodrine [ProAmatine] 10 mg PO AC-TID #90 tab RX: Metoprolol Tartrate [Lopressor] 25 mg PO TID 30 Days #90 tab Continue RX: Albuterol Inhaler [Ventolin Hfa Inhaler] 2 puff INHALATION RT-QID PRN PRN Reason: Shortness Of Breath RX: Latanoprost/Pf [Latanoprost 0.005% Eye Drop] 1 drop BOTH EYES HS RX: Spironolactone 25 mg PO DAILY RX: Simvastatin [Zocor] 20 mg PO HS RX: Zinc 50 mg PO DAILY RX: Cholecalciferol [Vitamin D3 (25 Mcg = 1000 Iu)] 50 mcg PO DAILY RX: Ascorbic Acid [Vitamin C] 500 mg PO DAILY RX: Rivaroxaban [Xarelto] 15 mg PO DAILY RX: Fluticasone/Umeclidin/Vilanter [Trelegy Ellipta 100-62.5-25] 1 puff INHALATION RT-DAILY RX: Levothyroxine Sodium [Synthroid] 50 mcg PO DAILY RX: Albuterol Nebulized [Ventolin Nebulized] 2.5 mg INHALATION RT-BID RX: metOLazone 2.5 mg PO MOWEFR RX: Furosemide [Lasix] 20 mg PO DAILY@1400 Changed RX: Potassium Chloride ER [K-Dur 20] 40 meq PO HS #60 tab Discontinued Furosemide [Lasix] 40 mg PO DAILY 30 Days #30 tablet Potassium Chloride ER [K-Dur 20] 40 meq PO DAILY Discharge Medication List RX: Simvastatin [Zocor] 20 mg PO HS 11/26/20 [History] RX: Ascorbic Acid [Vitamin C] 500 mg PO DAILY 02/11/21 [History] RX: Cholecalciferol [Vitamin D3 (25 Mcg = 1000 Iu)] 50 mcg PO DAILY 02/11/21 [History] RX: Zinc 50 mg PO DAILY 02/11/21 [History] RX: Albuterol Inhaler [Ventolin Hfa Inhaler] 2 puff INHALATION RT-QID PRN 06/19/21 [History] RX: Albuterol Nebulized [Ventolin Nebulized] 2.5 mg INHALATION RT-BID 06/19/21 [History] RX: Fluticasone/Umeclidin/Vilanter [Trelegy Ellipta 100-62.5-25] 1 puff INHALATION RT-DAILY 06/19/21 [History] RX: Levothyroxine Sodium [Synthroid] 50 mcg PO DAILY 06/19/21 [History] RX: Rivaroxaban [Xarelto] 15 mg PO DAILY 06/19/21 [History] RX: Latanoprost/Pf [Latanoprost 0.005% Eye Drop] 1 drop BOTH EYES HS 06/20/21 [History] RX: Furosemide [Lasix] 20 mg PO DAILY@1400 12/01/21 [History] RX: Spironolactone 25 mg PO DAILY 12/01/21 [History] RX: metOLazone 2.5 mg PO MOWEFR 12/01/21 [History] RX: Metoprolol Tartrate [Lopressor] 25 mg PO TID 30 Days #90 tab 12/12/21 [Rx] RX: Midodrine [ProAmatine] 10 mg PO AC-TID #90 tab 12/12/21 [Rx] RX: Potassium Chloride ER [K-Dur 20] 40 meq PO HS #60 tab 12/13/21 [Rx] Follow up Appointment(s)/Referral(s): Matteo Chase MD [Primary Care Provider] - 1-2 days [facility] [NON-STAFF] - As Needed Patient Instructions/Handouts: Acute Kidney Injury (DC) Activity/Diet/Wound Care/Special Instructions: Optifoam to coccyx change every 72 hrs/prn. Recheck potassium 12/14/21 Discharge Disposition: TRANSFER TO SNF/ECF
[2021-12-13 14:11] VITALS: BP 106/57; RESP 17; TEMP 98.4
[2021-12-13 16:32] VITALS: PULSE 100
== END 2021-12-13 18:05 | DRG 682 ==
LOC: EC 13:46 → 3SCARD 17:00 → 4SSUR 12-09 18:11
PROVIDERS: ADMIT Internal Medicine; ATTEND Internal Medicine
PROC: 5A1D70Z Performance of Urinary Filtration, Intermittent, Less than 6 Hours Per Day (ICD-10-PCS; principal; 2021-12-05 10:30)
PROC: 02HV33Z Insertion of Infusion Device into Superior Vena Cava, Percutaneous Approach (ICD-10-PCS; 2021-12-05 10:30)
PROC: 06HY33Z Insertion of Infusion Device into Lower Vein, Percutaneous Approach (ICD-10-PCS; 2021-12-12)
DX: N17.0 Acute kidney failure with tubular necrosis (principal); J69.0 Pneumonitis due to inhalation of food and vomit; J96.01 Acute respiratory failure with hypoxia; I21.A1 Myocardial infarction type 2; E87.2 Acidosis; E87.0 Hyperosmolality and hypernatremia; I13.0 Hypertensive heart and chronic kidney disease with heart failure and stage 1 through stage 4 chronic kidney disease, or unspecified chronic kidney disease; M62.82 Rhabdomyolysis; E03.9 Hypothyroidism, unspecified; I48.0 Paroxysmal atrial fibrillation; Z20.822 Contact with and (suspected) exposure to COVID-19; E78.5 Hyperlipidemia, unspecified; I45.10 Unspecified right bundle-branch block; I50.9 Heart failure, unspecified; I95.1 Orthostatic hypotension; N20.0 Calculus of kidney; R13.10 Dysphagia, unspecified; S00.83XA Contusion of other part of head, initial encounter; N18.31 Chronic kidney disease, stage 3a; J44.9 Chronic obstructive pulmonary disease, unspecified; D69.6 Thrombocytopenia, unspecified; E83.42 Hypomagnesemia; E86.0 Dehydration; E86.1 Hypovolemia; E87.6 Hypokalemia; W19.XXXA Unspecified fall, initial encounter; I25.10 Atherosclerotic heart disease of native coronary artery without angina pectoris; Z87.01 Personal history of pneumonia (recurrent); Z88.8 Allergy status to other drugs, medicaments and biological substances; I25.2 Old myocardial infarction; Z75.1 Person awaiting admission to adequate facility elsewhere; Z79.01 Long term (current) use of anticoagulants; Z79.890 Hormone replacement therapy; Z79.899 Other long term (current) drug therapy; Z87.891 Personal history of nicotine dependence; Z80.7 Family history of other malignant neoplasms of lymphoid, hematopoietic and related tissues
CPT/HCPCS: 36415; 36556; 70450; 71045; 71250; 72125; 74176; 74230; 76937; 77001; 80048; 80053; 80076; 80143; 80179; 80202; 80320; 81001; 82140; 82550; 82570; 83605; 83735; 83880; 83930; 84156; 84300; 84484; 84540; 85025; 85610; 85730; 86704; 86706; 86850; 86900; 86901; 87040; 87070; 87086; 87205; 87340; 87635; 90935; 93005; 93306; 94640; 94760; 96360; 99291

== ENCOUNTER 2022-12-05 12:10 | Emergency (ER) | payer MEDICARE, OTHER ==
--- NOTE | 2022-12-05 14:05 | ED ---
Male Urogenital HPI - General Source: patient, RN notes reviewed Mode of arrival: ambulatory Limitations: no limitations <Minh Devi - Last Filed: 12/05/22 14:04> - History of Present Illness MD Complaint: other (Hematuria) Onset/Timin -: days(s) Severity scale (1-10): 0 Consistency: constant Improves with: none Worsens with: none Reports: blood in urine <Ye Drummond - Last Filed: 12/10/22 06:04> - General Chief complaint: Urogenital Stated complaint: hematuria Time Seen by Provider: 12/05/22 14:04 - History of Present Illness Initial comments: 86-year-old male presents emergency Department chief complaint of hematuria. Patient states started last night states it has cleared up some. He is on Xarelto. Patient denies any associated pain. Patient states never any like this in the past. He has no dysuria or frequency of urination. (Minh Devi) This patient is an 86-year-old man presenting to have evaluation of painless hematuria that started last night. He describes bright red urine which he cannot see through. Patient does take Xarelto. He denies symptoms of anemia, no lightheadedness, palpitations, dyspnea or diaphoresis, no chest pain. No abdomen or back pain. No fever or chills. History of prior prostate (Ye Drummond) - Related Data Home Medications Medication Instructions Recorded Confirmed Simvastatin [Zocor] 20 mg PO HS 11/26/20 12/01/21 Ascorbic Acid [Vitamin C] 500 mg PO DAILY 02/11/21 12/01/21 Cholecalciferol [Vitamin D3 (25 50 mcg PO DAILY 02/11/21 12/01/21 Mcg = 1000 Iu)] Zinc 50 mg PO DAILY 02/11/21 12/01/21 Albuterol Inhaler [Ventolin Hfa 2 puff INHALATION RT-QID PRN 06/19/21 12/01/21 Inhaler] Albuterol Nebulized [Ventolin 2.5 mg INHALATION RT-BID 06/19/21 12/01/21 Nebulized] Fluticasone/Umeclidin/Vilanter 1 puff INHALATION RT-DAILY 06/19/21 12/01/21 [Trelegy Ellipta 100-62.5-25] Levothyroxine Sodium [Synthroid] 50 mcg PO DAILY 06/19/21 12/01/21 Rivaroxaban [Xarelto] 15 mg PO DAILY 06/19/21 12/01/21 Latanoprost/Pf [Latanoprost 0.005% 1 drop BOTH EYES HS 06/20/21 12/01/21 Eye Drop] Furosemide [Lasix] 20 mg PO DAILY@1400 12/01/21 12/01/21 Spironolactone 25 mg PO DAILY 12/01/21 12/01/21 metOLazone 2.5 mg PO MOWEFR 12/01/21 12/01/21 Previous Rx's Medication Instructions Recorded Metoprolol Tartrate [Lopressor] 25 mg PO TID 30 Days #90 tab 12/12/21 Midodrine [ProAmatine] 10 mg PO AC-TID #90 tab 12/12/21 Potassium Chloride ER [K-Dur 20] 40 meq PO HS #60 tab 12/13/21 Ciprofloxacin HCl [Cipro] 500 mg PO Q12HR #14 tablet 12/05/22 Allergies Allergy/AdvReac Type Severity Reaction Status Date / Time prednisone AdvReac CAN'T Verified 12/05/22 13:33 URINATE WHEN HE TAKES IT Review of Systems ROS Other: All systems not noted in ROS Statement are negative. <Minh Devi - Last Filed: 12/05/22 14:04> ROS Other: All systems not noted in ROS Statement are negative. Constitutional: Denies: fever, chills Respiratory: Denies: cough, dyspnea Cardiovascular: Denies: chest pain, palpitations, syncope Gastrointestinal: Denies: abdominal pain, nausea, vomiting, diarrhea Genitourinary: Reports: hematuria. Denies: dysuria Musculoskeletal: Denies: back pain Skin: Denies: rash <Ye Drummond - Last Filed: 12/10/22 06:04> ROS Statement: Those systems with pertinent positive or pertinent negative responses have been documented in the HPI. Past Medical History Past Medical History: COPD, Hyperlipidemia, Myocardial Infarction ([place]), Pneumonia, Prostate Disorder, Thyroid Disorder Additional Past Medical History / Comment(s): per cardiology consult note 06/20/21 hx chf,htn,a-fib Last Myocardial Infarction Date:: Apr 1994 History of Any Multi-Drug Resistant Organisms: None Reported Past Surgical History: Heart Catheterization Additional Past Surgical History / Comment(s): angioplasty after [place], no stents, pilonidal cyst removal, Past Anesthesia/Blood Transfusion Reactions: No Reported Reaction Additional Past Anesthesia/Blood Transfusion Reaction / Comment(s): vertigo Past Psychological History: No Psychological Hx Reported Smoking Status: Former smoker Past Alcohol Use History: Occasional Past Drug Use History: None Reported - Past Family History Father History Unknown: Yes Sister(s) Family Medical History: Cancer Additional Family Medical History / Comment(s): nonhodgkins lymphoma <Minh Devi - Last Filed: 12/05/22 14:04> General Exam Limitations: no limitations <Minh Devi - Last Filed: 12/05/22 14:04> Limitations: no limitations General appearance: alert, in no apparent distress Head exam: Present: atraumatic, normocephalic Eye exam: Present: normal appearance Respiratory exam: Present: normal lung sounds bilaterally. Absent: respiratory distress, wheezes, rales, rhonchi, stridor Cardiovascular Exam: Present: regular rate, normal rhythm, normal heart sounds. Absent: systolic murmur, diastolic murmur, rubs, gallop GI/Abdominal exam: Present: soft. Absent: distended, tenderness, guarding, rebound, rigid, mass Extremities exam: Present: normal inspection, normal capillary refill. Absent: pedal edema, calf tenderness Back exam: Present: normal inspection. Absent: CVA tenderness (R), CVA tenderness (L) Neurological exam: Present: alert Skin exam: Present: warm, dry, intact, normal color. Absent: rash <Ye Drummond - Last Filed: 12/10/22 06:04> - General Exam Comments Initial Comments: Visual Physical Exam Vital signs reviewed General: Well-appearing, nontoxic, no acute distress. Head: Normocephalic, atraumatic Eyes: PERRLA, EOMI ENT: Airway patent Chest: Nonlabored breathing Skin: No visual rash, normal skin tone Neuro: Alert and oriented 3 Musculoskeletal: No gross abnormalities (Minh Devi) Course Vital Signs 12/05/22 12/05/22 13:29 18:49 Temperature 97.7 F 98.7 F Pulse Rate 72 75 Respiratory 20 16 Rate Blood Pressure 99/58 105/78 O2 Sat by Pulse 99 99 Oximetry Medical Decision Making - Lab Data Result diagrams: 12/05/22 15:09 12/05/22 15:09 <Ye Drummond - Last Filed: 12/10/22 06:04> - Medical Decision Making This patient is an 86-year-old man presenting with painless hematuria. The patient does have a relationship with urologist. The patient did have ultrasound of urinary tract interpreted by her radiology. The workup here is not revealing source. Patient will be given course of antibiotic and follow with urology for further workup including possibility of computed tomography scan/cystoscopy. We discussed appropriate further care and the return parameters. Was pt. sent in by a medical professional or institution (, PA, COMPUTER T[employer]ETTER [employer]ER, urgent care, hospital, or senior care...) When possible be specific @ -[No] Did you speak to anyone other than the patient for history (EMS, parent, family, police, friend...)? What history was obtained from this source @ -[No] Did you review nursing and triage notes (agree or disagree)? Why? @ -[I reviewed and agree with nursing and triage notes] Were old charts reviewed (outside hosp., previous admission, EMS record, old EKG, old radiological studies, urgent care reports/EKG's, senior care records)? Report findings @ -[No old charts were reviewed] Differential Diagnosis (chest pain, altered mental status, abdominal pain women, abdominal pain men, vaginal bleeding, weakness, fever, dyspnea, syncope, headache, dizziness, GI bleed, back pain, seizure, CVA, palpatations, mental health, musculoskeletal)? @ -[The differential diagnosis includes, but not limited to: urinary tract infection (UTI), renal cancer, bladder cancer, renal calculi, prostate cancer, bleeding disorder and benign prostatic hyperplasia (BPH) EKG interpreted by me (3pts min.). @ -[ X-rays interpreted by me (1pt min.). @ -[None done] CT interpreted by me (1pt min.). @ -[None done] U/S interpreted by me (1pt. min.). @ -[None done] What testing was considered but not performed or refused? (CT, X-rays, U/S, labs)? Why? @ -[None] What meds were considered but not given or refused? Why? @ -[None] Did you discuss the management of the patient with other professionals (professionals i.e. , PA, COMPUTER T[employer]ET[employer]ER, lab, RT, psych nurse, public health social worker, assignment editor, teacher, field artillery officer, shoe caser)? Give summary @ -[No] Was smoking cessation discussed for >3mins.? @ -[No] Was critical care preformed (if so, how long)? @ -[No] Were there social determinants of health that impacted care today? How? (Homelessness, low income, unemployed, alcoholism, drug addiction, transportation, low edu. Level, literacy, decrease access to med. care, penitentiary, rehab)? @ -[No] Was there de-escalation of care discussed even if they declined (Discuss DNR or withdrawal of care, Hospice)? DNR status @ -[No] What co-morbidities impacted this encounter? (DM, HTN, Smoking, COPD, CAD, Cancer, CVA, ARF, Chemo, Hep., AIDS, mental health diagnosis, sleep apnea, morbid obesity)? @ -[None] Was patient admitted / discharged? Hospital course, mention meds given and route, prescriptions, significant lab abnormalities, going to OR and other pertinent info. @ -[Discharged Undiagnosed new problem with uncertain prognosis? @ -[No] Drug Therapy requiring intensive monitoring for toxicity (Heparin, Nitro, Insulin, Cardizem)? @ -[No] Were any procedures done? @ -[No] Diagnosis/symptom? @ -[Acute painless hematuria Acute, or Chronic, or Acute on Chronic? @ -[default] Uncomplicated (without systemic symptoms) or Complicated (systemic symptoms)? @ -[Uncomplicated Side effects of treatment? @ -[No] Exacerbation, Progression, or Severe Exacerbation? @ -[No] Poses a threat to life or bodily function? How? (Chest pain, [place], [place], pneumonia, PE, COPD, DKA, ARF, appy, cholecystitis, CVA, Diverticulitis, Homicidal, Suicidal, threat to staff... and all critical care pts) @ -[No] (Ye Drummond) - Lab Data Lab Results 12/05/22 12/05/22 12/05/22 Range/Units 14:02 15:09 15:09 WBC 7.6 (3.8-10.6) k/uL RBC 3.75 L (4.30-5.90) m/uL Hgb 12.3 L (13.0-17.5) gm/dL Hct 37.2 L (39.0-53.0) % MCV 99.2 (80.0-100.0) fL MCH 32.9 (25.0-35.0) pg MCHC 33.1 (31.0-37.0) g/dL RDW 13.3 (11.5-15.5) % Plt Count 300 (150-450) k/uL MPV 8.9 Neutrophils % 67 % Lymphocytes % 20 % Monocytes % 9 % Eosinophils % 1 % Basophils % 0 % Neutrophils # 5.1 (1.3-7.7) k/uL Lymphocytes # 1.5 (1.0-4.8) k/uL Monocytes # 0.7 (0-1.0) k/uL Eosinophils # 0.1 (0-0.7) k/uL Basophils # 0.0 (0-0.2) k/uL Sodium 135 L (137-145) mmol/L Potassium 4.4 (3.5-5.1) mmol/L Chloride 95 L (98-107) mmol/L Carbon Dioxide 29 (22-30) mmol/L Anion Gap 11 mmol/L BUN 40 H (9-20) mg/dL Creatinine 1.27 H (0.66-1.25) mg/dL Est GFR (CKD-EPI)AfAm 58 (>60 ml/min/1.73 sqM) Est GFR (CKD-EPI)NonAf 51 (>60 ml/min/1.73 sqM) Glucose 132 H (74-99) mg/dL Calcium 9.3 (8.4-10.2) mg/dL Total Bilirubin 0.9 (0.2-1.3) mg/dL AST 27 (17-59) U/L ALT 20 (4-49) U/L Alkaline Phosphatase 131 H (38-126) U/L Total Protein 7.2 (6.3-8.2) g/dL Albumin 3.9 (3.5-5.0) g/dL Urine Color UNOCHM Urine Appearance Bloody (Clear) Urine RBC >182 H (0-5) /hpf Urine WBC 109 H (0-5) /hpf Urine Bacteria Many H (None) /hpf Disposition <Minh Devi - Last Filed: 12/05/22 14:04> Is patient prescribed a controlled substance at d/c from ED?: No <Ye Drummond - Last Filed: 12/10/22 06:04> Clinical Impression: Hematuria Disposition: HOME SELF-CARE Condition: Good Instructions (If sedation given, give patient instructions): Hematuria (ED) Prescriptions: Ciprofloxacin HCl [Cipro] 500 mg PO Q12HR #14 tablet Referrals: Naveed Santiago MD [Primary Care Provider] - 1-2 days Navi Valenzuela MD [STAFF PHYSICIAN] - 1-2 days
[2022-12-05 14:46] LABS: Bacteria,Urine Many /hpf; RBC,Urine >182 /hpf (0-5); WBC,Urine 109 /hpf (0-5)
[2022-12-05 14:47] LABS: Appearance,Urine Bloody (Clear)
[2022-12-05 14:48] LABS: Color,Urine UNOCHM
[2022-12-05 15:35] LABS: Basophils % (A) 0 %; Eosinophils # (A) 0.1 k/uL (0-0.7); Eosinophils % (A) 1 %; HCT 37.2 % (39.0-53.0); HGB 12.3 gm/dL (13.0-17.5); Lymphocytes # (A) 1.5 k/uL (1.0-4.8); Lymphocytes % (A) 20 %; MCH 32.9 pg (25.0-35.0); MCHC 33.1 g/dL (31.0-37.0); MCV 99.2 fL (80.0-100.0); Mean Platelet Volume 8.9; Monocytes # (A) 0.7 k/uL (0-1.0); Monocytes % (A) 9 %; Neutrophils # (A) 5.1 k/uL (1.3-7.7); Neutrophils % (A) 67 %; Platelet Count 300 k/uL (150-450); RBC 3.75 m/uL (4.30-5.90); RDW 13.3 % (11.5-15.5); WBC 7.6 k/uL (3.8-10.6)
[2022-12-05 15:44] LABS: Albumin 3.9 g/dL (3.5-5.0); Total Protein 7.2 g/dL (6.3-8.2)
[2022-12-05 15:45] LABS: Calcium 9.3 mg/dL (8.4-10.2); Potassium 4.4 mmol/L (3.5-5.1); Total Bilirubin 0.9 mg/dL (0.2-1.3)
--- NOTE | 2022-12-05 18:13 | US ---
EXAMINATION TYPE: US kidneys/renal and bladder DATE OF EXAM: 12/05/2022 COMPARISON: CT 4 days earlier. Prior ultrasound 2017 CLINICAL INDICATION: Male, 86 years old with history of hematuria; pt states a large amount of hematu gerda x 1 day. Pt states no pain. Hx of renal stones EXAM MEASUREMENTS: Right Kidney: 9.7 x 5.1 x 4.7 cm Left Kidney: 10.4 x 4.8 x 5.9 cm Right Kidney: cystic structure seen in superior pole measuring 1.8 x 2.1 x 1.4cm. 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 Hyperechoic focus seen near jets. Uns ure if it is in bladder or prostate. Bilateral Jets seen: No due to artifact Incidental 1.8 cm thin-walled cyst upper pole level right kidney is felt present. Redemonstration of nonobstructing 6 mm calculus mid pole level left kidney.. The urinary bladder is well distended. Ant erior diverticulum is redemonstrated Bilateral ureteral jets are not seen. IMPRESSION: Persistent 6 mm nonobstructing calculus mid pole level left kidney could account for miranda ent's symptoms of hematuria.
[2022-12-05 18:52] VITALS: BP 105/78; PULSE 75; RESP 16; TEMP 98.7
== END 2022-12-05 18:49 | disposition home or self-care (01) ==
LOC: EC 12:10
DX: N20.0 Calculus of kidney (principal); N32.3 Diverticulum of bladder; I11.0 Hypertensive heart disease with heart failure; I25.2 Old myocardial infarction; I48.91 Unspecified atrial fibrillation; I50.9 Heart failure, unspecified; E78.5 Hyperlipidemia, unspecified; J44.9 Chronic obstructive pulmonary disease, unspecified; Z79.01 Long term (current) use of anticoagulants; Z79.899 Other long term (current) drug therapy; Z88.8 Allergy status to other drugs, medicaments and biological substances; Z87.891 Personal history of nicotine dependence
CPT/HCPCS: 36415; 76770; 80053; 81001; 85025; 87086; 99284

== ENCOUNTER 2023-05-10 11:10 | Inpatient (IN) | payer MEDICARE, OTHER ==
[2023-05-10] MEDS ORDERED: IPRATROPIUM 0.5 MG/2.5 ML NEBU INHALATION STA (11:38)
[2023-05-10] MEDS ORDERED: ALBUTEROL NEBULIZED 2.5 MG/3 ML INHALATION STA (11:38)
--- NOTE | 2023-05-10 11:44 | ED ---
General Adult HPI - General Chief complaint: Shortness of Breath Stated complaint: SOB Time Seen by Provider: 05/10/23 11:25 Source: patient, EMS, RN notes reviewed, old records reviewed Mode of arrival: EMS Limitations: no limitations - History of Present Illness Initial comments: This is an 87-year-old male who states starting on Saturday he started having fevers coughs quite a bit of sputum production. Patient states a week he's been short of breath. He does have a history of COPD. Patient states that symptoms have slowly been improving however the kids today came in and saw him and felt as though the need to be further evaluated to make sure they were not missing any underlying pneumonia. Patient denies any chest pain or palpitations. Pat ient denies any abdominal pain. Patient's only complaint is that he is more short of breath than normal. Patient denies any headache patient denies numbness weakness. Patient denies any other symptoms at this time. - Related Data Home Medications Medication Instructions Recorded Confirmed Simvastatin [Zocor] 20 mg PO HS 11/26/20 12/01/21 Ascorbic Acid [Vitamin C] 500 mg PO DAILY 02/11/21 12/01/21 Cholecalciferol [Vitamin D3 (25 50 mcg PO DAILY 02/11/21 12/01/21 Mcg = 1000 Iu)] Zinc 50 mg PO DAILY 02/11/21 12/01/21 Albuterol Inhaler [Ventolin Hfa 2 puff INHALATION RT-QID PRN 06/19/21 12/01/21 Inhaler] Albuterol Nebulized [Ventolin 2.5 mg INHALATION RT-BID 06/19/21 12/01/21 Nebulized] Fluticasone/Umeclidin/Vilanter 1 puff INHALATION RT-DAILY 06/19/21 12/01/21 [Trelegy Ellipta 100-62.5-25] Levothyroxine Sodium [Synthroid] 50 mcg PO DAILY 06/19/21 12/01/21 Rivaroxaban [Xarelto] 15 mg PO DAILY 06/19/21 12/01/21 Latanoprost/Pf [Latanoprost 0.005% 1 drop BOTH EYES HS 06/20/21 12/01/21 Eye Drop] Furosemide [Lasix] 20 mg PO DAILY@1400 05/13/22 05/13/22 Spironolactone 25 mg PO DAILY 12/01/21 12/01/21 metOLazone 2.5 mg PO MOWEFR 12/01/21 12/01/21 Previous Rx's Medication Instructions Recorded Metoprolol Tartrate [Lopressor] 25 mg PO TID 30 Days #90 tab 12/12/21 Midodrine [ProAmatine] 10 mg PO AC-TID #90 tab 12/12/21 Potassium Chloride ER [K-Dur 20] 40 meq PO HS #60 tab 12/13/21 Ciprofloxacin HCl [Cipro] 500 mg PO Q12HR #14 tablet 12/05/22 Allergies Allergy/AdvReac Type Severity Reaction Status Date / Time prednisone AdvReac CAN'T Verified 05/10/23 11:31 URINATE WHEN HE TAKES IT Review of Systems ROS Statement: Those systems with pertinent positive or pertinent negative responses have been documented in the HPI. ROS Other: All systems not noted in ROS Statement are negative. Past Medical History Past Medical History: COPD, Hyperlipidemia, Myocardial Infarction ([place]), Pneumonia, Prostate Disorder, Thyroid Disorder Additional Past Medical History / Comment(s): per cardiology consult note 06/20/21 hx chf,htn,a-fib Last Myocardial Infarction Date:: Apr 1994 History of Any Multi-Drug Resistant Organisms: None Reported Past Surgical History: Heart Catheterization Additional Past Surgical History / Comment(s): angioplasty after [place], no stents, pilonidal cyst removal, Past Anesthesia/Blood Transfusion Reactions: No Reported Reaction Additional Past Anesthesia/Blood Transfusion Reaction / Comment(s): vertigo Past Psychological History: No Psychological Hx Reported Smoking Status: Former smoker Past Alcohol Use History: Occasional Past Drug Use History: None Reported - Past Family History Father History Unknown: Yes Sister(s) Family Medical History: Cancer Additional Family Medical History / Comment(s): nonhodgkins lymphoma General Exam - General Exam Comments Initial Comments: GENERAL: Patient is well-developed and well-nourished. Patient is nontoxic and well- hydrated and is in mild distress. ENT: Neck is soft and supple. No significant lymphadenopathy is noted. Oropharynx is clear. Moist mucous membranes. Neck has full range of motion without eliciting any pain. EYES: The sclera were anicteric and conjunctiva were pink and moist. Extraocular movements were intact and pupils were equal round and reactive to light. Eyelids were unremarkable. PULMONARY: Patient has diffuse diminished breath sounds CARDIOVASCULAR: There is a regular rate and rhythm without any murmurs gallops or rubs. ABDOMEN: Soft and nontender with normal bowel sounds. No palpable organomegaly was noted. There is no palpable pulsatile mass. SKIN: Skin is clear with no lesions or rashes and otherwise unremarkable. NEUROLOGIC: Patient is alert and oriented x3. Cranial nerves II through XII are grossly intact. Motor and sensory are also intact. Normal speech, volume and content. Symmetrical smile. MUSCULOSKELETAL: Normal extremities with adequate strength and full range of motion. No lower extremity swelling or edema. No calf tenderness. LYMPHATICS: No significant lymphadenopathy is noted PSYCHIATRIC: Normal psychiatric evaluation. Limitations: no limitations Course Vital Signs 05/10/23 05/10/23 05/10/23 11:24 12:16 12:26 Temperature 97.8 F Pulse Rate 104 H 98 101 H Respiratory 20 18 18 Rate Blood Pressure 108/73 O2 Sat by Pulse 99 Oximetry 05/10/23 05/10/23 13:30 14:00 Temperature Pulse Rate 105 H 105 H Respiratory Rate Blood Pressure 96/63 102/57 O2 Sat by Pulse Oximetry Medical Decision Making - Medical Decision Making EKG was interpreted by myself. EKG shows atrial fibrillation with rapid ventricular response at 105 bpm QRS is under 26 QT interval 318 QTC is 379 patient has a right bundle branch block. Was pt. sent in by a medical professional or institution ([facility] [place], COUNTER CHECKER, urgent care, hospital, or custodial...) When possible be specific @ -No Did you speak to anyone other than the patient for history (EMS, parent, family, police, friend...)? What history was obtained from this source @ -No Did you review nursing and triage notes (agree or disagree)? Why? @ -I reviewed and agree with nursing and triage notes Were old charts reviewed (outside hosp., previous admission, EMS record, old EKG, old radiological studies, urgent care reports/EKG's, custodial records)? Report findings @ -I reviewed prior chart prior laboratory this patient Differential Diagnosis (chest pain, altered mental status, abdominal pain women, abdominal pain men, vaginal bleeding, weakness, fever, dyspnea, syncope, headache, dizziness, GI bleed, back pain, seizure, CVA, palpatations, mental health, musculoskeletal)? @ -Differential dyspnea EKG interpreted by me (3pts min.). @ -As above X-rays interpreted by me (1pt min.). @ -X-ray shows infiltrates right upper and left lower CT interpreted by me (1pt min.). @ -None done U/S interpreted by me (1pt. min.). @ -None done What testing was considered but not performed or refused? (CT, X-rays, U/S, labs )? Why? @ -None What meds were considered but not given or refused? Why? @ -None Did you discuss the management of the patient with other professionals (professionals i.e. , PA, COUNTER CHECKER, lab, RT, psych nurse, addiction social worker, appliance tester, teacher, co founder and chief strategy officer, hims manager)? Give summary @ -I spoke with Dr. Resendiz he agreed to admit the patient Was smoking cessation discussed for >3mins.? @ -No Was critical care preformed (if so, how long)? @ -No Were there social determinants of health that impacted care today? How? (Homelessness, low income, unemployed, alcoholism, drug addiction, transportation, low edu. Level, literacy, decrease access to med. care, fdc, rehab)? @ -No Was there de-escalation of care discussed even if they declined (Discuss DNR or withdrawal of care, Hospice)? DNR status @ -No What co-morbidities impacted this encounter? (DM, HTN, Smoking, COPD, CAD, Cancer, CVA, ARF, Chemo, Hep., AIDS, mental health diagnosis, sleep apnea, morbid obesity)? @ -None Was patient admitted / discharged? Hospital course, mention meds given and route, prescriptions, significant lab abnormalities, going to OR and other pertinent info. @ -Patient had a culture positive test patient was started on steroids. Patient's x-ray showed some patchy infiltrate consistent with COVID. Patient was placed on Decadron on the floor as well. I admitted the patient to Dr. Resendiz and he wants Dr. Ramirez on consult Undiagnosed new problem with uncertain prognosis? @ -No Drug Therapy requiring intensive monitoring for toxicity (Heparin, Nitro, Insulin, Cardizem)? @ -No Were any procedures done? @ -No Diagnosis/symptom? @ -COVID pneumonia Acute, or Chronic, or Acute on Chronic? @ -Acute Uncomplicated (without systemic symptoms) or Complicated (systemic symptoms)? @ -Complicated Side effects of treatment? @ -No Exacerbation, Progression, or Severe Exacerbation? @ -No Poses a threat to life or bodily function? How? (Chest pain, [place], [place], pneumonia, PE, COPD, DKA, ARF, appy, cholecystitis, CVA, Diverticulitis, Homicidal, Suicidal, threat to staff... and all critical care pts) @ -No - Lab Data Result diagrams: 05/10/23 11:45 05/10/23 11:45 Lab Results 05/10/23 05/10/23 05/10/23 Range/Units 11:45 11:45 11:45 WBC 8.4 (3.8-10.6) k/uL RBC 3.31 L (4.30-5.90) m/uL Hgb 11.0 L (13.0-17.5) gm/dL Hct 33.5 L (39.0-53.0) % MCV 101.2 H (80.0-100.0) fL MCH 33.4 (25.0-35.0) pg MCHC 33.0 (31.0-37.0) g/dL RDW 13.1 (11.5-15.5) % Plt Count 268 (150-450) k/uL MPV 8.9 Neutrophils % 85 % Lymphocytes % 8 % Monocytes % 6 % Eosinophils % 0 % Basophils % 0 % Neutrophils # 7.1 (1.3-7.7) k/uL Lymphocytes # 0.7 L (1.0-4.8) k/uL Monocytes # 0.5 (0-1.0) k/uL Eosinophils # 0.0 (0-0.7) k/uL Basophils # 0.0 (0-0.2) k/uL Hypochromasia Slight Macrocytosis Slight PT 12.9 H (10.0-12.5) sec INR 1.2 H (<1.2) APTT 29.2 (22.0-30.0) sec Sodium 134 L (137-145) mmol/L Potassium 5.1 (3.5-5.1) mmol/L Chloride 99 (98-107) mmol/L Carbon Dioxide 24 (22-30) mmol/L Anion Gap 11 mmol/L BUN 41 H (9-20) mg/dL Creatinine 0.97 (0.66-1.25) mg/dL Est GFR (CKD-EPI)AfAm 81 (>60 ml/min/1.73 sqM) Est GFR (CKD-EPI)NonAf 70 (>60 ml/min/1.73 sqM) Glucose 135 H (74-99) mg/dL Plasma Lactic Acid Kael (0.7-2.0) mmol/L Calcium 9.2 (8.4-10.2) mg/dL Total Bilirubin 1.6 H (0.2-1.3) mg/dL AST 83 H (17-59) U/L ALT 44 (4-49) U/L Alkaline Phosphatase 150 H (38-126) U/L Troponin I (0.000-0.034) ng/mL Total Protein 6.9 (6.3-8.2) g/dL Albumin 3.3 L (3.5-5.0) g/dL Coronavirus (PCR) (Not Detectd) 05/10/23 05/10/23 05/10/23 Range/Units 11:45 11:45 11:45 WBC (3.8-10.6) k/uL RBC (4.30-5.90) m/uL Hgb (13.0-17.5) gm/dL Hct (39.0-53.0) % MCV (80.0-100.0) fL MCH (25.0-35.0) pg MCHC (31.0-37.0) g/dL RDW (11.5-15.5) % Plt Count (150-450) k/uL MPV Neutrophils % % Lymphocytes % % Monocytes % % Eosinophils % % Basophils % % Neutrophils # (1.3-7.7) k/uL Lymphocytes # (1.0-4.8) k/uL Monocytes # (0-1.0) k/uL Eosinophils # (0-0.7) k/uL Basophils # (0-0.2) k/uL Hypochromasia Macrocytosis PT (10.0-12.5) sec INR (<1.2) APTT (22.0-30.0) sec Sodium (137-145) mmol/L Potassium (3.5-5.1) mmol/L Chloride (98-107) mmol/L Carbon Dioxide (22-30) mmol/L Anion Gap mmol/L BUN (9-20) mg/dL Creatinine (0.66-1.25) mg/dL Est GFR (CKD-EPI)AfAm (>60 ml/min/1.73 sqM) Est GFR (CKD-EPI)NonAf (>60 ml/min/1.73 sqM) Glucose (74-99) mg/dL Plasma Lactic Acid Kael 2.9 H* (0.7-2.0) mmol/L Calcium (8.4-10.2) mg/dL Total Bilirubin (0.2-1.3) mg/dL AST (17-59) U/L ALT (4-49) U/L Alkaline Phosphatase (38-126) U/L Troponin I <0.012 (0.000-0.034) ng/mL Total Protein (6.3-8.2) g/dL Albumin (3.5-5.0) g/dL Coronavirus (PCR) Detected A (Not Detectd) Disposition Clinical Impression: Pneumonia due to COVID-19 virus Disposition: ADMITTED IP TO THIS HOSP Referrals: Naveed Santiago MD [Primary Care Provider] - 1-2 days Time of Disposition: 14:39
[2023-05-10] MEDS ORDERED: methylPREDNISolone SOD SUCCI 125 MG/2 ML VIAL IV STA (11:45)
[2023-05-10 12:07] LABS: Basophils % (A) 0 %; Eosinophils % (A) 0 %; HCT 33.5 % (39.0-53.0); Hypochromasia Slight; Lymphocytes # (A) 0.7 k/uL (1.0-4.8); Lymphocytes % (A) 8 %; MCH 33.4 pg (25.0-35.0); MCV 101.2 fL (80.0-100.0); Macrocytosis Slight; Mean Platelet Volume 8.9; Monocytes # (A) 0.5 k/uL (0-1.0); Monocytes % (A) 6 %; Neutrophils # (A) 7.1 k/uL (1.3-7.7); Neutrophils % (A) 85 %; Platelet Count 268 k/uL (150-450); RBC 3.31 m/uL (4.30-5.90); RDW 13.1 % (11.5-15.5); WBC 8.4 k/uL (3.8-10.6)
--- NOTE | 2023-05-10 12:11 | XR ---
EXAMINATION TYPE: XR chest 2V DATE OF EXAM: 05/10/2023 COMPARISON: 12/13/2021 HISTORY: Shortness of breath TECHNIQUE: Frontal and lateral views of the chest are obtained. FINDINGS: Scattered senescent parenchymal changes noted. Hyperinflation compatible with COPD. Patchy infiltrate right upper lobe as well as the left lower lobe with small effusions and/or pleural thickening. Heart size is stable. Mediastinal structures are stable and grossly unremarkable. No evidence for hilar prominence. Degenerative changes dorsal spine. IMPRESSION: 1. Correlate for pneumonia.
[2023-05-10 12:29] LABS: ALT 44 U/L (4-49); African American GFR (CKD) 81 (>60 ml/min/1.73 sqM); Albumin 3.3 g/dL (3.5-5.0); Anion Gap 11 mmol/L; Blood Urea Nitrogen 41 mg/dL (9-20); Carbon Dioxide 24 mmol/L (22-30); Chloride 99 mmol/L (98-107); Glucose 135 mg/dL (74-99); Non-African American GFR(CKD) 70 (>60 ml/min/1.73 sqM); Sodium 134 mmol/L (137-145); Total Bilirubin 1.6 mg/dL (0.2-1.3); Total Protein 6.9 g/dL (6.3-8.2)
[2023-05-10 12:31] LABS: AST 83 U/L (17-59); Alkaline Phosphatase 150 U/L (38-126); Calcium 9.2 mg/dL (8.4-10.2); Potassium 5.1 mmol/L (3.5-5.1)
[2023-05-10 12:34] LABS: INR 1.2 (<1.2); Partial Thromboplastin Time 29.2 sec (22.0-30.0); Prothrombin Time 12.9 sec (10.0-12.5)
[2023-05-10] MEDS ORDERED: DEXAMETHASONE SOD PHOSPHATE 10 MG/ML 1 ML VIAL IVP STA (14:22)
[2023-05-10] MEDS ORDERED: PNEUMONIA PROTOCOL UTILIZED 1 EACH MISC PO PRN (14:39)
--- NOTE | 2023-05-10 15:17 | P.HPIM ---
History of Present Illness H&P Date: 05/10/23 History of present illness; 87-year-old male past medical history significant for hypertension, dyslipidemia, paroxysmal atrial fibrillation on Xarelto presented to the ER for flulike symptoms for 1 week. Patient stated that he was all right one week back when he started noticing that he was having generalized body aches and lethargy. Patient also complaining of shortness of breath at home. Patient also stated that he felt that he was having fevers at home, did not check his fevers at home. Denied any chest pain or swelling of feet. Complaining of dry cough. There was no complaint of nausea, vomiting abdominal pain. Patient continued to feel worse and decided to come to the ER Initial lab work done in the ER showed WBC 8.4, hemoglobin 11, platelet count 268, sodium 134, potassium 5.1, BUN 14, creatinine 0.97, lactate 2.9, bilirubin 1.6, AST 83 COVID-19 was positive Chest x-ray done in the ER patchy infiltrate right upper lobe as well as left lower lobe Patient admitted to medicine service REVIEW OF SYSTEMS: CONSTITUTIONAL: As mentioned in HPI HEENT: No recent visual problems or hearing problems. Denied any sore throat. CARDIOVASCULAR: As mentioned in HPI PULMONARY: As mentioned in HPI GASTROINTESTINAL: No diarrhea, no nausea, no vomiting, no abdominal pain. NEUROLOGICAL: No headaches, no weakness, no numbness. HEMATOLOGICAL: Denies any bleeding or petechiae. GENITOURINARY: Denies any burning micturition, frequency, or urgency. MUSCULOSKELETAL/RHEUMATOLOGICAL: Denies any joint pain, swelling, or any muscle pain. ENDOCRINE: Denies any polyuria or polydipsia. The rest of the 14-point review of systems is negative. PHYSICAL EXAMINATION: GENERAL: The patient is alert and oriented x3, not in any acute distress. Well developed, well nourished. HEENT: Pupils are round and equally reacting to light. EOMI. No scleral icterus. No conjunctival pallor. Normocephalic, atraumatic. No pharyngeal erythema. No thyromegaly. CARDIOVASCULAR: S1 and S2 present. No murmurs, rubs, or gallops. PULMONARY: Chest is clear to auscultation, no wheezing or crackles. ABDOMEN: Soft, nontender, nondistended, normoactive bowel sounds. No palpable organomegaly. MUSCULOSKELETAL: No joint swelling or deformity. EXTREMITIES: No cyanosis, clubbing, or pedal edema. NEUROLOGICAL: Gross neurological examination did not reveal any focal deficits. SKIN: No rashes. Assessment and plan Acute hypoxic respiratory failure COVID-19 pneumonia Hyperbilirubinemia Lactic acidosis Hypertension Dyslipidemia Paroxysmal atrial fibrillation on Xarelto Monitor vital signs Monitor CBC Monitor CMP Check d-dimer Check procalcitonin Continue breathing treatment Continue IV Decadron Consult pulmonology Consulted ID Resume home meds once verified Labs and medication were reviewed.. Continue same treatment. Continue with symptomatic treatment. Resume home medication. Monitor labs and vitals. DVT and GI prophylaxis. Further recommendations as per clinical course of the patient Dictation was produced using [employer] dictation software. please excuse any grammatical, word or spelling errors. Past Medical History Past Medical History: COPD, Hyperlipidemia, Myocardial Infarction ([place]), Pneumonia, Prostate Disorder, Thyroid Disorder Additional Past Medical History / Comment(s): per cardiology consult note 06/20/21 hx chf,htn,a-fib Last Myocardial Infarction Date:: Apr 1994 History of Any Multi-Drug Resistant Organisms: None Reported Past Surgical History: Heart Catheterization Additional Past Surgical History / Comment(s): angioplasty after [place], no stents, pilonidal cyst removal, Past Anesthesia/Blood Transfusion Reactions: No Reported Reaction Additional Past Anesthesia/Blood Transfusion Reaction / Comment(s): vertigo Past Psychological History: No Psychological Hx Reported Smoking Status: Former smoker Past Alcohol Use History: Occasional Past Drug Use History: None Reported - Past Family History Father History Unknown: Yes Sister(s) Family Medical History: Cancer Additional Family Medical History / Comment(s): nonhodgkins lymphoma Medications and Allergies Home Medications Medication Instructions Recorded Confirmed Type Simvastatin [Zocor] 20 mg PO HS 11/26/20 12/01/21 History Ascorbic Acid [Vitamin C] 500 mg PO DAILY 02/11/21 12/01/21 History Cholecalciferol [Vitamin D3 (25 50 mcg PO DAILY 02/11/21 12/01/21 History Mcg = 1000 Iu)] Zinc 50 mg PO DAILY 02/11/21 12/01/21 History Albuterol Inhaler [Ventolin Hfa 2 puff INHALATION RT-QID PRN 06/19/21 12/01/21 History Inhaler] Albuterol Nebulized [Ventolin 2.5 mg INHALATION RT-BID 06/19/21 12/01/21 History Nebulized] Fluticasone/Umeclidin/Vilanter 1 puff INHALATION RT-DAILY 06/19/21 12/01/21 History [Rosina Ellipta 100-62.5-25] Levothyroxine Sodium [Synthroid] 50 mcg PO DAILY 06/19/21 12/01/21 History Rivaroxaban [Xarelto] 15 mg PO DAILY 06/19/21 12/01/21 History Latanoprost/Pf [Latanoprost 0.005% 1 drop BOTH EYES HS 06/20/21 12/01/21 History Eye Drop] Furosemide [Lasix] 20 mg PO DAILY@1400 12/01/21 12/01/21 History Spironolactone 25 mg PO DAILY 12/01/21 12/01/21 History metOLazone 2.5 mg PO MOWEFR 12/01/21 12/01/21 History Metoprolol Tartrate [Lopressor] 25 mg PO TID 30 Days #90 tab 12/12/21 Rx Midodrine [ProAmatine] 10 mg PO AC-TID #90 tab 12/12/21 Rx Potassium Chloride ER [K-Dur 20] 40 meq PO HS #60 tab 12/13/21 12/01/21 Rx Ciprofloxacin HCl [Cipro] 500 mg PO Q12HR #14 tablet 12/05/22 Rx Allergies Allergy/AdvReac Type Severity Reaction Status Date / Time prednisone AdvReac CAN'T Verified 05/10/23 11:31 URINATE WHEN HE TAKES IT Physical Exam Vitals: Vital Signs Temp Pulse Resp BP Pulse Ox 05/10/23 14:00 105 H 102/57 05/10/23 13:30 105 H 96/63 05/10/23 12:26 101 H 18 05/10/23 12:16 98 18 05/10/23 11:24 97.8 F 104 H 20 108/73 99 Intake and Output 05/10/23 05/10/23 05/10/23 06:59 14:59 22:59 Other: Weight 63.503 kg Results CBC & Chem 7: 05/10/23 11:45 05/10/23 11:45 Labs: Abnormal Lab Results - Last 24 Hours (Table) 05/10/23 05/10/2323 Range/Units 11:45 11:45 11:45 RBC 3.31 L (4.30-5.90) m/uL Hgb 11.0 L (13.0-17.5) gm/dL Hct 33.5 L (39.0-53.0) % MCV 101.2 H (80.0-100.0) fL Lymphocytes # 0.7 L (1.0-4.8) k/uL PT 12.9 H (10.0-12.5) sec INR 1.2 H (<1.2) Sodium 134 L (137-145) mmol/L BUN 41 H (9-20) mg/dL Glucose 135 H (74-99) mg/dL Plasma Lactic Acid Kael (0.7-2.0) mmol/L Total Bilirubin 1.6 H (0.2-1.3) mg/dL AST 83 H (17-59) U/L Alkaline Phosphatase 150 H (38-126) U/L Albumin 3.3 L (3.5-5.0) g/dL Coronavirus (PCR) (Not Detectd) 05/10/23 05/10/23 Range/Units 11:45 11:45 RBC (4.30-5.90) m/uL Hgb (13.0-17.5) gm/dL Hct (39.0-53.0) % MCV (80.0-100.0) fL Lymphocytes # (1.0-4.8) k/uL PT (10.0-12.5) sec INR (<1.2) Sodium (137-145) mmol/L BUN (9-20) mg/dL Glucose (74-99) mg/dL Plasma Lactic Acid Kael 2.9 H* (0.7-2.0) mmol/L Total Bilirubin (0.2-1.3) mg/dL AST (17-59) U/L Alkaline Phosphatase (38-126) U/L Albumin (3.5-5.0) g/dL Coronavirus (PCR) Detected A (Not Detectd)
[2023-05-10] MEDS: ZINC SULFATE 220 MG CAP PO SCH (17:31)
--- NOTE | 2023-05-10 23:18 | P.CONS ---
History of Present Illness - Reason for Consult Consult date: 05/10/23 covid 19 pneumonia Requesting physician: Melecio Resendiz - Chief Complaint Increasing shortness of breath and cough x few days - History of Present Illness Patient is a 87-year-old male with a past medical history significant for COPD hypertension hyperlipidemia [place] presenting to the hospital for evaluation of shortness of breath and cough and this patient symptoms started last weekend on Saturday when he did have a fever rigors and chills did have a shortness of breath and also have a cough patient mention he did have resolution of his fever and URI symptoms he continued have a cough which has been moderate intensity mostly dry in nature he is unable to cough up any sputum patient denies having any pleuritic chest pain patient was noticed to be slightly more s hort of breath by the daughters were concerned about his health and has brought the patient to the hospital on arrival to the ER patient was afebrile patient was mildly tachycardic O2 sats has been recorded 99% on 2 L nasal cannula no O2 sats on room air has been documented patient did have a normal white count creatinine was 0.97 lactic acid was 2.9 bilirubin AST is mildly elevated he tested positive for COVID patient did have a chest x-ray patchy infiltrate right upper lobe left lower lobe with effusion concerning for pneumonia patient has been admitted to the hospital he was started on dexamethasone also received a dose of Solu-Medrol infectious disease was consulted for further management regarding his COVID-19 infection Review of Systems Positive point and negatives has been mentioned in the HPI, complete review of systems was performed and all other systems are negative Past Medical History Past Medical History: COPD, Hyperlipidemia, Myocardial Infarction ([place]), Pneumonia, Prostate Disorder, Thyroid Disorder Additional Past Medical History / Comment(s): per cardiology consult note hx chf,htn,a-fib Last Myocardial Infarction Date:: Apr 1994 History of Any Multi-Drug Resistant Organisms: None Reported Past Surgical History: Heart Catheterization Additional Past Surgical History / Comment(s): angioplasty after [place], no stents, pilonidal cyst removal, Past Anesthesia/Blood Transfusion Reactions: No Reported Reaction Additional Past Anesthesia/Blood Transfusion Reaction / Comm: vertigo Past Psychological History: No Psychological Hx Reported Smoking Status: Former smoker Past Alcohol Use History: Occasional Past Drug Use History: None Reported - Past Family History Father History Unknown: Yes Sister(s) Family Medical History: Cancer Additional Family Medical History / Comment(s): nonhodgkins lymphoma Medications and Allergies Home Medications Medication Instructions Recorded Confirmed Type Simvastatin [Zocor] 20 mg PO HS 11/26/20 05/10/23 History Albuterol Inhaler [Ventolin Hfa 2 puff INHALATION RT-QID PRN 06/19/21 05/10/23 History Inhaler] Fluticasone/Umeclidin/Vilanter 1 puff INHALATION RT-DAILY 06/19/21 05/10/23 History [Trelegy Ellipta 100-62.5-25] Levothyroxine Sodium [Synthroid] 75 mcg PO DAILY 06/19/21 05/10/23 History Rivaroxaban [Xarelto] 15 mg PO DAILY 06/19/21 05/10/23 History Latanoprost/Pf [Latanoprost 0.005% 1 drop BOTH EYES HS 06/20/21 05/10/23 History Eye Drop] Metoprolol Tartrate [Lopressor] 25 mg PO TID 30 Days #90 tab 12/12/21 05/10/23 Rx Midodrine HCl [ProAmatine] 10 mg PO AC-TID 05/10/23 05/10/23 History Triamcinolone 0.1% Cream [Kenalog 1 applicatio TOPICAL BID PRN 05/10/23 05/10/23 History 0.1% Cream] Fluconazole [Diflucan] 100 mg PO DAILY 5 Days #5 tab 05/20/23 Rx guaiFENesin [Mucinex] 600 mg PO Q12HR 7 Days #14 tab 05/20/23 Rx Allergies Allergy/AdvReac Type Severity Reaction Status Date / Time prednisone AdvReac CAN'T Verified 05/10/23 16:31 URINATE WHEN HE TAKES IT Physical Exam Vitals: Vital Signs Temp Pulse Resp BP Pulse Ox 05/10/23 16:26 106 H 18 98/61 97 05/10/23 14:00 105 H 102/57 05/10/23 13:30 105 H 96/63 05/10/23 12:26 101 H 18 05/10/23 12:16 98 18 05/10/23 11:24 97.8 F 104 H 20 108/73 99 Intake and Output 05/10/23 05/10/23 05/10/23 06:59 14:59 22:59 Other: Weight 63.503 kg GENERAL DESCRIPTION: Elderly male lying in bed, no distress. No tachypnea or a ccessory muscle of respiration use. HEENT: Shows Pallor , no scleral icterus. Oral mucous membrane is dry. NECK: Trachea central, no thyromegaly. LUNGS: Unlabored breathing. Coarse breath sounds bilaterally HEART: S1, S2, regular rate and rhythm. ABDOMEN: Soft, no tenderness , EXTREMITIES: No edema of feet. SKIN: No rash, no masses palpable. NEUROLOGICAL: The patient is awake, alert, oriented x3, mood and affect normal. Results CBC & Chem 7: 05/19/23 06:53 05/19/23 06:53 Labs: Abnormal Lab Results - Last 24 Hours (Table) 05/10/23 05/10/23 05/10/23 Range/Units 11:45 11:45 11:45 RBC 3.31 L (4.30-5.90) m/uL Hgb 11.0 L (13.0-17.5) gm/dL Hct 33.5 L (39.0-53.0) % MCV 101.2 H (80.0-100.0) fL Lymphocytes # 0.7 L (1.0-4.8) k/uL PT 12.9 H (10.0-12.5) sec INR 1.2 H (<1.2) D-Dimer (<0.60) mg/L FEU Sodium 134 L (137-145) mmol/L BUN 41 H (9-20) mg/dL Glucose 135 H (74-99) mg/dL Plasma Lactic Acid Kael (0.7-2.0) mmol/L Total Bilirubin 1.6 H (0.2-1.3) mg/dL AST 83 H (17-59) U/L Alkaline Phosphatase 150 H (38-126) U/L Albumin 3.3 L (3.5-5.0) g/dL Coronavirus (PCR) (Not Detectd) 05/10/23 05/10/23 05/10/23 Range/Units 11:45 11:45 15:32 RBC (4.30-5.90) m/uL Hgb (13.0-17.5) gm/dL Hct (39.0-53.0) % MCV (80.0-100.0) fL Lymphocytes # (1.0-4.8) k/uL PT (10.0-12.5) sec INR (<1.2) D-Dimer 1.95 H (<0.60) mg/L FEU Sodium (137-145) mmol/L BUN (9-20) mg/dL Glucose (74-99) mg/dL Plasma Lactic Acid Kael 2.9 H* (0.7-2.0) mmol/L Total Bilirubin (0.2-1.3) mg/dL AST (17-59) U/L Alkaline Phosphatase (38-126) U/L Albumin (3.5-5.0) g/dL Coronavirus (PCR) Detected A (Not Detectd) Assessment and Plan (1) Pneumonia due to COVID-19 virus Current Visit: Yes Status: Acute Code(s): U07.1 - COVID-19; J12.82 - PNEUMONIA DUE TO CORONAVIRUS DISEASE 2018 SNOMED Code(s): [id number] Plan: 1patient presented to hospital with 6-day history of fever which has resolved, now complaining of mostly shortness of breath and a cough which apparently is improving per patient and has been diagnosed with COVID-19 pneumonia clinical suspicion is low for secondary bacterial pneumonia in this patient with a normal white count and lymphopenia 2-we will obtain a procalcitonin level and obtain a sputum for Gram stain and c ulture if possible 3-patient to continue with the dexamethasone we will add zinc ascorbic acid and Lovenox, no need for remdesivir or antibiotics at this point Daughter at the bedside questions were answered We will follow on clinical condition and cultures to further adjust medication if needed Thank you for this consultation we will follow the patient along with you Dictation was produced using [employer] dictation software. please excuse any grammatical, word or spelling errors. Time with Patient: Greater than 30
[2023-05-11] MEDS: MIDODRINE 5 MG TAB PO SCH ×3 (06:47→17:04)
[2023-05-11] MEDS: LEVOTHYROXINE 75 MCG TAB PO SCH (06:48)
[2023-05-11] MEDS ORDERED: METOPROLOL TARTRATE 50 MG TAB PO SCH (09:00)
[2023-05-11] MEDS ORDERED: ENOXAPARIN 40 MG/0.4 ML SYRINGE SQ SCH (09:00)
[2023-05-11 09:44] LABS: HCT 28.9 % (39.6-50.0); HGB 9.3 d/dL (13.0-17.0); MCHC 32.2 d/dL (32.0-37.0); MCV 99.3 FL (80.0-97.0); NRBC Per 100 WBC 0 X 10*3/uL (0.00-0.01); Platelet Count 225 X 10*3/uL (140-440); RBC 2.91 X 10*6/uL (4.40-5.60); RDW 13.5 % (11.5-14.5); WBC 4.56 X 10*3/uL (4.50-10.00)
[2023-05-11 09:47] LABS: ALT 34 U/L (10-49); AST 44 U/L (14-35); Albumin 2.8 d/dL (3.8-4.9); Alkaline Phosphatase 129 U/L (41-126); Blood Urea Nitrogen 37.6 mg/dL (9.0-27.0); Calcium 8.7 mg/dL (8.7-10.3); Carbon Dioxide 24.7 mmol/L (21.6-31.8); Chloride 98 mmol/L (96-109); Globulin 2.8 d/dL (1.6-3.3); Glucose 162 mg/dL (70-110); Potassium 4.4 mmol/L (3.5-5.5); Sodium 134 mmol/L (135-145); Total Bilirubin 0.7 mg/dL (0.3-1.2); Total Protein 5.6 d/dL (6.2-8.2)
[2023-05-11] MEDS: FUROSEMIDE 20 MG TAB PO SCH (10:27)
[2023-05-11] MEDS: METOPROLOL TARTRATE 25 MG TAB PO SCH ×3 (10:27→20:39)
[2023-05-11] MEDS: ZINC SULFATE 220 MG CAP PO SCH (10:28)
[2023-05-11] MEDS: ASCORBIC ACID 500 MG TAB PO SCH (10:28)
[2023-05-11] MEDS: DEXAMETHASONE SOD PHOSPHATE 10 MG/ML 1 ML VIAL IVP SCH (10:28)
--- NOTE | 2023-05-11 12:02 | P.CNPUL ---
History of Present Illness Consult date: 05/11/23 Requesting physician: Melecio Resendiz Reason for consult: dyspnea Chief complaint: Shortness of breath, fever, weakness History of present illness: This is a pleasant 87-year-old male patient who follows with Dr. Santiago as his primary care provider. If he has a history of 35 years of smoking up to 3 packs per day. He quit years ago. He does have chronic obstructive pulmonary disease and is maintained on Trilogy on albuterol and the outpatient setting. He also has a history of hyperlipidemia, myocardial infarction, prostate disorder, hypothyroidism, atrial fibrillation anticoagulated with Xarelto. He had a 2 day history of increasing shortness of fever breath, fever, weakness and was brought into the emergency room yesterday for the same. X-ray revealed patchy infiltrate in the right upper lobe as well as left lower lobe with small effusions. White count 4.5. Hemoglobin 9.3. D-dimer 1.95. Creatinine sodium 134. Potassium 4.4. Bicarb 25. BUN 37. Creatinine 1.0. Glucose 162. Pro- calcitonin 0.21. ProBNP 6730. He was also found to be positive for coronavirus. He is seen today in consultation on the regular medical floor. He is currently resting fairly comfortably in bed. Awake and alert in no acute acute distress. He is feeling a bit better today compared to yesterday. He is maintaining O2 saturations in the 90s on 2 L/m per nasal cannula. He's been afebrile. Hemodynamically stable. He's been initiated on Decadron 6 mg IVP daily. Anticoagulated with Xarelto. Initiated on vitamin supplements. Review of Systems REVIEW OF SYSTEMS: CONSTITUTIONAL: Positive for generalized weakness, fever Denies any recent significant weight loss or weight gain. EYES: Denies change in vision. EARS, NOSE, MOUTH, THROAT: Denies headaches, denies sore throat. CARDIOVASCULAR: Denies chest pain, palpitations or syncopal episodes. RESPIRATORY: Positive for shortness of breath, cough, congestion no hemoptysis. GASTROINTESTINAL: Denies change in appetite, denies abdominal pain GENITOURINARY: Denies hematuria, denies infections. MUSKULOSKELETAL: Denies pain, denies swelling. INTEGUMENTARY: Denies rash, denies eczema. NEUROLOGICAL: Denies recent memory loss, no recent seizure activity. PSYCHIATRIC: Denies anxiety, denies depression. HEMATOLOGIC/LYMPHATIC: Denies anemia, denies enlarged lymph nodes. Past Medical History Past Medical History: COPD, Hyperlipidemia, Myocardial Infarction ([place]), Pneumoni a, Prostate Disorder, Thyroid Disorder Additional Past Medical History / Comment(s): per cardiology consult note 06/20/21 hx chf,htn,a-fib Last Myocardial Infarction Date:: Apr 1994 History of Any Multi-Drug Resistant Organisms: None Reported Past Surgical History: Heart Catheterization Additional Past Surgical History / Comment(s): angioplasty after [place], no stents, pilonidal cyst removal, Past Anesthesia/Blood Transfusion Reactions: No Reported Reaction Additional Past Anesthesia/Blood Transfusion Reaction / Comment(s): vertigo Past Psychological History: No Psychological Hx Reported Smoking Status: Former smoker Past Alcohol Use History: Occasional Past Drug Use History: None Reported - Past Family History Father History Unknown: Yes Sister(s) Family Medical History: Cancer Additional Family Medical History / Comment(s): nonhodgkins lymphoma Medications and Allergies Home Medications Medication Instructions Recorded Confirmed Type Simvastatin [Zocor] 20 mg PO HS 11/26/20 05/10/23 History Albuterol Inhaler [Ventolin Hfa 2 puff INHALATION RT-QID PRN 06/19/21 05/10/23 History Inhaler] Fluticasone/Umeclidin/Vilanter 1 puff INHALATION RT-DAILY 06/19/21 05/10/23 History [Trelegy Ellipta 100-62.5-25] Levothyroxine Sodium [Synthroid] 75 mcg PO DAILY 06/19/21 05/10/23 History Rivaroxaban [Xarelto] 15 mg PO DAILY 06/19/21 05/10/23 History Latanoprost/Pf [Latanoprost 0.005% 1 drop BOTH EYES HS 06/20/21 05/10/23 History Eye Drop] Spironolactone 25 mg PO DAILY 12/01/21 05/10/23 History Metoprolol Tartrate [Lopressor] 25 mg PO TID 30 Days #90 tab 12/12/21 05/10/23 Rx Furosemide [Lasix] 20 mg PO DAILY 05/10/23 05/10/23 History Midodrine HCl [ProAmatine] 10 mg PO AC-TID 05/10/23 05/10/23 History Triamcinolone 0.1% Cream [Kenalog 1 applicatio TOPICAL BID PRN 05/10/23 05/10/23 History 0.1% Cream] Allergies Allergy/AdvReac Type Severity Reaction Status Date / Time prednisone AdvReac CAN'T Verified 05/10/23 16:31 URINATE WHEN HE TAKES IT Physical Exam Vitals: Vital Signs Temp Pulse Pulse Resp BP BP Pulse Ox 05/11/23 07:55 97.5 F L 90 19 92/58 93 L 05/11/23 01:20 97.5 F L 98 18 98/62 98 05/10/23 20:32 93 L 05/10/23 20:00 97.6 F 97 19 103/66 96 05/10/23 17:00 112 H 99/62 96 05/10/23 16:30 104 H 98/61 96 05/10/23 16:26 106 H 18 98/61 97 05/10/23 16:00 102 H 97/65 05/10/23 15:30 93 105/64 05/10/23 15:00 101 H 101/60 05/10/23 14:30 107 H 99/57 05/10/23 14:00 105 H 102/57 05/10/23 13:30 105 H 96/63 05/10/23 12:26 101 H 18 05/10/23 12:16 98 18 Intake and Output 05/10/23 05/11/23 05/11/23 22:59 06:59 14:59 Other: Voiding Method Diaper # Voids 2 Weight 60 kg GENERAL EXAM: Alert, very pleasant 87-year-old male patient, on 2 L nasal cannula, comfortable in no apparent distress. HEAD: Normocephalic. EYES: Normal reaction of pupils, equal size. NOSE: Clear with pink turbinates. THROAT: No erythema or exudates. NECK: No masses, no JVD. CHEST: No chest wall deformity. LUNGS: Equal air entry with few scattered rhonchi. CVS: S1 and S2 normal with no audible murmur, regular rhythm. ABDOMEN: No hepatosplenomegaly, normal bowel sounds, no guarding or rigidity. SPINE: No scoliosis or deformity SKIN: No rashes CENTRAL NERVOUS SYSTEM: No focal deficits, tone is normal in all 4 extremities. EXTREMITIES: There is no peripheral edema. No clubbing, no cyanosis. Peripheral pulses are intact. Results - Laboratory Findings CBC and BMP: 05/11/23 06:13 05/11/23 06:13 PT/INR, D-dimer PT 12.9 sec (10.0-12.5) H 05/10/23 11:45 INR 1.2 (<1.2) H 05/10/23 11:45 D-Dimer 1.95 mg/L FEU (<0.60) H 05/10/23 15:32 Abnormal lab findings: Abnormal Labs 05/10/23 05/10/23 05/10/23 11:45 11:45 11:45 RBC 3.31 L Hgb 11.0 L Hct 33.5 L MCV 101.2 H Lymphocytes # 0.7 L PT 12.9 H INR 1.2 H D-Dimer Sodium 134 L BUN 41 H BUN/Creatinine Ratio Glucose 135 H Plasma Lactic Acid Kael Total Bilirubin 1.6 H AST 83 H Alkaline Phosphatase 150 H C-Reactive Protein Total Protein Albumin 3.3 L Albumin/Globulin Ratio Procalcitonin Coronavirus (PCR) 05/10/23 05/10/23 05/10/23 11:45 11:45 15:32 RBC Hgb Hct MCV Lymphocytes # PT INR D-Dimer 1.95 H Sodium BUN BUN/Creatinine Ratio Glucose Plasma Lactic Acid Kael 2.9 H* Total Bilirubin AST Alkaline Phosphatase C-Reactive Protein Total Protein Albumin Albumin/Globulin Ratio Procalcitonin Coronavirus (PCR) Detected A 05/10/23 05/11/23 05/11/23 15:32 06:13 06:13 RBC 2.91 L Hgb 9.3 L Hct 28.9 L MCV 99.3 H Lymphocytes # PT INR D-Dimer Sodium 134 L BUN 37.6 H BUN/Creatinine Ratio 37.60 H Glucose 162 H Plasma Lactic Acid Kael Total Bilirubin AST 44 H Alkaline Phosphatase 129 H C-Reactive Protein 12.20 H Total Protein 5.6 L Albumin 2.8 L Albumin/Globulin Ratio 1.00 L Procalcitonin 0.21 H Coronavirus (PCR) - Diagnostic Findings Chest x-ray: image reviewed Assessment and Plan Assessment: Acute hypoxemic respiratory failure secondary to an acute exacerbation of chronic obstructive pulmonary disease mild possible COVID-19 pneumonia, fluid volume overload COVID-19 infection History of atrial fibrillation, anticoagulated with Xarelto Previous myocardial infarction status post PTB a Hypertension Hyperlipidemia Hypothyroidism Tiesha: The patient was seen and evaluated Chest x-ray, labs and medications are reviewed Initiate Symbicort and albuterol Continue Decadron Continue Xarelto Continue vitamin supplements Titrate the FiO2 as tolerated Increase his activity as tolerated We will continue to follow and make further recommendations based on his clinical status I have personally seen and examined the patient, performed the documentation and the assessment and plan as written. Number of minutes spent on the visit: 20.
--- NOTE | 2023-05-11 12:29 | CT ---
EXAMINATION TYPE: CT chest angio for PE CT DLP: 238.3 mGycm, Automated exposure control for dose reduction was used. DATE OF EXAM: 05/11/2023 11:59 AM COMPARISON: 12/01/2021 CLINICAL INDICATION:Male, 87 years old with history of Dyspnea; Dyspnea, COVID pneumonia TECHNIQUE/CONTRAST: CTA scan of the thorax is performed without and with IV Contrast, patient injected with 100 ml mL of Isovue 300, MIP images are created and reviewed these are created on a separate workstation.. FINDINGS: Pulmonary Artery: There is no evidence for a filling defect within the pulmonary vasculature to sugge st acute pulmonary embolism. The pulmonary artery is of normal size. Lungs/Pleura: Bilateral pleural effusions trace left and small right. Scattered interstitial opacitie s are present. There is a left upper lung area of consolidation extending towards the periphery. Erlin tional patchy opacities are present. There is also nodular like opacities along the periphery in the lower aspect of the left lung. Airway: Large airways are patent. Heart: The heart is mildly enlarged for size. There is moderate to severe coronary artery cusp patien t's. Aortic valve leaflet calcifications. Vasculature: No evidence of aortic aneurysm. Mediastinum: No gross evidence of adenopathy. Prominent lymph nodes likely reactive given findings in the lungs. Musculoskeletal: Mild degenerative disc disease changes are present throughout the thoracolumbar spin e. Soft Tissues: Mild bilateral gynecomastia changes. Lower neck: No significant findings. Upper Abdomen: No significant findings. IMPRESSION: 1. No evidence of pulmonary embolism. 2. Scattered patchy and interstitial pulmonary opacities correlate for pneumonia. Follow-up CT in 3-6 months recommended to ensure resolution of pulmonary findings including left upper an lower lung nod ular like opacities. 3. Cardiomegaly with right lateral pleural effusions correlate with serum BNP for congestive heart fa ilure. 4. Prominent Mediastinal lymph nodes are likely reactive given acute findings in the lung. Attention on follow-up in 3-6 months.
--- NOTE | 2023-05-11 12:35 | XR ---
EXAM: XR chest 1V portable CLINICAL INDICATION:Male, 87 years old with history of pneumonia; [facility] COMPARISON: Chest x-ray 05/10/2023, and before TECHNIQUE: Chest single view. FINDINGS: Lines/tubes/devices: None. Cardiomediastinum: Cardiac silhouette appears mildly enlarged. Atherosclerotic calcifications of the aorta. Vasculature: No increased pulmonary vasculature. Lungs/pleura: Hyperinflation with interstitial thickening suggesting COPD changes. Presumed scarring/senescent mora ges. Patchy opacities, mostly at the left lung base and right upper lobe, with probable small to mode rate bilateral pleural effusions, similar in appearance to the prior study. No visible pneumothorax. Bones/soft tissues: Bony thorax appears grossly unchanged as seen. Regional soft tissues appear unremarkable. IMPRESSION: 1. COPD changes. 2. Patchy opacities, mostly at the left lung base and right upper lobe, with probable small to moder ate bilateral pleural effusions, similar in appearance to the prior study. Findings judged likely to represent pneumonia, with underlying neoplasm not excluded. Correlation and follow-up with CT recomme nded when appropriate.
--- NOTE | 2023-05-11 13:22 | P.PN ---
Subjective Progress Note Date: 05/11/23 87-year-old male past medical history significant for hypertension, dyslipidemia, paroxysmal atrial fibrillation on Xarelto presented to the ER for flulike symptoms for 1 week. Patient stated that he was all right one week back when he started noticing that he was having generalized body aches and lethargy. Patient also complaining of shortness of breath at home. Patient also stated that he felt that he was having fevers at home, did not check his fevers at home. Denied any chest pain or swelling of feet. Complaining of dry cough. There was no complaint of nausea, vomiting abdominal pain. Patient continued to feel worse and decided to come to the ER Initial lab work done in the ER showed WBC 8.4, hemoglobin 11, platelet count 268, sodium 134, potassium 5.1, BUN 14, creatinine 0.97, lactate 2.9, bilirubin 1.6, AST 83 COVID-19 was positive Chest x-ray done in the ER patchy infiltrate right upper lobe as well as left lower lobe Patient admitted to medicine service 05/11. Patient seen and examined. Currently on 2 L of oxygen. Denies any shortness of breath at rest, complaining of cough. REVIEW OF SYSTEMS: CONSTITUTIONAL: No fever, no malaise,. CARDIOVASCULAR: No chest pain, no palpitations, no syncope. PULMONARY: As mentioned above GASTROINTESTINAL: No diarrhea, no nausea, no vomiting, no abdominal pain. NEUROLOGICAL: No headaches, no weakness, PHYSICAL EXAMINATION: GENERAL: The patient is alert and oriented x3, not in any acute distress. Well developed, well nourished. HEENT: Pupils are round and equally reacting to light. EOMI. No scleral icterus. No conjunctival pallor. Normocephalic, atraumatic. No pharyngeal erythema. No thyromegaly. CARDIOVASCULAR: S1 and S2 present. No murmurs, rubs, or gallops. PULMONARY: Coarse breath sounds bilaterally, no wheeze ABDOMEN: Soft, nontender, nondistended, normoactive bowel sounds. No palpable organomegaly. MUSCULOSKELETAL: No joint swelling or deformity. EXTREMITIES: No cyanosis, clubbing, or pedal edema. NEUROLOGICAL: Gross neurological examination did not reveal any focal deficits. SKIN: No rashes. Assessment and plan Acute hypoxic respiratory failure COVID-19 pneumonia Hyperbilirubinemia Lactic acidosis Hypertension Dyslipidemia Paroxysmal atrial fibrillation on Xarelto Monitor vital signs Monitor CBC Monitor CMP Continue COVID-19 droplet plus isolation D-dimer elevated, CT chest ordered Continue breathing treatment Continue IV Decadron Pulmonology following ID following Labs and medication were reviewed.. Continue same treatment. Continue with symptomatic treatment. Resume home medication. Monitor labs and vitals. DVT and GI prophylaxis. Further recommendations as per clinical course of the patient Dictation was produced using [email or web address] dictation software. please excuse any grammatical, word or spelling errors. Objective - Vital Signs Vital signs: Vital Signs Temp 97.5 F L 05/11/23 07:55 Pulse 90 05/11/23 07:55 Resp 19 05/11/23 07:55 BP 92/58 05/11/23 07:55 Pulse Ox 93 L 05/11/23 07:55 FiO2 Intake & Output 05/10/23 05/11/23 05/11/23 18:59 06:59 18:59 Weight 63.503 kg 60 kg Other: Voiding Method Diaper # Voids 2 - Labs CBC & Chem 7: 05/11/23 06:13 05/11/23 06:13 Labs: Abnormal Lab Results - Last 24 Hours (Table) 05/10/23 05/10/23 05/10/23 Range/Units 11:45 11:45 11:45 RBC 3.31 L (4.30-5.90) m/uL Hgb 11.0 L (13.0-17.5) gm/dL Hct 33.5 L (39.0-53.0) % MCV 101.2 H (80.0-100.0) fL Lymphocytes # 0.7 L (1.0-4.8) k/uL PT 12.9 H (10.0-12.5) sec INR 1.2 H (<1.2) D-Dimer (<0.60) mg/L FEU Sodium 134 L (137-145) mmol/L BUN 41 H (9-20) mg/dL BUN/Creatinine Ratio (12.00-20.00) Ratio Glucose 135 H (74-99) mg/dL Plasma Lactic Acid Kael (0.7-2.0) mmol/L Total Bilirubin 1.6 H (0.2-1.3) mg/dL AST 83 H (17-59) U/L Alkaline Phosphatase 150 H (38-126) U/L C-Reactive Protein (0.00-0.80) mg/dL Total Protein (6.2-8.2) d/dL Albumin 3.3 L (3.5-5.0) g/dL Albumin/Globulin Ratio (1.60-3.17) Ratio Procalcitonin (0.02-0.09) ng/mL Coronavirus (PCR) (Not Detectd) 05/10/23 05/10/23 05/10/23 Range/Units 11:45 11:45 15:32 RBC (4.30-5.90) m/uL Hgb (13.0-17.5) gm/dL Hct (39.0-53.0) % MCV (80.0-100.0) fL Lymphocytes # (1.0-4.8) k/uL PT (10.0-12.5) sec INR (<1.2) D-Dimer 1.95 H (<0.60) mg/L FEU Sodium (137-145) mmol/L BUN (9-20) mg/dL BUN/Creatinine Ratio (12.00-20.00) Ratio Glucose (74-99) mg/dL Plasma Lactic Acid Kael 2.9 H* (0.7-2.0) mmol/L Total Bilirubin (0.2-1.3) mg/dL AST (17-59) U/L Alkaline Phosphatase (38-126) U/L C-Reactive Protein (0.00-0.80) mg/dL Total Protein (6.2-8.2) d/dL Albumin (3.5-5.0) g/dL Albumin/Globulin Ratio (1.60-3.17) Ratio Procalcitonin (0.02-0.09) ng/mL Coronavirus (PCR) Detected A (Not Detectd) 05/10/23 05/11/23 05/11/23 Range/Units 15:32 06:13 06:13 RBC 2.91 L (4.30-5.90) m/uL Hgb 9.3 L (13.0-17.5) gm/dL Hct 28.9 L (39.0-53.0) % MCV 99.3 H (80.0-100.0) fL Lymphocytes # (1.0-4.8) k/uL PT (10.0-12.5) sec INR (<1.2) D-Dimer (<0.60) mg/L FEU Sodium 134 L (137-145) mmol/L BUN 37.6 H (9-20) mg/dL BUN/Creatinine Ratio 37.60 H (12.00-20.00) Ratio Glucose 162 H (74-99) mg/dL Plasma Lactic Acid Kael (0.7-2.0) mmol/L Total Bilirubin (0.2-1.3) mg/dL AST 44 H (17-59) U/L Alkaline Phosphatase 129 H (38-126) U/L C-Reactive Protein 12.20 H (0.00-0.80) mg/dL Total Protein 5.6 L (6.2-8.2) d/dL Albumin 2.8 L (3.5-5.0) g/dL Albumin/Globulin Ratio 1.00 L (1.60-3.17) Ratio Procalcitonin 0.21 H (0.02-0.09) ng/mL Coronavirus (PCR) (Not Detectd)
[2023-05-11] MEDS: ALBUTEROL HFA INHALER INHALATION SCH ×3 (13:43→20:44)
[2023-05-11] MEDS: SYMBICORT 160-4.5 MCG INHALER INHALATION SCH (13:43)
[2023-05-11] MEDS: RIVAROXABAN 15 MG TAB PO SCH (17:03)
[2023-05-11] MEDS: CALCIUM CARBONATE 500 MG CHEWABLE PO PRN (17:56)
[2023-05-11] MEDS: LATANOPROST 0.005% OPHTH DROPS 2.5 ML BTL BOTH EYES SCH (20:39)
[2023-05-11] MEDS: ATORVASTATIN 20 MG TAB PO SCH (20:39)
--- NOTE | 2023-05-11 22:22 | P.PN ---
Subjective Progress Note Date: 05/11/23 Principal diagnosis: Covid 19 pneumonia Patient is a 87-year-old male with a past medical history significant for COPD hypertension hyperlipidemia [place] presenting to the hospital for evaluation of shortness of breath and cough and this patient symptoms started a week before presentation to hospital , pt did tested positive for covid 19 On todays evaluation that is 05/11/2023, the patient denies any fever or any chills, the patient is breathing comfortably on 2LNC oxygen , the patient denies chest pain, shortness of breath and no worsening cough, patient denies abdominal pain, no nausea/vomiting or diarrhea wbc 4.56, Cr 1.0 Objective - Vital Signs Vital signs: Vital Signs Temp 97.5 F L 05/11/23 07:55 Pulse 90 05/11/23 07:55 Resp 19 05/11/23 07:55 BP 92/58 05/11/23 07:55 Pulse Ox 93 L 05/11/23 07:55 FiO2 Intake & Output 05/10/23 05/11/23 05/11/23 18:59 06:59 18:59 Weight 63.503 kg 60 kg Other: Voiding Method Diaper # Voids 2 - Exam GENERAL DESCRIPTION: An elderly male lying in bed in no distress RESPIRATORY SYSTEM: Unlabored breathing , decreased breath sounds at bases HEART: S1 S2 regular rate and rhythm , ABDOMEN: Soft , no tenderness EXTREMITIES: No edema feet - Labs CBC & Chem 7: 05/11/23 06:13 05/11/23 06:13 Labs: Abnormal Lab Results - Last 24 Hours (Table) 05/10/23 05/10/23 05/11/23 Range/Units 15:32 15:32 06:13 RBC 2.91 L (4.40-5.60) X 10*6/uL Hgb 9.3 L (13.0-17.0) d/dL Hct 28.9 L (39.6-50.0) % MCV 99.3 H (80.0-97.0) FL D-Dimer 1.95 H (<0.60) mg/L FEU Sodium (135-145) mmol/L BUN (9.0-27.0) mg/dL BUN/Creatinine Ratio (12.00-20.00) Ratio Glucose (70-110) mg/dL AST (14-35) U/L Alkaline Phosphatase (41-126) U/L C-Reactive Protein (0.00-0.80) mg/dL Total Protein (6.2-8.2) d/dL Albumin (3.8-4.9) d/dL Albumin/Globulin Ratio (1.60-3.17) Ratio Procalcitonin 0.21 H (0.02-0.09) ng/mL 05/11/23 Range/Units 06:13 RBC (4.40-5.60) X 10*6/uL Hgb (13.0-17.0) d/dL Hct (39.6-50.0) % MCV (80.0-97.0) FL D-Dimer (<0.60) mg/L FEU Sodium 134 L (135-145) mmol/L BUN 37.6 H (9.0-27.0) mg/dL BUN/Creatinine Ratio 37.60 H (12.00-20.00) Ratio Glucose 162 H (70-110) mg/dL AST 44 H (14-35) U/L Alkaline Phosphatase 129 H (41-126) U/L C-Reactive Protein 12.20 H (0.00-0.80) mg/dL Total Protein 5.6 L (6.2-8.2) d/dL Albumin 2.8 L (3.8-4.9) d/dL Albumin/Globulin Ratio 1.00 L (1.60-3.17) Ratio Procalcitonin (0.02-0.09) ng/mL Assessment and Plan (1) Pneumonia due to COVID-19 virus Current Visit: Yes Status: Acute Code(s): U07.1 - COVID-19; J12.82 - PNEUMONIA DUE TO CORONAVIRUS DISEASE 2019 SNOMED Code(s): 765265765315534289 Plan: 1patient presented to hospital with 6-day history of fever which has resolved, now complaining of mostly shortness of breath and a cough which apparently is improving per patient and has been diagnosed with COVID-19 pneumonia clinical suspicion is low for secondary bacterial pneumonia in this patient with a normal white count and lymphopenia 2-procalcitonin level is 0.21 and obtain a sputum for Gram stain and culture if possible 3-patient to continue with the dexamethasone, zinc ascorbic acid and Lovenox, no need for remdesivir or antibiotics at this point Dictation was produced using [employer] dictation software. please excuse any grammatical, word or spelling errors. Time with Patient: Less than 30
[2023-05-12] MEDS: LEVOTHYROXINE 75 MCG TAB PO SCH (05:56)
[2023-05-12] MEDS: MIDODRINE 5 MG TAB PO SCH ×3 (05:56→17:50)
[2023-05-12] MEDS: SYMBICORT 160-4.5 MCG INHALER INHALATION SCH ×2 (08:11→21:04)
[2023-05-12] MEDS: ALBUTEROL HFA INHALER INHALATION SCH ×4 (08:11→21:04)
[2023-05-12] MEDS: METOPROLOL TARTRATE 25 MG TAB PO SCH ×3 (09:14→21:14)
[2023-05-12] MEDS: ZINC SULFATE 220 MG CAP PO SCH (09:15)
[2023-05-12] MEDS: ASCORBIC ACID 500 MG TAB PO SCH (09:15)
[2023-05-12] MEDS: DEXAMETHASONE SOD PHOSPHATE 10 MG/ML 1 ML VIAL IVP SCH (09:15)
[2023-05-12] MEDS: FUROSEMIDE 20 MG TAB PO SCH (09:16)
--- NOTE | 2023-05-12 11:14 | P.PN ---
Subjective Progress Note Date: 05/12/23 This is a pleasant 87-year-old male patient who follows with Dr. Santiago as his primary care provider. If he has a history of 35 years of smoking up to 3 packs per day. He quit years ago. He does have chronic obstructive pulmonary disease and is maintained on Trilogy on albuterol and the outpatient setting. He also has a history of hyperlipidemia, myocardial infarction, prostate disorder, hypothyroidism, atrial fibrillation anticoagulated with Xarelto. He had a 2 day history of increasing shortness of fever breath, fever, weakness and was brought into the emergency room yesterday for the same. X-ray revealed patchy infiltrate in the right upper lobe as well as left lower lobe with small effusi ons. White count 4.5. Hemoglobin 9.3. D-dimer 1.95. Creatinine sodium 134. Potassium 4.4. Bicarb 25. BUN 37. Creatinine 1.0. Glucose 162. Pro- calcitonin 0.21. ProBNP 6730. He was also found to be positive for coronavirus. He is seen today in consultation on the regular medical floor. He is currently resting fairly comfortably in bed. Awake and alert in no acute acute distress. He is feeling a bit better today compared to yesterday. He is maintaining O2 saturations in the 90s on 2 L/m per nasal cannula. He's been afebrile. Hemodynamically stable. He's been initiated on Decadron 6 mg IVP daily. Anticoagulated with Xarelto. Initiated on vitamin supplements. The patient is seen today 05/12/2023 in follow-up on the regular medical floor. He is currently sitting up in a chair at the bedside. Awake and alert in no acute distress. Breathing easier today compared to yesterday. He is maintaining O2 saturations in the 90s on 3 L/m per nasal cannula. He was in the low 80s on 1 L. No IV fluids. ProBNP was 6730. Pro-calcitonin was 0.21. He's been initiated on Augmentin. Continue on Symbicort and Ventolin HFA. Remains on Decadron. Anticoagulated with Xarelto. He is on oral diuretics. No accurate I&O. He is currently afebrile. Hemodynamically stable. Follow-up chest x-ray reveals evidence of COPD. Patchy opacities mostly in the left lung base and right upper lobe. Small to moderate bilateral pleural effusions. CT angiogram ruled out pulmonary embolism. There is evidence of COPD and bilateral effusions right greater than left. Objective - Vital Signs Vital signs: Vital Signs Temp 97.4 F L 05/12/23 07:15 Pulse 69 05/12/23 07:15 Resp 18 05/12/23 09:16 BP 99/53 05/12/23 07:15 Pulse Ox 95 05/12/23 09:16 FiO2 Intake & Output 05/11/23 05/12/23 05/12/23 18:59 06:59 18:59 Weight 60 kg Other: # Voids 2 2 - Exam GENERAL EXAM: Alert, pleasant 87-year-old male patient, up in a chair, on 3 L nasal cannula, comfortable in no apparent distress. HEAD: Normocephalic. EYES: Normal reaction of pupils, equal size. NOSE: Clear with pink turbinates. THROAT: No erythema or exudates. NECK: No masses, no JVD. CHEST: No chest wall deformity. LUNGS: Equal air entry with few scattered rhonchi, crackles in the bilateral bases right greater than left. CVS: S1 and S2 normal with no audible murmur, regular rhythm. ABDOMEN: No hepatosplenomegaly, normal bowel sounds, no guarding or rigidity. SPINE: No scoliosis or deformity SKIN: No rashes CENTRAL NERVOUS SYSTEM: No focal deficits, tone is normal in all 4 extremities. EXTREMITIES: There is trace peripheral edema. No clubbing, no cyanosis. Peripheral pulses are intact. - Labs CBC & Chem 7: 05/11/23 06:13 05/11/23 06:13 Labs: Abnormal Lab Results - Last 24 Hours (Table) 05/10/23 Range/Units 11:45 Plasma Lactic Acid Kael 2.9 H* (0.7-2.0) mmol/L Microbiology - Last 24 Hours (Table) 05/11/23 13:44 Gram Stain - Preliminary Sputum 05/10/23 15:37 Blood Culture - Preliminary Blood 05/10/23 15:33 Blood Culture - Preliminary Blood Assessment and Plan Assessment: Acute hypoxemic respiratory failure secondary to an acute exacerbation of chronic obstructive pulmonary disease, mild fluid volume overload. CT angiogram ruled out pulmonary embolism. There is no evidence of COVID-19 pneumonia, bilateral pleural effusions right greater than left COVID-19 infection History of atrial fibrillation, anticoagulated with Xarelto Previous myocardial infarction status post PTBA Hypertension Hyperlipidemia Hypothyroidism Tiesha: The patient was seen and evaluated Chest x-ray, CT angiogram, labs and medications are reviewed Continue Symbicort, albuterol, Decadron Continue Xarelto Continue vitamin supplements Add Augmentin, pro-calcitonin 0.21 Continue diuretics, BNP 6730 Titrate the FiO2 as tolerated Increase his activity as tolerated We will continue to follow I have personally seen and examined the patient, performed the documentation and the assessment and plan as written. Number of minutes spent on the visit: 10.
[2023-05-12] MEDS: AMOXIC-POT CLAV 875-125MG 1 EACH TAB PO SCH ×2 (11:40→21:15)
--- NOTE | 2023-05-12 13:27 | P.PN ---
Subjective Progress Note Date: 05/12/23 87-year-old male past medical history significant for hypertension, dyslipidemia, paroxysmal atrial fibrillation on Xarelto presented to the ER for flulike symptoms for 1 week. Patient stated that he was all right one week back when he started noticing that he was having generalized body aches and lethargy. Patient also complaining of shortness of breath at home. Patient also stated that he felt that he was having fevers at home, did not check his fevers at home. Denied any chest pain or swelling of feet. Complaining of dry cough. There was no complaint of nausea, vomiting abdominal pain. Patient continued to feel worse and decided to come to the ER Initial lab work done in the ER showed WBC 8.4, hemoglobin 11, platelet count 268, sodium 134, potassium 5.1, BUN 14, creatinine 0.97, lactate 2.9, bilirubin 1.6, AST 83 COVID-19 was positive Chest x-ray done in the ER patchy infiltrate right upper lobe as well as left lower lobe Patient admitted to medicine service 05/11. Patient seen and examined. Currently on 2 L of oxygen. Denies any shortness of breath at rest, complaining of cough. 05/12. Patient seen and examined. Patient oxygen requirements dropped to 80s this morning, currently doing better, on 3 L of oxygen, having productive cough. REVIEW OF SYSTEMS: CONSTITUTIONAL: No fever, no malaise,. CARDIOVASCULAR: No chest pain, no palpitations, no syncope. PULMONARY: As mentioned above GASTROINTESTINAL: No diarrhea, no nausea, no vomiting, no abdominal pain. NEUROLOGICAL: No headaches, no weakness, PHYSICAL EXAMINATION: GENERAL: The patient is alert and oriented x3, not in any acute distress. Well developed, well nourished. HEENT: Pupils are round and equally reacting to light. EOMI. No scleral icterus. No conjunctival pallor. Normocephalic, atraumatic. No pharyngeal erythema. No thyromegaly. CARDIOVASCULAR: S1 and S2 present. No murmurs, rubs, or gallops. PULMONARY: Coarse breath sounds bilaterally, no wheeze ABDOMEN: Soft, nontender, nondistended, normoactive bowel sounds. No palpable organomegaly. MUSCULOSKELETAL: No joint swelling or deformity. EXTREMITIES: No cyanosis, clubbing, or pedal edema. NEUROLOGICAL: Gross neurological examination did not reveal any focal deficits. SKIN: No rashes. Assessment and plan Acute hypoxic respiratory failure COVID-19 pneumonia Hyperbilirubinemia Lactic acidosis Hypertension Dyslipidemia Paroxysmal atrial fibrillation on Xarelto Monitor vital signs Monitor CBC Monitor CMP Continue COVID-19 droplet plus isolation Continue breathing treatment Encourage use of I-S Continue IV Decadron Started on Augmentin by pulmonology Pulmonology following ID following Labs and medication were reviewed.. Continue same treatment. Continue with symptomatic treatment. Resume home medication. Monitor labs and vitals. DVT a nd GI prophylaxis. Further recommendations as per clinical course of the patient Dictation was produced using [employer] dictation software. please excuse any grammatical, word or spelling errors. Objective - Vital Signs Vital signs: Vital Signs Temp 97.4 F L 05/12/23 07:15 Pulse 69 05/12/23 07:15 Resp 18 05/12/23 09:16 BP 99/53 05/12/23 07:15 Pulse Ox 95 05/12/23 09:16 FiO2 Intake & Output 05/11/23 05/12/23 05/12/23 18:59 06:59 18:59 Weight 60 kg Other: # Voids 2 2 - Labs CBC & Chem 7: 05/11/23 06:13 05/11/23 06:13 Labs: Abnormal Lab Results - Last 24 Hours (Table) 05/10/23 Range/Units 11:45 Plasma Lactic Acid Kael 2.9 H* (0.7-2.0) mmol/L Microbiology - Last 24 Hours (Table) 05/11/23 13:44 Gram Stain - Preliminary Sputum 05/10/23 15:37 Blood Culture - Preliminary Blood 05/10/23 15:33 Blood Culture - Preliminary Blood
--- NOTE | 2023-05-12 15:04 | P.PN ---
Subjective Progress Note Date: 05/12/23 Principal diagnosis: Covid 19 pneumonia Patient is a 87-year-old male with a past medical history significant for COPD hypertension hyperlipidemia [place] presenting to the hospital for evaluation of shortness of breath and cough and this patient symptoms started a week before presentation to hospital , pt did tested positive for covid 19 On todays evaluation that is 05/12/2023, the patient remains to be afebrile, the patient is breathing comfortably on room air without the need for supplemental oxygen , the patient denies chest pain and the cough has decreased in intensity, patient denies nausea/vomiting or diarrhea and denies any abdominal pain Patient did have white count of 4.56 and a creatinine of 1.0 as of yesterday no lab draw today Objective - Vital Signs Vital signs: Vital Signs Temp 96.4 F L 05/12/23 14:00 Pulse 69 05/12/23 14:00 Resp 19 05/12/23 14:00 BP 107/67 05/12/23 14:00 Pulse Ox 95 05/12/23 14:00 FiO2 Intake & Output 05/11/23 05/12/23 05/12/23 18:59 06:59 18:59 Weight 60 kg Other: # Voids 2 2 - Exam GENERAL DESCRIPTION: An elderly male lying in bed in no distress RESPIRATORY SYSTEM: Unlabored breathing , decreased breath sounds at bases HEART: S1 S2 regular rate and rhythm , ABDOMEN: Soft , no tenderness EXTREMITIES: No edema feet - Labs CBC & Chem 7: 05/11/23 06:13 05/11/23 06:13 Labs: Abnormal Lab Results - Last 24 Hours (Table) 05/10/23 Range/Units 11:45 Plasma Lactic Acid Kael 2.9 H* (0.7-2.0) mmol/L Microbiology - Last 24 Hours (Table) 05/11/23 13:44 Gram Stain - Preliminary Sputum 05/10/23 15:37 Blood Culture - Preliminary Blood 05/10/23 15:33 Blood Culture - Preliminary Blood Assessment and Plan (1) Pneumonia due to COVID-19 virus Current Visit: Yes Status: Acute Code(s): U07.1 - COVID-19; J12.82 - PNEUMONIA DUE TO CORONAVIRUS DISEASE 2019 SNOMED Code(s): 275614229335870269 Plan: 1patient presented to hospital with 6-day history of fever which has resolved, now complaining of mostly shortness of breath and a cough which apparently is improving per patient and has been diagnosed with COVID-19 pneumonia clinical suspicion is low for secondary bacterial pneumonia in this patient with a normal white count and lymphopenia 2-procalcitonin level is 0.21 , sputum for Gram stain and cultures pending 3-patient to continue with the dexamethasone, zinc ascorbic acid and Lovenox, patient started on Augmentin by pulmonary sputum cultures will be followed Dictation was produced using [employer] dictation software. please excuse any grammatical, word or spelling errors. Time with Patient: Less than 30
[2023-05-12] MEDS: RIVAROXABAN 15 MG TAB PO SCH (17:50)
[2023-05-12] MEDS: ATORVASTATIN 20 MG TAB PO SCH (21:14)
[2023-05-12] MEDS: guaiFENesin 600 MG TABLET.ER PO SCH (21:14)
[2023-05-12] MEDS: LATANOPROST 0.005% OPHTH DROPS 2.5 ML BTL BOTH EYES SCH (21:16)
[2023-05-13] MEDS: MIDODRINE 5 MG TAB PO SCH ×3 (05:40→16:45)
[2023-05-13] MEDS: LEVOTHYROXINE 75 MCG TAB PO SCH (05:40)
[2023-05-13] MEDS: SYMBICORT 160-4.5 MCG INHALER INHALATION SCH ×2 (08:18→20:34)
[2023-05-13] MEDS: ALBUTEROL HFA INHALER INHALATION SCH ×4 (08:18→20:34)
[2023-05-13] MEDS: METOPROLOL TARTRATE 25 MG TAB PO SCH ×3 (08:42→21:27)
[2023-05-13] MEDS: guaiFENesin 600 MG TABLET.ER PO SCH ×2 (08:44→21:27)
[2023-05-13] MEDS: ASCORBIC ACID 500 MG TAB PO SCH (08:44)
[2023-05-13] MEDS: FUROSEMIDE 20 MG TAB PO SCH (08:44)
[2023-05-13] MEDS: AMOXIC-POT CLAV 875-125MG 1 EACH TAB PO SCH ×2 (08:44→21:28)
[2023-05-13] MEDS: ZINC SULFATE 220 MG CAP PO SCH (08:44)
[2023-05-13] MEDS: DEXAMETHASONE SOD PHOSPHATE 10 MG/ML 1 ML VIAL IVP SCH (08:54)
--- NOTE | 2023-05-13 14:23 | P.PN ---
Subjective Progress Note Date: 05/13/23 * 87-year-old male past medical history significant for hypertension, dyslipidemia, paroxysmal atrial fibrillation on Xarelto presented to the ER for flulike symptoms for 1 week. Patient stated that he was all right one week back when he started noticing that he was having generalized body aches and lethargy. Patient also complaining of shortness of breath at home. Patient also stated that he felt that he was having fevers at home, did not check his fevers at home. Denied any chest pain or swelling of feet. Complaining of dry cough. There was no complaint of nausea, vomiting abdominal pain. Patient continued to feel worse and decided to come to the ER * Initial lab work done in the ER showed WBC 8.4, hemoglobin 11, platelet count 268, sodium 134, potassium 5.1, BUN 14, creatinine 0.97, lactate 2.9, bilirubin 1.6, AST 83 * COVID-19 was positive * Chest x-ray done in the ER patchy infiltrate right upper lobe as well as left lower lobe * Patient admitted to medicine service * 05/11. Patient seen and examined. Currently on 2 L of oxygen. Denies any shortness of breath at rest, complaining of cough. * 05/12. Patient seen and examined. Patient oxygen requirements dropped to 80s this morning, currently doing better, on 3 L of oxygen, having productive coug h. * 05/13/23: Patient seen and evaluated bedside. Patient stated breathing has improved, this time patient continued to have cough and phlegm production. Continue patient on 3 L of oxygen patient seen by pulmonary medicine as well. Follow-up blood work ordered PHYSICAL EXAMINATION: GENERAL: The patient is alert and oriented x3, on 3 L of oxygen HEENT: Pupils are round and equally reacting to light. EOMI. CARDIOVASCULAR: S1 and S2 present. No murmurs, rubs, or gallops. PULMONARY: Coarse breath sounds bilaterally, no wheeze ABDOMEN: Soft, nontender, nondistended, normoactive bowel sounds. No palpable organomegaly. MUSCULOSKELETAL: No joint swelling or deformity. EXTREMITIES: No cyanosis, clubbing, or pedal edema. NEUROLOGICAL: Gross neurological examination did not reveal any focal deficits. SKIN: No rashes. Objective - Vital Signs Vital signs: Vital Signs Temp 98.4 F 05/13/23 06:49 Pulse 65 05/13/23 06:49 Resp 18 05/13/23 06:49 BP 91/64 05/13/23 06:49 Pulse Ox 97 05/13/23 06:49 FiO2 Intake & Output 05/12/23 05/13/23 05/13/23 18:59 06:59 18:59 Weight 60 kg Other: Voiding Method Toilet Diaper # Voids 2 1 - Labs CBC & Chem 7: 05/11/23 06:13 05/11/23 06:13 Labs: Microbiology - Last 24 Hours (Table) 05/11/23 13:44 Gram Stain - Final Sputum Sputum Culture - Final 05/10/23 15:37 Blood Culture - Preliminary Blood 05/10/23 15:33 Blood Culture - Preliminary Blood Assessment and Plan Assessment: Assessment and plan * Acute hypoxic respiratory failure * COVID-19 pneumonia * Hyperbilirubinemia * Lactic acidosis RESOLVED * Hypertension * Dyslipidemia * Paroxysmal atrial fibrillation on Xarelto Monitor vital signs Monitor CBC Monitor CMP Continue COVID-19 droplet plus isolation Continue breathing treatment Continue IV Decadron Continue Augmentin by pulmonology Pulmonology following ID following
--- NOTE | 2023-05-13 14:55 | P.PN ---
Subjective Progress Note Date: 05/13/23 This is a pleasant 87-year-old male patient who follows with Dr. Santiago as his primary care provider. If he has a history of 35 years of smoking up to 3 packs per day. He quit years ago. He does have chronic obstructive pulmonary disease and is maintained on Trilogy on albuterol and the outpatient setting. He also has a history of hyperlipidemia, myocardial infarction, prostate disorder, hypothyroidism, atrial fibrillation anticoagulated with Xarelto. He had a 2 day history of increasing shortness of fever breath, fever, weakness and was brought into the emergency room yesterday for the same. X-ray revealed patchy infiltrate in the right upper lobe as well as left lower lobe with small effu sions. White count 4.5. Hemoglobin 9.3. D-dimer 1.95. Creatinine sodium 134. Potassium 4.4. Bicarb 25. BUN 37. Creatinine 1.0. Glucose 162. Pro- calcitonin 0.21. ProBNP 6730. He was also found to be positive for coronavirus. He is seen today in consultation on the regular medical floor. He is currently resting fairly comfortably in bed. Awake and alert in no acute acute distress. He is feeling a bit better today compared to yesterday. He is maintaining O2 saturations in the 90s on 2 L/m per nasal cannula. He's been afebrile. Hemodynamically stable. He's been initiated on Decadron 6 mg IVP daily. Anticoagulated with Xarelto. Initiated on vitamin supplements. The patient is seen today 05/12/2023 in follow-up on the regular medical floor. He is currently sitting up in a chair at the bedside. Awake and alert in no acute distress. Breathing easier today compared to yesterday. He is maintaining O2 saturations in the 90s on 3 L/m per nasal cannula. He was in the low 80s on 1 L. No IV fluids. ProBNP was 6730. Pro-calcitonin was 0.21. He's been initiated on Augmentin. Continue on Symbicort and Ventolin HFA. Remains on Decadron. Anticoagulated with Xarelto. He is on oral diuretics. No accurate I&O. He is currently afebrile. Hemodynamically stable. Follow-up chest x-ray reveals evidence of COPD. Patchy opacities mostly in the left lung base and right upper lobe. Small to moderate bilateral pleural effusions. CT angiogram ruled out pulmonary embolism. There is evidence of COPD and bilateral effusions right greater than left. On today's evaluation of 05/12/2023, the patient is being seen for a follow-up. The patient is still feeling weak and tired and fatigued. The patient otherwise has no other complaints. The patient remains on Decadron regarding the Covid 19 infection. No evidence of any pneumonia. Remains on anticoagulation with Xarelto. He is known to have chronic atrial fibrillation. Is also known to have CAD, previous NM, hyperlipidemia and prostate enlargement. The labs from 05/11/2023 were noted. His Legionella urine antigen was negative. LEVEL IS AT 0.2. PROBNP LEVEL IS 6730. The CT antigram that was done showed no evidence of any pulmonary embolism. Scattered interstitial changes were seen bilaterally. Could be related to pneumonia. There is also 30 megaly with a right lateral pleural effusion with some nonspecificmediastinal lymph nodes. Objective - Vital Signs Vital signs: Vital Signs Temp 98.4 F 05/13/23 06:49 Pulse 65 05/13/23 06:49 Resp 18 05/13/23 06:49 BP 91/64 05/13/23 06:49 Pulse Ox 97 05/13/23 06:49 FiO2 Intake & Output 05/12/23 05/13/23 05/13/23 18:59 06:59 18:59 Weight 60 kg Other: Voiding Method Toilet Diaper # Voids 2 1 - Exam GENERAL EXAM: Alert, pleasant 87-year-old male patient, up in a chair, on 3 L nasal cannula, comfortable in no apparent distress. HEAD: Normocephalic. EYES: Normal reaction of pupils, equal size. NOSE: Clear with pink turbinates. THROAT: No erythema or exudates. NECK: No masses, no JVD. CHEST: No chest wall deformity. LUNGS: Equal air entry with few scattered rhonchi, crackles in the bilateral bases right greater than left. CVS: S1 and S2 normal with no audible murmur, regular rhythm. ABDOMEN: No hepatosplenomegaly, normal bowel sounds, no guarding or rigidity. SPINE: No scoliosis or deformity SKIN: No rashes CENTRAL NERVOUS SYSTEM: No focal deficits, tone is normal in all 4 extremities. EXTREMITIES: There is trace peripheral edema. No clubbing, no cyanosis. Peripheral pulses are intact. - Labs CBC & Chem 7: 05/11/23 06:13 05/11/23 06:13 Labs: Microbiology - Last 24 Hours (Table) 05/11/23 13:44 Gram Stain - Final Sputum Sputum Culture - Final 05/10/23 15:37 Blood Culture - Preliminary Blood 05/10/23 15:33 Blood Culture - Preliminary Blood Assessment and Plan Plan: Acute hypoxemic respiratory failure secondary to an acute exacerbation of chronic obstructive pulmonary disease, mild fluid volume overload. CT angiogram ruled out pulmonary embolism. 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 The patient worked in the [employer] and his been exposed to asbestos in significant amounts and duration. Previous myocardial infarction status post PTBA Hypertension Hyperlipidemia Hypothyroidism Tiesha: Continue Symbicort, albuterol Continue continue Decadron 6 mg IV every 24 hours Xarelto Continue vitamin supplements Add Augmentin, pro-calcitonin 0.21 Continue diuretics, BNP 6730 Titrate the FiO2 as tolerated, currently on 3 L of oxygen by nasal cannula Increase his activity as tolerated We will continue to follow
[2023-05-13] MEDS: RIVAROXABAN 15 MG TAB PO SCH (16:45)
[2023-05-13] MEDS: CALCIUM CARBONATE 500 MG CHEWABLE PO PRN (18:48)
[2023-05-13] MEDS: ATORVASTATIN 20 MG TAB PO SCH (21:27)
[2023-05-13] MEDS: LATANOPROST 0.005% OPHTH DROPS 2.5 ML BTL BOTH EYES SCH (22:00)
[2023-05-14] MEDS: LEVOTHYROXINE 75 MCG TAB PO SCH (05:42)
[2023-05-14] MEDS: MIDODRINE 5 MG TAB PO SCH ×3 (05:42→17:07)
[2023-05-14] MEDS: FUROSEMIDE 20 MG TAB PO SCH (07:36)
[2023-05-14 08:47] LABS: HCT 29.4 % (39.6-50.0); HGB 10.2 d/dL (13.0-17.0); MCH 37.1 pg (27.0-32.0); MCHC 34.7 d/dL (32.0-37.0); MCV 106.9 FL (80.0-97.0); Mean Platelet Volume 10.8 FL (9.5-12.2); NRBC Per 100 WBC 0 X 10*3/uL (0.00-0.01); Platelet Count 337 X 10*3/uL (140-440); RBC 2.75 X 10*6/uL (4.40-5.60); RDW 14.2 % (11.5-14.5); WBC 8.39 X 10*3/uL (4.50-10.00)
[2023-05-14] MEDS: ALBUTEROL HFA INHALER INHALATION SCH ×4 (09:01→21:00)
[2023-05-14] MEDS: SYMBICORT 160-4.5 MCG INHALER INHALATION SCH ×2 (09:01→21:00)
[2023-05-14] MEDS: METOPROLOL TARTRATE 25 MG TAB PO SCH ×3 (10:02→21:28)
[2023-05-14] MEDS: DEXAMETHASONE SOD PHOSPHATE 10 MG/ML 1 ML VIAL IVP SCH (10:03)
[2023-05-14] MEDS: guaiFENesin 600 MG TABLET.ER PO SCH ×2 (10:10→21:28)
[2023-05-14] MEDS: ZINC SULFATE 220 MG CAP PO SCH (10:10)
[2023-05-14] MEDS: ASCORBIC ACID 500 MG TAB PO SCH (10:10)
[2023-05-14] MEDS: AMOXIC-POT CLAV 875-125MG 1 EACH TAB PO SCH ×2 (10:10→21:28)
[2023-05-14] MEDS: ALBUMIN HUMAN 25% 50 ML in EMPTY BAG 1 BAG IVPB SCH ×2 (10:40→11:26)
[2023-05-14 11:22] LABS: BUN/Creat Ratio 43.67 Ratio (12.00-20.00); Blood Urea Nitrogen 39.3 mg/dL (9.0-27.0); Calcium 9.3 mg/dL (8.7-10.3); Carbon Dioxide 30.1 mmol/L (21.6-31.8); Chloride 98 mmol/L (96-109); Glucose 115 mg/dL (70-110); Potassium 4.7 mmol/L (3.5-5.5); Sodium 136 mmol/L (135-145)
--- NOTE | 2023-05-14 11:36 | XR ---
EXAMINATION TYPE: XR chest 1V portable DATE OF EXAM: 05/14/2023 HISTORY: Shortness of breath. COMPARISON: 05/11/2023 TECHNIQUE: Single view of the chest is submitted. FINDINGS: Demonstrated are scattered senescent parenchymal change. Increasing infiltrate right lower lobe as well as a stable coarse infiltrate left lower lobe. Curvili near band of increased density right upper lobe is unchanged. The heart is stable. Hilar and mediastinal structures are within normal limits. Degenerative changes are seen of the dorsal spine. IMPRESSION: 1. Increasing infiltrate right lower lobe as well as a stable coarse infiltrate left lower lobe. Cur vilinear band of increased density right upper lobe is unchanged.
--- NOTE | 2023-05-14 12:13 | P.PN ---
Subjective Progress Note Date: 05/14/23 * 87-year-old male past medical history significant for hypertension, dyslipidemia, paroxysmal atrial fibrillation on Xarelto presented to the ER for flulike symptoms for 1 week. Patient stated that he was all right one week back when he started noticing that he was having generalized body aches and lethargy. Patient also complaining of shortness of breath at home. Patient also stated that he felt that he was having fevers at home, did not check his fevers at home. Denied any chest pain or swelling of feet. Complaining of dry cough. There was no complaint of nausea, vomiting abdominal pain. Patient continued to feel worse and decided to come to the ER * Initial lab work done in the ER showed WBC 8.4, hemoglobin 11, platelet count 268, sodium 134, potassium 5.1, BUN 14, creatinine 0.97, lactate 2.9, bilirubin 1.6, AST 83 * COVID-19 was positive * Chest x-ray done in the ER patchy infiltrate right upper lobe as well as left lower lobe * Patient admitted to medicine service * 05/11. Patient seen and examined. Currently on 2 L of oxygen. Denies any shortness of breath at rest, complaining of cough. * 05/12. Patient seen and examined. Patient oxygen requirements dropped to 80s this morning, currently doing better, on 3 L of oxygen, having productive coug h. * 05/13/23: Patient seen and evaluated bedside. Patient stated breathing has improved, this time patient continued to have cough and phlegm production. Continue patient on 3 L of oxygen patient seen by pulmonary medicine as well. Follow-up blood work ordered * 05/14/23: Patient seen and evaluated bedside, patient noted to have episode of hypotension however asymptomatic Lasix discontinued. Given dose of albumin, holding pattern meatus for metoprolol CRP trending down from 12 to 2. Patient lives by himself will get physical therapy occupational therapy evaluation as well PHYSICAL EXAMINATION: GENERAL: The patient is alert and oriented x3, on 3 L of oxygen HEENT: Pupils are round and equally reacting to light. EOMI. CARDIOVASCULAR: S1 and S2 present. No murmurs, rubs, or gallops. PULMONARY: Improved breath sounds bilaterally no wheezes no rhonchi no rales ABDOMEN: Soft, nontender, nondistended, normoactive bowel sounds. No palpable organomegaly. MUSCULOSKELETAL: No joint swelling or deformity. EXTREMITIES: No cyanosis, clubbing, or pedal edema. NEUROLOGICAL: Gross neurological examination did not reveal any focal deficits. SKIN: No rashes. Objective - Vital Signs Vital signs: Vital Signs Temp 97.4 F L 05/14/23 07:17 Pulse 64 05/14/23 07:17 Resp 16 05/14/23 07:17 BP 89/47 05/14/23 07:17 Pulse Ox 95 05/14/23 09:02 FiO2 Intake & Output 05/13/23 05/14/23 05/14/23 18:59 06:59 18:59 Intake Total 1080 Balance 1080 Weight 60 kg 40.5 kg Intake: Oral 1080 Other: Voiding Method Toilet Diaper # Voids 4 1 # Bowel Movements 1 - Labs CBC & Chem 7: 05/14/23 05:35 05/14/23 05:35 Labs: Abnormal Lab Results - Last 24 Hours (Table) 05/14/23 05/14/23 Range/Units 05:35 05:35 RBC 2.75 L (4.40-5.60) X 10*6/uL Hgb 10.2 L (13.0-17.0) d/dL Hct 29.4 L (39.6-50.0) % MCV 106.9 H (80.0-97.0) FL MCH 37.1 H (27.0-32.0) pg BUN 39.3 H (9.0-27.0) mg/dL BUN/Creatinine Ratio 43.67 H (12.00-20.00) Ratio Glucose 115 H (70-110) mg/dL C-Reactive Protein 2.80 H (0.00-0.80) mg/dL Microbiology - Last 24 Hours (Table) 05/10/23 15:37 Blood Culture - Preliminary Blood 05/10/23 15:33 Blood Culture - Preliminary Blood 05/11/23 13:44 Gram Stain - Final Sputum Sputum Culture - Final Assessment and Plan Assessment: Assessment and plan * Acute hypoxic respiratory failure * COVID-19 pneumonia * Multifocal lower lobe pneumonia * Hyperbilirubinemia RESOLVED * Lactic acidosis RESOLVED * Hypertension * Dyslipidemia * Paroxysmal atrial fibrillation on Xarelto In regards to hypoxic respiratory failure, pulmonary medicine following, continue patient on steroids, continue breathing treatments, follow-up chest x- ray ordered In regards to Covid 19 continue patient on droplet isolation continue steroids continue breathing treatments encourage use of incentive spirometer patient placed on Augmentin as well for tracheobronchitis Continue COVID-19 droplet plus isolation Continue IV Decadron Continue Augmentin by pulmonology Pulmonology following ID following
--- NOTE | 2023-05-14 12:58 | P.PN ---
Subjective Progress Note Date: 05/13/23 Principal diagnosis: Covid 19 pneumonia Patient is a 87-year-old male with a past medical history significant for COPD hypertension hyperlipidemia [place] presenting to the hospital for evaluation of shortness of breath and cough and this patient symptoms started a week before presentation to hospital , pt did tested positive for covid 19 On todays evaluation that is 05/13/2023, the patient continues to be afebrile, the patient is breathing comfortably on room air and denies any chest pain or cough, patient denies abdominal pain, and denies any nausea/vomiting or diarrhea Patient did have white count of 4.56 and a creatinine of 1.0 as of 05/11/2023, no lab draw today Objective - Vital Signs Vital signs: Vital Signs Temp 98.4 F 05/13/23 06:49 Pulse 65 05/13/23 06:49 Resp 18 05/13/23 06:49 BP 91/64 05/13/23 06:49 Pulse Ox 97 05/13/23 06:49 FiO2 Intake & Output 05/12/23 05/13/23 05/13/23 18:59 06:59 18:59 Weight 60 kg Other: Voiding Method Toilet Diaper # Voids 2 1 - Exam GENERAL DESCRIPTION: An elderly male lying in bed in no distress RESPIRATORY SYSTEM: Unlabored breathing , decreased breath sounds at bases HEART: S1 S2 regular rate and rhythm , ABDOMEN: Soft , no tenderness EXTREMITIES: No edema feet - Labs CBC & Chem 7: 05/14/23 05:35 05/14/23 05:35 Labs: Microbiology - Last 24 Hours (Table) 05/11/23 13:44 Gram Stain - Final Sputum Sputum Culture - Final 05/10/23 15:37 Blood Culture - Preliminary Blood 05/10/23 15:33 Blood Culture - Preliminary Blood Assessment and Plan (1) Pneumonia due to COVID-19 virus Current Visit: Yes Status: Acute Code(s): U07.1 - COVID-19; J12.82 - PNEU MONIA DUE TO CORONAVIRUS DISEASE 2018 SNOMED Code(s): 984213449316748947 Plan: 1patient presented to hospital with 6-day history of fever which has resolved, now complaining of mostly shortness of breath and a cough which apparently is improving per patient and has been diagnosed with COVID-19 pneumonia clinical suspicion is low for secondary bacterial pneumonia in this patient with a normal white count and lymphopenia 2-procalcitonin level is 0.21 , sputum for Gram stain and cultures so far pending 3-patient is slowly clinically improving and will continue with the dexamethasone, zinc ascorbic acid and Lovenox, monitor clinical course closely Dictation was produced using [employer] dictation software. please excuse any grammatical, word or spelling errors. Time with Patient: Less than 30
--- NOTE | 2023-05-14 12:59 | P.PN ---
Subjective Progress Note Date: 05/14/23 Principal diagnosis: Covid 19 pneumonia Patient is a 87-year-old male with a past medical history significant for COPD hypertension hyperlipidemia [place] presenting to the hospital for evaluation of shortness of breath and cough and this patient symptoms started a week before presentation to hospital , pt did tested positive for covid 19 On todays evaluation that is 05/14/2023, the patient remains to be afebrile, the patient is breathing comfortably on 2 L nasal cannula supplemental oxygen and denies any shortness of breath, the patient denies having any chest pain or worsening cough and no sputum production, patient denies nausea/vomiting /diarrhea and no abdominal pain, Patient did have white count of 8.39, creatinine 0.9, blood culture negative sputum negative Objective - Vital Signs Vital signs: Vital Signs Temp 97.4 F L 05/14/23 07:17 Pulse 64 05/14/23 07:17 Resp 16 05/14/23 07:17 BP 89/47 05/14/23 07:17 Pulse Ox 95 05/14/23 09:02 FiO2 Intake & Output 05/13/23 05/14/23 05/14/23 18:59 06:59 18:59 Intake Total 1080 Balance 1080 Weight 60 kg 40.5 kg Intake: Oral 1080 Other: Voiding Method Toilet Diaper # Voids 4 1 # Bowel Movements 1 - Exam GENERAL DESCRIPTION: An elderly male lying in bed in no distress RESPIRATORY SYSTEM: Unlabored breathing , decreased breath sounds at bases HEART: S1 S2 regular rate and rhythm , ABDOMEN: Soft , no tenderness EXTREMITIES: No edema feet - Labs CBC & Chem 7: 05/14/23 05:35 05/14/23 05:35 Labs: Abnormal Lab Results - Last 24 Hours (Table) 05/14/23 05/14/23 Range/Units 05:35 05:35 RBC 2.75 L (4.40-5.60) X 10*6/uL Hgb 10.2 L (13.0-17.0) d/dL Hct 29.4 L (39.6-50.0) % MCV 106.9 H (80.0-97.0) FL MCH 37.1 H (27.0-32.0) pg BUN 39.3 H (9.0-27.0) mg/dL BUN/Creatinine Ratio 43.67 H (12.00-20.00) Ratio Glucose 115 H (70-110) mg/dL C-Reactive Protein 2.80 H (0.00-0.80) mg/dL Microbiology - Last 24 Hours (Table) 05/10/23 15:37 Blood Culture - Preliminary Blood 05/10/23 15:33 Blood Culture - Preliminary Blood 05/11/23 13:44 Gram Stain - Final Sputum Sputum Culture - Final Assessment and Plan (1) Pneumonia due to COVID-19 virus Current Visit: Yes Status: Acute Code(s): U07.1 - COVID-19; J12.82 - PNEUMONIA DUE TO CORONAVIRUS DISEASE 2018 SNOMED Code(s): 644536447623484323 Plan: 1patient presented to hospital with 6-day history of fever which has resolved, now complaining of mostly shortness of breath and a cough which apparently is improving per patient and has been diagnosed with COVID-19 pneumonia clinical suspicion is low for secondary bacterial pneumonia in this patient with a normal white count and lymphopenia 2-procalcitonin level is 0.21 , sputum for Gram stain and cultures so far pending 3-patient has shown clinical improvement requiring less Oxygen and will continue with the dexamethasone, zinc ascorbic acid and Lovenox, continue supportive care Dictation was produced using [employer] dictation software. please excuse any grammatical, word or spelling errors. Time with Patient: Less than 30
--- NOTE | 2023-05-14 13:35 | P.PN ---
Subjective Progress Note Date: 05/14/23 This is a pleasant 87-year-old male patient who follows with Dr. Santiago as his primary care provider. If he has a history of 35 years of smoking up to 3 packs per day. He quit years ago. He does have chronic obstructive pulmonary disease and is maintained on Trilogy on albuterol and the outpatient setting. He also has a history of hyperlipidemia, myocardial infarction, prostate disorder, hypothyroidism, atrial fibrillation anticoagulated with Xarelto. He had a 2 day history of increasing shortness of fever breath, fever, weakness and was brought into the emergency room yesterday for the same. X-ray revealed patchy infiltrate in the right upper lobe as well as left lower lobe with small effu sions. White count 4.5. Hemoglobin 9.3. D-dimer 1.95. Creatinine sodium 134. Potassium 4.4. Bicarb 25. BUN 37. Creatinine 1.0. Glucose 162. Pro- calcitonin 0.21. ProBNP 6730. He was also found to be positive for coronavirus. He is seen today in consultation on the regular medical floor. He is currently resting fairly comfortably in bed. Awake and alert in no acute acute distress. He is feeling a bit better today compared to yesterday. He is maintaining O2 saturations in the 90s on 2 L/m per nasal cannula. He's been afebrile. Hemodynamically stable. He's been initiated on Decadron 6 mg IVP daily. Anticoagulated with Xarelto. Initiated on vitamin supplements. The patient is seen today 05/12/2023 in follow-up on the regular medical floor. He is currently sitting up in a chair at the bedside. Awake and alert in no acute distress. Breathing easier today compared to yesterday. He is maintaining O2 saturations in the 90s on 3 L/m per nasal cannula. He was in the low 80s on 1 L. No IV fluids. ProBNP was 6730. Pro-calcitonin was 0.21. He's been initiated on Augmentin. Continue on Symbicort and Ventolin HFA. Remains on Decadron. Anticoagulated with Xarelto. He is on oral diuretics. No accurate I&O. He is currently afebrile. Hemodynamically stable. Follow-up chest x-ray reveals evidence of COPD. Patchy opacities mostly in the left lung base and right upper lobe. Small to moderate bilateral pleural effusions. CT angiogram ruled out pulmonary embolism. There is evidence of COPD and bilateral effusions right greater than left. On today's evaluation of 05/12/2023, the patient is being seen for a follow-up. The patient is still feeling weak and tired and fatigued. The patient otherwise has no other complaints. The patient remains on Decadron regarding the Covid 19 infection. No evidence of any pneumonia. Remains on anticoagulation with Xarelto. He is known to have chronic atrial fibrillation. Is also known to have CAD, previous OK, hyperlipidemia and prostate enlargement. The labs from 05/11/2023 were noted. His Legionella urine antigen was negative. LEVEL IS AT 0.2. PROBNP LEVEL IS 6730. The CT antigram that was done showed no evidence of any pulmonary embolism. Scattered interstitial changes were seen bilaterally. Could be related to pneumonia. There is also 30 megaly with a right lateral pleural effusion with some nonspecificmediastinal lymph nodes. On today's evaluation of 05/14/2023, the patient is running a lower blood pressure. Lasix has been discontinued and the patient was given IV albumin and Midrin. His CRP is down trending is currently down to 2. No signs of any significant respiratory distress. No tachycardia. He has a congested cough which is limited. No chest pain. No pleurisy or hemoptysis. He is on currently on 3 L of oxygen by nasal cannula. Is awake and alert and he is afebrile. At the same time, the patient will be scheduled at 8.3 with a hemoglobin 10.2, BUN is at 39 with a creatinine of 0.9 and a sodium level is at 136 with a potassium level of 4.7. CRP level is down to 2.8. Objective - Vital Signs Vital signs: Vital Signs Temp 97.4 F L 05/14/23 07:17 Pulse 64 05/14/23 07:17 Resp 16 05/14/23 07:17 BP 89/47 05/14/23 07:17 Pulse Ox 95 05/14/23 09:02 FiO2 Intake & Output 05/13/23 05/14/23 05/14/23 18:59 06:59 18:59 Intake Total 1080 Balance 1080 Weight 60 kg 40.5 kg Intake: Oral 1080 Other: Voiding Method Toilet Diaper # Voids 4 1 # Bowel Movements 1 - Exam GENERAL EXAM: Alert, pleasant 87-year-old male patient, up in a chair, on 3 L nasal cannula, comfortable in no apparent distress. HEAD: Normocephalic. EYES: Normal reaction of pupils, equal size. NOSE: Clear with pink turbinates. THROAT: No erythema or exudates. NECK: No masses, no JVD. CHEST: No chest wall deformity. LUNGS: Equal air entry with few scattered rhonchi, crackles in the bilateral bases right greater than left. CVS: S1 and S2 normal with no audible murmur, regular rhythm. ABDOMEN: No hepatosplenomegaly, normal bowel sounds, no guarding or rigidity. SPINE: No scoliosis or deformity SKIN: No rashes CENTRAL NERVOUS SYSTEM: No focal deficits, tone is normal in all 4 extremities. EXTREMITIES: There is trace peripheral edema. No clubbing, no cyanosis. Peripheral pulses are intact. - Labs CBC & Chem 7: 05/14/23 05:35 05/14/23 05:35 Labs: Abnormal Lab Results - Last 24 Hours (Table) 05/14/23 05/14/23 Range/Units 05:35 05:35 RBC 2.75 L (4.40-5.60) X 10*6/uL Hgb 10.2 L (13.0-17.0) d/dL Hct 29.4 L (39.6-50.0) % MCV 106.9 H (80.0-97.0) FL MCH 37.1 H (27.0-32.0) pg BUN 39.3 H (9.0-27.0) mg/dL BUN/Creatinine Ratio 43.67 H (12.00-20.00) Ratio Glucose 115 H (70-110) mg/dL C-Reactive Protein 2.80 H (0.00-0.80) mg/dL Microbiology - Last 24 Hours (Table) 05/10/23 15:37 Blood Culture - Preliminary Blood 05/10/23 15:33 Blood Culture - Preliminary Blood 05/11/23 13:44 Gram Stain - Final Sputum Sputum Culture - Final Assessment and Plan Plan: Acute hypoxemic respiratory failure secondary to an acute exacerbation of chronic obstructive pulmonary disease, mild fluid volume overload. CT angiogram ruled out pulmonary embolism. 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 The patient worked in the [employer] and his been exposed to asbestos in significant amounts and duration. Previous myocardial infarction status post PTBA Hypertension Hyperlipidemia Hypothyroidism Hypotension without any significant tachycardia. Asymptomatic. Plan Agree to IV albumin, likely to midodrine and monitor the blood pressure. Hold diuretics and metoprolol for now. CRP is down trending Oxygenation remains stable at 3 L nasal cannula Continue Symbicort, albuterol Continue continue Decadron 6 mg IV every 24 hours Continue Xarelto Continue vitamin supplements Titrate the FiO2 as tolerated, currently on 3 L of oxygen by nasal cannula Increase his activity as tolerated We will continue to follow
[2023-05-14] MEDS: RIVAROXABAN 15 MG TAB PO SCH (17:07)
[2023-05-14] MEDS: ATORVASTATIN 20 MG TAB PO SCH (21:28)
[2023-05-14] MEDS: LATANOPROST 0.005% OPHTH DROPS 2.5 ML BTL BOTH EYES SCH (21:28)
[2023-05-15] MEDS: LEVOTHYROXINE 75 MCG TAB PO SCH (05:57)
[2023-05-15] MEDS: MIDODRINE 5 MG TAB PO SCH ×3 (05:58→16:39)
[2023-05-15] MEDS: AMOXIC-POT CLAV 875-125MG 1 EACH TAB PO SCH ×2 (08:34→20:01)
[2023-05-15] MEDS: ZINC SULFATE 220 MG CAP PO SCH (08:34)
[2023-05-15] MEDS: ASCORBIC ACID 500 MG TAB PO SCH (08:34)
[2023-05-15] MEDS: METOPROLOL TARTRATE 25 MG TAB PO SCH ×3 (08:35→21:53)
[2023-05-15] MEDS: guaiFENesin 600 MG TABLET.ER PO SCH ×2 (08:35→20:01)
[2023-05-15] MEDS: DEXAMETHASONE SOD PHOSPHATE 10 MG/ML 1 ML VIAL IVP SCH (08:35)
[2023-05-15] MEDS: SYMBICORT 160-4.5 MCG INHALER INHALATION SCH ×2 (08:38→21:14)
[2023-05-15] MEDS: ALBUTEROL HFA INHALER INHALATION SCH ×4 (08:38→21:14)
[2023-05-15 09:01] LABS: BUN/Creat Ratio 42.44 Ratio (12.00-20.00); Blood Urea Nitrogen 38.2 mg/dL (9.0-27.0); Calcium 9.1 mg/dL (8.7-10.3); Carbon Dioxide 30.7 mmol/L (21.6-31.8); Chloride 96 mmol/L (96-109); Glucose 104 mg/dL (70-110); Potassium 4.5 mmol/L (3.5-5.5); Sodium 136 mmol/L (135-145)
[2023-05-15 10:20] LABS: HCT 30.4 % (39.6-50.0); HGB 10.1 d/dL (13.0-17.0); MCH 34.8 pg (27.0-32.0); MCHC 33.2 d/dL (32.0-37.0); MCV 104.8 FL (80.0-97.0); Mean Platelet Volume 10.5 FL (9.5-12.2); NRBC Per 100 WBC 0 X 10*3/uL (0.00-0.01); Platelet Count 385 X 10*3/uL (140-440); RDW 13.7 % (11.5-14.5); WBC 13.72 X 10*3/uL (4.50-10.00)
--- NOTE | 2023-05-15 11:32 | P.PN ---
Subjective Progress Note Date: 05/15/23 * 87-year-old male past medical history significant for hypertension, dyslipidemia, paroxysmal atrial fibrillation on Xarelto presented to the ER for flulike symptoms for 1 week. Patient stated that he was all right one week back when he started noticing that he was having generalized body aches and lethargy. Patient also complaining of shortness of breath at home. Patient also stated that he felt that he was having fevers at home, did not check his fevers at home. Denied any chest pain or swelling of feet. Complaining of dry cough. There was no complaint of nausea, vomiting abdominal pain. Patient continued to feel worse and decided to come to the ER * Initial lab work done in the ER showed WBC 8.4, hemoglobin 11, platelet count 268, sodium 134, potassium 5.1, BUN 14, creatinine 0.97, lactate 2.9, bilirubin 1.6, AST 83 * COVID-19 was positive * Chest x-ray done in the ER patchy infiltrate right upper lobe as well as left lower lobe * Patient admitted to medicine service * 05/11. Patient seen and examined. Currently on 2 L of oxygen. Denies any shortness of breath at rest, complaining of cough. * 05/12. Patient seen and examined. Patient oxygen requirements dropped to 80s this morning, currently doing better, on 3 L of oxygen, having productive coug h. * 05/13/23: Patient seen and evaluated bedside. Patient stated breathing has improved, this time patient continued to have cough and phlegm production. Continue patient on 3 L of oxygen patient seen by pulmonary medicine as well. Follow-up blood work ordered * 05/14/23: Patient seen and evaluated bedside, patient noted to have episode of hypotension however asymptomatic Lasix discontinued. Given dose of albumin, holding pattern meatus for metoprolol CRP trending down from 12 to 2. Patient lives by himself will get physical therapy occupational therapy evaluation as well * 05/15/23: Patient seen and evaluated bedside patient is alert and oriented 4 plan discussed with daughter on the phone as well will wait on physical therapy evaluation blood pressure remains low however patient asymptomatic metoprolol helps with holding pattern meatus continue to wean down on oxygen requirements potential discharge so depending on hemodynamic stability potential discharge were 05/17/23 PHYSICAL EXAMINATION: GENERAL: The patient is alert and oriented x 3, on 2 L of oxygen HEENT: Pupils are round and equally reacting to light. EOMI. CARDIOVASCULAR: S1 and S2 present. No murmurs, rubs, or gallops. PULMONARY: Improved breath sounds bilaterally no wheezes no rhonchi no rales ABDOMEN: Soft, nontender, nondistended, normoactive bowel sounds. No palpable organomegaly. MUSCULOSKELETAL: No joint swelling or deformity. EXTREMITIES: No cyanosis, clubbing, or pedal edema. NEUROLOGICAL: Gross neurological examination did not reveal any focal deficits. SKIN: No rashes. Objective - Vital Signs Vital signs: Vital Signs Temp 97.6 F 05/15/23 07:28 Pulse 77 05/15/23 07:28 Resp 18 05/15/23 07:28 BP 93/56 05/15/23 07:28 Pulse Ox 93 L 05/15/23 08:38 FiO2 Intake & Output 05/14/23 05/15/23 05/15/23 18:59 06:59 18:59 Intake Total 1080 Balance 1080 Weight 40 kg Intake: Oral 1080 Other: Voiding Method Toilet Diaper # Voids 4 1 1 - Labs CBC & Chem 7: 05/15/23 05:25 05/15/23 05:25 Labs: Abnormal Lab Results - Last 24 Hours (Table) 05/15/23 05/15/23 Range/Units 05:25 05:25 WBC 13.72 H (4.50-10.00) X 10*3/uL RBC 2.90 L (4.40-5.60) X 10*6/uL Hgb 10.1 L (13.0-17.0) d/dL Hct 30.4 L (39.6-50.0) % MCV 104.8 H (80.0-97.0) FL MCH 34.8 H (27.0-32.0) pg BUN 38.2 H (9.0-27.0) mg/dL BUN/Creatinine Ratio 42.44 H (12.00-20.00) Ratio Assessment and Plan Assessment: Assessment and plan * Acute hypoxic respiratory failure * COVID-19 pneumonia * Multifocal lower lobe pneumonia * Hyperbilirubinemia RESOLVED * Lactic acidosis RESOLVED * Hypertension * Dyslipidemia * Paroxysmal atrial fibrillation on Xarelto In regards to hypoxic respiratory failure, pulmonary medicine following, continu e patient on steroids, continue breathing treatments, follow-up chest x-ray shows bilateral infiltrates 05/14 In regards to Covid 19 continue patient on droplet isolation continue steroids continue breathing treatments encourage use of incentive spirometer patient placed on Augmentin as well for tracheobronchitis Continue COVID-19 droplet plus isolation Continue IV Decadron day 5 Continue Augmentin by pulmonology Patient followed by pulmonary medicine, infectious disease Need physical therapy occupational therapy evaluation prior to discharge
--- NOTE | 2023-05-15 14:56 | P.PN ---
Subjective Progress Note Date: 05/15/23 This is a pleasant 87-year-old male patient who follows with Dr. Santiago as his primary care provider. If he has a history of 35 years of smoking up to 3 packs per day. He quit years ago. He does have chronic obstructive pulmonary disease and is maintained on Trilogy on albuterol and the outpatient setting. He also has a history of hyperlipidemia, myocardial infarction, prostate disorder, hypothyroidism, atrial fibrillation anticoagulated with Xarelto. He had a 2 day history of increasing shortness of fever breath, fever, weakness and was brought into the emergency room yesterday for the same. X-ray revealed patchy infiltrate in the right upper lobe as well as left lower lobe with small effu sions. White count 4.5. Hemoglobin 9.3. D-dimer 1.95. Creatinine sodium 134. Potassium 4.4. Bicarb 25. BUN 37. Creatinine 1.0. Glucose 162. Pro- calcitonin 0.21. ProBNP 6730. He was also found to be positive for coronavirus. He is seen today in consultation on the regular medical floor. He is currently resting fairly comfortably in bed. Awake and alert in no acute acute distress. He is feeling a bit better today compared to yesterday. He is maintaining O2 saturations in the 90s on 2 L/m per nasal cannula. He's been afebrile. Hemodynamically stable. He's been initiated on Decadron 6 mg IVP daily. Anticoagulated with Xarelto. Initiated on vitamin supplements. The patient is seen today 05/12/2023 in follow-up on the regular medical floor. He is currently sitting up in a chair at the bedside. Awake and alert in no acute distress. Breathing easier today compared to yesterday. He is maintaining O2 saturations in the 90s on 3 L/m per nasal cannula. He was in the low 80s on 1 L. No IV fluids. ProBNP was 6730. Pro-calcitonin was 0.21. He's been initiated on Augmentin. Continue on Symbicort and Ventolin HFA. Remains on Decadron. Anticoagulated with Xarelto. He is on oral diuretics. No accurate I&O. He is currently afebrile. Hemodynamically stable. Follow-up chest x-ray reveals evidence of COPD. Patchy opacities mostly in the left lung base and right upper lobe. Small to moderate bilateral pleural effusions. CT angiogram ruled out pulmonary embolism. There is evidence of COPD and bilateral effusions right greater than left. On today's evaluation of 05/12/2023, the patient is being seen for a follow-up. The patient is still feeling weak and tired and fatigued. The patient otherwise has no other complaints. The patient remains on Decadron regarding the Covid 19 infection. No evidence of any pneumonia. Remains on anticoagulation with Xarelto. He is known to have chronic atrial fibrillation. Is also known to have CAD, previous IN, hyperlipidemia and prostate enlargement. The labs from 05/11/2023 were noted. His Legionella urine antigen was negative. LEVEL IS AT 0.2. PROBNP LEVEL IS 6730. The CT antigram that was done showed no evidence of any pulmonary embolism. Scattered interstitial changes were seen bilaterally. Could be related to pneumonia. There is also 30 megaly with a right lateral pleural effusion with some nonspecificmediastinal lymph nodes. On today's evaluation of 05/14/2023, the patient is running a lower blood pressure. Lasix has been discontinued and the patient was given IV albumin and Midrin. His CRP is down trending is currently down to 2. No signs of any significant respiratory distress. No tachycardia. He has a congested cough which is limited. No chest pain. No pleurisy or hemoptysis. He is on currently on 3 L of oxygen by nasal cannula. Is awake and alert and he is afebrile. At the same time, the patient will be scheduled at 8.3 with a hemoglobin 10.2, BUN is at 39 with a creatinine of 0.9 and a sodium level is at 136 with a potassium level of 4.7. CRP level is down to 2.8. On today's evaluation of 05/15/2023, the patient is stable in terms of his blood pressure and hemodynamics. Is having some increased congested cough. He is currently on Decadron 6 mg IV every 24 hours. No interval worsening in oxygenation. Patient is also on empiric antibiotic coverage with Augmentin. He remains on anticoagulation with Xarelto. The patient is getting a white cell co unt of 13.7, hemoglobin of 10.1 and a platelet count of 385, BUN is at 38 with a creatinine of 0.9 and his sodium level is at 136. No change in the mental status. He remains quite fatigued and weak. His comorbidities are extensive including previous history of coronary artery disease/IN, hyperlipidemia, BPH, hypothyroidism, chronic A. fib for which he is on anticoagulation. Rate is controlled for now. Objective - Vital Signs Vital signs: Vital Signs Temp 97.6 F 05/15/23 07:28 Pulse 77 05/15/23 07:28 Resp 18 05/15/23 07:28 BP 93/56 05/15/23 07:28 Pulse Ox 93 L 05/15/23 08:38 FiO2 Intake & Output 05/14/23 05/15/23 05/15/23 18:59 06:59 18:59 Intake Total 1080 Balance 1080 Weight 40 kg Intake: Oral 1080 Other: Voiding Method Toilet Diaper # Voids 4 1 1 - Exam GENERAL EXAM: Alert, pleasant 87-year-old male patient, up in a chair, on 3 L nasal cannula, comfortable in no apparent distress. HEAD: Normocephalic. EYES: Normal reaction of pupils, equal size. NOSE: Clear with pink turbinates. THROAT: No erythema or exudates. NECK: No masses, no JVD. CHEST: No chest wall deformity. LUNGS: Equal air entry with few scattered rhonchi, crackles in the bilateral bases right greater than left. CVS: S1 and S2 normal with no audible murmur, regular rhythm. ABDOMEN: No hepatosplenomegaly, normal bowel sounds, no guarding or rigidity. SPINE: No scoliosis or deformity SKIN: No rashes CENTRAL NERVOUS SYSTEM: No focal deficits, tone is normal in all 4 extremities. EXTREMITIES: There is trace peripheral edema. No clubbing, no cyanosis. Peripheral pulses are intact. - Labs CBC & Chem 7: 05/15/23 05:25 05/15/23 05:25 Labs: Abnormal Lab Results - Last 24 Hours (Table) 05/15/23 05/15/23 Range/Units 05:25 05:25 WBC 13.72 H (4.50-10.00) X 10*3/uL RBC 2.90 L (4.40-5.60) X 10*6/uL Hgb 10.1 L (13.0-17.0) d/dL Hct 30.4 L (39.6-50.0) % MCV 104.8 H (80.0-97.0) FL MCH 34.8 H (27.0-32.0) pg BUN 38.2 H (9.0-27.0) mg/dL BUN/Creatinine Ratio 42.44 H (12.00-20.00) Ratio Assessment and Plan Plan: Acute hypoxemic respiratory failure secondary to an acute exacerbation of chronic obstructive pulmonary disease, mild fluid volume overload. CT angiogram ruled out pulmonary embolism. 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 The patient worked in the [employer] and his been exposed to asbestos in significant amounts and duration. Previous myocardial infarction status post PTBA Hypertension Hyperlipidemia Hypothyroidism Hypotension without any significant tachycardia. Asymptomatic. Plan Repeat chest x-ray within next 24 hours Oxygenation remains stable at 3 L nasal cannula, this can be weaned gradually as the patient's pulse ox is 99% Continue Symbicort, albuterol Continue continue Decadron 6 mg IV every 24 hours Continue Xarelto Continue vitamin supplements Aspiration precaution Increase his activity as tolerated We will continue to follow
[2023-05-15] MEDS: RIVAROXABAN 15 MG TAB PO SCH (16:39)
[2023-05-15] MEDS: ATORVASTATIN 20 MG TAB PO SCH (20:01)
[2023-05-15] MEDS: LATANOPROST 0.005% OPHTH DROPS 2.5 ML BTL BOTH EYES SCH (20:01)
[2023-05-16] MEDS: MIDODRINE 5 MG TAB PO SCH ×3 (06:23→17:24)
[2023-05-16] MEDS: LEVOTHYROXINE 75 MCG TAB PO SCH (06:23)
--- NOTE | 2023-05-16 07:51 | XR ---
EXAMINATION TYPE: XR chest 1V portable DATE OF EXAM: 05/16/2023 7:06 AM CLINICAL INDICATION:Male, 87 years old with history of congestion; [facility] COMPARISON: Chest radiographs from 05/14/2023 TECHNIQUE: XR chest 1V portable Frontal view of the chest. FINDINGS: Lungs/Pleura: Similar multifocal airspace opacities. No evidence of pneumothorax. There is blunting o f the costophrenic angles.. Pulmonary vascularity: Unremarkable. Heart/mediastinum: Cardiomediastinal silhouette is unremarkable. Musculoskeletal: No acute osseous pathology. IMPRESSION: Similar airspace opacities throughout the lungs concerning for pneumonia. Probable trace bilateral pl eural effusions.
[2023-05-16] MEDS: ASCORBIC ACID 500 MG TAB PO SCH (09:14)
[2023-05-16] MEDS: ZINC SULFATE 220 MG CAP PO SCH (09:14)
[2023-05-16] MEDS: DEXAMETHASONE SOD PHOSPHATE 10 MG/ML 1 ML VIAL IVP SCH (09:14)
[2023-05-16] MEDS: AMOXIC-POT CLAV 875-125MG 1 EACH TAB PO SCH ×2 (09:14→20:09)
[2023-05-16] MEDS: guaiFENesin 600 MG TABLET.ER PO SCH ×2 (09:14→20:09)
[2023-05-16] MEDS: METOPROLOL TARTRATE 25 MG TAB PO SCH ×3 (09:14→20:10)
[2023-05-16] MEDS: ALBUTEROL HFA INHALER INHALATION SCH ×4 (09:18→20:50)
[2023-05-16] MEDS: SYMBICORT 160-4.5 MCG INHALER INHALATION SCH ×2 (09:19→20:50)
[2023-05-16 10:48] LABS: HCT 28.3 % (39.6-50.0); HGB 10.2 d/dL (13.0-17.0); MCH 38.5 pg (27.0-32.0); MCV 106.8 FL (80.0-97.0); Mean Platelet Volume 10.2 FL (9.5-12.2); NRBC Per 100 WBC 0 X 10*3/uL (0.00-0.01); Platelet Count 350 X 10*3/uL (140-440); RBC 2.65 X 10*6/uL (4.40-5.60); RDW 14.1 % (11.5-14.5); WBC 15.77 X 10*3/uL (4.50-10.00)
[2023-05-16 11:01] LABS: BUN/Creat Ratio 38.11 Ratio (12.00-20.00); Blood Urea Nitrogen 34.3 mg/dL (9.0-27.0); Calcium 9.7 mg/dL (8.7-10.3); Carbon Dioxide 31.2 mmol/L (21.6-31.8); Chloride 96 mmol/L (96-109); Glucose 99 mg/dL (70-110); Potassium 4.4 mmol/L (3.5-5.5); Sodium 137 mmol/L (135-145)
[2023-05-16 11:52] VITALS: BMI 17.2
--- NOTE | 2023-05-16 12:24 | P.PN ---
Subjective Progress Note Date: 05/16/23 * 87-year-old male past medical history significant for hypertension, dyslipidemia, paroxysmal atrial fibrillation on Xarelto presented to the ER for flulike symptoms for 1 week. Patient stated that he was all right one week back when he started noticing that he was having generalized body aches and lethargy. Patient also complaining of shortness of breath at home. Patient also stated that he felt that he was having fevers at home, did not check his fevers at home. Denied any chest pain or swelling of feet. Complaining of dry cough. There was no complaint of nausea, vomiting abdominal pain. Patient continued to feel worse and decided to come to the ER * Initial lab work done in the ER showed WBC 8.4, hemoglobin 11, platelet count 268, sodium 134, potassium 5.1, BUN 14, creatinine 0.97, lactate 2.9, bilirubin 1.6, AST 83 * COVID-19 was positive * Chest x-ray done in the ER patchy infiltrate right upper lobe as well as left lower lobe * Patient admitted to medicine service * 05/11. Patient seen and examined. Currently on 2 L of oxygen. Denies any shortness of breath at rest, complaining of cough. * 05/12. Patient seen and examined. Patient oxygen requirements dropped to 80s this morning, currently doing better, on 3 L of oxygen, having productive coug h. * 05/13/23: Patient seen and evaluated bedside. Patient stated breathing has improved, this time patient continued to have cough and phlegm production. Continue patient on 3 L of oxygen patient seen by pulmonary medicine as well. Follow-up blood work ordered * 05/14/23: Patient seen and evaluated bedside, patient noted to have episode of hypotension however asymptomatic Lasix discontinued. Given dose of albumin, holding pattern meatus for metoprolol CRP trending down from 12 to 2. Patient lives by himself will get physical therapy occupational therapy evaluation as well * 05/15/23: Patient seen and evaluated bedside patient is alert and oriented 4 plan discussed with daughter on the phone as well will wait on physical therapy evaluation blood pressure remains low however patient asymptomatic metoprolol helps with holding pattern meatus continue to wean down on oxygen requirements potential discharge so depending on hemodynamic stability potential discharge were 05/17/23 * 05/16/23: Patient seen and evaluated bedside, patient is alert and oriented 4, patient worked with physical therapy potential discharge home with home care. He remains on 3 L of oxygen. Potential discharge within the next 24 hours. Pulmonary medicine following as well patient continues to have cough and productive phlegm production PHYSICAL EXAMINATION: GENERAL: The patient is alert and oriented x 3, on 3 L of oxygen HEENT: Pupils are round and equally reacting to light. EOMI. CARDIOVASCULAR: S1 and S2 present. No murmurs, rubs, or gallops. PULMONARY: Improved breath sounds bilaterally no wheezes ABDOMEN: Soft, nontender, nondistended, normoactive bowel sounds. No palpable organomegaly. MUSCULOSKELETAL: No joint swelling or deformity. EXTREMITIES: No cyanosis, clubbing, or pedal edema. NEUROLOGICAL: Gross neurological examination did not reveal any focal deficits. SKIN: No rashes. Objective - Vital Signs Vital signs: Vital Signs Temp 97.5 F L 05/16/23 07:15 Pulse 64 05/16/23 09:15 Resp 18 05/16/23 09:15 BP 115/72 05/16/23 07:15 Pulse Ox 97 05/16/23 09:19 FiO2 Intake & Output 05/15/23 05/16/23 05/16/23 18:59 06:59 18:59 Output Total 150 Balance -150 Weight 51.5 kg 51.5 kg Output: Urine 150 Other: Voiding Method Toilet Diaper # Voids 3 8 - Labs CBC & Chem 7: 05/16/23 06:19 05/16/23 06:14 Labs: Abnormal Lab Results - Last 24 Hours (Table) 05/16/23 05/16/23 Range/Units 06:14 06:19 WBC 15.77 H (4.50-10.00) X 10*3/uL RBC 2.65 L (4.40-5.60) X 10*6/uL Hgb 10.2 L (13.0-17.0) d/dL Hct 28.3 L (39.6-50.0) % MCV 106.8 H (80.0-97.0) FL MCH 38.5 H (27.0-32.0) pg BUN 34.3 H (9.0-27.0) mg/dL BUN/Creatinine Ratio 38.11 H (12.00-20.00) Ratio C-Reactive Protein 1.30 H (0.00-0.80) mg/dL Microbiology - Last 24 Hours (Table) 05/10/23 15:37 Blood Culture - Final Blood 05/10/23 15:33 Blood Culture - Final Blood Assessment and Plan Assessment: Assessment and plan * Acute hypoxic respiratory failure on 3 L of oxygen * COVID-19 pneumonia * Multifocal lower lobe pneumonia * Hyperbilirubinemia RESOLVED * Lactic acidosis RESOLVED * Hypertension * Dyslipidemia * Paroxysmal atrial fibrillation on Xarelto In regards to hypoxic respiratory failure, pulmonary medicine following, continue patient on steroids, continue breathing treatments, follow-up chest x- ray shows bilateral infiltrates 05/14, follow-up chest x-ray 05/16 show consistent infiltrate In regards to Covid 19 continue patient on droplet isolation continue steroids continue breathing treatments encourage use of incentive spirometer patient placed on Augmentin as well for tracheobronchitis Continue COVID-19 droplet plus isolation Continue IV Decadron day 6 Continue Augmentin DAY / Patient followed by pulmonary medicine, infectious disease Need physical therapy occupational therapy evaluation prior to discharge
[2023-05-16] MEDS: RIVAROXABAN 15 MG TAB PO SCH (17:24)
--- NOTE | 2023-05-16 19:22 | P.PN ---
Subjective Progress Note Date: 05/16/23 This is a pleasant 87-year-old male patient who follows with Dr. Santiago as his primary care provider. If he has a history of 35 years of smoking up to 3 packs per day. He quit years ago. He does have chronic obstructive pulmonary disease and is maintained on Trilogy on albuterol and the outpatient setting. He also has a history of hyperlipidemia, myocardial infarction, prostate disorder, hypothyroidism, atrial fibrillation anticoagulated with Xarelto. He had a 2 day history of increasing shortness of fever breath, fever, weakness and was brought into the emergency room yesterday for the same. X-ray revealed patchy infiltrate in the right upper lobe as well as left lower lobe with small effu sions. White count 4.5. Hemoglobin 9.3. D-dimer 1.95. Creatinine sodium 134. Potassium 4.4. Bicarb 25. BUN 37. Creatinine 1.0. Glucose 162. Pro- calcitonin 0.21. ProBNP 6730. He was also found to be positive for coronavirus. He is seen today in consultation on the regular medical floor. He is currently resting fairly comfortably in bed. Awake and alert in no acute acute distress. He is feeling a bit better today compared to yesterday. He is maintaining O2 saturations in the 90s on 2 L/m per nasal cannula. He's been afebrile. Hemodynamically stable. He's been initiated on Decadron 6 mg IVP daily. Anticoagulated with Xarelto. Initiated on vitamin supplements. The patient is seen today 05/12/2023 in follow-up on the regular medical floor. He is currently sitting up in a chair at the bedside. Awake and alert in no acute distress. Breathing easier today compared to yesterday. He is maintaining O2 saturations in the 90s on 3 L/m per nasal cannula. He was in the low 80s on 1 L. No IV fluids. ProBNP was 6730. Pro-calcitonin was 0.21. He's been initiated on Augmentin. Continue on Symbicort and Ventolin HFA. Remains on Decadron. Anticoagulated with Xarelto. He is on oral diuretics. No accurate I&O. He is currently afebrile. Hemodynamically stable. Follow-up chest x-ray reveals evidence of COPD. Patchy opacities mostly in the left lung base and right upper lobe. Small to moderate bilateral pleural effusions. CT angiogram ruled out pulmonary embolism. There is evidence of COPD and bilateral effusions right greater than left. On today's evaluation of 05/12/2023, the patient is being seen for a follow-up. The patient is still feeling weak and tired and fatigued. The patient otherwise has no other complaints. The patient remains on Decadron regarding the Covid 19 infection. No evidence of any pneumonia. Remains on anticoagulation with Xarelto. He is known to have chronic atrial fibrillation. Is also known to have CAD, previous CO, hyperlipidemia and prostate enlargement. The labs from 05/11/2023 were noted. His Legionella urine antigen was negative. LEVEL IS AT 0.2. PROBNP LEVEL IS 6730. The CT antigram that was done showed no evidence of any pulmonary embolism. Scattered interstitial changes were seen bilaterally. Could be related to pneumonia. There is also 30 megaly with a right lateral pleural effusion with some nonspecificmediastinal lymph nodes. On today's evaluation of 05/14/2023, the patient is running a lower blood pressure. Lasix has been discontinued and the patient was given IV albumin and Midrin. His CRP is down trending is currently down to 2. No signs of any significant respiratory distress. No tachycardia. He has a congested cough which is limited. No chest pain. No pleurisy or hemoptysis. He is on currently on 3 L of oxygen by nasal cannula. Is awake and alert and he is afebrile. At the same time, the patient will be scheduled at 8.3 with a hemoglobin 10.2, BUN is at 39 with a creatinine of 0.9 and a sodium level is at 136 with a potassium level of 4.7. CRP level is down to 2.8. On today's evaluation of 05/15/2023, the patient is stable in terms of his blood pressure and hemodynamics. Is having some increased congested cough. He is currently on Decadron 6 mg IV every 24 hours. No interval worsening in oxygenation. Patient is also on empiric antibiotic coverage with Augmentin. He remains on anticoagulation with Xarelto. The patient is getting a white cell co unt of 13.7, hemoglobin of 10.1 and a platelet count of 385, BUN is at 38 with a creatinine of 0.9 and his sodium level is at 136. No change in the mental status. He remains quite fatigued and weak. His comorbidities are extensive including previous history of coronary artery disease/CO, hyperlipidemia, BPH, hypothyroidism, chronic A. fib for which he is on anticoagulation. Rate is controlled for now. On today's evaluation of 05/10/2003, I'm seeing the patient for a follow-up. The patient has Covid 19 pneumonia with bilateral pulmonary infiltrates. Chest x-ray shows bilateral lower lobe airspace opacities concerning for pneumonia. Nevertheless, the chest x-ray findings of essentially the same and stable compared to the earlier chest exit was done on 05/14/2023. The patient remains on Augmentin. The patient remains on Decadron. Despite the persistent or infiltrates, the patient is feeling better compared to yesterday. He remains on oxygen and is currently on 2 L of oxygen by nasal cannula with a pulse ox of 92%. Is afebrile and he has no chest pain. No pleurisy. No hemoptysis. The white cycles of 15.7 with a hemoglobin of 10.2. No altered mentation. No nausea. No vomiting. No diarrhea. He remains on long-term and coagulation with Xarelto. His comorbidities include CAD, chronic A. fib, BPH, hypothyroidism and hyperlipidemia Objective - Vital Signs Vital signs: Vital Signs Temp 97.5 F L 05/16/23 07:15 Pulse 64 05/16/23 09:15 Resp 18 05/16/23 09:15 BP 115/72 05/16/23 07:15 Pulse Ox 97 05/16/23 09:19 FiO2 Intake & Output 05/15/23 05/16/23 05/16/23 18:59 06:59 18:59 Output Total 150 Balance -150 Weight 51.5 kg Output: Urine 150 Other: Voiding Method Toilet Diaper # Voids 3 8 - Exam GENERAL EXAM: Alert, pleasant 87-year-old male patient, up in a chair, on 3 L nasal cannula, comfortable in no apparent distress. HEAD: Normocephalic. EYES: Normal reaction of pupils, equal size. NOSE: Clear with pink turbinates. THROAT: No erythema or exudates. NECK: No masses, no JVD. CHEST: No chest wall deformity. LUNGS: Equal air entry with few scattered rhonchi, crackles in the bilateral bases right greater than left. CVS: S1 and S2 normal with no audible murmur, regular rhythm. ABDOMEN: No hepatosplenomegaly, normal bowel sounds, no guarding or rigidity. SPINE: No scoliosis or deformity SKIN: No rashes CENTRAL NERVOUS SYSTEM: No focal deficits, tone is normal in all 4 extremities. EXTREMITIES: There is trace peripheral edema. No clubbing, no cyanosis. Peripheral pulses are intact. - Labs CBC & Chem 7: 05/16/23 06:19 05/16/23 06:14 Labs: Abnormal Lab Results - Last 24 Hours (Table) 05/16/23 05/16/23 Range/Units 06:14 06:19 WBC 15.77 H (4.50-10.00) X 10*3/uL RBC 2.65 L (4.40-5.60) X 10*6/uL Hgb 10.2 L (13.0-17.0) d/dL Hct 28.3 L (39.6-50.0) % MCV 106.8 H (80.0-97.0) FL MCH 38.5 H (27.0-32.0) pg BUN 34.3 H (9.0-27.0) mg/dL BUN/Creatinine Ratio 38.11 H (12.00-20.00) Ratio C-Reactive Protein 1.30 H (0.00-0.80) mg/dL Microbiology - Last 24 Hours (Table) 05/10/23 15:37 Blood Culture - Final Blood 05/10/23 15:33 Blood Culture - Final Blood Assessment and Plan Plan: Acute hypoxemic respiratory failure secondary to an acute exacerbation of chr onic obstructive pulmonary disease, mild fluid volume overload. CT angiogram ruled out pulmonary embolism. There is no evidence of COVID-19 pneumonia, bilateral lower lobe consolidations and the patient is currently stable on 2 L of oxygen by nasal cannula. Follow-up chest x-ray findings from today showing stable bilateral pulmonary infiltrates. 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 Previous myocardial infarction status post PTBA Hypertension Hyperlipidemia Hypothyroidism Hypotension without any significant tachycardia. Asymptomatic. Plan Chest x-ray findings are stable with stable consolidation of the lung bases Oxygenation remains stable at 3 L nasal cannula, this can be weaned gradually as the patient's pulse ox is 99%, currently weaned down to 2 L Continue Symbicort, albuterol Continue continue Decadron 6 mg IV every 24 hours Continue Augmentin Continue Xarelto Continue vitamin supplements Aspiration precaution Increase his activity as tolerated We will continue to follow
[2023-05-16] MEDS: ATORVASTATIN 20 MG TAB PO SCH (20:09)
[2023-05-16] MEDS: LATANOPROST 0.005% OPHTH DROPS 2.5 ML BTL BOTH EYES SCH (20:09)
[2023-05-16] MEDS: CALCIUM CARBONATE 500 MG CHEWABLE PO PRN (20:21)
--- NOTE | 2023-05-16 21:11 | P.PN ---
Subjective Progress Note Date: 05/15/23 Principal diagnosis: Covid 19 pneumonia Patient is a 87-year-old male with a past medical history significant for COPD hypertension hyperlipidemia [place] presenting to the hospital for evaluation of shortness of breath and cough and this patient symptoms started a week before presentation to hospital , pt did tested positive for covid 19 On todays evaluation that is 05/15/2023, the patient denies any fever and chills, the patient is breathing comfortably on 3LNC oxygen and denies any shortness of breath, the patient denies having any chest pain or worsening cough, patient denies Abdominal pain, nausea/vomiting /diarrhea Patient did have white count of 13.72, creatinine 0.9, blood culture negative sputum negative Objective - Vital Signs Vital signs: Vital Signs Temp 97.6 F 05/15/23 07:28 Pulse 77 05/15/23 07:28 Resp 18 05/15/23 07:28 BP 93/56 05/15/23 07:28 Pulse Ox 93 L 05/15/23 08:38 FiO2 Intake & Output 05/14/23 05/15/23 05/15/23 18:59 06:59 18:59 Intake Total 1080 Balance 1080 Weight 40 kg Intake: Oral 1080 Other: Voiding Method Toilet Diaper # Voids 4 1 1 - Exam GENERAL DESCRIPTION: An elderly male lying in bed in no distress RESPIRATORY SYSTEM: Unlabored breathing , decreased breath sounds at bases HEART: S1 S2 regular rate and rhythm , ABDOMEN: Soft , no tenderness EXTREMITIES: No edema feet - Labs CBC & Chem 7: 05/16/23 06:19 05/16/23 06:14 Labs: Abnormal Lab Results - Last 24 Hours (Table) 05/15/23 05/15/23 Range/Units 05:25 05:25 WBC 13.72 H (4.50-10.00) X 10*3/uL RBC 2.90 L (4.40-5.60) X 10*6/uL Hgb 10.1 L (13.0-17.0) d/dL Hct 30.4 L (39.6-50.0) % MCV 104.8 H (80.0-97.0) FL MCH 34.8 H (27.0-32.0) pg BUN 38.2 H (9.0-27.0) mg/dL BUN/Creatinine Ratio 42.44 H (12.00-20.00) Ratio Assessment and Plan (1) Pneumonia due to COVID-19 virus Current Visit: Yes Status: Acute Code(s): U07.1 - COVID-19; J12.82 - PNEUMO BENITEZ DUE TO CORONAVIRUS DISEASE 2018 SNOMED Code(s): 212721256541904852 Plan: 1patient presented to hospital with 6-day history of fever which has resolved, now complaining of mostly shortness of breath and a cough which apparently is improving per patient and has been diagnosed with COVID-19 pneumonia clinical suspicion is low for secondary bacterial pneumonia in this patient with a normal white count and lymphopenia 2-procalcitonin level is 0.21 , sputum for Gram stain and cultures so far pending 3-patient has shown clinical improvement requiring less Oxygen and will continue with the dexamethasone, zinc ascorbic acid and xeralto 4- Leukocytosis more likely steroid related and will be monitored closely Dictation was produced using [employer] dictation software. please excuse any grammatical, word or spelling errors. Time with Patient: Less than 30
--- NOTE | 2023-05-16 21:12 | P.PN ---
Subjective Progress Note Date: 05/16/23 Principal diagnosis: Covid 19 pneumonia Patient is a 87-year-old male with a past medical history significant for COPD hypertension hyperlipidemia [place] presenting to the hospital for evaluation of shortness of breath and cough and this patient symptoms started a week before presentation to hospital , pt did tested positive for covid 19 On todays evaluation that is 05/16/2023, the patient continues to be afebrile, the patient is breathing comfortably on 2LNC oxygen, the patient denies any chest pain and cough has decreased in intensity, patient denies abdominal pain, and denies any nausea/vomiting or diarrhea Patient did have white count of 15.77, creatinine 0.9, blood culture negative sputum negative Objective - Vital Signs Vital signs: Vital Signs Temp 97.5 F L 05/16/23 07:15 Pulse 64 05/16/23 09:15 Resp 18 05/16/23 09:15 BP 115/72 05/16/23 07:15 Pulse Ox 97 05/16/23 09:19 FiO2 Intake & Output 05/15/23 05/16/23 05/16/23 18:59 06:59 18:59 Output Total 150 Balance -150 Weight 51.5 kg 51.5 kg Output: Urine 150 Other: Voiding Method Toilet Diaper # Voids 3 8 - Exam GENERAL DESCRIPTION: An elderly male lying in bed in no distress RESPIRATORY SYSTEM: Unlabored breathing , decreased breath sounds at bases HEART: S1 S2 regular rate and rhythm , ABDOMEN: Soft , no tenderness EXTREMITIES: No edema feet - Labs CBC & Chem 7: 05/16/23 06:19 05/16/23 06:14 Labs: Abnormal Lab Results - Last 24 Hours (Table) 05/16/23 05/16/23 Range/Units 06:14 06:19 WBC 15.77 H (4.50-10.00) X 10*3/uL RBC 2.65 L (4.40-5.60) X 10*6/uL Hgb 10.2 L (13.0-17.0) d/dL Hct 28.3 L (39.6-50.0) % MCV 106.8 H (80.0-97.0) FL MCH 38.5 H (27.0-32.0) pg BUN 34.3 H (9.0-27.0) mg/dL BUN/Creatinine Ratio 38.11 H (12.00-20.00) Ratio C-Reactive Protein 1.30 H (0.00-0.80) mg/dL Microbiology - Last 24 Hours (Table) 05/10/23 15:37 Blood Culture - Final Blood 05/10/23 15:33 Blood Culture - Final Blood Assessment and Plan (1) Pneumonia due to COVID-19 virus Current Visit: Yes Status: Acute Code(s): U07.1 - COVID-19; J12.82 - PNEUMONIA DUE TO CORONAVIRUS DISEASE 2018 SNOMED Code(s): 549677419871713852 Plan: 1patient presented to hospital with 6-day history of fever which has resolved, now complaining of mostly shortness of breath and a cough which apparently is improving per patient and has been diagnosed with COVID-19 pneumonia clinical suspicion is low for secondary bacterial pneumonia in this patient with a normal white count and lymphopenia 2-procalcitonin level is 0.21 , sputum for Gram stain and cultures so far pending 3- Leukocytosis more likely steroid related and will be monitored closely 4-patient his slowly clinically improving and requiring less Oxygen and will continue with the dexamethasone, zinc ascorbic acid and xeralto Dictation was produced using [employer] dictation software. please excuse any grammatical, word or spelling errors. Time with Patient: Less than 30
[2023-05-17] MEDS: MIDODRINE 5 MG TAB PO SCH ×3 (06:28→16:47)
[2023-05-17] MEDS: LEVOTHYROXINE 75 MCG TAB PO SCH (06:28)
[2023-05-17] MEDS: AMOXIC-POT CLAV 875-125MG 1 EACH TAB PO SCH ×2 (08:05→20:12)
[2023-05-17] MEDS: METOPROLOL TARTRATE 25 MG TAB PO SCH ×3 (08:05→20:12)
[2023-05-17] MEDS: guaiFENesin 600 MG TABLET.ER PO SCH ×2 (08:05→20:12)
[2023-05-17] MEDS: DEXAMETHASONE SOD PHOSPHATE 10 MG/ML 1 ML VIAL IVP SCH (08:05)
[2023-05-17] MEDS: ASCORBIC ACID 500 MG TAB PO SCH (08:05)
[2023-05-17] MEDS: ZINC SULFATE 220 MG CAP PO SCH (08:05)
[2023-05-17] MEDS: ALBUTEROL HFA INHALER INHALATION SCH ×4 (09:22→21:13)
[2023-05-17] MEDS: SYMBICORT 160-4.5 MCG INHALER INHALATION SCH ×2 (09:22→21:13)
[2023-05-17] MEDS: CALCIUM CARBONATE 500 MG CHEWABLE PO PRN ×3 (10:20→20:15)
[2023-05-17 11:18] LABS: HCT 33.4 % (39.6-50.0); HGB 11.2 d/dL (13.0-17.0); MCH 35.4 pg (27.0-32.0); MCHC 33.5 d/dL (32.0-37.0); MCV 105.7 FL (80.0-97.0); Mean Platelet Volume 10.3 FL (9.5-12.2); NRBC Per 100 WBC 0 X 10*3/uL (0.00-0.01); Platelet Count 407 X 10*3/uL (140-440); RBC 3.16 X 10*6/uL (4.40-5.60); RDW 13.9 % (11.5-14.5); WBC 13.99 X 10*3/uL (4.50-10.00)
[2023-05-17 11:31] LABS: Blood Urea Nitrogen 37.1 mg/dL (9.0-27.0); Calcium 9.5 mg/dL (8.7-10.3); Carbon Dioxide 37.8 mmol/L (21.6-31.8); Chloride 100 mmol/L (96-109); Glucose 94 mg/dL (70-110); Potassium 4.8 mmol/L (3.5-5.5); Sodium 140 mmol/L (135-145)
--- NOTE | 2023-05-17 14:52 | P.PN ---
Subjective Progress Note Date: 05/17/23 87-year-old male past medical history significant for hypertension, dyslipidemia, paroxysmal atrial fibrillation on Xarelto presented to the ER for flulike symptoms for 1 week. Patient stated that he was all right one week back when he started noticing that he was having generalized body aches and lethargy. Patient also complaining of shortness of breath at home. Patient also stated that he felt that he was having fevers at home, did not check his fevers at home. Denied any chest pain or swelling of feet. Complaining of dry cough. There was no complaint of nausea, vomiting abdominal pain. Patient continued to feel worse and decided to come to the ER * Initial lab work done in the ER showed WBC 8.4, hemoglobin 11, platelet count 268, sodium 134, potassium 5.1, BUN 14, creatinine 0.97, lactate 2.9, bilirubin 1.6, AST 83 * COVID-19 was positive * Chest x-ray done in the ER patchy infiltrate right upper lobe as well as left lower lobe * Patient admitted to medicine service * 05/11. Patient seen and examined. Currently on 2 L of oxygen. Denies any shortness of breath at rest, complaining of cough. * 05/12. Patient seen and examined. Patient oxygen requirements dropped to 80s this morning, currently doing better, on 3 L of oxygen, having productive cough. * 05/13/23: Patient seen and evaluated bedside. Patient stated breathing has improved, this time patient continued to have cough and phlegm production. Continue patient on 3 L of oxygen patient seen by pulmonary medicine as well. Follow-up blood work ordered * 05/14/23: Patient seen and evaluated bedside, patient noted to have episode of hypotension however asymptomatic Lasix discontinued. Given dose of albumin, holding pattern meatus for metoprolol CRP trending down from 12 to 2. Patient lives by himself will get physical therapy occupational therapy evaluation as well * 05/15/23: Patient seen and evaluated bedside patient is alert and oriented 4 plan discussed with daughter on the phone as well will wait on physical therapy evaluation blood pressure remains low however patient asymptomatic metoprolol helps with holding pattern meatus continue to wean down on oxygen requirements potential discharge so depending on hemodynamic stability potential discharge were 05/17/23 * 05/16/23: Patient seen and evaluated bedside, patient is alert and oriented 4, patient worked with physical therapy potential discharge home with home care. He remains on 3 L of oxygen. Potential discharge within the next 24 hours. Pulmonary medicine following as well patient continues to have cough and productive phlegm production * 05/17. Patient seen and examined. Currently on 2 L of oxygen. Patient states he feels better. Pulmonology plan to do a repeat chest x-ray in the morning, depending on that possible discharge in the morning. Lab work done showed WBC 13.9, hemoglobin 11.2, platelet count 407 REVIEW OF SYSTEMS: CONSTITUTIONAL: No fever, no malaise,. CARDIOVASCULAR: No chest pain, no palpitations, no syncope. PULMONARY: No shortness of breath, no cough, GASTROINTESTINAL: No diarrhea, no nausea, no vomiting, no abdominal pain. NEUROLOGICAL: No headaches, no weakness, PHYSICAL EXAMINATION: GENERAL: The patient is alert and oriented x3, not in any acute distress. Well developed, well nourished. HEENT: Pupils are round and equally reacting to light. EOMI. No scleral icterus. No conjunctival pallor. Normocephalic, atraumatic. No pharyngeal erythema. No thyromegaly. CARDIOVASCULAR: S1 and S2 present. No murmurs, rubs, or gallops. PULMONARY: Diminished breath sounds at the bases bilaterally ABDOMEN: Soft, nontender, nondistended, normoactive bowel sounds. No palpable organomegaly. MUSCULOSKELETAL: No joint swelling or deformity. EXTREMITIES: No cyanosis, clubbing, or pedal edema. NEUROLOGICAL: Gross neurological examination did not reveal any focal deficits. SKIN: No rashes. Assessment and plan Acute hypoxic respiratory failure on 3 L of oxygen * COVID-19 pneumonia * Multifocal lower lobe pneumonia * Hyperbilirubinemia RESOLVED * Lactic acidosis RESOLVED * Hypertension * Dyslipidemia * Paroxysmal atrial fibrillation on Xarelto In regards to hypoxic respiratory failure, pulmonary medicine following, continue patient on steroids, continue breathing treatments, follow-up chest x- ray shows bilateral infiltrates 05/14, follow-up chest x-ray 05/16 show consistent infiltrate, repeat chest x-ray ordered for 05/17 In regards to Covid 19 continue patient on droplet isolation continue steroids continue breathing treatments encourage use of incentive spirometer patient placed on Augmentin as well for tracheobronchitis Continue COVID-19 droplet plus isolation Continue IV Decadron day 7 Continue Augmentin DAY 12/26 Patient followed by pulmonary medicine, infectious disease Need physical therapy occupational therapy evaluation prior to discharge Labs and medication were reviewed.. Continue same treatment. Continue with symptomatic treatment. Resume home medication. Monitor labs and vitals. DVT and GI prophylaxis. Further recommendations as per clinical course of the patient Dictation was produced using [employer] dictation software. please excuse any grammatical, word or spelling errors. Objective - Vital Signs Vital signs: Vital Signs Temp 98.0 F 05/17/23 06:58 Pulse 68 05/17/23 08:05 Resp 18 05/17/23 08:05 BP 118/70 05/17/23 06:58 Pulse Ox 98 05/17/23 09:22 FiO2 Intake & Output 05/16/23 05/17/23 05/17/23 18:59 06:59 18:59 Weight 51.5 kg 60 kg Other: Voiding Method Toilet Toilet Diaper # Voids 3 7 1 - Labs CBC & Chem 7: 05/17/23 05:55 05/17/23 05:55 Labs: Abnormal Lab Results - Last 24 Hours (Table) 05/16/23 Range/Units 06:14 BUN 34.3 H (9.0-27.0) mg/dL BUN/Creatinine Ratio 38.11 H (12.00-20.00) Ratio C-Reactive Protein 1.30 H (0.00-0.80) mg/dL
--- NOTE | 2023-05-17 15:13 | P.PN ---
Subjective Progress Note Date: 05/17/23 Principal diagnosis: Covid 19 pneumonia Patient is a 87-year-old male with a past medical history significant for COPD hypertension hyperlipidemia [place] presenting to the hospital for evaluation of shortness of breath and cough and this patient symptoms started a week before presentation to hospital , pt did tested positive for covid 19 On todays evaluation that is 05/17/2023, the patient denies any fever or any chills, the patient is breathing comfortably on 2 L nasal cannula supplemental oxygen, the patient denies any chest pain or worsening cough and had no sputum production, patient denies any nausea/vomiting or diarrhea and no abdominal pain Patient did have white count is down to 13.99, creatinine 1.0, procalcitonin 0.07, blood culture negative sputum negative Objective - Vital Signs Vital signs: Vital Signs Temp 98.0 F 05/17/23 06:58 Pulse 68 05/17/23 08:05 Resp 18 05/17/23 08:05 BP 118/70 05/17/23 06:58 Pulse Ox 98 05/17/23 09:22 FiO2 Intake & Output 05/16/23 05/17/23 05/17/23 18:59 06:59 18:59 Weight 51.5 kg 60 kg Other: Voiding Method Toilet Toilet Diaper # Voids 3 7 1 - Exam GENERAL DESCRIPTION: An elderly male lying in bed in no distress RESPIRATORY SYSTEM: Unlabored breathing , decreased breath sounds at bases HEART: S1 S2 regular rate and rhythm , ABDOMEN: Soft , no tenderness EXTREMITIES: No edema feet - Labs CBC & Chem 7: 05/17/23 05:55 05/17/23 05:55 Labs: Abnormal Lab Results - Last 24 Hours (Table) 05/17/23 05/17/23 Range/Units 05:55 05:55 WBC 13.99 H (4.50-10.00) X 10*3/uL RBC 3.16 L (4.40-5.60) X 10*6/uL Hgb 11.2 L (13.0-17.0) d/dL Hct 33.4 L (39.6-50.0) % MCV 105.7 H (80.0-97.0) FL MCH 35.4 H (27.0-32.0) pg Carbon Dioxide 37.8 H (21.6-31.8) mmol/L Anion Gap 2.20 L (4.00-12.00) mmol/L BUN 37.1 H (9.0-27.0) mg/dL BUN/Creatinine Ratio 37.10 H (12.00-20.00) Ratio Assessment and Plan (1) Pneumonia due to COVID-19 virus Current Visit: Yes Status: Acute Code(s): U07.1 - COVID-19; J12.82 - PNEUMONIA DUE TO CORONAVIRUS DISEASE 2018 SNOMED Code(s): 729760556197289788 Plan: 1patient presented to hospital with 6-day history of fever which has resolved, now complaining of mostly shortness of breath and a cough which apparently is improving per patient and has been diagnosed with COVID-19 pneumonia clinical suspicion is low for secondary bacterial pneumonia in this patient with a normal white count and lymphopenia 2-procalcitonin level is 0.21 , sputum for Gram stain and cultures so far pending 3- Leukocytosis more likely steroid related and are trending down, the patient did have a normal procalcitonin 4-patient did have some clinical improvement and will continue with the dexamethasone, zinc ascorbic acid and xeralto and monitor clinical course closely Dictation was produced using [employer] dictation software. please excuse any grammatical, word or spelling errors. Time with Patient: Less than 30
--- NOTE | 2023-05-17 15:38 | P.PN ---
Subjective Progress Note Date: 05/17/23 This is a pleasant 87-year-old male patient who follows with Dr. Santiago as his primary care provider. If he has a history of 35 years of smoking up to 3 packs per day. He quit years ago. He does have chronic obstructive pulmonary disease and is maintained on Trilogy on albuterol and the outpatient setting. He also has a history of hyperlipidemia, myocardial infarction, prostate disorder, hypothyroidism, atrial fibrillation anticoagulated with Xarelto. He had a 2 day history of increasing shortness of fever breath, fever, weakness and was brought into the emergency room yesterday for the same. X-ray revealed patchy infiltrate in the right upper lobe as well as left lower lobe with small effu sions. White count 4.5. Hemoglobin 9.3. D-dimer 1.95. Creatinine sodium 134. Potassium 4.4. Bicarb 25. BUN 37. Creatinine 1.0. Glucose 162. Pro- calcitonin 0.21. ProBNP 6730. He was also found to be positive for coronavirus. He is seen today in consultation on the regular medical floor. He is currently resting fairly comfortably in bed. Awake and alert in no acute acute distress. He is feeling a bit better today compared to yesterday. He is maintaining O2 saturations in the 90s on 2 L/m per nasal cannula. He's been afebrile. Hemodynamically stable. He's been initiated on Decadron 6 mg IVP daily. Anticoagulated with Xarelto. Initiated on vitamin supplements. The patient is seen today 05/12/2023 in follow-up on the regular medical floor. He is currently sitting up in a chair at the bedside. Awake and alert in no acute distress. Breathing easier today compared to yesterday. He is maintaining O2 saturations in the 90s on 3 L/m per nasal cannula. He was in the low 80s on 1 L. No IV fluids. ProBNP was 6730. Pro-calcitonin was 0.21. He's been initiated on Augmentin. Continue on Symbicort and Ventolin HFA. Remains on Decadron. Anticoagulated with Xarelto. He is on oral diuretics. No accurate I&O. He is currently afebrile. Hemodynamically stable. Follow-up chest x-ray reveals evidence of COPD. Patchy opacities mostly in the left lung base and right upper lobe. Small to moderate bilateral pleural effusions. CT angiogram ruled out pulmonary embolism. There is evidence of COPD and bilateral effusions right greater than left. On today's evaluation of 05/12/2023, the patient is being seen for a follow-up. The patient is still feeling weak and tired and fatigued. The patient otherwise has no other complaints. The patient remains on Decadron regarding the Covid 19 infection. No evidence of any pneumonia. Remains on anticoagulation with Xarelto. He is known to have chronic atrial fibrillation. Is also known to have CAD, previous [place], hyperlipidemia and prostate enlargement. The labs from 05/11/2023 were noted. His Legionella urine antigen was negative. LEVEL IS AT 0.2. PROBNP LEVEL IS 6730. The CT antigram that was done showed no evidence of any pulmonary embolism. Scattered interstitial changes were seen bilaterally. Could be related to pneumonia. There is also 30 megaly with a right lateral pleural effusion with some nonspecificmediastinal lymph nodes. On today's evaluation of 05/14/2023, the patient is running a lower blood pressure. Lasix has been discontinued and the patient was given IV albumin and Midrin. His CRP is down trending is currently down to 2. No signs of any significant respiratory distress. No tachycardia. He has a congested cough which is limited. No chest pain. No pleurisy or hemoptysis. He is on currently on 3 L of oxygen by nasal cannula. Is awake and alert and he is afebrile. At the same time, the patient will be scheduled at 8.3 with a hemoglobin 10.2, BUN is at 39 with a creatinine of 0.9 and a sodium level is at 136 with a potassium level of 4.7. CRP level is down to 2.8. On today's evaluation of 05/15/2023, the patient is stable in terms of his blood pressure and hemodynamics. Is having some increased congested cough. He is currently on Decadron 6 mg IV every 24 hours. No interval worsening in oxygenation. Patient is also on empiric antibiotic coverage with Augmentin. He remains on anticoagulation with Xarelto. The patient is getting a white cell co unt of 13.7, hemoglobin of 10.1 and a platelet count of 385, BUN is at 38 with a creatinine of 0.9 and his sodium level is at 136. No change in the mental status. He remains quite fatigued and weak. His comorbidities are extensive including previous history of coronary artery disease/[place], hyperlipidemia, BPH, hypothyroidism, chronic A. fib for which he is on anticoagulation. Rate is controlled for now. On today's evaluation of 05/10/2003, I'm seeing the patient for a follow-up. The patient has Covid 19 pneumonia with bilateral pulmonary infiltrates. Chest x-ray shows bilateral lower lobe airspace opacities concerning for pneumonia. Nevertheless, the chest x-ray findings of essentially the same and stable compared to the earlier chest exit was done on 05/14/2023. The patient remains on Augmentin. The patient remains on Decadron. Despite the persistent or infiltrates, the patient is feeling better compared to yesterday. He remains on oxygen and is currently on 2 L of oxygen by nasal cannula with a pulse ox of 92%. Is afebrile and he has no chest pain. No pleurisy. No hemoptysis. The white cycles of 15.7 with a hemoglobin of 10.2. No altered mentation. No nausea. No vomiting. No diarrhea. He remains on long-term and coagulation with Xarelto. His comorbidities include CAD, chronic A. fib, BPH, hypothyroidism and hyperlipidemia On 05/17/2023, the patient is gradually improving. Minimal congestive cough. As mentioned earlier, the chest x-ray still showing persistent pulmonary infiltrates in the lung bases/consolidation. The patient remains on Decadron. The patient remains on Augmentin. No adjustment were done as the patient is clinically improving. He remains on oxygen at 2 L with a pulse ox of 92% and he may need also home O2 the time of discharge. The discomfort of 15.9, hemoglobin 11.2, BUN is 37 with a creatinine 1.0. He remains on anticoagulation with Xarelto. He has chronic A. fib. He has coronary artery disease, hypothyroidism and hyperlipidemia and BPH. No nausea. No altered mentation. Tolerating diet. No emesis. He reports improvement in his overall functionality and strength. Objective - Vital Signs Vital signs: Vital Signs Temp 98.0 F 05/17/23 06:58 Pulse 68 05/17/23 08:05 Resp 18 05/17/23 08:05 BP 118/70 05/17/23 06:58 Pulse Ox 98 05/17/23 09:22 FiO2 Intake & Output 05/16/23 05/17/23 05/17/23 18:59 06:59 18:59 Weight 51.5 kg 60 kg Other: Voiding Method Toilet Toilet Diaper # Voids 3 7 1 - Exam GENERAL EXAM: Alert, pleasant 87-year-old male patient, up in a chair, on 3 L nasal cannula, comfortable in no apparent distress. HEAD: Normocephalic. EYES: Normal reaction of pupils, equal size. NOSE: Clear with pink turbinates. THROAT: No erythema or exudates. NECK: No masses, no JVD. CHEST: No chest wall deformity. LUNGS: Equal air entry with few scattered rhonchi, crackles in the bilateral bases right greater than left. CVS: S1 and S2 normal with no audible murmur, regular rhythm. ABDOMEN: No hepatosplenomegaly, normal bowel sounds, no guarding or rigidity. SPINE: No scoliosis or deformity SKIN: No rashes CENTRAL NERVOUS SYSTEM: No focal deficits, tone is normal in all 4 extremities. EXTREMITIES: There is trace peripheral edema. No clubbing, no cyanosis. Peripheral pulses are intact. - Labs CBC & Chem 7: 05/17/23 05:55 05/17/23 05:55 Labs: Abnormal Lab Results - Last 24 Hours (Table) 05/17/23 05/17/23 Range/Units 05:55 05:55 WBC 13.99 H (4.50-10.00) X 10*3/uL RBC 3.16 L (4.40-5.60) X 10*6/uL Hgb 11.2 L (13.0-17.0) d/dL Hct 33.4 L (39.6-50.0) % MCV 105.7 H (80.0-97.0) FL MCH 35.4 H (27.0-32.0) pg Carbon Dioxide 37.8 H (21.6-31.8) mmol/L Anion Gap 2.20 L (4.00-12.00) mmol/L BUN 37.1 H (9.0-27.0) mg/dL BUN/Creatinine Ratio 37.10 H (12.00-20.00) Ratio Assessment and Plan Plan: Acute hypoxemic respiratory failure secondary to an acute exacerbation of chronic obstructive pulmonary disease, mild fluid volume overload. CT angiogram ruled out pulmonary embolism. There is no evidence of COVID-19 pneumonia, bilateral lower lobe consolidations and the patient is currently stable on 2 L of oxygen by nasal cannula. Follow-up chest x-ray findings from today showing stable bilateral pulmonary infiltrates. The patient is clinically stable. No interval worsening in oxygenation. 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 The patient worked in the [employer] and his been exposed to asbestos in significant amounts and duration. Previous myocardial infarction status post PTBA Hypertension Hyperlipidemia Hypothyroidism Hypotension without any significant tachycardia. Asymptomatic. Plan Clinically improving and we'll going to repeat another chest x-ray in the morning. Chest x-ray findings are stable with stable consolidation of the lung bases and the last chest x-ray was done on 05/16/2023 Oxygenation remains stable at 3 L nasal cannula, this can be weaned gradually as the patient's pulse ox is 99%, currently weaned down to 2 L Continue Symbicort, albuterol Continue continue Decadron 6 mg IV every 24 hours Continue Augmentin Continue Xarelto Continue vitamin supplements Aspiration precaution Increase his activity as tolerated We will continue to follow
[2023-05-17] MEDS: RIVAROXABAN 15 MG TAB PO SCH (16:47)
[2023-05-17] MEDS: ATORVASTATIN 20 MG TAB PO SCH (20:12)
[2023-05-17] MEDS: LATANOPROST 0.005% OPHTH DROPS 2.5 ML BTL BOTH EYES SCH (20:12)
[2023-05-18] MEDS: LEVOTHYROXINE 75 MCG TAB PO SCH (05:44)
[2023-05-18] MEDS: MIDODRINE 5 MG TAB PO SCH ×3 (05:44→17:31)
--- NOTE | 2023-05-18 07:38 | XR ---
EXAMINATION TYPE: XR chest 1V DATE OF EXAM: 05/18/2023 7:09 AM CLINICAL INDICATION:Male, 87 years old with history of post pneumonia; [facility] COMPARISON: Chest x-rays from 05/16/2023 and 05/14/2023. CT chest 05/11/2023. TECHNIQUE: XR chest 1V Frontal view of the chest. FINDINGS: Lungs/Pleura: Similar mild blunting of the right more than left costophrenic angles suggesting small effusions. Scattered patchy alveolar and interstitial airspace opacities bilaterally, greatest in the right mid to lower lung and left lung base, similar to most recent prior. Vague nodular opacity towa rds the left lung apex is grossly stable radiographically but again warrants CT follow-up is previous ly described. Curvilinear subsegmental atelectasis again seen in the right mid to upper lung laterall y. No definite pneumothorax, new or worsening infiltrate. Pulmonary vascularity: Unremarkable. Heart/mediastinum: Stable cardiomediastinal silhouette. Heart appears borderline mildly enlarged. Par tially calcified mildly tortuous aorta. Musculoskeletal: No acute osseous pathology. Mild/moderate degenerative changes of the spine and shou lders. Other findings: None Lines/Tubes: None. IMPRESSION: 1. Bilateral interstitial and patchy alveolar airspace opacities, grossly stable since most recent p rior 05/16/2023, concerning for pneumonia. 2. Stable small pleural effusions.
[2023-05-18] MEDS: SYMBICORT 160-4.5 MCG INHALER INHALATION SCH ×2 (08:04→20:34)
[2023-05-18] MEDS: ALBUTEROL HFA INHALER INHALATION SCH ×4 (08:04→20:34)
--- NOTE | 2023-05-18 09:47 | P.PN ---
Subjective Progress Note Date: 05/18/23 This is a pleasant 87-year-old male patient who follows with Dr. Santiago as his primary care provider. If he has a history of 35 years of smoking up to 3 packs per day. He quit years ago. He does have chronic obstructive pulmonary disease and is maintained on Trilogy on albuterol and the outpatient setting. He also has a history of hyperlipidemia, myocardial infarction, prostate disorder, hypothyroidism, atrial fibrillation anticoagulated with Xarelto. He had a 2 day history of increasing shortness of fever breath, fever, weakness and was brought into the emergency room yesterday for the same. X-ray revealed patchy infiltrate in the right upper lobe as well as left lower lobe with small effu sions. White count 4.5. Hemoglobin 9.3. D-dimer 1.95. Creatinine sodium 134. Potassium 4.4. Bicarb 25. BUN 37. Creatinine 1.0. Glucose 162. Pro- calcitonin 0.21. ProBNP 6730. He was also found to be positive for coronavirus. He is seen today in consultation on the regular medical floor. He is currently resting fairly comfortably in bed. Awake and alert in no acute acute distress. He is feeling a bit better today compared to yesterday. He is maintaining O2 saturations in the 90s on 2 L/m per nasal cannula. He's been afebrile. Hemodynamically stable. He's been initiated on Decadron 6 mg IVP daily. Anticoagulated with Xarelto. Initiated on vitamin supplements. The patient is seen today 05/12/2023 in follow-up on the regular medical floor. He is currently sitting up in a chair at the bedside. Awake and alert in no acute distress. Breathing easier today compared to yesterday. He is maintaining O2 saturations in the 90s on 3 L/m per nasal cannula. He was in the low 80s on 1 L. No IV fluids. ProBNP was 6730. Pro-calcitonin was 0.21. He's been initiated on Augmentin. Continue on Symbicort and Ventolin HFA. Remains on Decadron. Anticoagulated with Xarelto. He is on oral diuretics. No accurate I&O. He is currently afebrile. Hemodynamically stable. Follow-up chest x-ray reveals evidence of COPD. Patchy opacities mostly in the left lung base and right upper lobe. Small to moderate bilateral pleural effusions. CT angiogram ruled out pulmonary embolism. There is evidence of COPD and bilateral effusions right greater than left. On today's evaluation of 05/12/2023, the patient is being seen for a follow-up. The patient is still feeling weak and tired and fatigued. The patient otherwise has no other complaints. The patient remains on Decadron regarding the Covid 19 infection. No evidence of any pneumonia. Remains on anticoagulation with Xarelto. He is known to have chronic atrial fibrillation. Is also known to have CAD, previous [place], hyperlipidemia and prostate enlargement. The labs from 05/11/2023 were noted. His Legionella urine antigen was negative. LEVEL IS AT 0.2. PROBNP LEVEL IS 6730. The CT antigram that was done showed no evidence of any pulmonary embolism. Scattered interstitial changes were seen bilaterally. Could be related to pneumonia. There is also 30 megaly with a right lateral pleural effusion with some nonspecificmediastinal lymph nodes. On today's evaluation of 05/14/2023, the patient is running a lower blood pressure. Lasix has been discontinued and the patient was given IV albumin and Midrin. His CRP is down trending is currently down to 2. No signs of any significant respiratory distress. No tachycardia. He has a congested cough which is limited. No chest pain. No pleurisy or hemoptysis. He is on currently on 3 L of oxygen by nasal cannula. Is awake and alert and he is afebrile. At the same time, the patient will be scheduled at 8.3 with a hemoglobin 10.2, BUN is at 39 with a creatinine of 0.9 and a sodium level is at 136 with a potassium level of 4.7. CRP level is down to 2.8. On today's evaluation of 05/15/2023, the patient is stable in terms of his blood pressure and hemodynamics. Is having some increased congested cough. He is currently on Decadron 6 mg IV every 24 hours. No interval worsening in oxygenation. Patient is also on empiric antibiotic coverage with Augmentin. He remains on anticoagulation with Xarelto. The patient is getting a white cell co unt of 13.7, hemoglobin of 10.1 and a platelet count of 385, BUN is at 38 with a creatinine of 0.9 and his sodium level is at 136. No change in the mental status. He remains quite fatigued and weak. His comorbidities are extensive including previous history of coronary artery disease/[place], hyperlipidemia, BPH, hypothyroidism, chronic A. fib for which he is on anticoagulation. Rate is controlled for now. On today's evaluation of 05/10/2003, I'm seeing the patient for a follow-up. The patient has Covid 19 pneumonia with bilateral pulmonary infiltrates. Chest x-ray shows bilateral lower lobe airspace opacities concerning for pneumonia. Nevertheless, the chest x-ray findings of essentially the same and stable compared to the earlier chest exit was done on 05/14/2023. The patient remains on Augmentin. The patient remains on Decadron. Despite the persistent or infiltrates, the patient is feeling better compared to yesterday. He remains on oxygen and is currently on 2 L of oxygen by nasal cannula with a pulse ox of 92%. Is afebrile and he has no chest pain. No pleurisy. No hemoptysis. The white cycles of 15.7 with a hemoglobin of 10.2. No altered mentation. No nausea. No vomiting. No diarrhea. He remains on long-term and coagulation with Xarelto. His comorbidities include CAD, chronic A. fib, BPH, hypothyroidism and hyperlipidemia On 05/17/2023, the patient is gradually improving. Minimal congestive cough. As mentioned earlier, the chest x-ray still showing persistent pulmonary infiltrates in the lung bases/consolidation. The patient remains on Decadron. The patient remains on Augmentin. No adjustment were done as the patient is clinically improving. He remains on oxygen at 2 L with a pulse ox of 92% and he may need also home O2 the time of discharge. The discomfort of 15.9, hemoglobin 11.2, BUN is 37 with a creatinine 1.0. He remains on anticoagulation with Xarelto. He has chronic A. fib. He has coronary artery disease, hypothyroidism and hyperlipidemia and BPH. No nausea. No altered mentation. Tolerating diet. No emesis. He reports improvement in his overall functionality and strength. On today's evaluation of 05/18/2023, the patient is essentially the same. He continues to have a congestive cough. Remains on Decadron. Remains on Augmentin. Remains on anticoagulation with Xarelto. The repeat chest x-ray was done and the patient has stable consolidation of the lung bases bilaterally. No interval worsening in his breathing. No altered mentation. No other new complaints otherwise for now. No new labs are available from today. Chest x-ray from this morning was noted. The patient may need home O2. He is currently on 2 L of oxygen nasal cannula. Objective - Vital Signs Vital signs: Vital Signs Temp 98.5 F 05/18/23 07:44 Pulse 68 05/18/23 07:44 Resp 17 05/18/23 07:44 BP 107/67 05/18/23 07:44 Pulse Ox 98 05/18/23 07:44 FiO2 Intake & Output 05/17/23 05/18/23 05/18/23 18:59 06:59 18:59 Weight 58.5 kg Other: Voiding Method Toilet # Voids 2 7 1 - Exam GENERAL EXAM: Alert, pleasant 87-year-old male patient, up in a chair, on 3 L nasal cannula, comfortable in no apparent distress. HEAD: Normocephalic. EYES: Normal reaction of pupils, equal size. NOSE: Clear with pink turbinates. THROAT: No erythema or exudates. NECK: No masses, no JVD. CHEST: No chest wall deformity. LUNGS: Equal air entry with few scattered rhonchi, crackles in the bilateral ba ses right greater than left. CVS: S1 and S2 normal with no audible murmur, regular rhythm. ABDOMEN: No hepatosplenomegaly, normal bowel sounds, no guarding or rigidity. SPINE: No scoliosis or deformity SKIN: No rashes CENTRAL NERVOUS SYSTEM: No focal deficits, tone is normal in all 4 extremities. EXTREMITIES: There is trace peripheral edema. No clubbing, no cyanosis. Peripheral pulses are intact. - Labs CBC & Chem 7: 05/17/23 05:55 05/17/23 05:55 Labs: Abnormal Lab Results - Last 24 Hours (Table) 05/17/23 05/17/23 Range/Units 05:55 05:55 WBC 13.99 H (4.50-10.00) X 10*3/uL RBC 3.16 L (4.40-5.60) X 10*6/uL Hgb 11.2 L (13.0-17.0) d/dL Hct 33.4 L (39.6-50.0) % MCV 105.7 H (80.0-97.0) FL MCH 35.4 H (27.0-32.0) pg Carbon Dioxide 37.8 H (21.6-31.8) mmol/L Anion Gap 2.20 L (4.00-12.00) mmol/L BUN 37.1 H (9.0-27.0) mg/dL BUN/Creatinine Ratio 37.10 H (12.00-20.00) Ratio Assessment and Plan Plan: Acute hypoxemic respiratory failure secondary to an acute exacerbation of chronic obstructive pulmonary disease, mild fluid volume overload. CT angiogram ruled out pulmonary embolism. There is no evidence of COVID-19 pneumonia, bilateral lower lobe consolidations and the patient is currently stable on 2 L of oxygen by nasal cannula. Follow-up chest x-ray findings from today showing stable bilateral pulmonary infiltrates. The patient is clinically stable. No interval worsening in oxygenation. 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 Previous myocardial infarction status post PTBA Hypertension Hyperlipidemia Hypothyroidism Hypotension without any significant tachycardia. Asymptomatic. Plan Clinically stable and the chest x-ray findings are also stable Chest x-ray findings are stable with stable consolidation of the lung bases and the last chest x-ray was done on 05/16/2023 Oxygenation remains stable at 2 L nasal cannula, this can be weaned gradually Continue Symbicort, albuterol Continue continue Decadron 6 mg IV every 24 hours Continue Augmentin Continue Xarelto Continue vitamin supplements Aspiration precaution Increase his activity as tolerated We will continue to follow
[2023-05-18] MEDS: ZINC SULFATE 220 MG CAP PO SCH (09:52)
[2023-05-18] MEDS: guaiFENesin 600 MG TABLET.ER PO SCH ×2 (09:52→20:47)
[2023-05-18] MEDS: ASCORBIC ACID 500 MG TAB PO SCH (09:52)
[2023-05-18] MEDS: AMOXIC-POT CLAV 875-125MG 1 EACH TAB PO SCH ×2 (09:52→20:47)
[2023-05-18] MEDS: METOPROLOL TARTRATE 25 MG TAB PO SCH ×3 (09:52→20:47)
[2023-05-18] MEDS: CALCIUM CARBONATE 500 MG CHEWABLE PO PRN ×2 (09:55→17:35)
[2023-05-18] MEDS: DEXAMETHASONE SOD PHOSPHATE 10 MG/ML 1 ML VIAL IVP SCH (10:16)
--- NOTE | 2023-05-18 13:53 | P.PN ---
Subjective Progress Note Date: 05/18/23 Principal diagnosis: Covid 19 pneumonia Patient is a 87-year-old male with a past medical history significant for COPD hypertension hyperlipidemia DE presenting to the hospital for evaluation of shortness of breath and cough and this patient symptoms started a week before presentation to hospital , pt did tested positive for covid 19 On todays evaluation that is 05/18/2023, the patient remains to be afebrile, the patient is breathing comfortably on 2 L nasal cannula oxygen, denies any shortness of breath, the patient denies any chest pain cough and decrease in den sity mostly dry in nature, patient denies Abdominal pain and no nausea/vomiting or diarrhea Patient did have white count is down to 13.99, creatinine 1.0 as of yesterday no laboratory today, procalcitonin 0.07, blood culture negative sputum negative Objective - Vital Signs Vital signs: Vital Signs Temp 98.5 F 05/18/23 07:44 Pulse 68 05/18/23 07:44 Resp 17 05/18/23 07:44 BP 107/67 05/18/23 07:44 Pulse Ox 98 05/18/23 07:44 FiO2 Intake & Output 05/17/23 05/18/23 05/18/23 18:59 06:59 18:59 Weight 58.5 kg Other: Voiding Method Toilet Toilet # Voids 2 7 1 - Exam GENERAL DESCRIPTION: An elderly male lying in bed in no distress RESPIRATORY SYSTEM: Unlabored breathing , decreased breath sounds at bases HEART: S1 S2 regular rate and rhythm , ABDOMEN: Soft , no tenderness EXTREMITIES: No edema feet - Labs CBC & Chem 7: 05/17/23 05:55 05/17/23 05:55 Assessment and Plan (1) Pneumonia due to COVID-19 virus Current Visit: Yes Status: Acute Code(s): U07.1 - COVID-19; J12.82 - PNEUMONIA DUE TO CORONAVIRUS DISEASE 2018 SNOMED Code(s): 027172089090817801 Plan: 1patient presented to hospital with 6-day history of fever which has resolved, now complaining of mostly shortness of breath and a cough which apparently is improving per patient and has been diagnosed with COVID-19 pneumonia clinical suspicion is low for secondary bacterial pneumonia in this patient with a normal white count and lymphopenia 2-procalcitonin level is 0.21 , sputum for Gram stain and cultures so far pending 3- Leukocytosis more likely steroid related and are trending down, the patient did have a normal procalcitonin 4-patient is on a clinical improvement and will continue with the current treatment of dexamethasone, zinc ascorbic acid and xeralto and monitor clinical course closely Dictation was produced using [employer] dictation software. please excuse any grammatical, word or spelling errors. Time with Patient: Less than 30
--- NOTE | 2023-05-18 14:26 | P.PN ---
Subjective Progress Note Date: 05/18/23 87-year-old male past medical history significant for hypertension, dyslipidemia, paroxysmal atrial fibrillation on Xarelto presented to the ER for flulike symptoms for 1 week. Patient stated that he was all right one week back when he started noticing that he was having generalized body aches and lethargy. Patient also complaining of shortness of breath at home. Patient also stated that he felt that he was having fevers at home, did not check his fevers at home. Denied any chest pain or swelling of feet. Complaining of dry cough. There was no complaint of nausea, vomiting abdominal pain. Patient continued to feel worse and decided to come to the ER * Initial lab work done in the ER showed WBC 8.4, hemoglobin 11, platelet count 268, sodium 134, potassium 5.1, BUN 14, creatinine 0.97, lactate 2.9, bilirubin 1.6, AST 83 * COVID-19 was positive * Chest x-ray done in the ER patchy infiltrate right upper lobe as well as left lower lobe * Patient admitted to medicine service * 05/11. Patient seen and examined. Currently on 2 L of oxygen. Denies any shortness of breath at rest, complaining of cough. * 05/12. Patient seen and examined. Patient oxygen requirements dropped to 80s this morning, currently doing better, on 3 L of oxygen, having productive cough. * 05/13/23: Patient seen and evaluated bedside. Patient stated breathing has improved, this time patient continued to have cough and phlegm production. Continue patient on 3 L of oxygen patient seen by pulmonary medicine as well. Follow-up blood work ordered * 05/14/23: Patient seen and evaluated bedside, patient noted to have episode of hypotension however asymptomatic Lasix discontinued. Given dose of albumin, holding pattern meatus for metoprolol CRP trending down from 12 to 2. Patient lives by himself will get physical therapy occupational therapy evaluation as well * 05/15/23: Patient seen and evaluated bedside patient is alert and oriented 4 plan discussed with daughter on the phone as well will wait on physical therapy evaluation blood pressure remains low however patient asymptomatic metoprolol helps with holding pattern meatus continue to wean down on oxygen requirements potential discharge so depending on hemodynamic stability potential discharge were 05/17/23 * 05/16/23: Patient seen and evaluated bedside, patient is alert and oriented 4, patient worked with physical therapy potential discharge home with home care. He remains on 3 L of oxygen. Potential discharge within the next 24 hours. Pulmonary medicine following as well patient continues to have cough and productive phlegm production * 05/17. Patient seen and examined. Currently on 2 L of oxygen. Patient states he feels better. Pulmonology plan to do a repeat chest x-ray in the morning, depending on that possible discharge in the morning. Lab work done showed WBC 13.9, hemoglobin 11.2, platelet count 407 05/18. Patient seen and examined. Currently on 2 L of oxygen, complaining of shortness of breath on exertion. Vital signs stable. REVIEW OF SYSTEMS: CONSTITUTIONAL: No fever, no malaise,. CARDIOVASCULAR: No chest pain, no palpitations, no syncope. PULMONARY: As mentioned above GASTROINTESTINAL: No diarrhea, no nausea, no vomiting, no abdominal pain. NEUROLOGICAL: No headaches, no weakness, PHYSICAL EXAMINATION: GENERAL: The patient is alert and oriented x3, not in any acute distress. Well developed, well nourished. HEENT: Pupils are round and equally reacting to light. EOMI. No scleral icterus. No conjunctival pallor. Normocephalic, atraumatic. No pharyngeal erythema. No thyromegaly. CARDIOVASCULAR: S1 and S2 present. No murmurs, rubs, or gallops. PULMONARY: Diminished breath sounds at the bases bilaterally ABDOMEN: Soft, nontender, nondistended, normoactive bowel sounds. No palpable organomegaly. MUSCULOSKELETAL: No joint swelling or deformity. EXTREMITIES: No cyanosis, clubbing, or pedal edema. NEUROLOGICAL: Gross neurological examination did not reveal any focal deficits. SKIN: No rashes. Assessment and plan Acute hypoxic respiratory failure on 3 L of oxygen * COVID-19 pneumonia * Multifocal lower lobe pneumonia * Hyperbilirubinemia RESOLVED * Lactic acidosis RESOLVED * Hypertension * Dyslipidemia * Paroxysmal atrial fibrillation on Xarelto In regards to hypoxic respiratory failure, pulmonary medicine following, continue patient on steroids, continue breathing treatments, follow-up chest x- ray shows bilateral infiltrates 05/14, follow-up chest x-ray 05/16 show consistent infiltrate, chest x-ray 05/18 shows bilateral infiltrates consistent with previous x-rays In regards to Covid 19 continue patient on droplet isolation continue steroids continue breathing treatments encourage use of incentive spirometer patient placed on Augmentin as well for tracheobronchitis Continue COVID-19 droplet plus isolation Continue IV Decadron day 8 Continue Augmentin DAY 01/25 Patient followed by pulmonary medicine, infectious disease Need physical therapy occupational therapy evaluation prior to discharge Labs and medication were reviewed.. Continue same treatment. Continue with symptomatic treatment. Resume home medication. Monitor labs and vitals. DVT and GI prophylaxis. Further recommendations as per clinical course of the patient Dictation was produced using [employer] dictation software. please excuse any grammatical, word or spelling errors. Objective - Vital Signs Vital signs: Vital Signs Temp 97.5 F L 05/18/23 13:54 Pulse 71 05/18/23 13:54 Resp 16 05/18/23 13:54 BP 94/57 05/18/23 13:54 Pulse Ox 100 05/18/23 13:54 FiO2 Intake & Output 05/17/23 05/18/23 05/18/23 18:59 06:59 18:59 Weight 58.5 kg Other: Voiding Method Toilet Toilet # Voids 2 7 1 - Labs CBC & Chem 7: 05/17/23 05:55 05/17/23 05:55
[2023-05-18] MEDS: RIVAROXABAN 15 MG TAB PO SCH (17:31)
[2023-05-18] MEDS: ATORVASTATIN 20 MG TAB PO SCH (20:47)
[2023-05-18] MEDS: LATANOPROST 0.005% OPHTH DROPS 2.5 ML BTL BOTH EYES SCH (20:47)
[2023-05-19] MEDS: MIDODRINE 5 MG TAB PO SCH ×3 (06:25→16:49)
[2023-05-19] MEDS: LEVOTHYROXINE 75 MCG TAB PO SCH (06:25)
[2023-05-19] MEDS: CALCIUM CARBONATE 500 MG CHEWABLE PO PRN ×2 (06:36→20:21)
[2023-05-19] MEDS: SYMBICORT 160-4.5 MCG INHALER INHALATION SCH ×2 (08:12→21:04)
[2023-05-19] MEDS: ALBUTEROL HFA INHALER INHALATION SCH ×4 (08:12→21:04)
[2023-05-19] MEDS: guaiFENesin 600 MG TABLET.ER PO SCH ×2 (09:13→20:18)
[2023-05-19] MEDS: AMOXIC-POT CLAV 875-125MG 1 EACH TAB PO SCH (09:13)
[2023-05-19] MEDS: ASCORBIC ACID 500 MG TAB PO SCH (09:13)
[2023-05-19] MEDS: METOPROLOL TARTRATE 25 MG TAB PO SCH ×3 (09:13→20:18)
[2023-05-19] MEDS: ZINC SULFATE 220 MG CAP PO SCH (09:13)
[2023-05-19] MEDS: DEXAMETHASONE SOD PHOSPHATE 10 MG/ML 1 ML VIAL IVP SCH (09:14)
[2023-05-19 09:41] LABS: ALT 47 U/L (10-49); AST 31 U/L (14-35); Albumin 3.3 d/dL (3.8-4.9); Albumin/Globulin Ratio 1.38 Ratio (1.60-3.17); Alkaline Phosphatase 108 U/L (41-126); Blood Urea Nitrogen 40.2 mg/dL (9.0-27.0); Calcium 9.5 mg/dL (8.7-10.3); Carbon Dioxide 31.8 mmol/L (21.6-31.8); Chloride 97 mmol/L (96-109); Globulin 2.4 d/dL (1.6-3.3); Glucose 110 mg/dL (70-110); Potassium 4.2 mmol/L (3.5-5.5); Sodium 137 mmol/L (135-145); Total Bilirubin 0.6 mg/dL (0.3-1.2); Total Protein 5.7 d/dL (6.2-8.2)
[2023-05-19 09:46] LABS: HGB 10.7 d/dL (13.0-17.0); MCH 33.6 pg (27.0-32.0); MCHC 32.4 d/dL (32.0-37.0); MCV 103.8 FL (80.0-97.0); Mean Platelet Volume 10.4 FL (9.5-12.2); NRBC Per 100 WBC 0 X 10*3/uL (0.00-0.01); Platelet Count 384 X 10*3/uL (140-440); RBC 3.18 X 10*6/uL (4.40-5.60); RDW 13.9 % (11.5-14.5); WBC 9.79 X 10*3/uL (4.50-10.00)
[2023-05-19] MEDS: FLUCONAZOLE 100 MG TAB PO SCH (12:47)
--- NOTE | 2023-05-19 13:01 | P.PN ---
Subjective Progress Note Date: 05/19/23 This is a pleasant 87-year-old male patient who follows with Dr. Santiago as his primary care provider. If he has a history of 35 years of smoking up to 3 packs per day. He quit years ago. He does have chronic obstructive pulmonary disease and is maintained on Trilogy on albuterol and the outpatient setting. He also has a history of hyperlipidemia, myocardial infarction, prostate disorder, hypothyroidism, atrial fibrillation anticoagulated with Xarelto. He had a 2 day history of increasing shortness of fever breath, fever, weakness and was brought into the emergency room yesterday for the same. X-ray revealed patchy infiltrate in the right upper lobe as well as left lower lobe with small effu sions. White count 4.5. Hemoglobin 9.3. D-dimer 1.95. Creatinine sodium 134. Potassium 4.4. Bicarb 25. BUN 37. Creatinine 1.0. Glucose 162. Pro- calcitonin 0.21. ProBNP 6730. He was also found to be positive for coronavirus. He is seen today in consultation on the regular medical floor. He is currently resting fairly comfortably in bed. Awake and alert in no acute acute distress. He is feeling a bit better today compared to yesterday. He is maintaining O2 saturations in the 90s on 2 L/m per nasal cannula. He's been afebrile. Hemodynamically stable. He's been initiated on Decadron 6 mg IVP daily. Anticoagulated with Xarelto. Initiated on vitamin supplements. The patient is seen today 05/12/2023 in follow-up on the regular medical floor. He is currently sitting up in a chair at the bedside. Awake and alert in no acute distress. Breathing easier today compared to yesterday. He is maintaining O2 saturations in the 90s on 3 L/m per nasal cannula. He was in the low 80s on 1 L. No IV fluids. ProBNP was 6730. Pro-calcitonin was 0.21. He's been initiated on Augmentin. Continue on Symbicort and Ventolin HFA. Remains on Decadron. Anticoagulated with Xarelto. He is on oral diuretics. No accurate I&O. He is currently afebrile. Hemodynamically stable. Follow-up chest x-ray reveals evidence of COPD. Patchy opacities mostly in the left lung base and right upper lobe. Small to moderate bilateral pleural effusions. CT angiogram ruled out pulmonary embolism. There is evidence of COPD and bilateral effusions right greater than left. On today's evaluation of 05/12/2023, the patient is being seen for a follow-up. The patient is still feeling weak and tired and fatigued. The patient otherwise has no other complaints. The patient remains on Decadron regarding the Covid 19 infection. No evidence of any pneumonia. Remains on anticoagulation with Xarelto. He is known to have chronic atrial fibrillation. Is also known to have CAD, previous [place], hyperlipidemia and prostate enlargement. The labs from 05/11/2023 were noted. His Legionella urine antigen was negative. LEVEL IS AT 0.2. PROBNP LEVEL IS 6730. The CT antigram that was done showed no evidence of any pulmonary embolism. Scattered interstitial changes were seen bilaterally. Could be related to pneumonia. There is also 30 megaly with a right lateral pleural effusion with some nonspecificmediastinal lymph nodes. On today's evaluation of 05/14/2023, the patient is running a lower blood pressure. Lasix has been discontinued and the patient was given IV albumin and Midrin. His CRP is down trending is currently down to 2. No signs of any significant respiratory distress. No tachycardia. He has a congested cough which is limited. No chest pain. No pleurisy or hemoptysis. He is on currently on 3 L of oxygen by nasal cannula. Is awake and alert and he is afebrile. At the same time, the patient will be scheduled at 8.3 with a hemoglobin 10.2, BUN is at 39 with a creatinine of 0.9 and a sodium level is at 136 with a potassium level of 4.7. CRP level is down to 2.8. On today's evaluation of 05/15/2023, the patient is stable in terms of his blood pressure and hemodynamics. Is having some increased congested cough. He is currently on Decadron 6 mg IV every 24 hours. No interval worsening in oxygenation. Patient is also on empiric antibiotic coverage with Augmentin. He remains on anticoagulation with Xarelto. The patient is getting a white cell co unt of 13.7, hemoglobin of 10.1 and a platelet count of 385, BUN is at 38 with a creatinine of 0.9 and his sodium level is at 136. No change in the mental status. He remains quite fatigued and weak. His comorbidities are extensive including previous history of coronary artery disease/[place], hyperlipidemia, BPH, hypothyroidism, chronic A. fib for which he is on anticoagulation. Rate is controlled for now. On today's evaluation of 05/10/2003, I'm seeing the patient for a follow-up. The patient has Covid 19 pneumonia with bilateral pulmonary infiltrates. Chest x-ray shows bilateral lower lobe airspace opacities concerning for pneumonia. Nevertheless, the chest x-ray findings of essentially the same and stable compared to the earlier chest exit was done on 05/14/2023. The patient remains on Augmentin. The patient remains on Decadron. Despite the persistent or infiltrates, the patient is feeling better compared to yesterday. He remains on oxygen and is currently on 2 L of oxygen by nasal cannula with a pulse ox of 92%. Is afebrile and he has no chest pain. No pleurisy. No hemoptysis. The white cycles of 15.7 with a hemoglobin of 10.2. No altered mentation. No nausea. No vomiting. No diarrhea. He remains on long-term and coagulation with Xarelto. His comorbidities include CAD, chronic A. fib, BPH, hypothyroidism and hyperlipidemia On 05/17/2023, the patient is gradually improving. Minimal congestive cough. As mentioned earlier, the chest x-ray still showing persistent pulmonary infiltrates in the lung bases/consolidation. The patient remains on Decadron. The patient remains on Augmentin. No adjustment were done as the patient is clinically improving. He remains on oxygen at 2 L with a pulse ox of 92% and he may need also home O2 the time of discharge. The discomfort of 15.9, hemoglobin 11.2, BUN is 37 with a creatinine 1.0. He remains on anticoagulation with Xarelto. He has chronic A. fib. He has coronary artery disease, hypothyroidism and hyperlipidemia and BPH. No nausea. No altered mentation. Tolerating diet. No emesis. He reports improvement in his overall functionality and strength. On today's evaluation of 05/18/2023, the patient is essentially the same. He continues to have a congestive cough. Remains on Decadron. Remains on Augmentin. Remains on anticoagulation with Xarelto. The repeat chest x-ray was done and the patient has stable consolidation of the lung bases bilaterally. No interval worsening in his breathing. No altered mentation. No other new complaints otherwise for now. No new labs are available from today. Chest x-ray from this morning was noted. The patient may need home O2. He is currently on 2 L of oxygen nasal cannula. On 05/19 2023, the patient is on 2 L of oxygen by nasal cannula. No new complaints. Continues to have some congested cough. No interval worsening shortness of breath. Remains on Decadron. He has developed extensive oropharyngeal candidiasis and this will be treated accordingly. He continues to have some fatigue although this has improved considerably. Tolerating diet. He remains on anticoagulation with Xarelto. Labs were reviewed. The echoes down to 9.7. Hemoglobin is at 10.7. He is a 40 with a creatinine of 1.0 and a sodium levels of 137. He has completed his course of Augmentin. Objective - Vital Signs Vital signs: Vital Signs Temp 98.1 F 05/19/23 07:25 Pulse 60 05/19/23 07:25 Resp 16 05/19/23 07:25 BP 115/70 05/19/23 07:25 Pulse Ox 97 05/19/23 09:27 FiO2 Intake & Output 05/18/23 05/19/23 05/19/23 18:59 06:59 18:59 Weight 59.5 kg Other: Voiding Method Toilet Toilet # Voids 2 6 1 - Exam GENERAL EXAM: Alert, pleasant 87-year-old male patient, up in a chair, on 3 L nasal cannula, comfortable in no apparent distress. HEAD: Normocephalic. EYES: Normal reaction of pupils, equal size. NOSE: Clear with pink turbinates. THROAT: No erythema or exudates. NECK: No masses, no JVD. CHEST: No chest wall deformity. LUNGS: Equal air entry with few scattered rhonchi, crackles in the bilateral bases right greater than left. CVS: S1 and S2 normal with no audible murmur, regular rhythm. ABDOMEN: No hepatosplenomegaly, normal bowel sounds, no guarding or rigidity. SPINE: No scoliosis or deformity SKIN: No rashes CENTRAL NERVOUS SYSTEM: No focal deficits, tone is normal in all 4 extremities. EXTREMITIES: There is trace peripheral edema. No clubbing, no cyanosis. Peripheral pulses are intact. - Labs CBC & Chem 7: 05/19/23 06:53 05/19/23 06:53 Labs: Abnormal Lab Results - Last 24 Hours (Table) 05/19/23 05/19/23 Range/Units 06:53 06:53 RBC 3.18 L (4.40-5.60) X 10*6/uL Hgb 10.7 L (13.0-17.0) d/dL Hct 33.0 L (39.6-50.0) % MCV 103.8 H (80.0-97.0) FL MCH 33.6 H (27.0-32.0) pg BUN 40.2 H (9.0-27.0) mg/dL BUN/Creatinine Ratio 40.20 H (12.00-20.00) Ratio Total Protein 5.7 L (6.2-8.2) d/dL Albumin 3.3 L (3.8-4.9) d/dL Albumin/Globulin Ratio 1.38 L (1.60-3.17) Ratio Assessment and Plan Plan: Acute hypoxemic respiratory failure secondary to an acute exacerbation of chronic obstructive pulmonary disease, mild fluid volume overload. CT angiogram ruled out pulmonary embolism. There is no evidence of COVID-19 pneumonia, bilateral lower lobe consolidations and the patient is currently stable on 2 L of oxygen by nasal cannula. Follow-up chest x-ray findings from today showing stable bilateral pulmonary infiltrates. The patient is clinically stable. No interval worsening in oxygenation. 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 Previous myocardial infarction status post PTBA Hypertension Hyperlipidemia Hypothyroidism Hypotension without any significant tachycardia. Asymptomatic. Oropharyngeal candidiasis related to Decadron Plan Start the patient on Diflucan 100 mg by mouth daily Clinically stable and the chest x-ray findings are also stable Chest x-ray findings are stable with stable consolidation of the lung bases and the last chest x-ray was done on 05/16/2023 Oxygenation remains stable at 2 L nasal cannula, this can be weaned gradually Continue Symbicort, albuterol Continue continue Decadron 6 mg IV every 24 hours Augmentin course has been completed Continue Xarelto Continue vitamin supplements Aspiration precaution Increase his activity as tolerated We will continue to follow
--- NOTE | 2023-05-19 14:46 | P.PN ---
Subjective 87-year-old male past medical history significant for hypertension, dyslipidemia, paroxysmal atrial fibrillation on Xarelto presented to the ER for flulike symptoms for 1 week. Patient stated that he was all right one week back when he started noticing that he was having generalized body aches and lethargy. Patient also complaining of shortness of breath at home. Patient also stated that he felt that he was having fevers at home, did not check his fevers at home. Denied any chest pain or swelling of feet. Complaining of dry cough. There was no complaint of nausea, vomiting abdominal pain. Patient continued to feel worse and decided to come to the ER * Initial lab work done in the ER showed WBC 8.4, hemoglobin 11, platelet count 268, sodium 134, potassium 5.1, BUN 14, creatinine 0.97, lactate 2.9, bilirubin 1.6, AST 83 * COVID-19 was positive * Chest x-ray done in the ER patchy infiltrate right upper lobe as well as left lower lobe * Patient admitted to medicine service * 05/11. Patient seen and examined. Currently on 2 L of oxygen. Denies any shortness of breath at rest, complaining of cough. * 05/12. Patient seen and examined. Patient oxygen requirements dropped to 80s this morning, currently doing better, on 3 L of oxygen, having productive cough. * 05/13/23: Patient seen and evaluated bedside. Patient stated breathing has improved, this time patient continued to have cough and phlegm production. Continue patient on 3 L of oxygen patient seen by pulmonary medicine as well. Follow-up blood work ordered * 05/14/23: Patient seen and evaluated bedside, patient noted to have episode of hypotension however asymptomatic Lasix discontinued. Given dose of albumin, holding pattern meatus for metoprolol CRP trending down from 12 to 2. Patient lives by himself will get physical therapy occupational therapy evaluation as well * 05/15/23: Patient seen and evaluated bedside patient is alert and oriented 4 plan discussed with daughter on the phone as well will wait on physical therapy evaluation blood pressure remains low however patient asymptomatic metoprolol helps with holding pattern meatus continue to wean down on oxygen requirements potential discharge so depending on hemodynamic stability potential discharge were 05/17/23 * 05/16/23: Patient seen and evaluated bedside, patient is alert and oriented 4, patient worked with physical therapy potential discharge home with home care. He remains on 3 L of oxygen. Potential discharge within the next 24 hours. Pulmonary medicine following as well patient continues to have cough and productive phlegm production * 05/17. Patient seen and examined. Currently on 2 L of oxygen. Patient states he feels better. Pulmonology plan to do a repeat chest x-ray in the morning, depending on that possible discharge in the morning. Lab work done showed WBC 13.9, hemoglobin 11.2, platelet count 407 05/18. Patient seen and examined. Currently on 2 L of oxygen, complaining of shortness of breath on exertion. Vital signs stable. 05/19. Patient seen and examined. Patient continues to require 2 L of oxygen. Possible discharge in the morning. Patient complaining of oral thrush. REVIEW OF SYSTEMS: CONSTITUTIONAL: No fever, no malaise,. CARDIOVASCULAR: No chest pain, no palpitations, no syncope. PULMONARY: As mentioned above GASTROINTESTINAL: No diarrhea, no nausea, no vomiting, no abdominal pain. NEUROLOGICAL: No headaches, no weakness, PHYSICAL EXAMINATION: GENERAL: The patient is alert and oriented x3, not in any acute distress. Well developed, well nourished. HEENT: Pupils are round and equally reacting to light. EOMI. No scleral icterus. No conjunctival pallor. Normocephalic, atraumatic. No pharyngeal erythema. No thyromegaly. CARDIOVASCULAR: S1 and S2 present. No murmurs, rubs, or gallops. PULMONARY: Diminished breath sounds at the bases bilaterally ABDOMEN: Soft, nontender, nondistended, normoactive bowel sounds. No palpable organomegaly. MUSCULOSKELETAL: No joint swelling or deformity. EXTREMITIES: No cyanosis, clubbing, or pedal edema. NEUROLOGICAL: Gross neurological examination did not reveal any focal deficits. SKIN: No rashes. Assessment and plan Acute hypoxic respiratory failure on 3 L of oxygen * COVID-19 pneumonia * Multifocal lower lobe pneumonia * Hyperbilirubinemia RESOLVED * Lactic acidosis RESOLVED * Hypertension * Dyslipidemia * Paroxysmal atrial fibrillation on Xarelto * Oral candidiasis In regards to hypoxic respiratory failure, pulmonary medicine following, continue patient on steroids, continue breathing treatments, follow-up chest x- ray shows bilateral infiltrates 05/14, follow-up chest x-ray 05/16 show consistent infiltrate, chest x-ray 05/18 shows bilateral infiltrates consistent with previous x-rays In regards to Covid 19 continue patient on droplet isolation, continue steroids , continue breathing treatments , encourage use of incentive spirometer , completed course of Augmentin. Start Diflucan for oral candidiasis Continue COVID-19 droplet plus isolation Continue IV Decadron day 9 Completed course of Augmentin Patient followed by pulmonary medicine, infectious disease Need physical therapy occupational therapy evaluation prior to discharge Labs and medication were reviewed.. Continue same treatment. Continue with symptomatic treatment. Resume home medication. Monitor labs and vitals. DVT and GI prophylaxis. Further recommendations as per clinical course of the patient Dictation was produced using [employer] dictation software. please excuse any grammatical, word or spelling errors. Objective - Vital Signs Vital signs: Vital Signs Temp 98.1 F 05/19/23 14:00 Pulse 57 L 05/19/23 14:00 Resp 16 05/19/23 14:00 BP 101/63 05/19/23 14:00 Pulse Ox 97 05/19/23 14:00 FiO2 Intake & Output 05/18/23 05/19/23 05/19/23 18:59 06:59 18:59 Weight 59.5 kg Other: Voiding Method Toilet Toilet # Voids 2 6 1 - Labs CBC & Chem 7: 05/19/23 06:53 05/19/23 06:53 Labs: Abnormal Lab Results - Last 24 Hours (Table) 05/19/23 05/19/23 Range/Units 06:53 06:53 RBC 3.18 L (4.40-5.60) X 10*6/uL Hgb 10.7 L (13.0-17.0) d/dL Hct 33.0 L (39.6-50.0) % MCV 103.8 H (80.0-97.0) FL MCH 33.6 H (27.0-32.0) pg BUN 40.2 H (9.0-27.0) mg/dL BUN/Creatinine Ratio 40.20 H (12.00-20.00) Ratio Total Protein 5.7 L (6.2-8.2) d/dL Albumin 3.3 L (3.8-4.9) d/dL Albumin/Globulin Ratio 1.38 L (1.60-3.17) Ratio
--- NOTE | 2023-05-19 16:02 | P.PN ---
Subjective Progress Note Date: 05/19/23 Principal diagnosis: Covid 19 pneumonia Patient is a 87-year-old male with a past medical history significant for COPD hypertension hyperlipidemia CT presenting to the hospital for evaluation of shortness of breath and cough and this patient symptoms started a week before presentation to hospital , pt did tested positive for covid 19 On todays evaluation that is 05/19/2023, the patient denies any fever or chills, the patient is breathing comfortably on 2 L nasal cannula supplemental oxygen, the patient denies any chest pain , did have occasional dry cough, patient denies nausea/vomiting or diarrhea and no abdominal pain Patient did have white count is down to 9.79, creatinine 1.0 , procalcitonin 0.07, blood culture negative sputum negative Objective - Vital Signs Vital signs: Vital Signs Temp 98.1 F 05/19/23 14:00 Pulse 57 L 05/19/23 14:00 Resp 16 05/19/23 14:00 BP 101/63 05/19/23 14:00 Pulse Ox 97 05/19/23 14:00 FiO2 Intake & Output 05/18/23 05/19/23 05/19/23 18:59 06:59 18:59 Weight 59.5 kg Other: Voiding Method Toilet Toilet # Voids 2 6 1 - Exam GENERAL DESCRIPTION: An elderly male lying in bed in no distress RESPIRATORY SYSTEM: Unlabored breathing , decreased breath sounds at bases HEART: S1 S2 regular rate and rhythm , ABDOMEN: Soft , no tenderness EXTREMITIES: No edema feet - Labs CBC & Chem 7: 05/19/23 06:53 05/19/23 06:53 Labs: Abnormal Lab Results - Last 24 Hours (Table) 05/19/23 05/19/23 Range/Units 06:53 06:53 RBC 3.18 L (4.40-5.60) X 10*6/uL Hgb 10.7 L (13.0-17.0) d/dL Hct 33.0 L (39.6-50.0) % MCV 103.8 H (80.0-97.0) FL MCH 33.6 H (27.0-32.0) pg BUN 40.2 H (9.0-27.0) mg/dL BUN/Creatinine Ratio 40.20 H (12.00-20.00) Ratio Total Protein 5.7 L (6.2-8.2) d/dL Albumin 3.3 L (3.8-4.9) d/dL Albumin/Globulin Ratio 1.38 L (1.60-3.17) Ratio Assessment and Plan (1) Pneumonia due to COVID-19 virus Current Visit: Yes Status: Acute Code(s): U07.1 - COVID-19; J12.82 - PNEUMONIA DUE TO CORONAVIRUS DISEASE 2018 SNOMED Code(s): 489112622174535266 Plan: 1patient presented to hospital with 6-day history of fever which has resolved, now complaining of mostly shortness of breath and a cough which apparently is improving per patient and has been diagnosed with COVID-19 pneumonia clinical suspicion is low for secondary bacterial pneumonia in this patient with a normal white count and lymphopenia 2-procalcitonin level is 0.21 , sputum for Gram stain and cultures so far pending 3- Leukocytosis more likely steroid related and the patient white count has normalized, the patient did have a normal procalcitonin 4-patient has shown clinical improvement and will continue with the current treatment of dexamethasone, zinc ascorbic acid and xeralto and continue with supportive care Dictation was produced using [email or web address] dictation software. please excuse any grammatical, word or spelling errors. Time with Patient: Less than 30
[2023-05-19] MEDS: RIVAROXABAN 15 MG TAB PO SCH (16:49)
[2023-05-19] MEDS: LATANOPROST 0.005% OPHTH DROPS 2.5 ML BTL BOTH EYES SCH (20:18)
[2023-05-19] MEDS: ATORVASTATIN 20 MG TAB PO SCH (20:18)
[2023-05-20] MEDS: LEVOTHYROXINE 75 MCG TAB PO SCH (06:21)
[2023-05-20] MEDS: MIDODRINE 5 MG TAB PO SCH ×3 (06:21→16:27)
[2023-05-20] MEDS: DEXAMETHASONE SOD PHOSPHATE 10 MG/ML 1 ML VIAL IVP SCH (08:56)
[2023-05-20] MEDS: FLUCONAZOLE 100 MG TAB PO SCH (09:18)
[2023-05-20] MEDS: guaiFENesin 600 MG TABLET.ER PO SCH (09:18)
[2023-05-20] MEDS: ZINC SULFATE 220 MG CAP PO SCH (09:18)
[2023-05-20] MEDS: ASCORBIC ACID 500 MG TAB PO SCH (09:18)
[2023-05-20] MEDS: METOPROLOL TARTRATE 25 MG TAB PO SCH ×2 (09:21→16:27)
[2023-05-20 09:28] VITALS: RESP 18; TEMP 97.8
[2023-05-20] MEDS: ALBUTEROL HFA INHALER INHALATION SCH ×3 (09:42→16:38)
[2023-05-20] MEDS: SYMBICORT 160-4.5 MCG INHALER INHALATION SCH (09:42)
[2023-05-20] MEDS: CALCIUM CARBONATE 500 MG CHEWABLE PO PRN (11:09)
[2023-05-20 12:28] VITALS: BP 125/67
--- NOTE | 2023-05-20 12:53 | P.DS ---
Providers Date of admission: 05/10/23 14:39 Expected date of discharge: 05/20/23 Attending physician: Melecio Resendiz MD Consults: 05/10/23 14:39 Consult Physician Routine Consulting Provider: Francisco Javier Rankin Consult Reason/Comments: COVID pneumonia Do you want consulting provider notified?: Yes 05/10/23 15:10 Consult Physician Routine Consulting Provider: Karina Farmer Consult Reason/Comments: COVID-19 pneumonia Do you want consulting provider notified?: Yes Primary care physician: [facility] Hospital Course: Discharge diagnoses; Acute hypoxic respiratory failure on 3 L of oxygen * COVID-19 pneumonia * Multifocal lower lobe pneumonia * Hyperbilirubinemia RESOLVED * Lactic acidosis RESOLVED * Hypertension * Dyslipidemia * Paroxysmal atrial fibrillation on Xarelto * Oral candidiasis Continue Diflucan for oral candidiasis Completed 10 days of Decadron Completed course of Augmentin Hospital course; 87-year-old male past medical history significant for hypertension, dyslipidemia, paroxysmal atrial fibrillation on Xarelto presented to the ER for flulike symptoms for 1 week. Patient stated that he was all right one week back when he started noticing that he was having generalized body aches and lethargy. Patient also complaining of shortness of breath at home. Patient also stated that he felt that he was having fevers at home, did not check his fevers at home. Denied any chest pain or swelling of feet. Complaining of dry cough. There was no complaint of nausea, vomiting abdominal pain. Patient continued to feel worse and decided to come to the ER * Initial lab work done in the ER showed WBC 8.4, hemoglobin 11, platelet count 268, sodium 134, potassium 5.1, BUN 14, creatinine 0.97, lactate 2.9, bilirubin 1.6, AST 83 * COVID-19 was positive * Chest x-ray done in the ER patchy infiltrate right upper lobe as well as left lower lobe * Patient admitted to medicine service * 05/11. Patient seen and examined. Currently on 2 L of oxygen. Denies any shortness of breath at rest, complaining of cough. * 05/12. Patient seen and examined. Patient oxygen requirements dropped to 80s this morning, currently doing better, on 3 L of oxygen, having productive cough. * 05/13/23: Patient seen and evaluated bedside. Patient stated breathing has improved, this time patient continued to have cough and phlegm production. Continue patient on 3 L of oxygen patient seen by pulmonary medicine as well. Follow-up blood work ordered * 05/14/23: Patient seen and evaluated bedside, patient noted to have episode of hypotension however asymptomatic Lasix discontinued. Given dose of albumin, holding pattern meatus for metoprolol CRP trending down from 12 to 2. Patient lives by himself will get physical therapy occupational therapy evaluation as well * 05/15/23: Patient seen and evaluated bedside patient is alert and oriented 4 plan discussed with daughter on the phone as well will wait on physical therapy evaluation blood pressure remains low however patient asymptomatic metoprolol helps with holding pattern meatus continue to wean down on oxygen requirements potential discharge so depending on hemodynamic stability potential discharge were 05/17/23 * 05/16/23: Patient seen and evaluated bedside, patient is alert and oriented 4, patient worked with physical therapy potential discharge home with home care. He remains on 3 L of oxygen. Potential discharge within the next 24 hours. Pulmonary medicine following as well patient continues to have cough and productive phlegm production * 05/17. Patient seen and examined. Currently on 2 L of oxygen. Patient states he feels better. Pulmonology plan to do a repeat chest x-ray in the morning, depending on that possible discharge in the morning. Lab work done showed WBC 13.9, hemoglobin 11.2, platelet count 407 05/18. Patient seen and examined. Currently on 2 L of oxygen, complaining of shortness of breath on exertion. Vital signs stable. 05/19. Patient seen and examined. Patient continues to require 2 L of oxygen. Possible discharge in the morning. Patient complaining of oral thrush. 05/20. Patient seen and examined. Being discharged on Diflucan for 5 more days. Patient will have walking resting pulse ox done prior to discharge PHYSICAL EXAMINATION: GENERAL: The patient is alert and oriented x3, not in any acute distress. Well developed, well nourished. HEENT: Pupils are round and equally reacting to light. EOMI. No scleral icterus. No conjunctival pallor. Normocephalic, atraumatic. No pharyngeal erythema. No thyromegaly. CARDIOVASCULAR: S1 and S2 present. No murmurs, rubs, or gallops. PULMONARY: Diminished breath sounds at the bases bilaterally ABDOMEN: Soft, nontender, nondistended, normoactive bowel sounds. No palpable organomegaly. MUSCULOSKELETAL: No joint swelling or deformity. EXTREMITIES: No cyanosis, clubbing, or pedal edema. NEUROLOGICAL: Gross neurological examination did not reveal any focal deficits. SKIN: No rashes. Dictation was produced using [email or web address] dictation software. please excuse any grammatical, word or spelling errors. Patient Condition at Discharge: Good Plan - Discharge Summary Discharge Rx Participant: Yes New Discharge Prescriptions: New Fluconazole [Diflucan] 100 mg PO DAILY 5 Days #5 tab guaiFENesin [Mucinex] 600 mg PO Q12HR 7 Days #14 tab Continue Albuterol Inhaler [Ventolin Hfa Inhaler] 2 puff INHALATION RT-QID PRN PRN Reason: Shortness Of Breath Latanoprost/Pf [Latanoprost 0.005% Eye Drop] 1 drop BOTH EYES HS Midodrine HCl [ProAmatine] 10 mg PO AC-TID Simvastatin [Zocor] 20 mg PO HS Rivaroxaban [Xarelto] 15 mg PO DAILY Fluticasone/Umeclidin/Vilanter [Trelegy Ellipta 100-62.5-25] 1 puff INHALATION RT-DAILY Levothyroxine Sodium [Synthroid] 75 mcg PO DAILY Metoprolol Tartrate [Lopressor] 25 mg PO TID 30 Days #90 tab Triamcinolone 0.1% Cream [Kenalog 0.1% Cream] 1 applicatio TOPICAL BID PRN PRN Reason: Skin Irritation Discontinued Spironolactone 25 mg PO DAILY Furosemide [Lasix] 20 mg PO DAILY Discharge Medication List Simvastatin [Zocor] 20 mg PO HS 11/26/20 [History] Albuterol Inhaler [Ventolin Hfa Inhaler] 2 puff INHALATION RT-QID PRN 06/19/21 [History] Fluticasone/Umeclidin/Vilanter [Trelegy Ellipta 100-62.5-25] 1 puff INHALATION RT-DAILY 06/19/21 [History] Levothyroxine Sodium [Synthroid] 75 mcg PO DAILY 06/19/21 [History] Rivaroxaban [Xarelto] 15 mg PO DAILY 06/19/21 [History] Latanoprost/Pf [Latanoprost 0.005% Eye Drop] 1 drop BOTH EYES HS 06/20/21 [History] Metoprolol Tartrate [Lopressor] 25 mg PO TID 30 Days #90 tab 12/12/21 [Rx] Midodrine HCl [ProAmatine] 10 mg PO AC-TID 05/10/23 [History] Triamcinolone 0.1% Cream [Kenalog 0.1% Cream] 1 applicatio TOPICAL BID PRN 05/10/23 [History] Fluconazole [Diflucan] 100 mg PO DAILY 5 Days #5 tab 05/20/23 [Rx] guaiFENesin [Mucinex] 600 mg PO Q12HR 7 Days #14 tab 05/20/23 [Rx] Follow up Appointment(s)/Referral(s): [facility] - As Needed Naveed Santiago MD [Primary Care Provider] - 1-2 days Jonathan Queen MD [STAFF PHYSICIAN] - 1 Week Discharge Disposition: HOME SELF-CARE
--- NOTE | 2023-05-20 12:59 | P.PN ---
Subjective Progress Note Date: 05/20/23 Principal diagnosis: Covid 19 pneumonia Patient is a 87-year-old male with a past medical history significant for COPD hypertension hyperlipidemia [place] presenting to the hospital for evaluation of shortness of breath and cough and this patient symptoms started a week before presentation to hospital , pt did tested positive for covid 19 On todays evaluation that is 05/20/2023, the patient continues to be afebrile , the patient is breathing comfortably on 1 L nasal cannula oxygen and denies any shortness of breath, the patient denies any chest pain did have occasional dry cough, patient denies abdominal pain and no nausea/vomiting or diarrhea Patient did have white count is down to 9.79, creatinine 1.0 as of 05/19/2023, procalcitonin 0.07, blood culture negative sputum negative Objective - Vital Signs Vital signs: Vital Signs Temp 97.8 F 05/20/23 07:41 Pulse 79 05/20/23 09:23 Resp 18 05/20/23 07:41 BP 125/67 05/20/23 12:13 Pulse Ox 85 L 05/20/23 11:48 FiO2 Intake & Output 05/19/23 05/20/23 05/20/23 18:59 06:59 18:59 Intake Total 118 Balance 118 Weight 61.1 kg Intake: Oral 118 Other: Voiding Method Toilet # Voids 3 4 - Exam GENERAL DESCRIPTION: An elderly male lying in bed in no distress RESPIRATORY SYSTEM: Unlabored breathing , decreased breath sounds at bases HEART: S1 S2 regular rate and rhythm , ABDOMEN: Soft , no tenderness EXTREMITIES: No edema feet - Labs CBC & Chem 7: 05/19/23 06:53 05/19/23 06:53 Assessment and Plan (1) Pneumonia due to COVID-19 virus Current Visit: Yes Status: Acute Code(s): U07.1 - COVID-19; J12.82 - PNEUMONIA DUE TO CORONAVIRUS DISEASE 2018 SNOMED Code(s): 211862370548078171 Plan: 1patient presented to hospital with 6-day history of fever which has resolved, now complaining of mostly shortness of breath and a cough which apparently is improving per patient and has been diagnosed with COVID-19 pneumonia clinical suspicion is low for secondary bacterial pneumonia in this patient with a normal white count and lymphopenia 2-procalcitonin level is 0.21 , sputum for Gram stain and cultures so far pending 3- Leukocytosis more likely steroid related and the patient white count has normalized, the patient did have a normal procalcitonin 4-patient has shown clinical improvement with the current treatment of dexamethasone, zinc ascorbic acid and xeralto , there is no need for any antiviral or antibiotics on discharge Dictation was produced using [employer] dictation software. please excuse any grammatical, word or spelling errors. Time with Patient: Less than 30
[2023-05-20 14:25] VITALS: PULSE 68
--- NOTE | 2023-05-20 15:41 | P.PN ---
Subjective Progress Note Date: 05/20/23 This is a pleasant 87-year-old male patient who follows with Dr. Santiago as his primary care provider. If he has a history of 35 years of smoking up to 3 packs per day. He quit years ago. He does have chronic obstructive pulmonary disease and is maintained on Trilogy on albuterol and the outpatient setting. He also has a history of hyperlipidemia, myocardial infarction, prostate disorder, hypothyroidism, atrial fibrillation anticoagulated with Xarelto. He had a 2 day history of increasing shortness of fever breath, fever, weakness and was brought into the emergency room yesterday for the same. X-ray revealed patchy infiltrate in the right upper lobe as well as left lower lobe with small effusi ons. White count 4.5. Hemoglobin 9.3. D-dimer 1.95. Creatinine sodium 134. Potassium 4.4. Bicarb 25. BUN 37. Creatinine 1.0. Glucose 162. Pro- calcitonin 0.21. ProBNP 6730. He was also found to be positive for coronavirus. He is seen today in consultation on the regular medical floor. He is currently resting fairly comfortably in bed. Awake and alert in no acute acute distress. He is feeling a bit better today compared to yesterday. He is maintaining O2 saturations in the 90s on 2 L/m per nasal cannula. He's been afebrile. Hemodynamically stable. He's been initiated on Decadron 6 mg IVP daily. Anticoagulated with Xarelto. Initiated on vitamin supplements. The patient is seen today 05/12/2023 in follow-up on the regular medical floor. He is currently sitting up in a chair at the bedside. Awake and alert in no acute distress. Breathing easier today compared to yesterday. He is maintaining O2 saturations in the 90s on 3 L/m per nasal cannula. He was in the low 80s on 1 L. No IV fluids. ProBNP was 6730. Pro-calcitonin was 0.21. He's been initiated on Augmentin. Continue on Symbicort and Ventolin HFA. Remains on Decadron. Anticoagulated with Xarelto. He is on oral diuretics. No accurate I&O. He is currently afebrile. Hemodynamically stable. Follow-up chest x-ray reveals evidence of COPD. Patchy opacities mostly in the left lung base and right upper lobe. Small to moderate bilateral pleural effusions. CT angiogram ruled out pulmonary embolism. There is evidence of COPD and bilateral effusions right greater than left. The patient is seen today 05/20/2023 in follow-up on the regular medical floor. He is currently resting comfortably in bed. Awake and alert in no acute distress. His chest x-ray had showed bilateral infiltrates mostly in the right upper lobe and left lower lobe along with evidence of asbestosis. Pro-calcitonin was 0.07. He is still requiring oxygen, he is 85% on room air with ambulation. Blood cultures revealed no growth. Sputum culture revealed no growth. He remains on Decadron, vitamin supplements, Symbicort and albuterol. Anticoagulated with Xarelto. Objective - Vital Signs Vital signs: Vital Signs Temp 97.8 F 05/20/23 14:18 Pulse 68 05/20/23 14:18 Resp 18 05/20/23 14:18 BP 125/67 05/20/23 14:18 Pulse Ox 97 05/20/23 14:18 FiO2 Intake & Output 05/19/23 05/20/23 05/20/23 18:59 06:59 18:59 Intake Total 416 Balance 416 Weight 61.1 kg Intake: Oral 416 Other: Voiding Method Toilet # Voids 3 4 - Exam GENERAL EXAM: Alert, pleasant 87-year-old male, on 1 L nasal cannula, comfortable in no apparent distress. HEAD: Normocephalic. EYES: Normal reaction of pupils, equal size. NOSE: Clear with pink turbinates. THROAT: No erythema or exudates. NECK: No masses, no JVD. CHEST: No chest wall deformity. LUNGS: Equal air entry with few scattered rhonchi, crackles in the bilateral bases right greater than left. CVS: S1 and S2 normal with no audible murmur, regular rhythm. ABDOMEN: No hepatosplenomegaly, normal bowel sounds, no guarding or rigidity. SPINE: No scoliosis or deformity SKIN: No rashes CENTRAL NERVOUS SYSTEM: No focal deficits, tone is normal in all 4 extremities. EXTREMITIES: There is trace peripheral edema. No clubbing, no cyanosis. Peripheral pulses are intact. - Labs CBC & Chem 7: 05/19/23 06:53 05/19/23 06:53 Assessment and Plan Assessment: Acute hypoxemic respiratory failure secondary to an acute exacerbation of chronic obstructive pulmonary disease, mild fluid volume overload. CT angiogram ruled out pulmonary embolism. There is no evidence of COVID-19 pneumonia, bilateral pleural effusions right greater than left. Follow-up chest x-ray findings from today showing stable bilateral pulmonary infiltrates. The patient is clinically stable. No interval worsening in oxygenation. COVID-19 infection History of atrial fibrillation, anticoagulated with Xarelto Previous myocardial infarction status post PTBA Hypertension Hyperlipidemia Hypothyroidism Oropharyngeal candidiasis secondary to Decadron Plan: The patient was seen and evaluated Medications are reviewed Evaluate for possible home oxygen Plan is for home with his daughter and home care at discharge To continue his homeTrelegy and albuterol. Continue Diflucan and Mucinex I have personally seen and examined the patient, performed the documentation and the assessment and plan as written. Number of minutes spent on the visit: 10.
[2023-05-20] MEDS: RIVAROXABAN 15 MG TAB PO SCH (16:27)
== END 2023-05-20 16:56 | disposition home or self-care (01) | DRG 177 ==
LOC: EC 11:10 → 4SSUR 14:39
PROVIDERS: ADMIT Internal Medicine; ATTEND Internal Medicine
DX: U07.1 COVID-19 (principal); J12.82 Pneumonia due to coronavirus disease 2019; J96.01 Acute respiratory failure with hypoxia; J44.0 Chronic obstructive pulmonary disease with (acute) lower respiratory infection; B37.89 Other sites of candidiasis; B37.0 Candidal stomatitis; N40.0 Benign prostatic hyperplasia without lower urinary tract symptoms; T38.0X5A Adverse effect of glucocorticoids and synthetic analogues, initial encounter; I50.9 Heart failure, unspecified; I45.10 Unspecified right bundle-branch block; I25.10 Atherosclerotic heart disease of native coronary artery without angina pectoris; I11.0 Hypertensive heart disease with heart failure; F17.200 Nicotine dependence, unspecified, uncomplicated; E78.5 Hyperlipidemia, unspecified; I48.0 Paroxysmal atrial fibrillation; E03.9 Hypothyroidism, unspecified; I25.2 Old myocardial infarction; Z79.01 Long term (current) use of anticoagulants; Z79.890 Hormone replacement therapy; Z79.899 Other long term (current) drug therapy; Z80.7 Family history of other malignant neoplasms of lymphoid, hematopoietic and related tissues
CPT/HCPCS: 36415; 71045; 71046; 71275; 80048; 80053; 83605; 83880; 84145; 84484; 85025; 85027; 85379; 85610; 85730; 86140; 87040; 87070; 87205; 87449; 87635; 93005; 94640; 94760; 96374; 96375; 99285

== ENCOUNTER 2023-12-17 07:14 | Emergency (ER) | payer MEDICARE, OTHER ==
--- NOTE | 2023-12-17 07:50 | ED ---
General Adult HPI - General Chief complaint: GI Bleed Stated complaint: Urogenital Time Seen by Provider: 12/17/23 07:23 Source: patient, family, RN notes reviewed Mode of arrival: ambulatory Limitations: no limitations - History of Present Illness Initial comments: 88-year-old male presents emergency department chief complaint of blood in urine. Patient states that he noticed dark brownish colored bloody urine the last few days he denies any associated dysuria, urinary frequency or any significant flank pain. Family does state that he complained of some right- sided back pain few days ago and was seen at [facility] and was scheduled for an ultrasound. Patient denies any pain like his prior kidney stones years ago. He does state that he felt nauseated after going out to eat for his birthday yesterday. Patient states that he vomited 1 episode and felt there was bloody. Patient states that he is on Eliquis. Patient denies any localized abdominal pain currently denies any chest pain or shortness of breath - Related Data Home Medications Medication Instructions Recorded Confirmed Simvastatin [Zocor] 20 mg PO HS 11/26/20 05/10/23 Albuterol Inhaler [Ventolin Hfa 2 puff INHALATION RT-QID PRN 06/19/21 05/10/23 Inhaler] Fluticasone/Umeclidin/Vilanter 1 puff INHALATION RT-DAILY 06/19/21 05/10/23 [Trelegy Ellipta 100-62.5-25] Levothyroxine Sodium [Synthroid] 75 mcg PO DAILY 06/19/21 05/10/23 Rivaroxaban [Xarelto] 15 mg PO DAILY 06/19/21 05/10/23 Latanoprost/Pf [Latanoprost 0.005% 1 drop BOTH EYES HS 06/20/21 05/10/23 Eye Drop] Midodrine HCl [ProAmatine] 10 mg PO AC-TID 05/10/23 05/10/23 Triamcinolone 0.1% Cream [Kenalog 1 applicatio TOPICAL BID PRN 05/10/23 05/10/23 0.1% Cream] Previous Rx's Medication Instructions Recorded Metoprolol Tartrate [Lopressor] 25 mg PO TID 30 Days #90 tab 12/12/21 Fluconazole [Diflucan] 100 mg PO DAILY 5 Days #5 tab 05/20/23 guaiFENesin [Mucinex] 600 mg PO Q12HR 7 Days #14 tab 05/20/23 Allergies Allergy/AdvReac Type Severity Reaction Status Date / Time prednisone AdvReac CAN'T Verified 12/17/23 07:19 URINATE WHEN HE TAKES IT Review of Systems ROS Statement: Those systems with pertinent positive or pertinent negative responses have been documented in the HPI. ROS Other: All systems not noted in ROS Statement are negative. Past Medical History Past Medical History: COPD, Hyperlipidemia, Myocardial Infarction (DC), Pneumonia, Prostate Disorder, Thyroid Disorder Additional Past Medical History / Comment(s): per cardiology consult note 06/20/21 hx chf,htn,a-fib Last Myocardial Infarction Date:: Apr 1994 History of Any Multi-Drug Resistant Organisms: None Reported Past Surgical History: Heart Catheterization Additional Past Surgical History / Comment(s): angioplasty after DC, no stents, pilonidal cyst removal, Past Anesthesia/Blood Transfusion Reactions: No Reported Reaction Additional Past Anesthesia/Blood Transfusion Reaction / Comment(s): vertigo Past Psychological History: No Psychological Hx Reported Smoking Status: Former smoker Past Alcohol Use History: Occasional Past Drug Use History: None Reported - Past Family History Father History Unknown: Yes Sister(s) Family Medical History: Cancer Additional Family Medical History / Comment(s): nonhodgkins lymphoma General Exam Limitations: no limitations General appearance: alert, in no apparent distress Head exam: Present: atraumatic, normocephalic, normal inspection Eye exam: Present: normal appearance, PERRL, EOMI. Absent: scleral icterus, conjunctival injection, periorbital swelling Neck exam: Present: normal inspection. Absent: tenderness, meningismus, lymphadenopathy Respiratory exam: Present: normal lung sounds bilaterally. Absent: respiratory distress, wheezes, rales, rhonchi, stridor Cardiovascular Exam: Present: regular rate, normal rhythm, normal heart sounds. Absent: systolic murmur, diastolic murmur, rubs, gallop, clicks GI/Abdominal exam: Present: soft, normal bowel sounds. Absent: distended, tenderness, guarding, rebound, rigid Back exam: Absent: normal inspection (Sore on back or thoracic spine), CVA ten derness (R), CVA tenderness (L) Course Vital Signs 12/17/23 12/17/23 12/17/23 07:17 08:00 09:00 Temperature 97.7 F Pulse Rate 96 69 67 Respiratory 20 20 22 Rate Blood Pressure 111/73 103/65 105/80 O2 Sat by Pulse 92 L 100 100 Oximetry 12/17/23 10:00 Temperature Pulse Rate 70 Respiratory 20 Rate Blood Pressure 111/65 O2 Sat by Pulse 100 Oximetry Medical Decision Making - Medical Decision Making Was pt. sent in by a medical professional or institution (, PA, ANTHROPOLOGY FACULTY MEMBER, urgent care, hospital, or group home...) When possible be specific @ -No Did you speak to anyone other than the patient for history (EMS, parent, family, police, friend...)? What history was obtained from this source @ -No Did you review nursing and triage notes (agree or disagree)? Why? @ -I reviewed and agree with nursing and triage notes Were old charts reviewed (outside hosp., previous admission, EMS record, old EKG, old radiological studies, urgent care reports/EKG's, group home records)? Report findings @ -No old charts were reviewed Differential Diagnosis (chest pain, altered mental status, abdominal pain women, abdominal pain men, vaginal bleeding, weakness, fever, dyspnea, syncope, headache, dizziness, GI bleed, back pain, seizure, CVA, palpatations, mental health, musculoskeletal)? @ -Differential Abdominal Pain Men: Appendicitis, cholecystitis, diverticulosis, ischemic bowel, pancreatitis, hepatitis, UTI, gastroenteritis, AAA, incarcerated hernia, bowel obstruction, constipation, inflammatory bowel, hepatitis, peptic ulcer disease, splenic infarction, perforated viscus, testicular torsion, this is not meant to be an all-inclusive list EKG interpreted by me (3pts min.). @ -None X-rays interpreted by me (1pt min.). @ -None done CT interpreted by me (1pt min.). @ -CT abdomen pelvis showing possible enlargement of prostatic urethra for possible obstruction, mild constipation U/S interpreted by me (1pt. min.). @ -None done What testing was considered but not performed or refused? (CT, X-rays, U/S, labs)? Why? @ -None What meds were considered but not given or refused? Why? @ -None Did you discuss the management of the patient with other professionals (professionals i.e. , DAVY, ANTHROPOLOGY FACULTY MEMBER, lab, RT, psych nurse, professor of social work, garage attendant, teacher, chief green officer, lining caser)? Give summary @ -No Was smoking cessation discussed for >3mins.? @ -No Was critical care preformed (if so, how long)? @ -No Were there social determinants of health that impacted care today? How? (Homelessness, low income, unemployed, alcoholism, drug addiction, transport ation, low edu. Level, literacy, decrease access to med. care, prison, rehab)? @ -No Was there de-escalation of care discussed even if they declined (Discuss DNR or withdrawal of care, Hospice)? DNR status @ -No What co-morbidities impacted this encounter? (DM, HTN, Smoking, COPD, CAD, Cancer, CVA, ARF, Chemo, Hep., AIDS, mental health diagnosis, sleep apnea, morbid obesity)? @ -None Was patient admitted / discharged? Hospital course, mention meds given and route, prescriptions, significant lab abnormalities, going to OR and other pertinent info. @ -Discharge patient had a Starks catheter placed with over 400 mL out patient does have hematuria and possible obstructive urethral flow patient will follow- up with urology patient's laboratory studies including hemoglobin and kidney function essentially within normal limits. Patient agrees with plan to follow- up Undiagnosed new problem with uncertain prognosis? @ -No Drug Therapy requiring intensive monitoring for toxicity (Heparin, Nitro, Ins ulin, Cardizem)? @ -No Were any procedures done? @ -No Diagnosis/symptom? @ -Urinary retention, hematuria Acute, or Chronic, or Acute on Chronic? @ -Acute Uncomplicated (without systemic symptoms) or Complicated (systemic symptoms)? @ -Complicated Side effects of treatment? @ -No Exacerbation, Progression, or Severe Exacerbation? @ -No Poses a threat to life or bodily function? How? (Chest pain, USA, DC, pneumonia, PE, COPD, DKA, ARF, appy, cholecystitis, CVA, Diverticulitis, Homicidal, Suicidal, threat to staff... and all critical care pts) @ -No - Lab Data Result diagrams: 12/17/23 07:44 12/17/23 07:44 Lab Results 12/17/23 12/17/23 12/17/23 Range/Units 07:44 07:44 07:44 WBC 8.9 (3.8-10.6) k/uL RBC 3.56 L (4.30-5.90) m/uL Hgb 12.2 L (13.0-17.5) gm/dL Hct 36.2 L (39.0-53.0) % MCV 101.7 H (80.0-100.0) fL MCH 34.4 (25.0-35.0) pg MCHC 33.9 (31.0-37.0) g/dL RDW 13.2 (11.5-15.5) % Plt Count 304 (150-450) k/uL MPV 8.3 Neutrophils % 68 % Lymphocytes % 19 % Monocytes % 10 % Eosinophils % 1 % Basophils % 0 % Neutrophils # 6.1 (1.3-7.7) k/uL Lymphocytes # 1.7 (1.0-4.8) k/uL Monocytes # 0.9 (0-1.0) k/uL Eosinophils # 0.1 (0-0.7) k/uL Basophils # 0.0 (0-0.2) k/uL Macrocytosis Slight PT 14.5 H (10.0-12.5) sec INR 1.4 H (<1.2) APTT 32.2 H (22.0-30.0) sec Sodium (137-145) mmol/L Potassium (3.5-5.1) mmol/L Chloride (98-107) mmol/L Carbon Dioxide (22-30) mmol/L Anion Gap mmol/L BUN (9-20) mg/dL Creatinine (0.66-1.25) mg/dL Est GFR (CKD-EPI)AfAm (>60 ml/min/1.73 sqM) Est GFR (CKD-EPI)NonAf (>60 ml/min/1.73 sqM) Glucose (74-99) mg/dL Plasma Lactic Acid Kael (0.7-2.0) mmol/L Calcium (8.4-10.2) mg/dL Total Bilirubin (0.2-1.3) mg/dL AST (17-59) U/L ALT (4-49) U/L Alkaline Phosphatase (38-126) U/L Total Protein (6.3-8.2) g/dL Albumin (3.5-5.0) g/dL Urine Color Red Urine Appearance Turbid (Clear) Urine pH 5.5 (5.0-8.0) Ur Specific [place] 1.021 (1.001-1.035) Urine Protein 1+ H (Negative) Urine Glucose (UA) Negative (Negative) Urine Ketones Negative (Negative) Urine Blood Moderate H (Negative) Urine Nitrite Negative (Negative) Urine Bilirubin Negative (Negative) Urine Urobilinogen <2.0 (<2.0) mg/dL Ur Leukocyte Esterase Trace H (Negative) Urine RBC >182 H (0-5) /hpf Urine WBC 5 (0-5) /hpf Urine Mucus Rare H (None) /hpf Urine Yeast (Budding) Rare H (None) /hpf Blood Type Blood Type Recheck Bld Type Recheck Status Antibody Screen Spec Expiration Date 12/17/23 12/17/23 12/17/23 Range/Units 07:44 07:44 07:44 WBC (3.8-10.6) k/uL RBC (4.30-5.90) m/uL Hgb (13.0-17.5) gm/dL Hct (39.0-53.0) % MCV (80.0-100.0) fL MCH (25.0-35.0) pg MCHC (31.0-37.0) g/dL RDW (11.5-15.5) % Plt Count (150-450) k/uL MPV Neutrophils % % Lymphocytes % % Monocytes % % Eosinophils % % Basophils % % Neutrophils # (1.3-7.7) k/uL Lymphocytes # (1.0-4.8) k/uL Monocytes # (0-1.0) k/uL Eosinophils # (0-0.7) k/uL Basophils # (0-0.2) k/uL Macrocytosis PT (10.0-12.5) sec INR (<1.2) APTT (22.0-30.0) sec Sodium 138 (137-145) mmol/L Potassium 4.1 (3.5-5.1) mmol/L Chloride 103 (98-107) mmol/L Carbon Dioxide 29 (22-30) mmol/L Anion Gap 6 mmol/L BUN 41 H (9-20) mg/dL Creatinine 0.97 (0.66-1.25) mg/dL Est GFR (CKD-EPI)AfAm 80 (>60 ml/min/1.73 sqM) Est GFR (CKD-EPI)NonAf 70 (>60 ml/min/1.73 sqM) Glucose 107 H (74-99) mg/dL Plasma Lactic Acid Kael 0.9 (0.7-2.0) mmol/L Calcium 9.3 (8.4-10.2) mg/dL Total Bilirubin 0.6 (0.2-1.3) mg/dL AST 35 (17-59) U/L ALT 25 (4-49) U/L Alkaline Phosphatase 121 (38-126) U/L Total Protein 6.8 (6.3-8.2) g/dL Albumin 3.8 (3.5-5.0) g/dL Urine Color Urine Appearance (Clear) Urine pH (5.0-8.0) Ur Specific [place] (1.001-1.035) Urine Protein (Negative) Urine Glucose (UA) (Negative) Urine Ketones (Negative) Urine Blood (Negative) Urine Nitrite (Negative) Urine Bilirubin (Negative) Urine Urobilinogen (<2.0) mg/dL Ur Leukocyte Esterase (Negative) Urine RBC (0-5) /hpf Urine WBC (0-5) /hpf Urine Mucus (None) /hpf Urine Yeast (Budding) (None) /hpf Blood Type A Positive Blood Type Recheck A Pos Bld Type Recheck Status No Antibody Screen NEGATIVE Spec Expiration Date 12/20/20232343 Disposition Clinical Impression: Hematuria, Urinary retention Disposition: HOME SELF-CARE Condition: Stable Instructions (If sedation given, give patient instructions): Urinary Retention in Men (ED) Additional Instructions: Please return to the Emergency Department if symptoms worsen or any other concerns. Is patient prescribed a controlled substance at d/c from ED?: No Referrals: Naveed Santiago MD [Primary Care Provider] - 1-2 days Luther Gonzalez MD [STAFF PHYSICIAN] - 1-2 days Time of Disposition: 10:47
[2023-12-17] MEDS: PANTOPRAZOLE 40 MG/10 ML VIAL IVP STA (07:56)
[2023-12-17] MEDS: ONDANSETRON 4 MG/2 ML VIAL IVP STA (07:56)
[2023-12-17 08:06] LABS: ALT 25 U/L (4-49); AST 35 U/L (17-59); African American GFR (CKD) 80 (>60 ml/min/1.73 sqM); Albumin 3.8 g/dL (3.5-5.0); Alkaline Phosphatase 121 U/L (38-126); Anion Gap 6 mmol/L; Blood Urea Nitrogen 41 mg/dL (9-20); Calcium 9.3 mg/dL (8.4-10.2); Carbon Dioxide 29 mmol/L (22-30); Chloride 103 mmol/L (98-107); Glucose 107 mg/dL (74-99); Non-African American GFR(CKD) 70 (>60 ml/min/1.73 sqM); Potassium 4.1 mmol/L (3.5-5.1); Sodium 138 mmol/L (137-145); Total Bilirubin 0.6 mg/dL (0.2-1.3); Total Protein 6.8 g/dL (6.3-8.2)
[2023-12-17 08:08] LABS: INR 1.4 (<1.2); Partial Thromboplastin Time 32.2 sec (22.0-30.0); Prothrombin Time 14.5 sec (10.0-12.5)
[2023-12-17 08:19] LABS: Basophils % (A) 0 %; Eosinophils # (A) 0.1 k/uL (0-0.7); Eosinophils % (A) 1 %; HCT 36.2 % (39.0-53.0); HGB 12.2 gm/dL (13.0-17.5); Lymphocytes # (A) 1.7 k/uL (1.0-4.8); Lymphocytes % (A) 19 %; MCH 34.4 pg (25.0-35.0); MCHC 33.9 g/dL (31.0-37.0); MCV 101.7 fL (80.0-100.0); Macrocytosis Slight; Mean Platelet Volume 8.3; Monocytes # (A) 0.9 k/uL (0-1.0); Monocytes % (A) 10 %; Neutrophils # (A) 6.1 k/uL (1.3-7.7); Neutrophils % (A) 68 %; Platelet Count 304 k/uL (150-450); RBC 3.56 m/uL (4.30-5.90); RDW 13.2 % (11.5-15.5); WBC 8.9 k/uL (3.8-10.6)
--- NOTE | 2023-12-17 09:05 | CT ---
EXAMINATION TYPE: CT abdomen pelvis wo con DATE OF EXAM: 12/17/2023 COMPARISON: 12/01/2021 HISTORY: hematuria CT DLP: 465.7 mGycm Automated exposure control for dose reduction was used. TECHNIQUE: Helical acquisition of images was performed from the lung bases through the pelvis. FINDINGS: LUNG BASES: There are small bilateral pleural effusions with basilar consolidation. Favor compressive atelectasis. Dense coronary artery calcifications are seen and the heart is enlarged with atheroscle rotic change involving the aortic root and aortic valve. LIVER/GB: Limited by noncontrast technique. No obvious focal lesion. No gallstones. PANCREAS: No significant abnormality is seen. SPLEEN: No significant abnormality is seen. ADRENALS: Adrenal thickening most typical of benign hyperplasia. KIDNEYS: No significant abnormality is seen. A punctate nonobstructing left renal calculi. FREE AIR: No free air is visualized RETROPERITONEAL ADENOPATHY: None visualized REPRODUCTIVE ORGANS: No significant abnormality is seen URINARY BLADDER: No significant abnormality is seen. PELVIC ADENOPATHY: None visualized. OSSEOUS STRUCTURES: Bilateral mild hip arthropathy. Sclerotic densities involving the visualized oss eous structures to small to characterize but likely related to benign bone island. Multilevel degener ative disc disease with generalized demineralization. Most marked findings L5-S1. Multilevel facet ar thropathy. BOWEL: Bowel gas pattern nonspecific with no diagnostic evidence of obstruction. Appendix is not vis ualized. Changes of diverticulosis. Moderate retained stool burden with distention of the rectum be elate for constipation with fecal impaction of the rectum. OTHER: Small fat-containing bilateral inguinal hernia. The prostatic urethra is prominent correlate f or outlet obstruction. Moderate atherosclerotic change aorta. No aneurysm. IMPRESSION: 1. Nonobstructing punctate left renal calculi. 2. Prominence of the prostatic urethra correlate for outlet obstruction. 3. Bilateral pleural effusions. Slight correlate for constipation with fecal impaction in the rectum.
[2023-12-17] MEDS: SODIUM CHLORIDE 0.9% 1,000 ML IV ONE (09:50)
[2023-12-17 10:19] LABS: Appearance,Urine Turbid (Clear); Bilirubin,Urine Negative (Negative); Blood,Urine Moderate (Negative); Budding Yeast,Urine Rare /hpf; Color,Urine Red; Glucose,Urine (UA) Negative (Negative); Ketones,Urine Negative (Negative); Leukocyte Esterase,Urine Trace (Negative); Mucus,Urine Rare /hpf; Nitrite,Urine Negative (Negative); PH, Urine 5.5 (5.0-8.0); Protein,Urine 1+ (Negative); RBC,Urine >182 /hpf (0-5); Specific Gravity,Urine 1.021 (1.001-1.035); Urobilinogen,Urine <2.0 mg/dL (<2.0); WBC,Urine 5 /hpf (0-5)
[2023-12-17 11:47] VITALS: BP 114/69; PULSE 68; RESP 18; TEMP 98
== END 2023-12-17 11:06 | disposition home or self-care (01) ==
LOC: EC 07:14
DX: N20.0 Calculus of kidney (principal); Z88.8 Allergy status to other drugs, medicaments and biological substances; Z87.891 Personal history of nicotine dependence
CPT/HCPCS: 36415; 86900; 86901; 80053; 83605; 85025; 85610; 85730; 86850; 81001; 74176; 99285; 96374; 96375; 96361; 51702; J2405; C9113